=== PATIENT | female | born 1985 | race Caucasian/White ===

== ENCOUNTER 2016-12-27 22:55 | Emergency (ER) | payer OTHER, MEDICARE ==
[2016-12-28 00:32] LABS: HEMATOCRIT 41.2 % (36.0-47.0); HEMOGLOBIN 13.8 g/dL (12.0-15.5); HGB HCT DIFFERENCE 0.2; MEAN CORPUSCULAR HEMOGLOBIN 29.4 pg (27.0-33.4); MEAN CORPUSCULAR HGB CONC 33.6 g/dL (32.0-36.0); MEAN CORPUSCULAR VOLUME 88 fl (80-97); RED CELL DISTRIBUTION WIDTH 13.6 % (11.5-14.0); WHITE BLOOD COUNT 10.2 10^3/uL (4.0-10.5)
[2016-12-28 00:41] LABS: APPEARANCE,URINE CLOUDY; BILIRUBIN,URINE NEGATIVE (NEGATIVE); CALCIUM OXALATE CRYSTALS,URINE MANY /HPF; GLUCOSE, URINE NEGATIVE (NEGATIVE); KETONES,URINE TRACE mg/dL (NEGATIVE); LEUKOCYTE ESTERASE,URINE SMALL (NEGATIVE); NITRITE,URINE NEGATIVE (NEGATIVE); PROTEIN,URINE NEGATIVE (NEGATIVE); URINE SPECIFIC GRAVITY 1.026; UROBILINOGEN,URINE NEGATIVE mg/dL (<2.0)
[2016-12-28 00:42] LABS: ANION GAP 12 (5-19); BLOOD UREA NITROGEN 8 mg/dL (7-20); CARBON DIOXIDE 26 mmol/L (22-30); CHLORIDE 101 mmol/L (98-107); CREATININE RESULT 0.93 mg/dL (0.52-1.25); GLUCOSE 95 mg/dL (75-110); POTASSIUM 4.2 mmol/L (3.6-5.0); SODIUM 138.9 mmol/L (137-145)
--- NOTE | 2016-12-28 00:47 | ER Document Report ---
ED General - General Chief Complaint: Dizziness, fatigue Stated Complaint: WEAKNESS Time Seen by Provider: 12/27/16 23:29 Notes: Patient is a 31-year-old female past medical history of bipolar disorder who presents with concerns of generalized fatigue, dizziness, generalized weakness, and intermittent chest pain for the past 1 week. Nothing improves or worsens or symptoms. States she's had similar symptoms in the past that have been unclear and there are etiology. Denies any history of DVT or pulmonary embolus. She does not use estrogen. Notes that she is not chest pain for at least the past several days and denies any history of pleuritic pain. Her resting heart rate is typically in the low 100s per her report. Denies any vaginal bleeding, vaginal discharge, dysuria, cough, sputum production, sore throat, headache or neck pain. She has not had a fever. TRAVEL OUTSIDE OF THE [place] IN LAST 30 DAYS: No - Related Data Allergies/Adverse Reactions: ssri Adverse Reaction (Uncoded 07/19/16 17:45) Past Medical History - General Information source: Patient - Social History Smoking Status: Never Smoker Frequency of alcohol use: None Drug Abuse: None Lives with: Family Family History: CAD, CVA, DM, Hyperlipidemia, Hypertension, Malignancy Neurological Medical History: Denies: Hx Seizures Renal/ Medical History: Denies: Hx Peritoneal Dialysis GI Medical History: Reports: Hx Gastroesophageal Reflux Disease, Hx Irritable Bowel Musculoskeltal Medical History: Reports Hx Musculoskeletal Trauma Psychiatric Medical History: Reports: Hx Anxiety, Hx Bipolar Disorder, Hx Depression, Hx Obsessive Compulsive Disorder, Hx Post Traumatic Stress Disorder Traumatic Medical History: Reports: Hx Fractures Infectious Medical History: Reports: Hx C-Diff Past Surgical History: Reports: Hx Cholecystectomy, Hx Gynecologic Surgery - , Hx Orthopedic Surgery, Hx Tubal Ligation. Denies: Hx Hysterectomy - Immunizations Immunizations up to date: Yes Hx Diphtheria, Pertussis, Tetanus Vaccination: Yes Hx Pneumococcal Vaccination: 08/21/12 Review of Systems - Review of Systems Notes: Constitutional: Negative for fever. Positive for generalized fatigue HENT: Negative for sore throat. Eyes: Negative for visual changes. Cardiovascular: Negative for chest pain. Respiratory: Negative for shortness of breath. Gastrointestinal: Negative for abdominal pain, vomiting or diarrhea. Genitourinary: Negative for dysuria. Musculoskeletal: Negative for back pain. Skin: Negative for rash. Neurological: Negative for headaches, weakness or numbness. 10 point ROS negative except as marked above and in HPI. Physical Exam - Vital signs Vitals: Temp Pulse Resp BP Pulse Ox 97.5 F 119 H 16 113/75 97 12/27/16 23:00 12/27/16 23:00 12/27/16 23:00 12/27/16 23:00 12/27/16 23:00 Interpretation: Tachycardic Notes: PHYSICAL EXAMINATION: GENERAL: Well-appearing, well-nourished and in no acute distress. HEAD: Atraumatic, normocephalic. EYES: Pupils equal round and reactive to light, extraocular movements intact, sclera anicteric, conjunctiva are normal. ENT: nares patent, oropharynx clear without exudates. Moist mucous membranes. NECK: Normal range of motion, supple without lymphadenopathy LUNGS: Breath sounds clear to auscultation bilaterally and equal. No wheezes rales or rhonchi. HEART: Regular tachycardia without murmurs ABDOMEN: Soft, nontender, normoactive bowel sounds. No guarding, no rebound. No masses appreciated. EXTREMITIES: Normal range of motion, no pitting or edema. No cyanosis. NEUROLOGICAL: No focal neurological deficits. Moves all extremities spontaneously and on command. PSYCH: Normal mood, normal affect. SKIN: Warm, Dry, normal turgor, no rashes or lesions noted. Course - Re-evaluation Re-evalutation: 12/28/16 00:41 Patient presents with multiple vague complaints that did not appear to be concerning for any acute life-threatening pathology. Initial tachycardia which patient states is her baseline and that her heart rate typically rests between 105 and 110. Physical examination is unremarkable. Patient has tolerated oral intake without difficulty. Patient was not noted to be in distress at any point during their ER visit. At this time, based on the reassuring evaluation, I do not suspect an acute SC, pulmonary embolus, aortic dissection, acute intra- abdominal pathology, stroke, or sepsis.Will discharge with return precautions and follow-up recommendations. Verbal discharge instructions given a the bedside and opportunity for questions given. Medication warnings reviewed. Patient is in agreement with this plan and has verbalized understanding of return precautions and the need for primary care follow-up in the next 24-72 hours. - Vital Signs Vital signs: Temp Pulse Resp BP Pulse Ox 97.5 F 119 H 16 113/75 97 12/27/16 23:00 12/27/16 23:00 12/27/16 23:00 12/27/16 23:00 12/27/16 23:00 - Laboratory Result Diagrams: 12/28/16 00:15 12/28/16 00:15 - EKG Interpretation by Me Additional EKG results interpreted by me: 12/28/16 00:42 Sinus tachycardia. Rate 106. No ST elevations or depressions. QTC is 441 Discharge - Discharge Clinical Impression: Weakness Condition: Good Disposition: HOME, SELF-CARE Additional Instructions: The exact cause severe generalized fatigue is unclear at this time with does not appear to be from any acute life-threatening cause. Your labs and EKG here are normal. Please follow closely with her primary care physician.Please return to the emergency room immediately if you experience any concerning symptoms including high fevers, severe headache, chest pain, difficulty breathing, abdominal pain, slurred speech, numbness or weakness in your arms or legs, or any other symptom that concerns you.
[2016-12-28 01:03] VITALS: BP 110/75
--- NOTE | 2016-12-28 13:51 | EKG REPORT ---
SEVERITY:- OTHERWISE NORMAL ECG - SINUS TACHYCARDIA : Confirmed by: Denia Zamorano 28-Dec-2016 13:50:44
== END 2016-12-28 01:03 | disposition home or self-care (01) ==
LOC: ER 22:55
DX: R42 Dizziness and giddiness (principal); R53.83 Other fatigue; K21.9 Gastro-esophageal reflux disease without esophagitis; Z90.49 Acquired absence of other specified parts of digestive tract; Z98.51 Tubal ligation status
CPT/HCPCS: 36415; 80048; 81001; 81025; 85027; 93005; 93010; 99285

== ENCOUNTER 2017-04-17 16:08 | Emergency (ER) | payer OTHER, MEDICARE ==
--- NOTE | 2017-04-17 16:57 | ER Document Report ---
ED Medical Screen (RME) - General Chief Complaint: Abdominal Pain Stated Complaint: ABDOMINAL PAIN Time Seen by Provider: 04/17/17 16:54 Notes: Patient states that she was diagnosed with chlamydia several days ago. She states she had no symptoms but was told by her sexual partner that she should be evaluated. She states when she went for evaluation she tested positive for chlamydia. She took a one-time dose of Zithromax and had no symptoms for 2 days. She states 2 days later she developed right lower quadrant pain that is gradually increased. She has had nausea. She is also had constipation. No vaginal symptoms. No urinary symptoms. No fevers. She was seen today at the [facility] in [place] and referred here for further evaluation. She did bring some laboratory work with her from the [facility] which shows her to have an elevated white blood cell count of 11.28. Patient also states that approximately 3 years ago she had an CT scan done which showed that she may have possible crohns however she has had 3 follow-up colonoscopies that have all been normal. TRAVEL OUTSIDE OF THE [place] IN LAST 30 DAYS: No - Related Data Allergies/Adverse Reactions: ssri Adverse Reaction (Uncoded 04/17/17 16:30) Home Medications: Current Home Medications Clomipramine HCl 25 mg PO QHS 04/17/17 [History] Past Medical History - Social History Family history: Malignancy - colon cancer- dad Neurological Medical History: Denies: Hx Seizures Renal/ Medical History: Denies: Hx Peritoneal Dialysis GI Medical History: Reports: Hx Gastroesophageal Reflux Disease, Hx Irritable Bowel Musculoskeltal Medical History: Reports Hx Musculoskeletal Trauma Psychiatric Medical History: Reports: Hx Anxiety, Hx Bipolar Disorder, Hx Depression, Hx Obsessive Compulsive Disorder, Hx Post Traumatic Stress Disorder Traumatic Medical History: Reports: Hx Fractures Infectious Medical History: Reports: Hx C-Diff Past Surgical History: Reports: Hx Cholecystectomy, Hx Gynecologic Surgery - , Hx Orthopedic Surgery, Hx Tubal Ligation. Denies: Hx Hysterectomy - Immunizations Immunizations up to date: Yes Hx Diphtheria, Pertussis, Tetanus Vaccination: Yes Physical Exam - Vital signs Vitals: Temp Pulse Resp BP Pulse Ox 98.0 F 107 H 20 100/70 98 04/17/17 16:29 04/17/17 16:29 04/17/17 16:29 04/17/17 16:29 04/17/17 16:29 Course - Vital Signs Vital signs: Temp Pulse Resp BP Pulse Ox 98.0 F 107 H 20 100/70 98 04/17/17 16:29 04/17/17 16:29 04/17/17 16:29 04/17/17 16:29 04/17/17 16:29
--- NOTE | 2017-04-17 19:22 | RADIOLOGY REPORT (SQ) ---
EXAM DESCRIPTION: U/S NON OB PEL W/DOPPLER COMPLETED DATE/TIME: 04/17/2017 7:13 pm REASON FOR STUDY: progressive rlq pain COMPARISON: None. TECHNIQUE: Dynamic and static grayscale images acquired of the pelvis via transabdominal approach an d recorded on PACS. Additional selected color Doppler and spectral images recorded. LIMITATIONS: None. FINDINGS: UTERUS: Contour normal. No mass. ENDOMETRIAL STRIPE: No focal or generalized thickening. No masses. CERVIX: No nabothian cysts. RIGHT OVARY: No abnormal masses. RIGHT OVARY DOPPLER: Normal arterial vascular flow without evidence for torsion. LEFT OVARY: No abnormal masses. LEFT OVARY DOPPLER: Normal arterial vascular flow without evidence for torsion. FREE FLUID: None noted. OTHER: No other significant finding. MEASUREMENTS: UTERUS: The 7.7 cm ENDOMETRIAL STRIPE: 1 cm RIGHT OVARY: 2.8 cm LEFT OVARY: 3.1 cm IMPRESSION: NORMAL PELVIC ULTRASOUND BY TRANSABDOMINAL TECHNIQUE. TECHNICAL DOCUMENTATION: JOB ID: [id number] [employer]- All Rights Reserved
--- NOTE | 2017-04-17 20:07 | RADIOLOGY REPORT (SQ) ---
EXAM DESCRIPTION: CT ABD/PELVIS WITH IV ONLY COMPLETED DATE/TIME: 04/17/2017 7:54 pm REASON FOR STUDY: rlq pain COMPARISON: None. TECHNIQUE: CT scan of the abdomen and pelvis performed using helical scanning technique with dynamic intravenous contrast injection. No oral contrast. Images reviewed with lung, soft tissue, and bone windows. Reconstructed coronal and sagittal MPR images reviewed. Delayed images for evaluation of the urinary system also acquired. All images stored on PACS. All CT scanners at this facility use dose modulation, iterative reconstruction, and/or weight based d osing when appropriate to reduce radiation dose to as low as reasonably achievable (ALARA). [facility]: Dose Right [facility]: CareDose [facility]: Dose Right [facility]: Teradose 4D [facility]: [email or web address] CONTRAST TYPE AND DOSE: contrast/concentration: Isovue 370.00 mg/ml; Total Contrast Delivered: 100.0 ml; Total Saline Delivered: 45.0 ml RENAL FUNCTION: GFR > 60. RADIATION DOSE: Up-to-date CT equipment and radiation dose reduction techniques were employed. CTDIv ol: 17.7 - 20.2 mGy. DLP: 2060 mGy-cm.. LIMITATIONS: None. FINDINGS: LOWER CHEST: No significant findings. No nodules or infiltrates. LIVER: Normal size. No masses. No dilated ducts. SPLEEN: Normal size. No focal lesions. PANCREAS: No masses. No significant calcifications. No adjacent inflammation or peripancreatic fluid collections. Pancreatic duct not dilated. GALLBLADDER: Surgically absent. ADRENAL GLANDS: No significant masses or asymmetry. RIGHT KIDNEY AND URETER: No solid masses. No significant calcifications. No hydronephrosis or hyd roureter. LEFT KIDNEY AND URETER: No solid masses. No significant calcifications. No hydronephrosis or hydr oureter. AORTA AND VESSELS: No aneurysm. No dissection. Renal arteries, SMA, celiac without stenosis. RETROPERITONEUM: No retroperitoneal adenopathy, hemorrhage or masses. BOWEL AND PERITONEAL CAVITY: No masses or inflammatory changes. No free fluid or peritoneal masses. APPENDIX: Normal. PELVIS: No mass. No free fluid. Normal bladder. ABDOMINAL WALL: No masses. No hernias. BONES: No significant or acute findings. OTHER: No other significant finding. IMPRESSION: NO SIGNIFICANT OR ACUTE FINDING IN THE ABDOMEN OR PELVIS ON CT SCAN WITH IV CONTRAST. TECHNICAL DOCUMENTATION: JOB ID: [id number] Quality ID # [id number]: Final reports with documentation of one or more dose reduction techniques (e.g., Au tomated exposure control, adjustment of the mA and/or kV according to patient size, use of iterative reconstruction technique) 2010 [employer]- All Rights Reserved
[2017-04-17] MEDS ORDERED: CEPHALEXIN 500 MG CAPSULE PO ONE (20:17)
--- NOTE | 2017-04-17 20:17 | ER Document Report ---
ED GI/ - General Chief Complaint: Abdominal Pain Stated Complaint: ABDOMINAL PAIN Time Seen by Provider: 04/17/17 16:54 Mode of Arrival: Ambulatory Information source: Patient TRAVEL OUTSIDE OF THE [place] IN LAST 30 DAYS: No - HPI Patient complains to provider of: Abdominal pain Onset: Last week Timing/Duration: Persistent Quality of pain: Achy Severity at maximum: Moderate Severity in ED: Moderate Pain Level: 3 Location: RLQ, Pelvis Associated symptoms: Nausea Exacerbated by: Denies Relieved by: Denies Notes: 04/18/17 00:53 Patient is a 32-year-old female who presents to the emergency room from the [facility] for complaints of right lower abdomen, pelvis pain that been going on for the past week and a half and is associated with nausea, denies vomiting or diarrhea, no fevers, no vaginal discharge, she was recently treated for chlamydia on March 28, she last ate around noon time and did not experience any nausea or vomiting after this, denies any decreased in appetite, outpatient labs reveal leukocytosis - Related Data Allergies/Adverse Reactions: ssri Adverse Reaction (Uncoded 04/17/17 16:30) Home Medications: Current Home Medications Clomipramine HCl 25 mg PO QHS 04/17/17 [History] Past Medical History - General Information source: Patient - Social History Smoking Status: Never Smoker Chew tobacco use (# tins/day): No Frequency of alcohol use: None Drug Abuse: None Family History: CAD, CVA, DM, Hyperlipidemia, Hypertension, Malignancy Neurological Medical History: Denies: Hx Seizures Renal/ Medical History: Denies: Hx Peritoneal Dialysis GI Medical History: Reports: Hx Gastroesophageal Reflux Disease, Hx Irritable Bowel Musculoskeltal Medical History: Reports Hx Musculoskeletal Trauma Psychiatric Medical History: Reports: Hx Anxiety, Hx Bipolar Disorder, Hx Depression, Hx Obsessive Compulsive Disorder, Hx Post Traumatic Stress Disorder Traumatic Medical History: Reports: Hx Fractures Infectious Medical History: Reports: Hx C-Diff Past Surgical History: Reports: Hx Cholecystectomy, Hx Gynecologic Surgery - , Hx Orthopedic Surgery, Hx Tubal Ligation. Denies: Hx Hysterectomy - Immunizations Immunizations up to date: Yes Hx Diphtheria, Pertussis, Tetanus Vaccination: Yes Hx Pneumococcal Vaccination: 08/21/12 Review of Systems - Review of Systems Constitutional: No symptoms reported EENT: No symptoms reported Cardiovascular: No symptoms reported Respiratory: No symptoms reported Gastrointestinal: See HPI Genitourinary: No symptoms reported Female Genitourinary: No symptoms reported Musculoskeletal: No symptoms reported Skin: No symptoms reported Hematologic/Lymphatic: No symptoms reported Neurological/Psychological: No symptoms reported -: Yes All other systems reviewed and negative Physical Exam - Vital signs Vitals: Temp Pulse Resp BP Pulse Ox 98.0 F 107 H 20 100/70 98 04/17/17 16:29 04/17/17 16:29 04/17/17 16:29 04/17/17 16:29 04/17/17 16:29 Interpretation: Normal - General General appearance: Appears well, Alert - HEENT Head: Normocephalic, Atraumatic Eyes: Normal Pupils: PERRL - Respiratory Respiratory status: No respiratory distress Chest status: Nontender Breath sounds: Normal Chest palpation: Normal - Cardiovascular Rhythm: Regular Heart sounds: Normal auscultation Murmur: No - Abdominal Inspection: Obese Distension: No distension Bowel sounds: Normal Tenderness: Tender - Right lower quadrant/right pelvis Organomegaly: No organomegaly - Back Back: Normal, Nontender - Extremities General upper extremity: Normal inspection, Nontender, Normal color, Normal ROM , Normal temperature General lower extremity: Normal inspection, Nontender, Normal color, Normal ROM , Normal temperature, Normal weight bearing. No: Leland's sign - Neurological Neuro grossly intact: Yes Cognition: Normal Orientation: AAOx4 [place] Coma Scale Eye Opening: Spontaneous [place] Coma Scale Verbal: Oriented [place] Coma Scale Motor: Obeys Commands [place] Coma Scale Total: 15 Speech: Normal Motor strength normal: LUE, RUE, LLE, RLE Sensory: Normal - Psychological Associated symptoms: Normal affect, Normal mood - Skin Skin Temperature: Warm Skin Moisture: Dry Skin Color: Normal Course - Re-evaluation Re-evalutation: 04/18/17 00:55 Imaging findings were discussed with patient at bedside which are unremarkable, patient was informed that the outpatient labs that she provided reveal a increase in leukocyte esterase on urinalysis greater than 250, symptoms could be associated with a urinary tract infection, therefore she was started on antibiotics for this and advised to follow-up with her primary care provider or return if symptoms worsen, patient acknowledges understanding and agreement with this plan - Vital Signs Vital signs: Temp Pulse Resp BP Pulse Ox 97.4 F 67 20 129/88 H 96 04/17/17 20:32 04/17/17 20:32 04/17/17 16:29 04/17/17 20:32 04/17/17 20:32 - Diagnostic Test Radiology reviewed: Image reviewed, Reports reviewed Discharge - Discharge Clinical Impression: UTI (urinary tract infection) Qualifiers: Urinary tract infection type: site unspecified Hematuria presence: without hematuria Qualified Code(s): N39.0 - Urinary tract infection, site not specified Condition: Stable Disposition: HOME, SELF-CARE Instructions: Urinary Tract Infection ([facility]) Additional Instructions: Follow up with your primary care provider in one to 2 days. Return to the emergency room immediately if symptoms worsen or any additional concerns. Prescriptions: Cephalexin Monohydrate [Keflex 500 mg Capsule] 500 mg PO BID #20 capsule
[2017-04-17 20:34] VITALS: BP 129/88
== END 2017-04-17 20:31 | disposition home or self-care (01) ==
LOC: ER 16:08
DX: N39.0 Urinary tract infection, site not specified (principal); R10.31 Right lower quadrant pain; R10.2 Pelvic and perineal pain; R11.0 Nausea; Z87.19 Personal history of other diseases of the digestive system; Z90.49 Acquired absence of other specified parts of digestive tract; Z98.51 Tubal ligation status
CPT/HCPCS: 74177; 76856; 93976; 99284

== ENCOUNTER 2017-05-10 13:43 | Emergency (ER) | payer OTHER, MEDICARE ==
[2017-05-10] MEDS ORDERED: NORMAL SALINE 1000 ML 1,000 ML IV PRN ×2 (15:53→16:06)
--- NOTE | 2017-05-10 15:54 | ER Document Report ---
ED Medical Screen (RME) - General Chief Complaint: Weakness Stated Complaint: DIZZINESS Time Seen by Provider: 05/10/17 15:53 Notes: Patient reports that she is very lightheaded dizzy and weak. She states she was recently diagnosed with a urinary tract infection but has not been taking the antibiotics because she "forgets". TRAVEL OUTSIDE OF THE [place] IN LAST 30 DAYS: No - Related Data Allergies/Adverse Reactions: ssri Adverse Reaction (Uncoded 05/10/17 14:00) Past Medical History - Social History Family history: Malignancy - colon cancer- dad Neurological Medical History: Denies: Hx Seizures Renal/ Medical History: Denies: Hx Peritoneal Dialysis GI Medical History: Reports: Hx Gastroesophageal Reflux Disease, Hx Irritable Bowel Musculoskeltal Medical History: Reports Hx Musculoskeletal Trauma Psychiatric Medical History: Reports: Hx Anxiety, Hx Bipolar Disorder, Hx Depression, Hx Obsessive Compulsive Disorder, Hx Post Traumatic Stress Disorder Traumatic Medical History: Reports: Hx Fractures Infectious Medical History: Reports: Hx C-Diff Past Surgical History: Reports: Hx Cholecystectomy, Hx Gynecologic Surgery - , Hx Orthopedic Surgery, Hx Tubal Ligation. Denies: Hx Hysterectomy - Immunizations Immunizations up to date: Yes Hx Diphtheria, Pertussis, Tetanus Vaccination: Yes Physical Exam - Vital signs Vitals: Temp Pulse Resp BP Pulse Ox 98.7 F 123 H 14 126/83 H 97 05/10/17 13:59 05/10/17 13:59 05/10/17 13:59 05/10/17 13:59 05/10/17 13:59 Course - Vital Signs Vital signs: Temp Pulse Resp BP Pulse Ox 98.7 F 123 H 14 126/83 H 97 05/10/17 13:59 05/10/17 13:59 05/10/17 13:59 05/10/17 13:59 05/10/17 13:59
[2017-05-10 16:22] LABS: APPEARANCE,URINE SLIGHTLY-CLOUDY; BILIRUBIN,URINE NEGATIVE (NEGATIVE); GLUCOSE, URINE NEGATIVE (NEGATIVE); KETONES,URINE NEGATIVE (NEGATIVE); LEUKOCYTE ESTERASE,URINE NEGATIVE (NEGATIVE); NITRITE,URINE NEGATIVE (NEGATIVE); PROTEIN,URINE 30 mg/dL (NEGATIVE); URINE SPECIFIC GRAVITY 1.028; UROBILINOGEN,URINE NEGATIVE mg/dL (<2.0)
[2017-05-10 16:30] LABS: ABSOLUTE BASOPHILS # (AUTO) 0.1 10^3/uL (0.0-0.2); ABSOLUTE EOSINOPHILS # (AUTO) 0.3 10^3/uL (0.0-0.6); ABSOLUTE LYMPHOCYTES (AUTO) 2.5 10^3/uL (0.5-4.7); ABSOLUTE MONOCYTES (AUTO) 0.6 10^3/uL (0.1-1.4); ABSOLUTE NEUT (AUTO) 7.4 10^3/uL (1.7-8.2); BASOPHILS % (AUTO) 0.8 % (0-2); EOSINOPHILS % (AUTO) 2.8 % (0-6); HEMATOCRIT 41.9 % (36.0-47.0); HEMOGLOBIN 14.3 g/dL (12.0-15.5); LYMPHOCYTES % (AUTO) 23.1 % (13-45); MEAN CORPUSCULAR HEMOGLOBIN 30.2 pg (27.0-33.4); MEAN CORPUSCULAR HGB CONC 34.2 g/dL (32.0-36.0); MEAN CORPUSCULAR VOLUME 88 fl (80-97); MONOCYTES % (AUTO) 5.5 % (3-13); RED BLOOD COUNT 4.75 10^6/uL (3.72-5.28); RED CELL DISTRIBUTION WIDTH 13.4 % (11.5-14.0); SEGMENTED NEUTROPHILS % (AUTO) 67.8 % (42-78); WHITE BLOOD COUNT 10.9 10^3/uL (4.0-10.5)
[2017-05-10 16:48] LABS: ALANINE AMINOTRANSFERASE 49 U/L (9-52); ALBUMIN 4.6 g/dL (3.5-5.0); ALKALINE PHOSPHATASE 78 U/L (38-126); ANION GAP 14 (5-19); ASPARTATE AMINO TRANSFERASE 26 U/L (14-36); BILIRUBIN,DIRECT 0.4 mg/dL (0.0-0.4); BILIRUBIN,TOTAL 1.6 mg/dL (0.2-1.3); BLOOD UREA NITROGEN 8 mg/dL (7-20); CALCIUM 9.9 mg/dL (8.4-10.2); CARBON DIOXIDE 28 mmol/L (22-30); CHLORIDE 99 mmol/L (98-107); CREATININE RESULT 0.84 mg/dL (0.52-1.25); GLUCOSE 92 mg/dL (75-110); POTASSIUM 4.4 mmol/L (3.6-5.0); SODIUM 141.3 mmol/L (137-145)
[2017-05-10 17:59] LABS: THYROID STIMULATING HORMONE 1.29 uIU/mL (0.47-4.68)
--- NOTE | 2017-05-10 18:48 | EKG REPORT ---
SEVERITY:- BORDERLINE ECG - SINUS RHYTHM BORDERLINE T ABNORMALITIES, INFERIOR LEADS : Confirmed by: Scott Pena MD 10-May-2017 18:46:56
--- NOTE | 2017-05-10 20:31 | ER Document Report ---
ED Dizziness/Weakness - General Chief Complaint: Weakness Stated Complaint: DIZZINESS Time Seen by Provider: 05/10/17 15:53 Notes: Patient says that she has been experiencing extreme weakness over the past few days. She said that she did not sleep well Monday or Monday and thought she may have just been tired from lack of sleep. However, last night, she felt extremely tired while sitting and watching television. 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 She currently has no infection sites anywhere on her body and does not have any symptoms that suggest an infection. Denies fever. Denies any current UTI symptoms. She was treated here in this emergency department 2 or 3 weeks ago for a UTI, but says she did not take her medications as prescribed and even has some leftover and took one last night. She denies any difficulty breathing or shortness of breath. Patient has a history of a fast heartbeat. She has been worked up extensively to include wearing a 24-hour Holter monitor. Her primary care provider is at the [place] [facility]. Denies history of high thyroid function. Has not had any recent fever. PMH: Cholecystectomy, BTL, gastroparesis, bipolar disorder, OCD, anxiety TRAVEL OUTSIDE OF THE [place] IN LAST 30 DAYS: No - Related Data Allergies/Adverse Reactions: ssri Adverse Reaction (Uncoded 05/10/17 14:00) Past Medical History - Social History Smoking Status: Never Smoker Frequency of alcohol use: None Drug Abuse: None Family History: CAD, CVA, DM, Hyperlipidemia, Hypertension, Malignancy - Past Medical History Cardiac Medical History: Reports: Other - History of rapid heartbeat. Denies: Hx Atrial Fibrillation Neurological Medical History: Denies: Hx Seizures Endocrine Medical History: Denies: Hx Hyperthyroidism GI Medical History: Reports: Hx Gastroesophageal Reflux Disease, Hx Irritable Bowel Musculoskeltal Medical History: Reports Hx Musculoskeletal Trauma Psychiatric Medical History: Reports: Hx Anxiety, Hx Bipolar Disorder, Hx Depression, Hx Obsessive Compulsive Disorder, Hx Post Traumatic Stress Disorder Traumatic Medical History: Reports: Hx Fractures Infectious Medical History: Reports: Hx C-Diff Past Surgical History: Reports: Hx Cholecystectomy, Hx Gynecologic Surgery - , Hx Orthopedic Surgery, Hx Tubal Ligation. Denies: Hx Hysterectomy - Immunizations Immunizations up to date: Yes Hx Diphtheria, Pertussis, Tetanus Vaccination: Yes Hx Pneumococcal Vaccination: 08/21/12 Review of Systems - Review of Systems Notes: REVIEW OF SYSTEMS: CONSTITUTIONAL : Denies fever. Feeling very weak, see HPI. EENT: Denies eye, ear, nose or mouth or throat pain or other symptoms. CARDIOVASCULAR: Denies chest pain. RESPIRATORY: Denies cough, chest congestion, or shortness of breath. GASTROINTESTINAL: Denies abdominal pain or nausea, vomiting, or diarrhea. GENITOURINARY: Denies difficulty or painful urinating, urinary frequency, blood in urine. MUSCULOSKELETAL: Denies back or neck pain. Denies joint pain or swelling. SKIN: Denies rash or skin lesions. NEUROLOGICAL: Denies LOC or altered mental status. Denies headache. Denies sensory loss or motor deficits. Psych: Denies current anxiety or depression. ALL OTHER SYSTEMS REVIEWED AND NEGATIVE. Physical Exam - Vital signs Vitals: Temp Pulse Resp BP Pulse Ox 98.7 F 123 H 14 126/83 H 97 05/10/17 13:59 05/10/17 13:59 05/10/17 13:59 05/10/17 13:59 05/10/17 13:59 Interpretation: Tachycardic - Notes Notes: PHYSICAL EXAMINATION: GENERAL: Well-appearing, in no acute distress. Heart rate at the time of my examination is 105. Smiling and pleasant and cooperative. HEAD: Atraumatic, normocephalic. EYES: Pupils equal round and reactive to light, extraocular movements intact. ENT: oropharynx clear without exudates. Moist mucous membranes. NECK: Normal range of motion, supple. LUNGS: Breath sounds clear and equal bilaterally. HEART: Regular rate at 105 and rhythm without murmurs. ABDOMEN: Soft, nontender. No guarding or rebound. BACK: No tenderness throughout entire back. EXTREMITIES: Normal range of motion without pain. No swelling or pain or anything suggesting possible DVT. Negative Homans bilaterally. NEUROLOGICAL: Normal speech, normal gait. Normal sensory, motor, and reflex exams. Awake, alert, and oriented x3. Cranial nerves normal. PSYCH: Normal mood, normal affect. SKIN: Warm, dry, no rashes. Course - Vital Signs Vital signs: Temp Pulse Resp BP Pulse Ox 98.7 F 123 H 18 111/80 100 05/10/17 13:59 05/10/17 13:59 05/10/17 20:00 05/10/17 17:15 05/10/17 20:00 - Laboratory Result Diagrams: 05/10/17 16:10 05/10/17 16:10 Laboratory results interpreted by me: 05/10/17 05/10/17 05/10/17 14:00 16:10 16:10 WBC 10.9 H Total Bilirubin 1.6 H Urine Protein 30 H 05/10/17 20:45 Very minimal leukocytosis noted. - EKG Interpretation by [place] EKG shows normal: Sinus rhythm Rate: Normal Rhythm: NSR - At 93. Additional EKG results interpreted by me: 05/10/17 20:[address] changes. No acute changes noted. Discharge - Discharge Clinical Impression: Weakness, Leukocytosis, Viral illness Condition: Stable Disposition: HOME, SELF-CARE Additional Instructions: Weakness We did not find a definite cause for your weakness. This may require further medical tests. Weakness can be caused by infection, physical exhaustion , rapid weight loss, dehydration, or medicine side effects. Diseases of the muscles, heart, nerves, and blood vessels can make you weak. Sometimes the problem is simply depression or lack of exercise. You should get plenty of rest. Unless the doctor tells you otherwise, it's usually best to add short periods of regular mild exercise. Eat a nutritious diet with multiple small, low-sugar meals. If symptoms continue, additional medical evaluation will be necessary. Be sure to follow up as instructed. If you become very dizzy, nauseated, or feel like you're going to faint, lie down right away. Wait until the symptoms have passed before you get up again. Stand up slowly. Call the doctor or return if you develop chest pain, abdominal pain, severe headache, irregular heartbeat or very fast pulse, confusion, vision problems, fever, muscular pain, or any other new symptom. Leukocytosis Leukocytosis is an elevation or increase in the number of white blood cells. Nearly all leukocytosis is due to one type of white blood cell, the polymorphonuclear leukocyte (PMN). These conditions are more accurately referred to as neutrophilia. The most common and important cause of neutrophilia is infection, and most infections cause neutrophilia. The degree of elevation often indicates the severity of the infection. Tissue damage from other causes raises the white count for similar reasons. Beasley, infarction (cutting off the blood supply to a region of the body so that it dies), crush injuries, inflammatory diseases, poisonings, and severe diseases, like kidney failure and diabetic ketoacidosis, all cause neutrophilia. Counts almost as high occur in leukemoid (leukemia-like) reactions caused by infection and non-infectious inflammation. Drugs can also cause leukocytosis. Cortisone-like drugs prednisone, lithium , and NSAIDs are the most common offenders. Non-specific stresses also cause white blood cells to increase in the blood. Extensive testing of medical students reveals that neutrophilia accompanies every examination. Vigorous exercise and intense excitement also cause elevated white blood cell counts. NORMAL EXAM AND WORKUP: At this time, except for your minimally elevated white cell count, your examination and workup show no significant abnormality. No significant abnormal physical findings were noted. All laboratory, EKG, and imaging (x-ray , CT scans, ultrasound) studies that were ordered show no significant abnormality. Although your examination and all studies that were ordered showed no significant abnormal finding, there are no examinations and no studies that are 100% accurate. There is always the possibility that some abnormality could exist and not be detected with physical examination or within the limits and capabilities of laboratory and other studies. You should return or follow up as you were instructed on your visit today for further evaluation if your symptoms do not resolve. Your symptoms and physical findings are suggestive of a viral illness. The physician has diagnosed a possible viral infection. Viruses not only cause "colds," but can cause many different symptoms including generalized aching, fever, headache, cough, diarrhea, nausea, vomiting, and fatigue. The treatment, for the most part, is simply relief of symptoms. This means that antibiotics are usually not given. Rest, fluids, pain medications and, occasionally, medication for the specific symptoms that are most bothersome will be prescribed. Use good handwashing to avoid passing the virus to others. Shared toys should be cleaned with disinfectant. Clean the toilets, sinks, and counter surfaces in bathrooms. Launder clothing in hot water. Contact the physician if you develop any new or unusual symptoms such as severe headache, stiff neck, high fever, chest pain, productive cough, or shortness of breath. You should be rechecked if you don't see marked improvement within seven to 10 days. FOLLOW-UP CARE: If you have been referred to a physician for follow-up care, call the physician s office for an appointment as you were instructed or within the next two days. If you experience worsening or a significant change in your symptoms, notify the physician immediately or return to the Emergency Department at any time for re-evaluation. I would expect that she will feel better in the next day or 2. If not, in particular if you begin to run significant fevers, or other symptoms, return at any time for us to reassess and reevaluate your condition.
[2017-05-10 20:52] VITALS: BP 111/75
== END 2017-05-10 20:49 | disposition home or self-care (01) ==
LOC: ER 13:43
DX: D72.829 Elevated white blood cell count, unspecified (principal); B34.9 Viral infection, unspecified; R53.1 Weakness; R42 Dizziness and giddiness
CPT/HCPCS: 93005; 99285; 96360; 36415; 84439; 84443; 85025; 81025; 86308; 80053; 81001; 93010; J7030

== ENCOUNTER 2017-08-25 11:25 | Emergency (ER) | payer OTHER, MEDICARE ==
[2017-08-25] MEDS ORDERED: FLUTICASONE NASAL SPRAY 50 MCG/SPRY 120 SPRAY/16 GM NASL ONE (13:00)
--- NOTE | 2017-08-25 13:05 | ER Document Report ---
ED ENT - General Chief Complaint: Dizziness Stated Complaint: DIZZY Time Seen by Provider: 08/25/17 12:59 Mode of Arrival: Ambulatory Information source: Patient Notes: 32-year-old female presents to ED for complaint of cough congestion sore throat dizziness 2 days. She states she also is concerned that she might be . TRAVEL OUTSIDE OF THE [place] IN LAST 30 DAYS: No - HPI Patient complains to provider of: Ear problem, Nose problem, Throat problem, Other - Dizziness Onset: Other - 2 days Onset/Duration: Intermittent Severity: Mild Pain Level: 1 Location of pain: Ears, Nose, Sinus Associated symptoms: Congestion, Cough, Dizziness, Ear pain, Runny nose, Sinus pain, Sinus drainage, Sore throat Similar symptoms previously: Yes Recently seen / treated by doctor: No - Related Data Allergies/Adverse Reactions: ssri Adverse Reaction (Uncoded 08/25/17 11:27) Past Medical History - General Information source: Patient - Social History Smoking Status: Never Smoker Cigarette use (# per day): No Chew tobacco use (# tins/day): No Smoking Education Provided: No Frequency of alcohol use: None Drug Abuse: None Lives with: Family Family History: CAD, CVA, DM, Hyperlipidemia, Hypertension, Malignancy. denies : Arthritis, COPD, Thyroid Disfunction Patient has suicidal ideation: No Patient has homicidal ideation: No - Past Medical History Cardiac Medical History: Reports: None Pulmonary Medical History: Reports: None EENT Medical History: Reports: None Neurological Medical History: Reports: None Endocrine Medical History: Reports: None Renal/ Medical History: Reports: None Malignancy Medical History: Reports: None GI Medical History: Reports: Hx Gastroesophageal Reflux Disease, Hx Irritable Bowel Musculoskeltal Medical History: Reports Hx Musculoskeletal Trauma Skin Medical History: Reports None Psychiatric Medical History: Reports: Hx Anxiety, Hx Bipolar Disorder, Hx Depression, Hx Obsessive Compulsive Disorder, Hx Post Traumatic Stress Disorder Traumatic Medical History: Reports: Hx Fractures Infectious Medical History: Reports: Hx C-Diff Past Surgical History: Reports: Hx Cholecystectomy, Hx Gynecologic Surgery - , Hx Orthopedic Surgery, Hx Tubal Ligation - Immunizations Immunizations up to date: Yes Hx Diphtheria, Pertussis, Tetanus Vaccination: Yes Hx Pneumococcal Vaccination: 08/21/12 Review of Systems - Review of Systems Constitutional: No symptoms reported EENT: Ear pain, Nose pain, Nose congestion, Sinus pressure, Sinus discharge, Throat pain Cardiovascular: Dizziness Respiratory: No symptoms reported Gastrointestinal: No symptoms reported Genitourinary: No symptoms reported Female Genitourinary: No symptoms reported Musculoskeletal: No symptoms reported Skin: No symptoms reported Hematologic/Lymphatic: No symptoms reported Neurological/Psychological: No symptoms reported -: Yes All other systems reviewed and negative Physical Exam - Vital signs Vitals: Temp Pulse BP Pulse Ox 97.7 F 124 H 109/85 99 08/25/17 11:33 08/25/17 11:33 08/25/17 11:33 08/25/17 11:33 Interpretation: Normal - General General appearance: Appears well, Alert - HEENT Head: Normocephalic, Atraumatic Eyes: Normal Pupils: PERRL Ears: Normal External canal: Normal Tympanic membrane: Serous effusion Sinus: Frontal, Tenderness Nasal: Purulent discharge, Swelling Mouth/Lips: Normal Mucous membranes: Normal Pharynx: Post nasal drainage Neck: Normal - Respiratory Respiratory status: No respiratory distress Chest status: Nontender Breath sounds: Nonproductive cough. No: Decreased air movement, Productive cough, Rales, Rhonchi, Stridor, Wheezing Chest palpation: Normal - Cardiovascular Rhythm: Regular Heart sounds: Normal auscultation Murmur: No - Abdominal Inspection: Normal Distension: No distension Bowel sounds: Normal Tenderness: Nontender Organomegaly: No organomegaly - Back Back: Normal, Nontender - Extremities General upper extremity: Normal inspection, Nontender, Normal color, Normal ROM , Normal temperature General lower extremity: Normal inspection, Nontender, Normal color, Normal ROM , Normal temperature, Normal weight bearing. No: Leland's sign - Neurological Neuro grossly intact: Yes Cognition: Normal Orientation: AAOx4 [place] Coma Scale Eye Opening: Spontaneous [place] Coma Scale Verbal: Oriented [place] Coma Scale Motor: Obeys Commands [place] Coma Scale Total: 15 Speech: Normal Motor strength normal: LUE, RUE, LLE, RLE Sensory: Normal - Psychological Associated symptoms: Normal affect, Normal mood - Skin Skin Temperature: Warm Skin Moisture: Dry Skin Color: Normal Course - Vital Signs Vital signs: Temp Pulse Resp BP Pulse Ox 98.1 F 120 H 18 117/81 97 08/25/17 12:56 08/25/17 14:13 08/25/17 14:13 08/25/17 14:13 08/25/17 14:13 - Laboratory Laboratory results interpreted by me: 01/05/18 11:35 Urine Protein 30 H Ur Leukocyte Esterase TRACE H Discharge - Discharge Clinical Impression: URI (upper respiratory infection) Qualifiers: URI type: unspecified URI Qualified Code(s): J06.9 - Acute upper respiratory infection, unspecified UTI (urinary tract infection) Qualifiers: Urinary tract infection type: site unspecified Hematuria presence: without hematuria Qualified Code(s): N39.0 - Urinary tract infection, site not specified Condition: Stable Disposition: HOME, SELF-CARE Additional Instructions: UPPER RESPIRATORY ILLNESS: You have a viral infection of the respiratory passages -- a "cold." This common infection causes nasal congestion, drainage, and often sore throat and cough. It is highly contagious. The disease usually lasts about 10 to 14 days. There is no "cure" for the viral infection -- it must run its course. If there is a complication, such as bacterial infection in the nose, sinuses, middle ear, or bronchial tubes, antibiotics may be required. The antibiotics won't affect the virus. Drink plenty of fluids. A humidifier may help. An expectorant medication or decongestant may make you more comfortable. Use acetaminophen or ibuprofen for fever or aches. See the doctor if fever persists over two days, if there is any significant worsening of your symptoms, or if you simply fail to improve as expected. You have been given Flonase in the emergency room. You can use 2 sprays twice a day for your upper respiratory infection. Salt and soda solution 1 quart of water 1 tablespoon of salt 1 teaspoon of baking soda Mixed 3 ingredients together and boil for 1 minute Placed in a covered quart jar Use 1/2 ounce of cold solution to gargle 3 times a day URINARY TRACT INFECTION: Your evaluation indicates that you have a urinary tract infection. This is due to germs growing in the bladder. This is a common problem. This infection usually responds quickly to antibiotics. Your antibiotic should be taken exactly as prescribed. Drink plenty of fluids -- three to four quarts a day. Occasionally, a bladder anesthetic will be prescribed to help stop the feeling of urgency until the antibiotic has a chance to clear the infection. This may cause your urine to be dark orange. Certain urine infections require a culture. If the doctor obtained a culture, the results will be back in two days. You should call to see if a change in treatment is needed. A repeat urinalysis after you finish treatment is often recommended. The physician will let you know if further testing is required. Call the doctor if you develop fever, chills, flank pain, inability to urinate, or blood in the urine. NITROFURANTOIN (MACRODANTIN, MACROBID): You have received a prescription for nitrofurantoin (Macrodantin). This antibiotic is used for urinary tract infections. Women who are or nursing should notify the physician before taking this medicine. If you have ever had a problem caused by this medication in the past, be sure the physician is aware of it. Common side effects of this medicine include nausea, vomiting, or decreased appetite. Notify your physician if these side effects become severe. Immediately stop this medicine and call the physician if you develop cough , shortness of breath, chest pain, weakness, jaundice (yellow color of the skin and whites of the eyes), or a skin rash. FOLLOW-UP CARE: If you have been referred to a physician for follow-up care, call the physician s office for an appointment as you were instructed or within the next two days. If you experience worsening or a significant change in your symptoms, notify the physician immediately or return to the Emergency Department at any time for re-evaluation. Prescriptions: Nitrofurantoin/Nitrofuran Mac [Macrobid 100 mg Capsule] 1 tab PO BID #20 capsule Forms: Return to Work Referrals: JUANITO COLEY NP [Primary Care Provider] - Follow up as needed
[2017-08-25 13:31] LABS: AMORPHOUS SEDIMENT,URINE TRACE /HPF; APPEARANCE,URINE TURBID; BILIRUBIN,URINE NEGATIVE (NEGATIVE); COLOR,URINE DARK YELLOW; GLUCOSE, URINE NEGATIVE (NEGATIVE); KETONES,URINE NEGATIVE (NEGATIVE); LEUKOCYTE ESTERASE,URINE TRACE (NEGATIVE); NITRITE,URINE NEGATIVE (NEGATIVE); PROTEIN,URINE 30 mg/dL (NEGATIVE); URINE SPECIFIC GRAVITY 1.025; UROBILINOGEN,URINE NEGATIVE mg/dL (<2.0)
[2017-08-25] MEDS ORDERED: NITROFURANTOIN MONOHYD/M-CRYST 100 MG CAPSULE PO ONE (14:08)
[2017-08-25 14:14] VITALS: BP 117/81
== END 2017-08-25 14:18 | disposition home or self-care (01) ==
LOC: ER 11:25
DX: J06.9 Acute upper respiratory infection, unspecified (principal); N39.0 Urinary tract infection, site not specified; R42 Dizziness and giddiness; R05 Cough; R09.81 Nasal congestion; J02.9 Acute pharyngitis, unspecified; R09.89 Other specified symptoms and signs involving the circulatory and respiratory systems
CPT/HCPCS: 99284; 87086; 81025; 81001; J8499

== ENCOUNTER 2017-08-26 15:02 | Emergency (ER) | payer OTHER, MEDICARE ==
[2017-08-26] MEDS ORDERED: ONDANSETRON 4 MG TAB.RAPDIS PO ONE (16:29)
[2017-08-26] MEDS ORDERED: NORMAL SALINE 1000 ML 1,000 ML IV ONE (16:31)
--- NOTE | 2017-08-26 16:34 | ER Document Report ---
ED Medical Screen (RME) - General Chief Complaint: Nausea/Vomiting/Diarrhea Stated Complaint: DIZZINESS Time Seen by Provider: 08/26/17 16:28 Mode of Arrival: Ambulatory Information source: Patient Notes: Pt is a 32 year old female who presents to the ER today for 3 days of cough/ vomiting/diarrhea/dizziness/urinary tract infection. She was diagnosed yesterday here and given a script for abx for uti, but can't get them filled for 2 more days so she hasn't started them yet. TRAVEL OUTSIDE OF THE [place] IN LAST 30 DAYS: No - Related Data Allergies/Adverse Reactions: ssri Adverse Reaction (Uncoded 08/26/17 15:03) Past Medical History - General Information source: Patient - Social History Family history: Malignancy - colon cancer- dad - Past Medical History Cardiac Medical History: Denies: Hx Atrial Fibrillation Neurological Medical History: Denies: Hx Seizures Endocrine Medical History: Denies: Hx Hyperthyroidism Renal/ Medical History: Denies: Hx Peritoneal Dialysis GI Medical History: Reports: Hx Gastroesophageal Reflux Disease, Hx Irritable Bowel Musculoskeltal Medical History: Reports Hx Musculoskeletal Trauma Psychiatric Medical History: Reports: Hx Anxiety, Hx Bipolar Disorder, Hx Depression, Hx Obsessive Compulsive Disorder, Hx Post Traumatic Stress Disorder Traumatic Medical History: Reports: Hx Fractures Infectious Medical History: Reports: Hx C-Diff Past Surgical History: Reports: Hx Cholecystectomy, Hx Gynecologic Surgery - , Hx Orthopedic Surgery, Hx Tubal Ligation. Denies: Hx Hysterectomy - Immunizations Immunizations up to date: Yes Hx Diphtheria, Pertussis, Tetanus Vaccination: Yes Review of Systems - Review of Systems Constitutional: See HPI EENT: See HPI Respiratory: See HPI Gastrointestinal: See HPI Genitourinary: See HPI Physical Exam - Vital signs Vitals: Temp Pulse Resp BP Pulse Ox 98.7 F 117 H 18 114/80 97 08/26/17 15:25 08/26/17 15:25 08/26/17 15:25 08/26/17 15:25 08/26/17 15:25 - Notes Notes: general mildly ill appearing Course - Vital Signs Vital signs: Temp Pulse Resp BP Pulse Ox 98.7 F 117 H 18 114/80 97 08/26/17 15:25 08/26/17 15:25 08/26/17 15:25 08/26/17 15:25 08/26/17 15:25
[2017-08-26 17:13] LABS: ABSOLUTE BASOPHILS # (AUTO) 0.1 10^3/uL (0.0-0.2); ABSOLUTE EOSINOPHILS # (AUTO) 0.3 10^3/uL (0.0-0.6); ABSOLUTE LYMPHOCYTES (AUTO) 1.3 10^3/uL (0.5-4.7); ABSOLUTE MONOCYTES (AUTO) 0.8 10^3/uL (0.1-1.4); ABSOLUTE NEUT (AUTO) 4.8 10^3/uL (1.7-8.2); HEMATOCRIT 42.5 % (36.0-47.0); HEMOGLOBIN 14.2 g/dL (12.0-15.5); LYMPHOCYTES % (AUTO) 18.2 % (13-45); MEAN CORPUSCULAR HEMOGLOBIN 29.2 pg (27.0-33.4); MEAN CORPUSCULAR HGB CONC 33.4 g/dL (32.0-36.0); MEAN CORPUSCULAR VOLUME 87 fl (80-97); MONOCYTES % (AUTO) 10.5 % (3-13); PLATELET COUNT 383 10^3/uL (150-450); RED BLOOD COUNT 4.86 10^6/uL (3.72-5.28); RED CELL DISTRIBUTION WIDTH 13.4 % (11.5-14.0); SEGMENTED NEUTROPHILS % (AUTO) 66.3 % (42-78); TOTAL CELLS COUNTED % (AUTO) 100 %; WHITE BLOOD COUNT 7.3 10^3/uL (4.0-10.5)
[2017-08-26 17:25] LABS: A TYPE INFLUENZA AG POSITIVE (NEGATIVE); B INFLUENZA AG NEGATIVE (NEGATIVE)
[2017-08-26 17:26] LABS: ALANINE AMINOTRANSFERASE 54 U/L (9-52); ALBUMIN 4.9 g/dL (3.5-5.0); ALKALINE PHOSPHATASE 101 U/L (38-126); ANION GAP 14 (5-19); ASPARTATE AMINO TRANSFERASE 29 U/L (14-36); BILIRUBIN,DIRECT 0.2 mg/dL (0.0-0.4); BILIRUBIN,TOTAL 1.3 mg/dL (0.2-1.3); BLOOD UREA NITROGEN 6 mg/dL (7-20); CALCIUM 9.9 mg/dL (8.4-10.2); CARBON DIOXIDE 28 mmol/L (22-30); CHLORIDE 99 mmol/L (98-107); GLUCOSE 91 mg/dL (75-110); POTASSIUM 4.1 mmol/L (3.6-5.0); SODIUM 141.2 mmol/L (137-145); TOTAL PROTEIN 8.3 g/dL (6.3-8.2)
[2017-08-26] MEDS ORDERED: CEFTRIAXONE 1 GM/D5W RTU 1 GM/50 ML RTUPB IV ONE (17:46)
[2017-08-26 18:40] LABS: APPEARANCE,URINE CLOUDY; BILIRUBIN,URINE NEGATIVE (NEGATIVE); COLOR,URINE YELLOW; GLUCOSE, URINE NEGATIVE (NEGATIVE); KETONES,URINE 20 mg/dL (NEGATIVE); LEUKOCYTE ESTERASE,URINE TRACE (NEGATIVE); NITRITE,URINE NEGATIVE (NEGATIVE); PROTEIN,URINE 30 mg/dL (NEGATIVE); URINE SPECIFIC GRAVITY 1.027; UROBILINOGEN,URINE NEGATIVE mg/dL (<2.0)
[2017-08-26] MEDS ORDERED: NORMAL SALINE 1000 ML 1,000 ML IV PRN (18:51)
[2017-08-26] MEDS ORDERED: METOCLOPRAMIDE HCL 10 MG TABLET PO ONE (19:23)
--- NOTE | 2017-08-26 19:37 | ER Document Report ---
ED General - General Chief Complaint: Nausea/Vomiting/Diarrhea Stated Complaint: DIZZINESS Time Seen by Provider: 08/26/17 16:28 Mode of Arrival: Ambulatory Information source: Patient Notes: This is a 32-year-old female with a history of bipolar affective disorder that is states she started developing a dry cough 5 days ago with some dysuria and was diagnosed with a UTI. She states that she was given a prescription for antibiotics but was not able to fill them. She states that 24 hours after her ER evaluation, she started developing vomiting and diarrhea dizziness and weakness. She presents with persistent weakness and vomiting and diarrhea. TRAVEL OUTSIDE OF THE [place] IN LAST 30 DAYS: No - HPI Onset: Last week Onset/Duration: Gradual Quality of pain: No pain Severity: None Pain Level: Denies Associated symptoms: Diarrhea, Nausea, Vomiting, Weakness. denies: Fever Exacerbated by: Denies Relieved by: Denies Similar symptoms previously: Yes Recently seen / treated by doctor: Yes - Related Data Allergies/Adverse Reactions: ssri Adverse Reaction (Uncoded 08/26/17 15:03) Past Medical History - General Information source: Patient - Social History Smoking Status: Never Smoker Cigarette use (# per day): No Chew tobacco use (# tins/day): No Frequency of alcohol use: None Drug Abuse: None Lives with: Family Family History: CAD, CVA, DM, Hyperlipidemia, Hypertension, Malignancy. denies : Arthritis, COPD, Thyroid Disfunction Patient has suicidal ideation: No Patient has homicidal ideation: No - Past Medical History Cardiac Medical History: Denies: Hx Atrial Fibrillation Neurological Medical History: Denies: Hx Seizures Endocrine Medical History: Denies: Hx Hyperthyroidism Renal/ Medical History: Denies: Hx Peritoneal Dialysis GI Medical History: Reports: Hx Gastroesophageal Reflux Disease, Hx Irritable Bowel Musculoskeltal Medical History: Reports Hx Musculoskeletal Trauma Psychiatric Medical History: Reports: Hx Anxiety, Hx Bipolar Disorder, Hx Depression, Hx Obsessive Compulsive Disorder, Hx Post Traumatic Stress Disorder Traumatic Medical History: Reports: Hx Fractures Infectious Medical History: Reports: Hx C-Diff Past Surgical History: Reports: Hx Cholecystectomy, Hx Gynecologic Surgery - , Hx Orthopedic Surgery, Hx Tubal Ligation. Denies: Hx Hysterectomy - Immunizations Immunizations up to date: Yes Hx Diphtheria, Pertussis, Tetanus Vaccination: Yes Hx Pneumococcal Vaccination: 08/21/12 Review of Systems - Review of Systems Constitutional: denies: Chills, Fever EENT: No symptoms reported Cardiovascular: No symptoms reported Respiratory: See HPI Gastrointestinal: See HPI Genitourinary: No symptoms reported Female Genitourinary: No symptoms reported Musculoskeletal: No symptoms reported Skin: No symptoms reported Hematologic/Lymphatic: No symptoms reported Neurological/Psychological: No symptoms reported Physical Exam - Vital signs Vitals: Temp Pulse Resp BP Pulse Ox 98.7 F 117 H 18 114/80 97 08/26/17 15:25 08/26/17 15:25 08/26/17 15:25 08/26/17 15:25 08/26/17 15:25 Notes: Physical exam: GENERAL: 32-year-old female, alert and oriented 3, no acute distress. HEAD: Atraumatic, normocephalic. EYES: Pupils equal round and reactive to light, extraocular movements intact, sclera anicteric, conjunctiva are normal. ENT: TMs normal, nares patent, oropharynx clear without exudates. Moist mucous membranes. NECK: Normal range of motion, supple without obvious mass or JVD. LUNGS: Breath sounds clear to auscultation bilaterally and equal. No wheezes rales or rhonchi. HEART: Regular rate and rhythm without murmurs, rubs or gallops. ABDOMEN: Soft, normoactive bowel sounds. No tenderness to palpation. No guarding, no rebound. No masses appreciated. EXTREMITIES: Normal range of motion, no pitting or edema. No clubbing or cyanosis. NEUROLOGICAL: Cranial nerves II through XII grossly intact. Normal speech, moving all extremities. PSYCH: Normal mood, normal affect. SKIN: Warm, Dry, normal turgor, no rashes or lesions noted. Course - Re-evaluation Re-evalutation: 08/26/17 19:35 Patient treated with IV fluids. She is symptomatically better. She does have influenza tested positive. She does have a UTI and I gave her ceftriaxone in the meantime. She already has a prescription for antibiotics. - Vital Signs Vital signs: Temp Pulse Resp BP Pulse Ox 98.7 F 117 H 18 114/80 97 08/26/17 15:25 08/26/17 15:25 08/26/17 15:25 08/26/17 15:25 08/26/17 15:25 - Laboratory Result Diagrams: 08/26/17 16:50 08/26/17 16:50 Laboratory results interpreted by me: 08/26/17 08/26/17 16:50 18:15 BUN 6 L ALT 54 H Total Protein 8.3 H Urine Protein 30 H Urine Ketones 20 H Ur Leukocyte Esterase TRACE H Discharge - Discharge Clinical Impression: Influenza, UTI Condition: Stable Disposition: HOME, SELF-CARE Instructions: Influenza ([facility]) Additional Instructions: Recommendations: Your labs look good today. You do have influenza. Expect to feel bad for a few days. I recommend fluids and Tylenol and ibuprofen for any muscle aches or pains. You can take the 1 dose of Reglan for headache when you get home. Take the antibiotic sleep prescribed. You did receive 1 dose of ceftriaxone which is a 24 hour dose in the ER. Return to the emergency room for any worsening pain, not tolerating fluids or any concerns or getting worse. Referrals: JUANITO COLEY NP [Primary Care Provider] - Follow up as needed
[2017-08-26 21:19] VITALS: BP 117/68
== END 2017-08-26 21:02 | disposition home or self-care (01) ==
LOC: ER 15:02
DX: J11.1 Influenza due to unidentified influenza virus with other respiratory manifestations (principal); N39.0 Urinary tract infection, site not specified; R11.2 Nausea with vomiting, unspecified; R19.7 Diarrhea, unspecified; R42 Dizziness and giddiness; R53.1 Weakness; Z90.49 Acquired absence of other specified parts of digestive tract; Z98.51 Tubal ligation status
CPT/HCPCS: 99284; 96361; 96365; 36415; 85025; 81025; 80053; 81001; 87804; S0119; J7030; J0696

== ENCOUNTER 2017-09-09 14:15 | Emergency (ER) | payer OTHER, MEDICARE ==
[2017-09-09] MEDS ORDERED: MECLIZINE HCL 25 MG TABLET PO ONE (15:43)
--- NOTE | 2017-09-09 15:43 | ER Document Report ---
ED Medical Screen (RME) - General Chief Complaint: Dizziness Stated Complaint: LOWER BACK PAIN Time Seen by Provider: 09/09/17 15:39 Mode of Arrival: Ambulatory Information source: Patient Notes: 32-year-old female presenting with complaints of dizziness, chills, low back pain, and a cough with associated shortness of breath. Patient states that she was also diagnosed with a UTI and the flu one to 2 weeks ago and she feels like she has just not gotten over that. Patient denies fevers. TRAVEL OUTSIDE OF THE [place] IN LAST 30 DAYS: No - Related Data Allergies/Adverse Reactions: ssri Adverse Reaction (Uncoded 08/26/17 15:03) Past Medical History - General Information source: Patient - Social History Cigarette use (# per day): No Chew tobacco use (# tins/day): No Frequency of alcohol use: None Drug Abuse: None Lives with: Family Family history: Reviewed & Not Pertinent, Malignancy - colon cancer- dad GI Medical History: Reports: Hx Gastroesophageal Reflux Disease, Hx Irritable Bowel Musculoskeltal Medical History: Reports Hx Musculoskeletal Trauma Psychiatric Medical History: Reports: Hx Anxiety, Hx Bipolar Disorder, Hx Depression, Hx Obsessive Compulsive Disorder, Hx Post Traumatic Stress Disorder Traumatic Medical History: Reports: Hx Fractures Infectious Medical History: Reports: Hx C-Diff Past Surgical History: Reports: Hx Cholecystectomy, Hx Gynecologic Surgery - , Hx Orthopedic Surgery, Hx Tubal Ligation. Denies: Hx Hysterectomy - Immunizations Immunizations up to date: Yes Hx Diphtheria, Pertussis, Tetanus Vaccination: Yes Review of Systems - Review of Systems Constitutional: See HPI, Chills Cardiovascular: See HPI, Dizziness Respiratory: See HPI, Cough, Short of breath Musculoskeletal: See HPI, Back pain Physical Exam - Vital signs Vitals: Temp Pulse Resp BP Pulse Ox 97.8 F 115 H 14 118/79 96 09/09/17 14:34 09/09/17 14:34 09/09/17 14:34 09/09/17 14:34 09/09/17 14:34 - Respiratory Respiratory status: No respiratory distress Chest status: Nontender Breath sounds: Other - coarse breath sounds bilaterally - Cardiovascular Rhythm: Tachycardia Course - Vital Signs Vital signs: Temp Pulse Resp BP Pulse Ox 97.8 F 115 H 14 118/79 96 09/09/17 14:34 09/09/17 14:34 09/09/17 14:34 09/09/17 14:34 09/09/17 14:34 - Laboratory Result Diagrams: 09/09/17 16:00 09/09/17 16:00 Laboratory results interpreted by me: 09/09/17 09/09/17 09/09/17 16:00 16:00 16:00 WBC 12.3 H Glucose 115 H Ur Leukocyte Esterase TRACE H Scribe Documentation - Scribe Written by Scrmarissae:: Clayton Del Castillo, 09/09/2017 1749 acting as scribe for :: Luke
[2017-09-09 16:20] LABS: ABSOLUTE BASOPHILS # (AUTO) 0.1 10^3/uL (0.0-0.2); ABSOLUTE EOSINOPHILS # (AUTO) 0.4 10^3/uL (0.0-0.6); ABSOLUTE LYMPHOCYTES (AUTO) 3.2 10^3/uL (0.5-4.7); ABSOLUTE MONOCYTES (AUTO) 0.6 10^3/uL (0.1-1.4); BASOPHILS % (AUTO) 1.1 % (0-2); EOSINOPHILS % (AUTO) 3.6 % (0-6); HEMATOCRIT 41.9 % (36.0-47.0); HEMOGLOBIN 14.2 g/dL (12.0-15.5); LYMPHOCYTES % (AUTO) 26.1 % (13-45); MEAN CORPUSCULAR HEMOGLOBIN 29.3 pg (27.0-33.4); MEAN CORPUSCULAR VOLUME 86 fl (80-97); MONOCYTES % (AUTO) 4.5 % (3-13); PLATELET COUNT 430 10^3/uL (150-450); RED BLOOD COUNT 4.86 10^6/uL (3.72-5.28); RED CELL DISTRIBUTION WIDTH 13.4 % (11.5-14.0); SEGMENTED NEUTROPHILS % (AUTO) 64.7 % (42-78); TOTAL CELLS COUNTED % (AUTO) 100 %; WHITE BLOOD COUNT 12.3 10^3/uL (4.0-10.5)
[2017-09-09 16:37] LABS: ANION GAP 11 (5-19); BLOOD UREA NITROGEN 9 mg/dL (7-20); CALCIUM 10.2 mg/dL (8.4-10.2); CARBON DIOXIDE 26 mmol/L (22-30); CHLORIDE 101 mmol/L (98-107); GLUCOSE 115 mg/dL (75-110); POTASSIUM 4.3 mmol/L (3.6-5.0); SODIUM 137.6 mmol/L (137-145)
[2017-09-09 16:42] LABS: APPEARANCE,URINE CLOUDY; BILIRUBIN,URINE NEGATIVE (NEGATIVE); COLOR,URINE YELLOW; GLUCOSE, URINE NEGATIVE (NEGATIVE); KETONES,URINE NEGATIVE (NEGATIVE); LEUKOCYTE ESTERASE,URINE TRACE (NEGATIVE); NITRITE,URINE NEGATIVE (NEGATIVE); PROTEIN,URINE NEGATIVE (NEGATIVE); URINE SPECIFIC GRAVITY 1.026; UROBILINOGEN,URINE NEGATIVE mg/dL (<2.0)
--- NOTE | 2017-09-09 17:37 | RADIOLOGY REPORT (SQ) ---
EXAM DESCRIPTION: CHEST PA/LAT COMPLETED DATE/TIME: 09/09/2017 5:21 pm REASON FOR STUDY: Cough COMPARISON: 02/28/2014 EXAM PARAMETERS: NUMBER OF VIEWS: two views TECHNIQUE: Digital Frontal and Lateral radiographic views of the chest acquired. RADIATION DOSE: NA LIMITATIONS: none FINDINGS: LUNGS AND PLEURA: No opacities, masses or pneumothorax. No pleural effusion. MEDIASTINUM AND HILAR STRUCTURES: No masses or contour abnormalities. HEART AND VASCULAR STRUCTURES: Heart normal size. No evidence for failure. BONES: No acute findings. HARDWARE: Cholecystectomy clips. OTHER: No other significant finding. IMPRESSION: NO SIGNIFICANT RADIOGRAPHIC FINDING IN THE CHEST. TECHNICAL DOCUMENTATION: JOB ID: [id number] [employer]- All Rights Reserved
--- NOTE | 2017-09-09 19:34 | ER Document Report ---
ED General - General Chief Complaint: Dizziness Stated Complaint: LOWER BACK PAIN Time Seen by Provider: 09/09/17 15:39 Mode of Arrival: Ambulatory Notes: Patient is a 32-year-old female who presents with concerns of intermittent lightheadedness, dizziness, ongoing cough and generalized fatigue. She states that her symptoms been ongoing for at least 10 days after she was diagnosed with influenza on the sixth of this month. She notes that while her fever and GI symptoms have resolved her generalized fatigue and cough have not. Nothing seems to improve or worsen her symptoms. Denies a history of similar symptoms in the past. She has not followed up with her primary doctor regarding today's concerns. She denies any ongoing dysuria, abdominal pain, vomiting, diarrhea, headache or neck pain. No focal weakness or numbness. No shortness of breath. TRAVEL OUTSIDE OF THE [place] IN LAST 30 DAYS: No - Related Data Allergies/Adverse Reactions: ssri Adverse Reaction (Uncoded 08/26/17 15:03) Past Medical History - General Information source: Patient - Social History Smoking Status: Never Smoker Cigarette use (# per day): No Chew tobacco use (# tins/day): No Frequency of alcohol use: None Drug Abuse: None Lives with: Family Family History: CAD, CVA, DM, Hyperlipidemia, Hypertension, Malignancy. denies : Arthritis, COPD, Thyroid Disfunction Patient has suicidal ideation: No Patient has homicidal ideation: No - Past Medical History Cardiac Medical History: Denies: Hx Atrial Fibrillation Neurological Medical History: Denies: Hx Seizures Endocrine Medical History: Denies: Hx Hyperthyroidism Renal/ Medical History: Denies: Hx Peritoneal Dialysis GI Medical History: Reports: Hx Gastroesophageal Reflux Disease, Hx Irritable Bowel Musculoskeltal Medical History: Reports Hx Musculoskeletal Trauma Psychiatric Medical History: Reports: Hx Anxiety, Hx Bipolar Disorder, Hx Depression, Hx Obsessive Compulsive Disorder, Hx Post Traumatic Stress Disorder Traumatic Medical History: Reports: Hx Fractures Infectious Medical History: Reports: Hx C-Diff Past Surgical History: Reports: Hx Cholecystectomy, Hx Gynecologic Surgery - , Hx Orthopedic Surgery, Hx Tubal Ligation. Denies: Hx Hysterectomy - Immunizations Immunizations up to date: Yes Hx Diphtheria, Pertussis, Tetanus Vaccination: Yes Hx Pneumococcal Vaccination: 08/21/12 Review of Systems - Review of Systems Notes: Constitutional: Negative for fever. HENT: Negative for sore throat. Eyes: Negative for visual changes. Cardiovascular: Negative for chest pain. Respiratory: Positive for cough Gastrointestinal: Negative for abdominal pain, vomiting or diarrhea. Genitourinary: Negative for dysuria. Musculoskeletal: Negative for back pain. Skin: Negative for rash. Neurological: Negative for headaches, weakness or numbness. 10 point ROS negative except as marked above and in HPI. Physical Exam - Vital signs Vitals: Temp Pulse Resp BP Pulse Ox 97.8 F 115 H 14 118/79 96 09/09/17 14:34 09/09/17 14:34 09/09/17 14:34 09/09/17 14:34 09/09/17 14:34 Interpretation: Tachycardic Notes: PHYSICAL EXAMINATION: GENERAL: Well-appearing, well-nourished and in no acute distress. HEAD: Atraumatic, normocephalic. EYES: Pupils equal round and reactive to light, extraocular movements intact, sclera anicteric, conjunctiva are normal. ENT: nares patent, oropharynx clear without exudates. Moist mucous membranes. TMs with serous effusion bilaterally without erythema or bulging NECK: Normal range of motion, supple without lymphadenopathy LUNGS: Breath sounds clear to auscultation bilaterally and equal. No wheezes rales or rhonchi. HEART: Regular rate and rhythm without murmurs ABDOMEN: Soft, nontender, normoactive bowel sounds. No guarding, no rebound. No masses appreciated. EXTREMITIES: Normal range of motion, no pitting or edema. No cyanosis. NEUROLOGICAL: No focal neurological deficits. Moves all extremities spontaneously and on command. PSYCH: Normal mood, normal affect. SKIN: Warm, Dry, normal turgor, no rashes or lesions noted. Course - Re-evaluation Re-evalutation: 09/09/17 19:32 Patient presents with multiple vague complaints that did not appear to be concerning for any acute life-threatening pathology. Vitals are within normal limits at triage and at time of discharge. Physical examination is unremarkable. Patient has tolerated oral intake without difficulty. Patient was not noted to be in distress at any point during their ER visit. At this time, based on the reassuring evaluation, I do not suspect an acute MS, pulmonary embolus, aortic dissection, acute intra-abdominal pathology, stroke, or sepsis. Patient does have mild serous fluid behind the TMs bilaterally which may be a component of her mild dizziness that she continues to have. I also suspect that the patient has not yet fully recovered from influenza with which she was diagnosed less than 2 weeks ago. Will discharge with return precautions and follow-up recommendations. Verbal discharge instructions given a the bedside and opportunity for questions given. Medication warnings reviewed. Patient is in agreement with this plan and has verbalized understanding of return precautions and the need for primary care follow-up in the next 24-72 hours. - Vital Signs Vital signs: Temp Pulse Resp BP Pulse Ox 97.5 F 81 16 118/71 97 09/09/17 18:00 09/09/17 19:42 09/09/17 19:42 09/09/17 19:42 09/09/17 19:42 - Laboratory Result Diagrams: 09/09/17 16:00 09/09/17 16:00 Laboratory results interpreted by me: 09/09/17 09/09/17 09/09/17 16:00 16:00 16:00 WBC 12.3 H Glucose 115 H Ur Leukocyte Esterase TRACE H - Diagnostic Test Radiology reviewed: Image reviewed, Reports reviewed Radiology results interpreted by me: 09/09/17 19:33 Chest x-ray: No acute infiltrate or pneumothorax Discharge - Discharge Clinical Impression: Vertigo, Cough Fatigue Qualifiers: Fatigue type: unspecified Qualified Code(s): R53.83 - Other fatigue Condition: Good Disposition: HOME, SELF-CARE Additional Instructions: Please return to the emergency room immediately if you experience any concerning symptoms including high fevers, severe headache, chest pain, difficulty breathing, abdominal pain, slurred speech, numbness or weakness in your arms or legs, or any other symptom that concerns you. Referrals: JUANITO COLEY NP [Primary Care Provider] - Follow up as needed
[2017-09-09 19:42] VITALS: BP 118/71
== END 2017-09-09 19:42 | disposition home or self-care (01) ==
LOC: ER 14:15
DX: R42 Dizziness and giddiness (principal); R05 Cough; R53.83 Other fatigue; M54.5 Low back pain
CPT/HCPCS: 36415; 71046; 80048; 81001; 85025; 99284

== ENCOUNTER 2017-10-16 22:54 | Emergency (ER) | payer OTHER, MEDICARE ==
--- NOTE | 2017-10-17 00:50 | ER Document Report ---
ED General - General Chief Complaint: back pain, weak, numbness Stated Complaint: WEAKNESS Time Seen by Provider: 10/17/17 00:11 Notes: Patient is a 32-year-old female presents with complaint of some weakness and numbness into her arms and legs. She also complains of some right lower back pain but she said this is reproducible with palpation she also has history of kidney infections. Patient says she was seen at the end of August and diagnosed with influenza. She says since then she is had some tingling and numbness into her extremities that has worsened over the last couple days. She says that she is also just felt weak. She denies any difficulty breathing. No recurrent fevers. No vomiting. No diarrhea. No recent injuries or trauma. No other complaints at this time. TRAVEL OUTSIDE OF THE [place] IN LAST 30 DAYS: No - Related Data Allergies/Adverse Reactions: ssri Adverse Reaction (Uncoded 08/26/17 15:03) Past Medical History - Social History Smoking Status: Never Smoker Chew tobacco use (# tins/day): No Frequency of alcohol use: None Drug Abuse: None Family History: CAD, CVA, DM, Hyperlipidemia, Hypertension, Malignancy. denies : Arthritis, COPD, Thyroid Disfunction Patient has suicidal ideation: No Patient has homicidal ideation: No - Past Medical History Cardiac Medical History: Denies: Hx Atrial Fibrillation Neurological Medical History: Denies: Hx Seizures Endocrine Medical History: Denies: Hx Hyperthyroidism Renal/ Medical History: Denies: Hx Peritoneal Dialysis GI Medical History: Reports: Hx Gastroesophageal Reflux Disease, Hx Irritable Bowel Musculoskeltal Medical History: Reports Hx Musculoskeletal Trauma Psychiatric Medical History: Reports: Hx Anxiety, Hx Bipolar Disorder, Hx Depression, Hx Obsessive Compulsive Disorder, Hx Post Traumatic Stress Disorder Traumatic Medical History: Reports: Hx Fractures Infectious Medical History: Reports: Hx C-Diff Past Surgical History: Reports: Hx Cholecystectomy, Hx Gynecologic Surgery - , Hx Orthopedic Surgery, Hx Tubal Ligation. Denies: Hx Hysterectomy - Immunizations Immunizations up to date: Yes Hx Diphtheria, Pertussis, Tetanus Vaccination: Yes Hx Pneumococcal Vaccination: 08/21/12 Review of Systems - Review of Systems Notes: My Normal Review Basic REVIEW OF SYSTEMS: CONSTITUTIONAL : Influenza 3 weeks ago. EENT: Denies eye, ear, throat, or mouth pain or symptoms. Denies nasal or sinus congestion. CARDIOVASCULAR: Denies chest pain. RESPIRATORY: Denies cough, cold, or chest congestion. Denies shortness of breath, difficulty breathing, or wheezing. GASTROINTESTINAL: Denies abdominal pain. Denies nausea, vomiting, or diarrhea. Denies constipation. Last BM: GENITOURINARY: Denies difficulty urinating, painful urination, burning, frequency, or blood in urine. MUSCULOSKELETAL: Right lower back pain. SKIN: Denies rash or skin lesions. NEUROLOGICAL: Denies altered mental status or loss of consciousness. Denies headache. Denies weakness or paralysis or loss of use of either side. Denies problems with gait or speech. Some numbness into her extremities. She also feels somewhat weak in her extremities. PSYCHIATRIC: Denies anxiety or stress or depression. ALL OTHER SYSTEMS REVIEWED AND NEGATIVE. Physical Exam - Vital signs Vitals: Temp Pulse Resp BP Pulse Ox 98.0 F 105 H 16 122/59 L 98 10/16/17 23:06 10/16/17 23:06 10/16/17 23:06 10/16/17 23:06 10/16/17 23:06 - Notes Notes: General Appearance: Well nourished, alert, cooperative, no acute distress, no obvious discomfort. Vitals: reviewed, See vital signs table. Head: no swelling or tenderness to the head Eyes: PERRL, EOMI, Conjuctiva clear Mouth: No decreasd moisture Throat: No tonsillar inflammation, No airway obstruction, No lymphadenopathy Neck: Supple, no neck tenderness Lungs: No wheezing, No rales, No rhonci, No accessory muscle use, good air exchange bilaterally. Heart: Normal rate, Regular rythm, No murmur, no rub Abdomen: Normal BS, soft, No rigidity, No abdominal tenderness, No guarding, no rebound, no abdominal masses, no organomegaly Extremities: strength 5/5 in all extremities, good pulses in all extremities, Skin: warm, dry, appropriate color, no rash Neuro: speech clear, oriented x 3, normal affect, responds appropriately to questions. Distal sensation appears to be intact. Patient family touch her the distal aspect of all 4 extremities but she says it is "feels diminished". 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 Normal brachial and patellar reflexes. Normal strength with dorsi and plantar flexion against resistance. normal gait. Course - Re-evaluation Re-evalutation: 10/17/17 03:40 The exact cause of the numb type feeling patient is having in her extremities is not clear. I was considering Guillain [place] being that the patient started having symptoms after having influenza. She is approximately 3-4 weeks out since beginning of her symptoms. I think that is much less likely now being down exam patient has normal deep tendon reflexes, she has no objective muscular weakness on exam, and also her lumbar puncture shows a protein of only 19. All these things make it highly unlikely that the patient has Guillian [place] . Patient clinically otherwise looks very well. Her CVP do not show any concerning findings. Her pain in her back seems her muscle skeletal and that is easily reproducible palpation and slight focal over the right lumbar paraspinal musculature. Her urinalysis is negative. I will still refer to neurologist because of the numbness and tingling she has had into her hands and feet. Informed her that she should still have a low threshold to return to ER if she feels that she is having progressing worsening numbness, weakness into her extremities, difficulty in relating, or she feels that she is worsening in any way. Patient agrees with plan will be discharged home. I did discuss with her the possibility post lumbar puncture headache and informed her to come back to the arm if she has recurrence of headache. Dictation of this chart was performed using voice recognition software; therefore, there may be some unintended grammatical errors. 10/17/17 03:49 - Vital Signs Vital signs: Temp Pulse Resp BP Pulse Ox 97.8 F 104 H 16 108/58 L 96 10/17/17 03:19 10/17/17 03:19 10/17/17 03:19 10/17/17 03:19 10/17/17 03:19 - Laboratory Result Diagrams: 10/17/17 00:55 10/17/17 00:55 Laboratory results interpreted by me: 10/17/17 00:55 ALT 56 H Procedures - Lumbar Puncture Lumbar puncture Lumbar puncture pre-procedure: Betadine prep applied Patient position: Sitting Needle size: 22 Lumbar puncture location: L4-L5 Anesthetic type: 1% Lidocaine mL's of anesthetic: 6 Amount/type of drainage: clear Number of attempts: 2 Complications: No Notes: 10/17/17 02:54 Hit bone on first attempt so I removed needle and reattempted one level high and got on first attempt at level L4-L5. Discharge - Discharge Additional Instructions: The exact cause of your numbness into your extremities is not exactly clear. We did perform a lumbar puncture to look for signs of Guillian [place] disease. The lumbar puncture did not show any signs consistent with Guillian [place]. Despite your normal workup today it is very important that you return to the ER immediately if you develop worsening pain numbness, progressing weakness in your extremities, or if you have nay further concerns that you are worsening. please follow up with the neurologist, Dr. Stanton, for reevaluation. Forms: Return to School Referrals: JUANITO COLEY NP [Primary Care Provider] - Follow up in 3-5 days JOAN STANTON MD [ACTIVE STAFF] - 10/18/17 (Please call dr. Stanton's office in the AM to make a close follow up appointment preferably for this week. )
[2017-10-17 01:08] LABS: ABSOLUTE BASOPHILS # (AUTO) 0.1 10^3/uL (0.0-0.2); ABSOLUTE EOSINOPHILS # (AUTO) 0.6 10^3/uL (0.0-0.6); ABSOLUTE LYMPHOCYTES (AUTO) 3.6 10^3/uL (0.5-4.7); ABSOLUTE MONOCYTES (AUTO) 0.8 10^3/uL (0.1-1.4); ABSOLUTE NEUT (AUTO) 5.4 10^3/uL (1.7-8.2); BASOPHILS % (AUTO) 1.1 % (0-2); HEMATOCRIT 40.1 % (36.0-47.0); HEMOGLOBIN 13.7 g/dL (12.0-15.5); LYMPHOCYTES % (AUTO) 33.8 % (13-45); MEAN CORPUSCULAR HEMOGLOBIN 29.5 pg (27.0-33.4); MEAN CORPUSCULAR HGB CONC 34.2 g/dL (32.0-36.0); MEAN CORPUSCULAR VOLUME 86 fl (80-97); MONOCYTES % (AUTO) 7.6 % (3-13); PLATELET COUNT 350 10^3/uL (150-450); RED BLOOD COUNT 4.66 10^6/uL (3.72-5.28); RED CELL DISTRIBUTION WIDTH 13.5 % (11.5-14.0); SEGMENTED NEUTROPHILS % (AUTO) 51.5 % (42-78); TOTAL CELLS COUNTED % (AUTO) 100 %; WHITE BLOOD COUNT 10.5 10^3/uL (4.0-10.5)
[2017-10-17 01:16] LABS: ALANINE AMINOTRANSFERASE 56 U/L (9-52); ALBUMIN 4.4 g/dL (3.5-5.0); ALKALINE PHOSPHATASE 62 U/L (38-126); ANION GAP 11 (5-19); ASPARTATE AMINO TRANSFERASE 30 U/L (14-36); BILIRUBIN,DIRECT 0.3 mg/dL (0.0-0.4); BILIRUBIN,TOTAL 0.8 mg/dL (0.2-1.3); BLOOD UREA NITROGEN 9 mg/dL (7-20); CALCIUM 9.1 mg/dL (8.4-10.2); CARBON DIOXIDE 26 mmol/L (22-30); CHLORIDE 104 mmol/L (98-107); GLUCOSE 97 mg/dL (75-110); POTASSIUM 4.3 mmol/L (3.6-5.0); SODIUM 141.2 mmol/L (137-145); TOTAL PROTEIN 7.4 g/dL (6.3-8.2)
[2017-10-17 01:17] LABS: APPEARANCE,URINE SLIGHTLY-CLOUDY; BILIRUBIN,URINE NEGATIVE (NEGATIVE); COLOR,URINE YELLOW; GLUCOSE, URINE NEGATIVE (NEGATIVE); KETONES,URINE NEGATIVE (NEGATIVE); LEUKOCYTE ESTERASE,URINE NEGATIVE (NEGATIVE); NITRITE,URINE NEGATIVE (NEGATIVE); PROTEIN,URINE NEGATIVE (NEGATIVE); URINE SPECIFIC GRAVITY 1.025; UROBILINOGEN,URINE NEGATIVE mg/dL (<2.0)
[2017-10-17] MEDS ORDERED: LIDOCAINE 1% INJ-PF (10 MG/ML) 30 ML SDV INJ ONE (01:57)
[2017-10-17] MEDS ORDERED: NORMAL SALINE 1000 ML 1,000 ML IV ONE (02:58)
[2017-10-17 03:20] VITALS: BP 108/58
[2017-10-17 03:28] LABS: APPEARANCE ALL TUBES CLEAR; APPEARANCE TUBE 1 CLEAR; APPEARANCE TUBE 2 CLEAR; APPEARANCE TUBE 3 CLEAR; APPEARANCE TUBE 4 CLEAR; COLOR ALL TUBES COLORLESS; COLOR TUBE 1 COLORLESS; COLOR TUBE 2 COLORLESS; COLOR TUBE 3 COLORLESS; COLOR TUBE 4 COLORLESS; CSF TUBE NUMBER 4
[2017-10-17 03:29] LABS: CSF TOTAL VOLUME 5.1 CC; RED BLOOD CELL,CSF 3 /uL (0-10); VOLUME TUBE 1 1.6 CC; VOLUME TUBE 2 1.5 CC; VOLUME TUBE 3 0.8 CC; VOLUME TUBE 4 1.2 CC
[2017-10-17 03:30] LABS: WHITE BLOOD CELL,CSF 2 /uL (0-5)
[2017-10-17 03:33] LABS: GLUCOSE,CSF 63 mg/dL (40-70); PROTEIN,CSF 19 mg/dL (12-60)
== END 2017-10-17 03:53 | disposition home or self-care (01) ==
LOC: ER 22:54
PROC: 009U3ZX Drainage of Spinal Canal, Percutaneous Approach, Diagnostic (ICD-10-PCS; principal; 2017-10-16)
DX: M54.9 Dorsalgia, unspecified (principal); R53.1 Weakness; R20.0 Anesthesia of skin; Z98.51 Tubal ligation status
CPT/HCPCS: 99285; 96360; 36415; 85025; 89050; 82945; 84157; 81025; 80053; 81001; 62270; J3490; J7030

== ENCOUNTER 2017-11-03 17:43 | Emergency (ER) | payer OTHER, MEDICARE ==
[2017-11-03] MEDS ORDERED: NORMAL SALINE 1000 ML 1,000 ML IV ONE (18:10)
--- NOTE | 2017-11-03 18:11 | ER Document Report ---
ED Medical Screen (RME) - General Chief Complaint: Dizziness Stated Complaint: SHORTNESS OF BREATH Time Seen by Provider: 11/03/17 17:52 Notes: Patient presents with onset of shortness of breath that started this morning. She states is become worse throughout the day and is exacerbated by walking. She denies any recent fevers chills cough or congestion. She denies any chest pain at this time. She has no history of blood clots in her lungs or legs, no hemoptysis no estrogen supplementation no history of malignancies. She is found to be tachycardic and was inpatient psychiatric therapy for approximately a week (Cannot r/o PE with [facility]). I have greeted and performed a rapid initial assessment of this patient. A comprehensive ED assessment and evaluation of the patient, analysis of test results and completion of the medical decision making process will be conducted by additional ED providers. PHYSICAL EXAMINATION: GENERAL: Well-appearing, well-nourished and in no acute distress. HEAD: Atraumatic, normocephalic. EYES: Pupils equal round extraocular movements intact, conjunctiva are normal. ENT: Nares patent NECK: Normal range of motion CV: Tachcardia, no murmurs regular rhythm LUNGS: No respiratory distress Musculoskeletal: Normal range of motion NEUROLOGICAL: Normal speech, normal gait. PSYCH: Normal mood, normal affect. SKIN: Warm, Dry, normal turgor, no rashes or lesions noted. TRAVEL OUTSIDE OF THE [place] IN LAST 30 DAYS: No - Related Data Allergies/Adverse Reactions: codeine Allergy (Verified 11/03/17 17:44) morphine Allergy (Verified 11/03/17 17:44) ssri Adverse Reaction (Uncoded 11/03/17 17:44) Past Medical History - Social History Chew tobacco use (# tins/day): No Frequency of alcohol use: None Drug Abuse: None Family history: Reviewed & Not Pertinent, Malignancy - colon cancer- dad - Past Medical History Cardiac Medical History: Denies: Hx Atrial Fibrillation Neurological Medical History: Denies: Hx Seizures Endocrine Medical History: Denies: Hx Hyperthyroidism Renal/ Medical History: Denies: Hx Peritoneal Dialysis GI Medical History: Reports: Hx Gastroesophageal Reflux Disease, Hx Irritable Bowel Musculoskeltal Medical History: Reports Hx Musculoskeletal Trauma Psychiatric Medical History: Reports: Hx Anxiety, Hx Bipolar Disorder, Hx Depression, Hx Obsessive Compulsive Disorder, Hx Post Traumatic Stress Disorder Traumatic Medical History: Reports: Hx Fractures Infectious Medical History: Reports: Hx C-Diff Past Surgical History: Reports: Hx Cholecystectomy, Hx Gynecologic Surgery - , Hx Orthopedic Surgery, Hx Tubal Ligation. Denies: Hx Hysterectomy - Immunizations Immunizations up to date: Yes Hx Diphtheria, Pertussis, Tetanus Vaccination: Yes Physical Exam - Vital signs Vitals: Temp Pulse Resp BP Pulse Ox 98.2 F 114 H 16 127/80 H 97 11/03/17 17:47 11/03/17 17:47 11/03/17 17:47 11/03/17 17:47 11/03/17 17:47 Course - Vital Signs Vital signs: Temp Pulse Resp BP Pulse Ox 98.2 F 114 H 16 127/80 H 97 11/03/17 17:47 11/03/17 17:47 11/03/17 17:47 11/03/17 17:47 11/03/17 17:47
[2017-11-03 18:38] LABS: ABSOLUTE BASOPHILS # (AUTO) 0.1 10^3/uL (0.0-0.2); ABSOLUTE EOSINOPHILS # (AUTO) 0.4 10^3/uL (0.0-0.6); ABSOLUTE LYMPHOCYTES (AUTO) 2.9 10^3/uL (0.5-4.7); ABSOLUTE MONOCYTES (AUTO) 0.8 10^3/uL (0.1-1.4); ABSOLUTE NEUT (AUTO) 9.8 10^3/uL (1.7-8.2); BASOPHILS % (AUTO) 0.6 % (0-2); EOSINOPHILS % (AUTO) 2.9 % (0-6); HEMATOCRIT 42.6 % (36.0-47.0); HEMOGLOBIN 14.6 g/dL (12.0-15.5); LYMPHOCYTES % (AUTO) 20.9 % (13-45); MEAN CORPUSCULAR HEMOGLOBIN 29.3 pg (27.0-33.4); MEAN CORPUSCULAR HGB CONC 34.2 g/dL (32.0-36.0); MEAN CORPUSCULAR VOLUME 86 fl (80-97); MONOCYTES % (AUTO) 5.9 % (3-13); PLATELET COUNT 482 10^3/uL (150-450); RED BLOOD COUNT 4.98 10^6/uL (3.72-5.28); RED CELL DISTRIBUTION WIDTH 13.8 % (11.5-14.0); SEGMENTED NEUTROPHILS % (AUTO) 69.7 % (42-78); TOTAL CELLS COUNTED % (AUTO) 100 %; WHITE BLOOD COUNT 14.1 10^3/uL (4.0-10.5)
--- NOTE | 2017-11-03 18:54 | RADIOLOGY REPORT (SQ) ---
EXAM DESCRIPTION: CHEST PA/LAT COMPLETED DATE/TIME: 11/03/2017 6:43 pm REASON FOR STUDY: SOB COMPARISON: 09/09/2017 EXAM PARAMETERS: NUMBER OF VIEWS: two views TECHNIQUE: Digital Frontal and Lateral radiographic views of the chest acquired. RADIATION DOSE: NA LIMITATIONS: none FINDINGS: LUNGS AND PLEURA: No opacities, masses or pneumothorax. No pleural effusion. MEDIASTINUM AND HILAR STRUCTURES: No masses or contour abnormalities. HEART AND VASCULAR STRUCTURES: Heart normal size. No evidence for failure. BONES: No acute findings. HARDWARE: None in the chest. OTHER: No other significant finding. IMPRESSION: NO SIGNIFICANT RADIOGRAPHIC FINDING IN THE CHEST. TECHNICAL DOCUMENTATION: JOB ID: [id number] [employer]- All Rights Reserved Reading location - IP/workstation name: [email or web address]
--- NOTE | 2017-11-03 19:31 | ER Document Report ---
ED Respiratory Problem - General Chief Complaint: Dizziness Stated Complaint: SHORTNESS OF BREATH Time Seen by Provider: 11/03/17 17:52 Mode of Arrival: Ambulatory Information source: Patient Notes: Patient presents complaining of dizziness in which she states she feels off balance and shortness of breath that started today. Patient denies any recent cough or cold symptoms. Patient denies any chest pain, fever or chills. Denies any recent immobilization, leg pain or swelling. No history of PE or DVT in the past. TRAVEL OUTSIDE OF THE [place] IN LAST 30 DAYS: No - HPI Patient complains to provider of: Short of breath Onset: This morning Duration: Continuous Quality of pain: No pain Context: denies: Hx asthma, Recent immobilization, Recent surgery, Smoker Short of Breath: Mild Associated symptoms: Short of breath. denies: Anxiety, Bloody cough, Chest pain /discomfort, Cough Similar symptoms previously: No Recently seen / treated by doctor: Yes - Electroconvulsive therapy - Related Data Allergies/Adverse Reactions: codeine Allergy (Verified 11/03/17 17:44) morphine Allergy (Verified 11/03/17 17:44) ssri Adverse Reaction (Uncoded 11/03/17 17:44) Past Medical History - General Information source: Patient - Social History Smoking Status: Never Smoker Chew tobacco use (# tins/day): No Frequency of alcohol use: None Drug Abuse: None Occupation: None Family History: CAD, CVA, DM, Hyperlipidemia, Hypertension, Malignancy. denies : Arthritis, COPD, Thyroid Disfunction Patient has suicidal ideation: No Patient has homicidal ideation: No - Past Medical History Cardiac Medical History: Denies: Hx Atrial Fibrillation Neurological Medical History: Denies: Hx Seizures Endocrine Medical History: Denies: Hx Hyperthyroidism Renal/ Medical History: Denies: Hx Peritoneal Dialysis GI Medical History: Reports: Hx Gastroesophageal Reflux Disease, Hx Irritable Bowel Musculoskeltal Medical History: Reports Hx Musculoskeletal Trauma Psychiatric Medical History: Reports: Hx Anxiety, Hx Bipolar Disorder, Hx Depression, Hx Obsessive Compulsive Disorder, Hx Post Traumatic Stress Disorder Traumatic Medical History: Reports: Hx Fractures Infectious Medical History: Reports: Hx C-Diff Past Surgical History: Reports: Hx Cholecystectomy, Hx Gynecologic Surgery - , Hx Orthopedic Surgery, Hx Tubal Ligation. Denies: Hx Hysterectomy - Immunizations Immunizations up to date: Yes Hx Diphtheria, Pertussis, Tetanus Vaccination: Yes Hx Pneumococcal Vaccination: 08/21/12 Review of Systems - Review of Systems Constitutional: No symptoms reported. denies: Chills, Fever EENT: No symptoms reported Cardiovascular: Lightheaded. denies: Chest pain, Palpitations Respiratory: Short of breath. denies: Cough, Hurts to breathe Gastrointestinal: Constipation - Last bowel movement was today. denies: Abdominal pain, Nausea, Vomiting Genitourinary: No symptoms reported. denies: Dysuria Female Genitourinary: No symptoms reported Musculoskeletal: No symptoms reported. denies: Back pain, Muscle pain, Leg swelling Skin: No symptoms reported Hematologic/Lymphatic: No symptoms reported Neurological/Psychological: No symptoms reported. denies: Headaches Physical Exam - Vital signs Vitals: Temp Pulse Resp BP Pulse Ox 98.2 F 114 H 16 127/80 H 97 11/03/17 17:47 11/03/17 17:47 11/03/17 17:47 11/03/17 17:47 11/03/17 17:47 - General General appearance: Appears well, Alert In distress: None - HEENT Head: Normocephalic, Atraumatic Eyes: Normal Conjunctiva: Normal Pupils: PERRL Ears: Normal External canal: Normal Tympanic membrane: Normal. No: Serous effusion Nasal: Normal Mouth/Lips: Normal Pharynx: Normal Neck: Normal, Supple. No: Lymphadenopathy, Meningismus - Respiratory Respiratory status: No respiratory distress Chest status: Nontender Breath sounds: Normal. No: Nonproductive cough, Productive cough Chest palpation: Normal - Cardiovascular Rhythm: Tachycardia Heart sounds: S1 appreciated, S2 appreciated Murmur: No - Back Back: Normal, Nontender - Extremities General upper extremity: Normal inspection, Normal strength General lower extremity: Normal inspection, Normal strength. No: Edema - Neurological Neuro grossly intact: Yes Cognition: Normal Orientation: AAOx4 [place] Coma Scale Eye Opening: Spontaneous [place] Coma Scale Verbal: Oriented [place] Coma Scale Motor: Obeys Commands [place] Coma Scale Total: 15 - Psychological Associated symptoms: Normal affect, Normal mood - Skin Skin Temperature: Warm Skin Moisture: Dry Skin Color: Normal Course - Re-evaluation Re-evalutation: 11/03/17 19:[address] molina regarding pt presentation, recommends cta imaging pending renal function testing 11/03/17 21:40 Patient is a difficult IV stick, patient without any additional good antecubital IV access, study changed to VQ scan. Patient continues tachycardic. Patient does complain of exertional dyspnea 11/04/17 01:33 Patient's VQ scan without any evidence for PE. Review of patient's previous ER visits does demonstrate patient chronically has had elevated heart rate. Patient advised to follow-up with a erosion control coordinator for further evaluation. Patient also advised that she should let her doctor know who has been ordering her ECT treatment that she was evaluated here for dyspnea and dizziness symptoms , she has any additional convulsive treatments. - Vital Signs Vital signs: Temp Pulse Resp BP Pulse Ox 98.2 F 92 18 131/75 H 98 11/03/17 17:47 11/04/17 02:25 11/04/17 02:25 11/04/17 02:25 11/04/17 02:25 - Laboratory Result Diagrams: 11/03/17 18:25 11/03/17 20:45 Laboratory results interpreted by me: 11/03/17 11/03/17 18:25 20:45 WBC 14.1 H Plt Count 482 H Absolute Neutrophils 9.8 H Direct Bilirubin 0.5 H ALT 62 H 11/04/17 01:31 Labs- Entire Visit 11/03/17 11/03/17 11/03/17 18:25 18:25 18:25 WBC 14.1 H RBC 4.98 Hgb 14.6 Hct 42.6 MCV 86 MCH 29.3 MCHC 34.2 RDW 13.8 Plt Count 482 H Seg Neutrophils % 69.7 Lymphocytes % 20.9 Monocytes % 5.9 Eosinophils % 2.9 Basophils % 0.6 Absolute Neutrophils 9.8 H Absolute Lymphocytes 2.9 Absolute Monocytes 0.8 Absolute Eosinophils 0.4 Absolute Basophils 0.1 D-Dimer 0.41 Sodium Cancelled Potassium Cancelled Chloride Cancelled Carbon Dioxide Cancelled Anion Gap Cancelled BUN Cancelled Creatinine Cancelled Est GFR ( Amer) Cancelled Est GFR (Non-Af Amer) Cancelled Glucose Cancelled Calcium Cancelled Total Bilirubin Cancelled Direct Bilirubin Cancelled Neonat Total Bilirubin Cancelled Neonat Direct Bilirubin Cancelled Neonat Indirect Bili Cancelled AST Cancelled ALT Cancelled Alkaline Phosphatase Cancelled Total Protein Cancelled Albumin Cancelled TSH Serum HCG, Qual Urine Color Urine Appearance Urine pH Ur Specific [place] Urine Protein Urine Glucose (UA) Urine Ketones Urine Blood Urine Nitrite Urine Bilirubin Urine Urobilinogen Ur Leukocyte Esterase Urine WBC (Auto) Urine RBC (Auto) Urine Bacteria (Auto) Squamous Epi Cells Auto Urine Mucus (Auto) Urine Ascorbic Acid 11/03/17 11/03/17 11/03/17 18:25 19:34 20:45 WBC RBC Hgb Hct MCV MCH MCHC RDW Plt Count Seg Neutrophils % Lymphocytes % Monocytes % Eosinophils % Basophils % Absolute Neutrophils Absolute Lymphocytes Absolute Monocytes Absolute Eosinophils Absolute Basophils D-Dimer Sodium 139.9 Potassium 4.1 Chloride 102 Carbon Dioxide 25 Anion Gap 13 BUN 10 Creatinine 0.75 Est GFR ( Amer) > 60 Est GFR (Non-Af Amer) > 60 Glucose 85 Calcium 9.5 Total Bilirubin 0.9 Direct Bilirubin 0.5 H Neonat Total Bilirubin Not Reportable Neonat Direct Bilirubin Not Reportable Neonat Indirect Bili Not Reportable AST 26 ALT 62 H Alkaline Phosphatase 79 Total Protein 7.6 Albumin 4.4 TSH Serum HCG, Qual NEGATIVE Urine Color YELLOW Urine Appearance CLEAR Urine pH 8.0 Ur Specific [place] 1.008 Urine Protein NEGATIVE Urine Glucose (UA) NEGATIVE Urine Ketones NEGATIVE Urine Blood NEGATIVE Urine Nitrite NEGATIVE Urine Bilirubin NEGATIVE Urine Urobilinogen NEGATIVE Ur Leukocyte Esterase NEGATIVE Urine WBC (Auto) 1 Urine RBC (Auto) 1 Urine Bacteria (Auto) TRACE Squamous Epi Cells Auto 5 Urine Mucus (Auto) RARE Urine Ascorbic Acid NEGATIVE 11/03/17 20:45 WBC RBC Hgb Hct MCV MCH MCHC RDW Plt Count Seg Neutrophils % Lymphocytes % Monocytes % Eosinophils % Basophils % Absolute Neutrophils Absolute Lymphocytes Absolute Monocytes Absolute Eosinophils Absolute Basophils D-Dimer Sodium Potassium Chloride Carbon Dioxide Anion Gap BUN Creatinine Est GFR ( Amer) Est GFR (Non-Af Amer) Glucose Calcium Total Bilirubin Direct Bilirubin Neonat Total Bilirubin Neonat Direct Bilirubin Neonat Indirect Bili AST ALT Alkaline Phosphatase Total Protein Albumin TSH 3.23 Serum HCG, Qual Urine Color Urine Appearance Urine pH Ur Specific [place] Urine Protein Urine Glucose (UA) Urine Ketones Urine Blood Urine Nitrite Urine Bilirubin Urine Urobilinogen Ur Leukocyte Esterase Urine WBC (Auto) Urine RBC (Auto) Urine Bacteria (Auto) Squamous Epi Cells Auto Urine Mucus (Auto) Urine Ascorbic Acid - Diagnostic Test Radiology reviewed: Reports reviewed Discharge - Discharge Clinical Impression: Dyspnea Qualifiers: Dyspnea type: unspecified Qualified Code(s): R06.00 - Dyspnea, unspecified Condition: Stable Disposition: HOME, SELF-CARE Instructions: Dyspnea, Nonspecific ([facility]) Additional Instructions: Return immediately for any new or worsening symptoms Followup with your primary care provider, call tomorrow to make a followup appointment Follow-up with a erosion control coordinator for further evaluation, your primary doctor can make a referral for you. Let your doctor, who has been ordering the ECT testing, know that you are having shortness of breath and dizziness symptoms and were evaluated in the emergency department prior to having any additional ECT testing Referrals: JUANITO COLEY NP [Primary Care Provider] - Follow up as needed [facility] [Provider Group] - Follow up as needed
[2017-11-03 19:57] LABS: APPEARANCE,URINE CLEAR; BILIRUBIN,URINE NEGATIVE (NEGATIVE); COLOR,URINE YELLOW; GLUCOSE, URINE NEGATIVE (NEGATIVE); KETONES,URINE NEGATIVE (NEGATIVE); LEUKOCYTE ESTERASE,URINE NEGATIVE (NEGATIVE); NITRITE,URINE NEGATIVE (NEGATIVE); PROTEIN,URINE NEGATIVE (NEGATIVE); URINE SPECIFIC GRAVITY 1.008; UROBILINOGEN,URINE NEGATIVE mg/dL (<2.0)
--- NOTE | 2017-11-03 20:58 | EKG REPORT ---
SEVERITY:- BORDERLINE ECG - SINUS TACHYCARDIA INFERIOR Q WAVES, PROBABLY NORMAL VARIATION BORDERLINE T ABNORMALITIES, INFERIOR LEADS : Confirmed by: Scott Pena MD 03-Nov-2017 20:58:17
[2017-11-03 21:18] LABS: ALANINE AMINOTRANSFERASE 62 U/L (9-52); ALBUMIN 4.4 g/dL (3.5-5.0); ALKALINE PHOSPHATASE 79 U/L (38-126); ANION GAP 13 (5-19); ASPARTATE AMINO TRANSFERASE 26 U/L (14-36); BILIRUBIN,DIRECT 0.5 mg/dL (0.0-0.4); BILIRUBIN,TOTAL 0.9 mg/dL (0.2-1.3); BLOOD UREA NITROGEN 10 mg/dL (7-20); CALCIUM 9.5 mg/dL (8.4-10.2); CARBON DIOXIDE 25 mmol/L (22-30); CHLORIDE 102 mmol/L (98-107); GLUCOSE 85 mg/dL (75-110); POTASSIUM 4.1 mmol/L (3.6-5.0); SODIUM 139.9 mmol/L (137-145); TOTAL PROTEIN 7.6 g/dL (6.3-8.2)
--- NOTE | 2017-11-04 00:53 | RADIOLOGY REPORT (SQ) ---
EXAM DESCRIPTION: NM LUNG VENT/PERF SCAN CLINICAL HISTORY: 32 years, Female, dyspnea, tachycardia COMPARISON: None. RADIONUCLIDE AND DOSE: 5.3 mCi Tc99m MAA. 28.9 mCi Tc99m DTPA. LIMITATIONS: None. FINDINGS: No significant ventilation or perfusion defect. No evidence of pulmonary embolus. IMPRESSION: Normal VQ scan.
[2017-11-04 02:37] VITALS: BP 131/75
== END 2017-11-04 02:35 | disposition home or self-care (01) ==
LOC: ER 17:43
DX: R06.00 Dyspnea, unspecified (principal); R42 Dizziness and giddiness; Z90.49 Acquired absence of other specified parts of digestive tract
CPT/HCPCS: 93005; 99285; 96360; 36415; 84443; 84703; 85025; 80053; 81001; 85379; 71046; 78582; 93010; A9540; A9567; J7030; Q9969

== ENCOUNTER 2018-02-06 21:22 | Emergency (ER) | payer OTHER, MEDICARE ==
[2018-02-06 22:56] LABS: APPEARANCE,URINE SLIGHTLY-CLOUDY; BILIRUBIN,URINE NEGATIVE (NEGATIVE); COLOR,URINE YELLOW; GLUCOSE, URINE NEGATIVE (NEGATIVE); KETONES,URINE NEGATIVE (NEGATIVE); LEUKOCYTE ESTERASE,URINE SMALL (NEGATIVE); NITRITE,URINE NEGATIVE (NEGATIVE); PROTEIN,URINE NEGATIVE (NEGATIVE); URINE SPECIFIC GRAVITY 1.026; UROBILINOGEN,URINE NEGATIVE mg/dL (<2.0)
[2018-02-06] MEDS ORDERED: FLUCONAZOLE 100 MG TABLET PO ONE (23:44)
[2018-02-06] MEDS ORDERED: CEPHALEXIN 500 MG CAPSULE PO ONE (23:44)
--- NOTE | 2018-02-06 23:53 | ER Document Report ---
ED General - General Chief Complaint: Dizzy, periods of confusion, SOB, lightheaded Stated Complaint: DIZZINESS Time Seen by Provider: 02/06/18 23:34 Mode of Arrival: Ambulatory Information source: Patient Notes: 33 yr old female hx of anxiety, presents with complaints of dizziness, lightheadedness , sensation of memory loss this morning. pt notes multiple similar episodes i nthe past for whihc she has been seen related to anxiety, or dehydration. pt ntoes she had recent blood work and ua at [place] on monday, notes sodium was 135, no UTI noted and labs otherwise benign pt denies any fevers or chills. TRAVEL OUTSIDE OF THE [place] IN LAST 30 DAYS: No - HPI Onset: This morning Onset/Duration: Sudden Quality of pain: No pain Severity: Mild Pain Level: Denies Associated symptoms: Other Exacerbated by: Denies Relieved by: Denies Similar symptoms previously: No Recently seen / treated by doctor: No - Related Data Allergies/Adverse Reactions: codeine Allergy (Verified 11/03/17 17:44) morphine Allergy (Verified 11/03/17 17:44) ssri Adverse Reaction (Uncoded 11/03/17 17:44) Past Medical History - Social History Smoking Status: Never Smoker Cigarette use (# per day): No Chew tobacco use (# tins/day): No Smoking Education Provided: No Family History: CAD, CVA, DM, Hyperlipidemia, Hypertension, Malignancy. denies : Arthritis, COPD, Thyroid Disfunction - Past Medical History Cardiac Medical History: Denies: Hx Atrial Fibrillation Neurological Medical History: Denies: Hx Seizures Endocrine Medical History: Denies: Hx Hyperthyroidism Renal/ Medical History: Denies: Hx Peritoneal Dialysis GI Medical History: Reports: Hx Gastroesophageal Reflux Disease, Hx Irritable Bowel Musculoskeltal Medical History: Reports Hx Musculoskeletal Trauma Psychiatric Medical History: Reports: Hx Anxiety, Hx Bipolar Disorder, Hx Depression, Hx Obsessive Compulsive Disorder, Hx Post Traumatic Stress Disorder Traumatic Medical History: Reports: Hx Fractures Infectious Medical History: Reports: Hx C-Diff Past Surgical History: Reports: Hx Cholecystectomy, Hx Gynecologic Surgery - , Hx Orthopedic Surgery, Hx Tubal Ligation. Denies: Hx Hysterectomy - Immunizations Immunizations up to date: Yes Hx Diphtheria, Pertussis, Tetanus Vaccination: Yes Hx Pneumococcal Vaccination: 08/21/12 Review of Systems - Review of Systems Notes: REVIEW OF SYSTEMS: CONSTITUTIONAL : Denies fever, chills, or sweats. Denies recent illness. EENT: Denies eye, ear, throat, or mouth pain or symptoms. Denies nasal or sinus congestion or discharge. Denies throat, tongue, or mouth swelling or difficulty swallowing. CARDIOVASCULAR: admits to chest tightness RESPIRATORY: Denies cough, cold, or chest congestion. Denies shortness of breath, difficulty breathing, or wheezing. GASTROINTESTINAL: Denies abdominal pain or distention. Denies nausea, vomiting , or diarrhea. Denies blood in vomitus, stools, or per rectum. Denies black, tarry stools. Denies constipation. GENITOURINARY: Denies difficulty urinating, painful urination, burning, frequency, blood in urine, or discharge. FEMALE GENITOURINARY: Denies vaginal bleeding, heavy or abnormal periods, irregular periods. Denies vaginal discharge or odor. MUSCULOSKELETAL: Denies back or neck pain or stiffness. Denies joint pain or swelling. SKIN: Denies rash, lesions or sores. HEMATOLOGIC : Denies easy bruising or bleeding. LYMPHATIC: Denies swollen, enlarged glands. NEUROLOGICAL: admits to confusion, dizziness PSYCHIATRIC: admits to anxiety ALL OTHER SYSTEMS REVIEWED AND NEGATIVE. PHYSICAL EXAMINATION: GENERAL: Well-appearing, well-nourished and in no acute distress. HEAD: Atraumatic, normocephalic. EYES: Pupils equal round and reactive to light, extraocular movements intact, conjunctiva are normal. ENT: Nares patent, oropharynx clear without exudates. Moist mucous membranes. NECK: Normal range of motion, supple without lymphadenopathy LUNGS: Breath sounds clear to auscultation bilaterally and equal. No wheezes rales or rhonchi. HEART: tachyardic ABDOMEN: Soft, nontender, nondistended abdomen. No guarding, no rebound. No masses appreciated. Female : deferred Musculoskeletal: Normal range of motion, no pitting or edema. No cyanosis. NEUROLOGICAL: Cranial nerves grossly intact. Normal speech, normal gait. Normal sensory, motor exams PSYCH: Normal mood, normal affect. SKIN: Warm, Dry, normal turgor, no rashes or lesions noted. Dictation was performed using [employer] voice recognition software Physical Exam - Vital signs Vitals: Temp Pulse Resp BP Pulse Ox 98.2 F 112 H 16 122/86 H 99 02/06/18 22:08 02/06/18 22:08 02/06/18 22:08 02/06/18 22:08 02/06/18 22:08 Course - Re-evaluation Re-evalutation: 02/06/18 23:55 pt is noted to be chronically tachycardic, she has no dvt or pe risk factors, she does have a UTI today, will treat for such and treat for concerns of yeast infection post antibiotic use, otherwise her symptoms are consistent with anxiety as well pt otherwise is resting comfortably, very pleasant in no distress After performing a Medical Screening Examination, I estimate there is LOW risk for INTRACRANIAL HEMORRHAGE, ISCHEMIC CVA, MALIGNANT DYSRHYTHMIA, ACUTE CORONARY SYNDROME, MENINGITIS, PULMONARY EMBOLISM, or SEPSIS thus I consider the discharge disposition reasonable. I have reevaluated this patient multiple times and no significant life threatening changes are noted. The patient and I have discussed the diagnosis and risks, and we agree with discharging home with close follow-up with the understanding that symptoms and presentations can change. We also discussed returning to the Emergency Department immediately if new or worsening symptoms occur. We have discussed the symptoms which are most concerning (e.g., changing or worsening pain, weakness, vomiting, fever) that necessitate immediate return. - Vital Signs Vital signs: Temp Pulse Resp BP Pulse Ox 98.2 F 112 H 16 122/86 H 99 02/06/18 22:08 02/06/18 22:08 02/06/18 22:08 02/06/18 22:08 02/06/18 22:08 - Laboratory Laboratory results interpreted by me: 02/06/18 22:41 Ur Leukocyte Esterase SMALL H - EKG Interpretation by Ri EKG shows normal: Sinus rhythm, [place], Intervals, QRS Complexes Rate: Tachycardia Discharge - Discharge Clinical Impression: Dizziness UTI (urinary tract infection) Qualifiers: Urinary tract infection type: acute cystitis Hematuria presence: without hematuria Qualified Code(s): N30.00 - Acute cystitis without hematuria Condition: Stable Disposition: HOME, SELF-CARE Instructions: Urinary Tract Infection ([facility]) Prescriptions: Cephalexin Monohydrate [Keflex 500 mg Capsule] 500 mg PO BID #9 capsule Fluconazole [Diflucan] 150 mg PO ONCE PRN #1 tablet PRN Reason: Referrals: JUANITO COLEY NP [Primary Care Provider] - Follow up in 3-5 days
[2018-02-07 00:10] VITALS: BP 123/81
--- NOTE | 2018-02-07 09:39 | EKG REPORT ---
SEVERITY:- BORDERLINE ECG - SINUS TACHYCARDIA INFERIOR Q WAVES, PROBABLY NORMAL VARIATION : Confirmed by: Denia Zamorano 07-Feb-2018 09:38:56
== END 2018-02-07 00:11 | disposition home or self-care (01) ==
LOC: ER 21:22
DX: N30.00 Acute cystitis without hematuria (principal); R42 Dizziness and giddiness; R06.02 Shortness of breath; R00.0 Tachycardia, unspecified; Z88.6 Allergy status to analgesic agent; Z90.49 Acquired absence of other specified parts of digestive tract; Z98.51 Tubal ligation status
CPT/HCPCS: 81001; 81025; 93005; 93010; 99284

== ENCOUNTER 2018-03-03 15:24 | Emergency (ER) | payer OTHER, MEDICARE ==
[2018-03-03 15:33] VITALS: BP 106/77
--- NOTE | 2018-03-03 15:37 | ER Document Report ---
ED Medical Screen (RME) - General Chief Complaint: Vaginal Pain Stated Complaint: VAGINAL PAIN Time Seen by Provider: 03/03/18 15:33 Notes: RAPID MEDICAL EVALUATION DISCLOSURE I have seen this patient as part of a Rapid Medical Evaluation and, if applicable, placed any initially appropriate orders. The patient will be seen and fully evaluated, including a full history and physical exam, by a provider ( in Main ED or Fast Track) when a room becomes available. 33-year-old female here with complaints of slight vaginal pain ongoing for the past few days. She has had no other symptoms. She is afraid she may have a urinary tract infection or STD. She has a history of genital herpes and has had asymptomatic gonorrhea twice in the past. TRAVEL OUTSIDE OF THE [place] IN LAST 30 DAYS: No - Related Data Allergies/Adverse Reactions: codeine Allergy (Verified 03/03/18 15:25) morphine Allergy (Verified 03/03/18 15:25) ssri Adverse Reaction (Uncoded 03/03/18 15:25) Past Medical History - Social History Family history: Reviewed & Not Pertinent, Malignancy - colon cancer- dad - Past Medical History Cardiac Medical History: Denies: Hx Atrial Fibrillation Neurological Medical History: Denies: Hx Seizures Endocrine Medical History: Denies: Hx Hyperthyroidism Renal/ Medical History: Denies: Hx Peritoneal Dialysis GI Medical History: Reports: Hx Gastroesophageal Reflux Disease, Hx Irritable Bowel Musculoskeltal Medical History: Reports Hx Musculoskeletal Trauma Psychiatric Medical History: Reports: Hx Anxiety, Hx Bipolar Disorder, Hx Depression, Hx Obsessive Compulsive Disorder, Hx Post Traumatic Stress Disorder Traumatic Medical History: Reports: Hx Fractures Infectious Medical History: Reports: Hx C-Diff Past Surgical History: Reports: Hx Cholecystectomy, Hx Gynecologic Surgery - , Hx Orthopedic Surgery, Hx Tubal Ligation. Denies: Hx Hysterectomy - Immunizations Immunizations up to date: Yes Hx Diphtheria, Pertussis, Tetanus Vaccination: Yes Physical Exam - Vital signs Vitals: Temp Pulse Resp BP Pulse Ox 98.5 F 115 H 20 106/77 99 03/03/18 15:32 03/03/18 15:32 03/03/18 15:32 03/03/18 15:32 03/03/18 15:32 Course - Vital Signs Vital signs: Temp Pulse Resp BP Pulse Ox 98.5 F 115 H 20 106/77 99 03/03/18 15:32 03/03/18 15:32 03/03/18 15:32 03/03/18 15:32 03/03/18 15:32 Doctor's Discharge - Discharge Referrals: JUANITO COLEY NP [Primary Care Provider] - Follow up as needed
[2018-03-03 16:43] LABS: APPEARANCE,URINE SLIGHTLY-CLOUDY; BILIRUBIN,URINE NEGATIVE (NEGATIVE); COLOR,URINE YELLOW; GLUCOSE, URINE NEGATIVE (NEGATIVE); KETONES,URINE NEGATIVE (NEGATIVE); LEUKOCYTE ESTERASE,URINE TRACE (NEGATIVE); NITRITE,URINE NEGATIVE (NEGATIVE); PROTEIN,URINE NEGATIVE (NEGATIVE); URINE SPECIFIC GRAVITY 1.026; UROBILINOGEN,URINE NEGATIVE mg/dL (<2.0)
[2018-03-03] MEDS ORDERED: LIDOCAINE 4%/TETRACAINE 0.5%/EPI 0.18% 5 ML TOPICAL SOLN TOP ONE (16:51)
[2018-03-03 17:01] LABS: BACTERIA (WET MOUNT) 3+ BACTERIA SEEN; RBCS (WET MOUNT) FEW RBCS SEEN; T.VAGINALIS (WET MOUNT) NO TRICHOMONAS SEEN; WBCS (WET MOUNT) 2+ WBCS SEEN; YEAST (WET MOUNT) NO YEAST SEEN
[2018-03-03] MEDS ORDERED: LIDOCAINE 2% INJ (20 MG/ML) 20 ML MDV INJ ONE (17:43)
[2018-03-03] MEDS ORDERED: SULFAMETHOXAZOLE/TRIMETHOPRIM 800-160 MG TABLET PO ONE (18:53)
--- NOTE | 2018-03-03 19:16 | ER Document Report ---
ED GI/ - General Chief Complaint: Vaginal Pain Stated Complaint: VAGINAL PAIN Time Seen by Provider: 03/03/18 15:33 Mode of Arrival: Ambulatory Information source: Patient Notes: Patient is a 33-year-old female who presents to the ER today for right toe pain and redness 3 days with a history of MRSA. Patient also complains of vaginal pain on urination. Patient denies any abnormal vaginal discharge, hematuria, fever, chills. TRAVEL OUTSIDE OF THE [place] IN LAST 30 DAYS: No - Related Data Allergies/Adverse Reactions: codeine Allergy (Verified 03/03/18 15:38) morphine Allergy (Verified 03/03/18 15:38) ssri Adverse Reaction (Uncoded 03/03/18 15:38) Past Medical History - General Information source: Patient Last Menstrual Period: 01/29/2018 - Social History Smoking Status: Never Smoker Chew tobacco use (# tins/day): No Frequency of alcohol use: None Drug Abuse: None Family History: CAD, CVA, DM, Hyperlipidemia, Hypertension, Malignancy. denies : Arthritis, COPD, Thyroid Disfunction Patient has suicidal ideation: No Patient has homicidal ideation: No - Past Medical History Cardiac Medical History: Denies: Hx Atrial Fibrillation Neurological Medical History: Denies: Hx Seizures Endocrine Medical History: Denies: Hx Hyperthyroidism Renal/ Medical History: Denies: Hx Peritoneal Dialysis GI Medical History: Reports: Hx Gastroesophageal Reflux Disease, Hx Irritable Bowel Musculoskeletal Medical History: Reports Hx Musculoskeletal Trauma Psychiatric Medical History: Reports: Hx Anxiety, Hx Bipolar Disorder, Hx Depression, Hx Obsessive Compulsive Disorder, Hx Post Traumatic Stress Disorder Traumatic Medical History: Reports: Hx Fractures Infectious Medical History: Reports: Hx C-Diff Past Surgical History: Reports: Hx Cholecystectomy, Hx Gynecologic Surgery - , Hx Orthopedic Surgery, Hx Tubal Ligation. Denies: Hx Hysterectomy - Immunizations Immunizations up to date: Yes Hx Diphtheria, Pertussis, Tetanus Vaccination: Yes Hx Pneumococcal Vaccination: 08/21/12 Review of Systems - Review of Systems Constitutional: No symptoms reported EENT: No symptoms reported Cardiovascular: No symptoms reported Respiratory: No symptoms reported Gastrointestinal: No symptoms reported Genitourinary: No symptoms reported Female Genitourinary: See HPI Musculoskeletal: No symptoms reported Skin: See HPI Hematologic/Lymphatic: No symptoms reported Neurological/Psychological: No symptoms reported Physical Exam - Vital signs Vitals: Temp Pulse Resp BP Pulse Ox 98.5 F 115 H 20 106/77 99 03/03/18 15:32 03/03/18 15:32 03/03/18 15:32 03/03/18 15:32 03/03/18 15:32 - Notes Notes: PHYSICAL EXAMINATION: GENERAL: Well-appearing and in no acute distress. HEAD: Atraumatic, normocephalic. EYES: Pupils equal round and reactive to light, extraocular movements intact, sclera anicteric, conjunctiva are normal. NECK: Normal range of motion, supple without lymphadenopathy LUNGS: CTAB and equal. No wheezes rales or rhonchi. HEART: Regular rate and rhythm without murmurs ABDOMEN: Soft, no tenderness. No guarding, no rebound BACK: no vertebral tenderness, normal ROM Pelvic: Thick white vaginal discharge, no cervical motion tenderness, no adnexal tenderness GI/: no CVA tenderness EXTREMITIES: Normal range of motion, no pitting edema. No cyanosis. NEUROLOGICAL: Cranial nerves grossly intact. Normal sensory/motor exams. PSYCH: Normal mood, normal affect. SKIN: Warm, Dry, normal turgor, Right second digit with small amount of fluctuance to the dorsal toe proximally with approximately 3 cm of erythema extending into the dorsal right foot, tender to palpation Course - Re-evaluation Re-evalutation: 03/03/18 22:52 Bacterial vaginosis is the only finding on wet mount today, gonorrhea and chlamydia negative, no yeast seen, incision and drainage was performed on toe with very small amount of purulence, culture pending. Patient will be placed on Bactrim and Flagyl. - Vital Signs Vital signs: Temp Pulse Resp BP Pulse Ox 98.5 F 115 H 20 106/77 99 03/03/18 15:32 03/03/18 15:32 03/03/18 15:32 03/03/18 15:32 03/03/18 15:32 - Laboratory Laboratory results interpreted by me: 03/03/18 16:10 Ur Leukocyte Esterase TRACE H Procedures - Incision and Drainage Right Toe 2nd digit Time completed: 20:00 Type: Simple Anesthetic type: 1% Lidocaine mL's of anesthetic: 2 Blade size: 11 I&D procedure: Betadine prep applied Incision Method: Incision made by scalpel Amount/type of drainage: small pus, blood Discharge - Discharge Clinical Impression: Bacterial vaginitis, MRSA cellulitis Condition: Stable Disposition: HOME, SELF-CARE Instructions: MRSA Cellulitis ([facility]), Post Incision and Drainage, Trimethoprim- Sulfa ([facility]), Vaginosis, Bacterial ([facility]) Additional Instructions: Return immediately for any new or worsening symptoms. Follow up with primary care provider, call tomorrow to make followup appointment. Prescriptions: Metronidazole [Flagyl 500 mg Tablet] 500 mg PO BID #14 tablet Sulfamethoxazole/Trimethoprim [Bactrim Ds Tablet] 1 each PO BID #20 tablet Forms: Return to Work Referrals: JUANITO COLEY NP [Primary Care Provider] - Follow up as needed
[2018-03-03 20:03] LABS: CHLAM PCR NOT DETECTED (NOT DETECT); GON PCR NOT DETECTED (NOT DETECT)
== END 2018-03-03 19:57 | disposition home or self-care (01) ==
LOC: ER 15:24
DX: N76.0 Acute vaginitis (principal); B96.89 Other specified bacterial agents as the cause of diseases classified elsewhere; L03.90 Cellulitis, unspecified; B95.62 Methicillin resistant Staphylococcus aureus infection as the cause of diseases classified elsewhere; M79.674 Pain in right toe(s); Z88.5 Allergy status to narcotic agent
CPT/HCPCS: 99283; 87070; 87205; 87210; 81025; 81001; 87491; 87591; 10060; J3490 ×2

== ENCOUNTER 2018-06-01 00:25 | Emergency (ER) | payer OTHER, MEDICARE ==
[2018-06-01] MEDS ORDERED: NORMAL SALINE 1000 ML 1,000 ML IV ONE (01:42)
[2018-06-01 02:21] LABS: ABSOLUTE BASOPHILS # (AUTO) 0.1 10^3/uL (0.0-0.2); ABSOLUTE EOSINOPHILS # (AUTO) 0.6 10^3/uL (0.0-0.6); ABSOLUTE LYMPHOCYTES (AUTO) 3.6 10^3/uL (0.5-4.7); ABSOLUTE MONOCYTES (AUTO) 0.7 10^3/uL (0.1-1.4); ABSOLUTE NEUT (AUTO) 6.5 10^3/uL (1.7-8.2); BASOPHILS % (AUTO) 0.9 % (0-2); HEMATOCRIT 46.4 % (36.0-47.0); HEMOGLOBIN 15.7 g/dL (12.0-15.5); LYMPHOCYTES % (AUTO) 31.5 % (13-45); MEAN CORPUSCULAR HGB CONC 33.8 g/dL (32.0-36.0); MEAN CORPUSCULAR VOLUME 86 fl (80-97); MONOCYTES % (AUTO) 5.8 % (3-13); PLATELET COUNT 470 10^3/uL (150-450); RED BLOOD COUNT 5.41 10^6/uL (3.72-5.28); RED CELL DISTRIBUTION WIDTH 13.2 % (11.5-14.0); SEGMENTED NEUTROPHILS % (AUTO) 56.8 % (42-78); TOTAL CELLS COUNTED % (AUTO) 100 %; WHITE BLOOD COUNT 11.4 10^3/uL (4.0-10.5)
[2018-06-01 02:25] LABS: APPEARANCE,URINE CLOUDY; BILIRUBIN,URINE NEGATIVE (NEGATIVE); GLUCOSE, URINE NEGATIVE (NEGATIVE); KETONES,URINE NEGATIVE (NEGATIVE); LEUKOCYTE ESTERASE,URINE MODERATE (NEGATIVE); NITRITE,URINE NEGATIVE (NEGATIVE); PROTEIN,URINE 30 mg/dL (NEGATIVE); URINE SPECIFIC GRAVITY 1.027; UROBILINOGEN,URINE NEGATIVE mg/dL (<2.0)
[2018-06-01 02:26] LABS: COLOR,URINE YELLOW
[2018-06-01 02:33] LABS: ANION GAP 10 (5-19); BLOOD UREA NITROGEN 9 mg/dL (7-20); CALCIUM 9.9 mg/dL (8.4-10.2); CARBON DIOXIDE 30 mmol/L (22-30); CHLORIDE 101 mmol/L (98-107); GLUCOSE 98 mg/dL (75-110); POTASSIUM 4.1 mmol/L (3.6-5.0); SODIUM 140.5 mmol/L (137-145)
[2018-06-01 03:48] VITALS: BP 125/75
--- NOTE | 2018-06-01 05:32 | ER Document Report ---
ED General - General Chief Complaint: Dizziness Stated Complaint: DIZZINESS Time Seen by Provider: 06/01/18 01:40 TRAVEL OUTSIDE OF THE [place] IN LAST 30 DAYS: No - HPI Patient complains to provider of: Patient coming in for evaluation of dizziness Notes: Patient coming in for evaluation of dizziness. Patient states dizziness ongoing for a month pronounced whenever she has had movement. Patient also states concerned she does have weakness of the muscles in her neck is that she has been bedbound for most of the month. [facility] CT laboratory studies performed and was discharged home. Patient states that the physicians did not look in her ear did not talk about ENT referral neurology referral. Patient states does have a history of ECT being performed by the [place] and that she is very sensitive to medications. Denies any trauma denies any fever chills nausea by diarrhea resting healthy upon my evaluation. - Related Data Allergies/Adverse Reactions: codeine Allergy (Verified 03/03/18 15:38) morphine Allergy (Verified 03/03/18 15:38) ssri Adverse Reaction (Uncoded 03/03/18 15:38) Past Medical History - Social History Smoking Status: Never Smoker Chew tobacco use (# tins/day): No Frequency of alcohol use: Rare Drug Abuse: None Family History: CAD, CVA, DM, Hyperlipidemia, Hypertension, Malignancy. denies : Arthritis, COPD, Thyroid Disfunction Patient has suicidal ideation: No Patient has homicidal ideation: No - Past Medical History Cardiac Medical History: Denies: Hx Atrial Fibrillation Neurological Medical History: Denies: Hx Seizures Endocrine Medical History: Denies: Hx Hyperthyroidism Renal/ Medical History: Denies: Hx Peritoneal Dialysis GI Medical History: Reports: Hx Gastroesophageal Reflux Disease, Hx Irritable Bowel Musculoskeletal Medical History: Reports Hx Musculoskeletal Trauma Psychiatric Medical History: Reports: Hx Anxiety, Hx Bipolar Disorder, Hx Depression, Hx Obsessive Compulsive Disorder, Hx Post Traumatic Stress Disorder Traumatic Medical History: Reports: Hx Fractures Infectious Medical History: Reports: Hx C-Diff Past Surgical History: Reports: Hx Cholecystectomy, Hx Gynecologic Surgery - , Hx Orthopedic Surgery, Hx Tubal Ligation. Denies: Hx Hysterectomy - Immunizations Immunizations up to date: Yes Hx Diphtheria, Pertussis, Tetanus Vaccination: Yes Hx Pneumococcal Vaccination: 08/21/12 Review of Systems - Review of Systems Constitutional: Other - Dizziness EENT: No symptoms reported Cardiovascular: No symptoms reported Respiratory: No symptoms reported Gastrointestinal: No symptoms reported Genitourinary: No symptoms reported Female Genitourinary: No symptoms reported Musculoskeletal: No symptoms reported Skin: No symptoms reported Hematologic/Lymphatic: No symptoms reported Neurological/Psychological: No symptoms reported Physical Exam - Vital signs Vitals: Temp Pulse Resp BP Pulse Ox 98 F 112 H 18 126/95 H 96 06/01/18 00:37 06/01/18 00:37 06/01/18 00:37 06/01/18 00:37 06/01/18 00:37 Interpretation: Normal - General General appearance: Appears well, Alert - HEENT Head: Normocephalic, Atraumatic Eyes: Normal Pupils: PERRL - Respiratory Respiratory status: No respiratory distress Chest status: Nontender Breath sounds: Normal Chest palpation: Normal - Cardiovascular Rhythm: Regular Heart sounds: Normal auscultation Murmur: No - Abdominal Inspection: Normal Distension: No distension Bowel sounds: Normal Tenderness: Nontender Organomegaly: No organomegaly - Back Back: Normal, Nontender - Extremities General upper extremity: Normal inspection, Nontender, Normal color, Normal ROM , Normal temperature General lower extremity: Normal inspection, Nontender, Normal color, Normal ROM , Normal temperature, Normal weight bearing. No: Leland's sign - Neurological Neuro grossly intact: Yes Cognition: Normal Orientation: AAOx4 [place] Coma Scale Eye Opening: Spontaneous [place] Coma Scale Verbal: Oriented [place] Coma Scale Motor: Obeys Commands Chirag Coma Scale Total: 15 Speech: Normal Motor strength normal: LUE, RUE, LLE, RLE Sensory: Normal - Psychological Associated symptoms: Normal affect, Normal mood - Skin Skin Temperature: Warm Skin Moisture: Dry Skin Color: Normal Course - Re-evaluation Re-evalutation: 06/01/18 06:11 Patient with slightly positive orthostatics and hemoconcentration more likely suggestive of dehydration as the etiology for her dizziness. Patient also may have underlying vertigo. Because the patient states that she is sensitive to most medications recommend patient perform Faustina maneuver 3 times a day follow- up with neurology and ENT. Patient was grateful for her care. We did request laboratory studies head CT be faxed from [facility] from her visit earlier today however no results have been returned. I do believe her laboratory studies are good enough for the patient to be discharged home safely. - Vital Signs Vital signs: Temp Pulse Resp BP Pulse Ox 98 F 95 16 125/75 98 06/01/18 00:37 06/01/18 03:00 06/01/18 03:00 06/01/18 03:00 06/01/18 03:00 - Laboratory Result Diagrams: 06/01/18 01:50 06/01/18 01:50 Laboratory results interpreted by me: 06/01/18 06/01/18 01:50 01:50 WBC 11.4 H RBC 5.41 H Hgb 15.7 H Plt Count 470 H Urine Protein 30 H Ur Leukocyte Esterase MODERATE H Discharge - Discharge Clinical Impression: Dizziness Condition: Good Disposition: HOME, SELF-CARE Instructions: Dizziness ([facility]), Vertigo ([facility]) Additional Instructions: Laboratory values today show signs of possibly slight dehydration with elevation in hemoglobin. Will make sure that she stay well-hydrated drinking plenty of fluids. Her symptoms however do sound like benign positional vertigo. Would recommend to perform the Faustina maneuver 3 times a day I would highly recommend following up with your primary care physician for neurology or ENT referral. Referrals: JUANITO COLEY NP [Primary Care Provider] - Follow up as needed
--- NOTE | 2018-06-01 09:21 | EKG REPORT ---
SEVERITY:- NORMAL ECG - SINUS RHYTHM : Confirmed by: Karen Denny MD 01-Jun-2018 09:20:32
== END 2018-06-01 05:53 | disposition home or self-care (01) ==
LOC: ER 00:25
DX: R42 Dizziness and giddiness (principal); R53.1 Weakness; Z88.5 Allergy status to narcotic agent; Z82.49 Family history of ischemic heart disease and other diseases of the circulatory system; Z82.3 Family history of stroke; Z83.3 Family history of diabetes mellitus
CPT/HCPCS: 93005; 99284; 96360; 36415; 84703; 85025; 80048; 81001; 93010; J7030

== ENCOUNTER 2018-06-02 17:39 | Emergency (ER) | payer OTHER, MEDICARE ==
--- NOTE | 2018-06-02 17:52 | ER Document Report ---
ED Medical Screen (RME) - General Chief Complaint: Dizziness Stated Complaint: SHORTNESS OF BRREATH/DIZZINESS Time Seen by Provider: 06/02/18 17:50 Mode of Arrival: Ambulatory Information source: Patient TRAVEL OUTSIDE OF THE [place] IN LAST 30 DAYS: No - HPI Patient complains to provider of: weakness Onset: Other - pt with h/o weakness and dizziness seen here recently with continued symptoms. Called [facility] and told to go to ED - Related Data Allergies/Adverse Reactions: codeine Allergy (Verified 06/02/18 17:39) morphine Allergy (Verified 06/02/18 17:39) ssri Adverse Reaction (Uncoded 06/02/18 17:39) Past Medical History - Social History Family history: Reviewed & Not Pertinent, Malignancy - colon cancer- dad - Past Medical History Cardiac Medical History: Denies: Hx Atrial Fibrillation Neurological Medical History: Denies: Hx Seizures Endocrine Medical History: Denies: Hx Hyperthyroidism Renal/ Medical History: Denies: Hx Peritoneal Dialysis GI Medical History: Reports: Hx Gastroesophageal Reflux Disease, Hx Irritable Bowel Musculoskeltal Medical History: Reports Hx Musculoskeletal Trauma Psychiatric Medical History: Reports: Hx Anxiety, Hx Bipolar Disorder, Hx Depression, Hx Obsessive Compulsive Disorder, Hx Post Traumatic Stress Disorder Traumatic Medical History: Reports: Hx Fractures Infectious Medical History: Reports: Hx C-Diff Past Surgical History: Reports: Hx Cholecystectomy, Hx Gynecologic Surgery - , Hx Orthopedic Surgery, Hx Tubal Ligation. Denies: Hx Hysterectomy - Immunizations Immunizations up to date: Yes Hx Diphtheria, Pertussis, Tetanus Vaccination: Yes Physical Exam - Vital signs Vitals: Temp Pulse Resp BP Pulse Ox 98.8 F 123 H 16 112/79 99 06/02/18 17:43 06/02/18 17:43 06/02/18 17:43 06/02/18 17:43 06/02/18 17:43 Course - Vital Signs Vital signs: Temp Pulse Resp BP Pulse Ox 98.8 F 123 H 16 112/79 99 06/02/18 17:43 06/02/18 17:43 06/02/18 17:43 06/02/18 17:43 06/02/18 17:43 Doctor's Discharge - Discharge Referrals: JUANITO COLEY NP [Primary Care Provider] - Follow up as needed
[2018-06-02 18:44] LABS: ABSOLUTE BASOPHILS # (AUTO) 0.1 10^3/uL (0.0-0.2); ABSOLUTE EOSINOPHILS # (AUTO) 0.5 10^3/uL (0.0-0.6); ABSOLUTE MONOCYTES (AUTO) 0.7 10^3/uL (0.1-1.4); BASOPHILS % (AUTO) 1.1 % (0-2); EOSINOPHILS % (AUTO) 4.8 % (0-6); HEMATOCRIT 44.7 % (36.0-47.0); HEMOGLOBIN 15.3 g/dL (12.0-15.5); LYMPHOCYTES % (AUTO) 26.6 % (13-45); MEAN CORPUSCULAR HEMOGLOBIN 29.3 pg (27.0-33.4); MEAN CORPUSCULAR HGB CONC 34.1 g/dL (32.0-36.0); MEAN CORPUSCULAR VOLUME 86 fl (80-97); MONOCYTES % (AUTO) 6.4 % (3-13); RED CELL DISTRIBUTION WIDTH 13.1 % (11.5-14.0); SEGMENTED NEUTROPHILS % (AUTO) 61.1 % (42-78); TOTAL CELLS COUNTED % (AUTO) 100 %; WHITE BLOOD COUNT 11.4 10^3/uL (4.0-10.5)
[2018-06-02 18:45] LABS: APPEARANCE,URINE CLOUDY; BILIRUBIN,URINE NEGATIVE (NEGATIVE); COLOR,URINE AMBER; GLUCOSE, URINE NEGATIVE (NEGATIVE); KETONES,URINE NEGATIVE (NEGATIVE); LEUKOCYTE ESTERASE,URINE MODERATE (NEGATIVE); NITRITE,URINE NEGATIVE (NEGATIVE); PROTEIN,URINE 30 mg/dL (NEGATIVE); URINE SPECIFIC GRAVITY 1.029
[2018-06-02 18:59] LABS: PLATELET COUNT 408 10^3/uL (150-450)
--- NOTE | 2018-06-02 19:01 | RADIOLOGY REPORT (SQ) ---
EXAM DESCRIPTION: CHEST 2 VIEWS COMPLETED DATE/TIME: 06/02/2018 6:17 pm REASON FOR STUDY: weakness COMPARISON: 11/03/2017 TECHNIQUE: Frontal and lateral radiographic views of the chest acquired. NUMBER OF VIEWS: Two view. LIMITATIONS: None. FINDINGS: LUNGS AND PLEURA: No pneumothorax. No consolidation or pleural effusion. MEDIASTINUM AND HILAR STRUCTURES: Stable. HEART AND VASCULAR STRUCTURES: Stable. BONES: No acute findings. HARDWARE: None in the chest. OTHER: No other significant finding. IMPRESSION: NO ACUTE FINDINGS. TECHNICAL DOCUMENTATION: JOB ID: [id number] [id number] 2010 [employer]- All Rights Reserved Reading location - IP/workstation name: [email or web address]
[2018-06-02 19:06] LABS: ALANINE AMINOTRANSFERASE 48 U/L (9-52); ALBUMIN 4.7 g/dL (3.5-5.0); ALKALINE PHOSPHATASE 74 U/L (38-126); ANION GAP 10 (5-19); ASPARTATE AMINO TRANSFERASE 35 U/L (14-36); BILIRUBIN,DIRECT 0.4 mg/dL (0.0-0.4); BILIRUBIN,TOTAL 1.7 mg/dL (0.2-1.3); BLOOD UREA NITROGEN 8 mg/dL (7-20); CALCIUM 10.3 mg/dL (8.4-10.2); CARBON DIOXIDE 29 mmol/L (22-30); CHLORIDE 102 mmol/L (98-107); GLUCOSE 88 mg/dL (75-110); POTASSIUM 4.5 mmol/L (3.6-5.0); SODIUM 141.3 mmol/L (137-145); TOTAL PROTEIN 8.6 g/dL (6.3-8.2)
--- NOTE | 2018-06-02 20:05 | ER Document Report ---
ED General - General Chief Complaint: Dizziness Stated Complaint: SHORTNESS OF BRREATH/DIZZINESS Time Seen by Provider: 06/02/18 17:50 Mode of Arrival: Ambulatory Notes: Patient is a 33-year old female with a past medical history of depression, anxiety, multiple somatic symptoms, frequent dizziness, who presents with multiple complaints. Patient mainly complains about having lightheadedness and intermittent dizziness that is been ongoing for at least 4-5 years but has been worse of the last several weeks. She has seen multiple emergency department regarding this issue without clear resolution. She also went and saw an ENT physician who told her that she does not have vertigo has no issues in terms of her vestibular symptoms. They have advised that she follow-up with physical therapy for muscle deconditioning which may be causing her symptoms. The patient denies anything is new or different regarding her symptoms today similar that she has not had resolution. Nothing seemed to trigger her symptoms and nothing improves them. She does note that when she was on her antidepressants and receiving ECT she did not have the symptoms. She denies any chest pain, focal weakness, numbness, fever or constitutional symptoms. TRAVEL OUTSIDE OF THE [place] IN LAST 30 DAYS: No - Related Data Allergies/Adverse Reactions: codeine Allergy (Verified 06/02/18 17:39) morphine Allergy (Verified 06/02/18 17:39) ssri Adverse Reaction (Uncoded 06/02/18 17:39) Past Medical History - General Information source: Patient - Social History Smoking Status: Never Smoker Chew tobacco use (# tins/day): No Frequency of alcohol use: None Drug Abuse: None Lives with: Alone Family History: CAD, CVA, DM, Hyperlipidemia, Hypertension, Malignancy. denies : Arthritis, COPD, Thyroid Disfunction Patient has suicidal ideation: No Patient has homicidal ideation: No - Past Medical History Cardiac Medical History: Denies: Hx Atrial Fibrillation Neurological Medical History: Denies: Hx Seizures Endocrine Medical History: Denies: Hx Hyperthyroidism Renal/ Medical History: Denies: Hx Peritoneal Dialysis GI Medical History: Reports: Hx Gastroesophageal Reflux Disease, Hx Irritable Bowel Musculoskeletal Medical History: Reports Hx Musculoskeletal Trauma Psychiatric Medical History: Reports: Hx Anxiety, Hx Bipolar Disorder, Hx Depression, Hx Obsessive Compulsive Disorder, Hx Post Traumatic Stress Disorder Traumatic Medical History: Reports: Hx Fractures Infectious Medical History: Reports: Hx C-Diff Past Surgical History: Reports: Hx Cholecystectomy, Hx Gynecologic Surgery - , Hx Orthopedic Surgery, Hx Tubal Ligation. Denies: Hx Hysterectomy - Immunizations Immunizations up to date: Yes Hx Diphtheria, Pertussis, Tetanus Vaccination: Yes Hx Pneumococcal Vaccination: 08/21/12 Review of Systems - Review of Systems Notes: Constitutional: Negative for fever. Positive for lightheadedness and fatigue HENT: Negative for sore throat. Eyes: Negative for visual changes. Cardiovascular: Negative for chest pain. Respiratory: Negative for shortness of breath. Gastrointestinal: Negative for abdominal pain, vomiting or diarrhea. Genitourinary: Negative for dysuria. Musculoskeletal: Negative for back pain. Skin: Negative for rash. Neurological: Negative for headaches, weakness or numbness. 10 point ROS negative except as marked above and in HPI. Physical Exam - Vital signs Vitals: Temp Pulse Resp BP Pulse Ox 98.8 F 123 H 16 112/79 99 06/02/18 17:43 06/02/18 17:43 06/02/18 17:43 06/02/18 17:43 06/02/18 17:43 Notes: PHYSICAL EXAMINATION: GENERAL: Well-appearing, well-nourished and in no acute distress. HEAD: Atraumatic, normocephalic. EYES: Pupils equal round and reactive to light, extraocular movements intact, sclera anicteric, conjunctiva are normal. ENT: nares patent, oropharynx clear without exudates. Moist mucous membranes. NECK: Normal range of motion, supple without lymphadenopathy LUNGS: Breath sounds clear to auscultation bilaterally and equal. No wheezes rales or rhonchi. HEART: Regular rate and rhythm without murmurs ABDOMEN: Soft, nontender, normoactive bowel sounds. No guarding, no rebound. No masses appreciated. EXTREMITIES: Normal range of motion, no pitting or edema. No cyanosis. NEUROLOGICAL: Face symmetric. Tongue protrudes midline. Extraocular motions intact. Pupils are 2 mm and equally reactive. Normal speech, normal gait. 5 out of 5 strength in both the distal and proximal upper and lower extremities bilaterally. Sensation is grossly intact throughout. Finger to nose testing normal. Pronator drift normal. PSYCH: Normal mood, normal affect. SKIN: Warm, Dry, normal turgor, no rashes or lesions noted. Course - Re-evaluation Re-evalutation: 06/02/18 20:03 Patient presents with multiple vague complaints that did not appear to be concerning for any acute life-threatening pathology. Vitals are within normal limits at time of my assessment, initial tachycardia had resolved. Physical examination is unremarkable. Patient has tolerated oral intake without difficulty. Patient was not noted to be in distress at any point during their ER visit. At this time, based on the reassuring evaluation, I do not suspect an acute IL, pulmonary embolus, aortic dissection, acute intra-abdominal pathology, stroke, or sepsis. Patient has had multiple visits for similar symptoms without any clear G. I have encouraged her to follow closely with her primary care physician for this chronic issue. Will discharge with return precautions and follow-up recommendations. Verbal discharge instructions given a the bedside and opportunity for questions given. Medication warnings reviewed. Patient is in agreement with this plan and has verbalized understanding of return precautions and the need for primary care follow-up in the next 24-72 hours. 06/02/18 20:04 - Vital Signs Vital signs: Temp Pulse Resp BP Pulse Ox 97.8 F 100 16 111/84 99 06/02/18 21:01 06/02/18 21:01 06/02/18 21:01 06/02/18 21:01 06/02/18 21:01 - Laboratory Result Diagrams: 06/02/18 18:10 06/02/18 18:10 Laboratory results interpreted by me: 06/02/18 06/02/18 06/02/18 18:10 18:10 18:10 WBC 11.4 H Calcium 10.3 H Total Bilirubin 1.7 H Total Protein 8.6 H Urine Protein 30 H Urine Urobilinogen 2.0 H Ur Leukocyte Esterase MODERATE H - Diagnostic Test Radiology reviewed: Image reviewed, Reports reviewed Radiology results interpreted by me: 06/02/18 20:04 Chest x-ray: No acute infiltrate or pneumothorax - EKG Interpretation by Me Additional EKG results interpreted by me: 06/02/18 20:04 Sinus tachycardia. Rate 109. No ST elevations or depressions. QTC is 426. Discharge - Discharge Clinical Impression: Dizziness, Dehydration, Shortness of breath Condition: Good Disposition: HOME, SELF-CARE Additional Instructions: Please be sure to continue to drink plenty of fluids as your urine again today suggest that you are quite dehydrated. Please return to the emergency room immediately if you experience any concerning symptoms including high fevers, severe headache, chest pain, difficulty breathing, abdominal pain, slurred speech, numbness or weakness in your arms or legs, or any other symptom that concerns you. Referrals: JUANITO COLEY NP [Primary Care Provider] - Follow up as needed
--- NOTE | 2018-06-02 20:49 | EKG REPORT ---
SEVERITY:- BORDERLINE ECG - SINUS TACHYCARDIA BORDERLINE T ABNORMALITIES, INFERIOR LEADS : Confirmed by: Karen Denny MD 02-Jun-2018 20:49:02
[2018-06-02 21:01] VITALS: BP 111/84
== END 2018-06-02 21:02 | disposition home or self-care (01) ==
LOC: ER 17:39
DX: R42 Dizziness and giddiness (principal); E86.0 Dehydration; R06.02 Shortness of breath; Z88.6 Allergy status to analgesic agent; Z90.49 Acquired absence of other specified parts of digestive tract
CPT/HCPCS: 36415; 71046; 80053; 81001; 81025; 85025; 93005; 93010; 99284

== ENCOUNTER 2018-06-08 18:20 | Emergency (ER) | payer OTHER, MEDICARE ==
[2018-06-08 18:25] VITALS: BP 115/67
[2018-06-08] MEDS ORDERED: BUSPIRONE HCL 10 MG TABLET PO ONE (18:48)
--- NOTE | 2018-06-08 18:52 | ER Document Report ---
ED General - General Chief Complaint: Chest Pain > 30 Stated Complaint: CHEST PAIN Time Seen by Provider: 06/08/18 18:48 Notes: Chief complaint: Chest tightness History of complain:( obtained from----patient) 33 years old female recently diagnosed with bipolar, started on Effexor only about 4 days now. While she was driving after a cardiology appointment for palpitations. When she went into a store she felt tightness again and numbness in the arms. Therefore concerned and came to the ED. She also has a distant history of anxiety. The symptoms have improved/gone now. It was not associated with any nausea vomiting palpitation or dizziness. She does not want to be treated with any benzos as she has a family history of addiction. Onset: As above Duration: Sudden Severity: Mild to moderate Quality: Improved Context: As described above Exacerbating factor and relieving factors: As described above REVIEW OF SYSTEMS: CONSTITUTIONAL : Denies fever, chills, or sweats. Denies recent illness. EENT: Denies eye, ear, throat, or mouth pain or symptoms. Denies nasal or sinus congestion or discharge. Denies throat, tongue, or mouth swelling or difficulty swallowing. CARDIOVASCULAR: Denies chest pain. Denies palpitations or racing or irregular heart beat. Denies ankle edema. RESPIRATORY: Denies cough, cold, or chest congestion. Denies shortness of breath, difficulty breathing, or wheezing. GASTROINTESTINAL: Denies distention. Denies nausea, vomiting, or diarrhea. Denies blood in vomitus, stools, or per rectum. Denies black, tarry stools. Denies constipation. GENITOURINARY: Denies difficulty urinating, painful urination, burning, frequency, blood in urine, or discharge. FEMALE GENITOURINARY: Denies vaginal bleeding, heavy or abnormal periods, irregular periods. Denies vaginal discharge or odor. MUSCULOSKELETAL: Denies back or neck pain or stiffness. Denies joint pain or swelling. SKIN: Denies rash, lesions or sores. HEMATOLOGIC : Denies easy bruising or bleeding. LYMPHATIC: Denies swollen, enlarged glands. NEUROLOGICAL: Denies confusion or altered mental status. Denies passing out or loss of consciousness. Denies dizziness or lightheadedness. Denies headache. Denies weakness or paralysis or loss of use of either side. Denies problems with gait or speech. Denies sensory loss, numbness, or tingling. Denies seizures. PSYCHIATRIC: Denies anxiety or stress. Denies depression, suicidal ideation, or homicidal ideation. ALL OTHER SYSTEMS REVIEWED AND NEGATIVE. PHYSICAL EXAMINATION: GENERAL: Well-appearing, well-nourished and in no acute distress. HEAD: Atraumatic, normocephalic. EYES: Pupils equal round and reactive to light, extraocular movements intact, conjunctiva are normal. ENT: Nares patent, oropharynx clear without exudates. Moist mucous membranes. NECK: Normal range of motion, supple without lymphadenopathy LUNGS: Breath sounds clear to auscultation bilaterally and equal. No wheezes rales or rhonchi. HEART: Regular rate and rhythm without murmurs ABDOMEN: Soft, nontender, nondistended abdomen. No guarding, no rebound. No masses appreciated. Examination of genitals-deferred Musculoskeletal: Normal range of motion, no pitting or edema. No cyanosis. NEUROLOGICAL: Cranial nerves grossly intact. Normal speech, normal gait. Normal sensory, motor exams PSYCH: Normal mood, normal affect. SKIN: Warm, Dry, normal turgor, no rashes or lesions noted. Dictation was performed using [employer] voice recognition software TRAVEL OUTSIDE OF THE [place] IN LAST 30 DAYS: No - HPI Notes: Dictated - Related Data Allergies/Adverse Reactions: codeine Allergy (Verified 06/02/18 17:39) morphine Allergy (Verified 06/02/18 17:39) ssri Adverse Reaction (Uncoded 06/02/18 17:39) Past Medical History - Social History Smoking Status: Unknown if Ever Smoked Chew tobacco use (# tins/day): No Frequency of alcohol use: None Drug Abuse: None Family History: CAD, CVA, DM, Hyperlipidemia, Hypertension, Malignancy. denies : Arthritis, COPD, Thyroid Disfunction Patient has suicidal ideation: No Patient has homicidal ideation: No - Past Medical History Cardiac Medical History: Denies: Hx Atrial Fibrillation Neurological Medical History: Denies: Hx Seizures Endocrine Medical History: Denies: Hx Hyperthyroidism Renal/ Medical History: Denies: Hx Peritoneal Dialysis GI Medical History: Reports: Hx Gastroesophageal Reflux Disease, Hx Irritable Bowel Musculoskeletal Medical History: Reports Hx Musculoskeletal Trauma Psychiatric Medical History: Reports: Hx Anxiety, Hx Bipolar Disorder - mis dx. borderline personality and panic disorder, Hx Depression, Hx Obsessive Compulsive Disorder, Hx Post Traumatic Stress Disorder Traumatic Medical History: Reports: Hx Fractures Infectious Medical History: Reports: Hx C-Diff Past Surgical History: Reports: Hx Cholecystectomy, Hx Gynecologic Surgery - , Hx Orthopedic Surgery, Hx Tubal Ligation. Denies: Hx Hysterectomy - Immunizations Immunizations up to date: Yes Hx Diphtheria, Pertussis, Tetanus Vaccination: Yes Hx Pneumococcal Vaccination: 08/21/12 Review of Systems - Review of Systems Notes: Dictated Physical Exam - Vital signs Vitals: Temp Pulse Resp BP Pulse Ox 97.4 F 107 H 20 115/67 100 06/08/18 18:23 06/08/18 18:23 06/08/18 18:23 06/08/18 18:23 06/08/18 18:23 - Notes Notes: Dictated Course - Re-evaluation Re-evalutation: 06/08/18 18:50 She was explained that this is due to anxiety, started treatment with BuSpar - Vital Signs Vital signs: Temp Pulse Resp BP Pulse Ox 97.4 F 107 H 20 115/67 100 06/08/18 18:23 06/08/18 18:23 06/08/18 18:23 06/08/18 18:23 06/08/18 18:23 Discharge - Discharge Clinical Impression: Anxiety Condition: Fair Disposition: HOME, SELF-CARE Instructions: Anxiety ([facility]) Prescriptions: Buspirone HCl [Buspar 10 mg Tablet] 10 mg PO BID #60 tablet Referrals: JUANITO COLEY NP [Primary Care Provider] - Follow up as needed
--- NOTE | 2018-06-08 19:26 | EKG REPORT ---
SEVERITY:- BORDERLINE ECG - SINUS RHYTHM NONSPECIFIC ST-T CHANGES- INFERIOR LEADS : Confirmed by: Scott Pena MD 08-Jun-2018 19:25:42
== END 2018-06-08 19:10 | disposition home or self-care (01) ==
LOC: ER 18:20
DX: F41.9 Anxiety disorder, unspecified (principal); F31.9 Bipolar disorder, unspecified; R20.0 Anesthesia of skin; Z88.5 Allergy status to narcotic agent
CPT/HCPCS: 93005; 93010; 99284

== ENCOUNTER 2018-06-28 18:28 | Emergency (ER) | payer OTHER, MEDICARE ==
--- NOTE | 2018-06-28 19:17 | ER Document Report ---
ED Dizziness/Weakness - General Chief Complaint: Weakness Stated Complaint: FATIGUE Time Seen by Provider: 06/28/18 18:50 Mode of Arrival: Ambulatory Information source: Patient Notes: Chief complaint: Weakness History of complain:( obtained from----patient) 33 years old male with a history of anxiety depression, on and off palpitation and sudden onset of chest pains, been evaluated by well testing operator. Had a 24-hour Holter monitor done yesterday an echocardiogram done couple of days ago. Was sent over here by the primary care physicians office for further evaluation. Patient claimed that she is she is feeling comfortable now. Currently has no headache dizziness blurring of vision chest pain shortness of breath or palpitation. Onset: Long-standing gradual Duration: Long-standing Severity: Mild to moderate Quality: Unknown Context: Possible anxiety Exacerbating factor and relieving factors: REVIEW OF SYSTEMS: CONSTITUTIONAL : Denies fever, chills, or sweats. Denies recent illness. EENT: Denies eye, ear, throat, or mouth pain or symptoms. Denies nasal or sinus congestion or discharge. Denies throat, tongue, or mouth swelling or difficulty swallowing. CARDIOVASCULAR: Denies chest pain. Denies palpitations or racing or irregular heart beat. Denies ankle edema. RESPIRATORY: Denies cough, cold, or chest congestion. Denies shortness of breath, difficulty breathing, or wheezing. GASTROINTESTINAL: Denies distention. Denies nausea, vomiting, or diarrhea. Denies blood in vomitus, stools, or per rectum. Denies black, tarry stools. Denies constipation. GENITOURINARY: Denies difficulty urinating, painful urination, burning, frequency, blood in urine, or discharge. FEMALE GENITOURINARY: Denies vaginal bleeding, heavy or abnormal periods, irregular periods. Denies vaginal discharge or odor. MUSCULOSKELETAL: Denies back or neck pain or stiffness. Denies joint pain or swelling. SKIN: Denies rash, lesions or sores. HEMATOLOGIC : Denies easy bruising or bleeding. LYMPHATIC: Denies swollen, enlarged glands. NEUROLOGICAL: Denies confusion or altered mental status. Denies passing out or loss of consciousness. Denies dizziness or lightheadedness. Denies headache. Denies weakness or paralysis or loss of use of either side. Denies problems with gait or speech. Denies sensory loss, numbness, or tingling. Denies seizures. PSYCHIATRIC: Denies anxiety or stress. Denies depression, suicidal ideation, or homicidal ideation. ALL OTHER SYSTEMS REVIEWED AND NEGATIVE. PHYSICAL EXAMINATION: GENERAL: Well-appearing, well-nourished and in no acute distress. Obese HEAD: Atraumatic, normocephalic. EYES: Pupils equal round and reactive to light, extraocular movements intact, conjunctiva are normal. ENT: Nares patent, oropharynx clear without exudates. Moist mucous membranes. NECK: Normal range of motion, supple without lymphadenopathy LUNGS: Breath sounds clear to auscultation bilaterally and equal. No wheezes rales or rhonchi. HEART: Regular rate and rhythm without murmurs ABDOMEN: Soft, nontender, nondistended abdomen. No guarding, no rebound. No masses appreciated. Examination of genitals-deferred Musculoskeletal: Normal range of motion, no pitting or edema. No cyanosis. NEUROLOGICAL: Cranial nerves grossly intact. Normal speech, normal gait. Normal sensory, motor exams PSYCH: Normal mood, normal affect. SKIN: Warm, Dry, normal turgor, no rashes or lesions noted. Dictation was performed using [employer] voice recognition software TRAVEL OUTSIDE OF THE [place] IN LAST 30 DAYS: No - HPI Notes: Dictated - Related Data Allergies/Adverse Reactions: codeine Allergy (Verified 06/28/18 18:30) morphine Allergy (Verified 06/28/18 18:30) ssri Adverse Reaction (Uncoded 06/28/18 18:30) Past Medical History - Social History Smoking Status: Never Smoker Chew tobacco use (# tins/day): No Frequency of alcohol use: None Drug Abuse: None Family History: Reviewed & Not Pertinent, CAD, CVA, DM, Hyperlipidemia, Hypertension, Malignancy. denies: Arthritis, COPD, Thyroid Disfunction Patient has suicidal ideation: No Patient has homicidal ideation: No - Past Medical History Cardiac Medical History: Denies: Hx Atrial Fibrillation Neurological Medical History: Denies: Hx Seizures Endocrine Medical History: Denies: Hx Hyperthyroidism Renal/ Medical History: Denies: Hx Peritoneal Dialysis GI Medical History: Reports: Hx Gastroesophageal Reflux Disease, Hx Irritable Bowel Musculoskeletal Medical History: Reports Hx Musculoskeletal Trauma Psychiatric Medical History: Reports: Hx Anxiety, Hx Bipolar Disorder - mis dx. borderline personality and panic disorder, Hx Depression, Hx Obsessive Compulsive Disorder, Hx Post Traumatic Stress Disorder Traumatic Medical History: Reports: Hx Fractures Infectious Medical History: Reports: Hx C-Diff Past Surgical History: Reports: Hx Cholecystectomy, Hx Gynecologic Surgery - , Hx Orthopedic Surgery, Hx Tubal Ligation. Denies: Hx Hysterectomy - Immunizations Immunizations up to date: Yes Hx Diphtheria, Pertussis, Tetanus Vaccination: Yes Hx Pneumococcal Vaccination: 08/21/12 Review of Systems - Review of Systems Notes: Dictated Physical Exam - Vital signs Vitals: Temp Pulse Resp BP Pulse Ox 98.2 F 110 H 18 117/76 99 06/28/18 18:37 06/28/18 18:37 06/28/18 18:37 06/28/18 18:37 06/28/18 18:37 - Notes Notes: Dictated Course - Vital Signs Vital signs: Temp Pulse Resp BP Pulse Ox 98.2 F 103 H 18 114/78 99 06/28/18 18:37 06/28/18 19:42 06/28/18 18:37 06/28/18 19:42 06/28/18 18:37 - EKG Interpretation by Ca EKG shows normal: Sinus rhythm - Normal sinus rhythm at the rate of 98 bpm normal axis no acute ST-T wave changes noted. Normal cardiogram Rate: Normal When compared to previous EKG there are: No significant change Discharge - Discharge Clinical Impression: Palpitations, Anxiety Condition: Fair Disposition: HOME, SELF-CARE Instructions: Palpitations (Irregular or Rapid Heartrate) ([facility]), Anxiety ([facility]) Referrals: JUANITO COLEY NP [Primary Care Provider] - Follow up as needed
[2018-06-28 20:01] VITALS: BP 115/73
[2018-06-28 20:24] LABS: APPEARANCE,URINE CLEAR; BILIRUBIN,URINE NEGATIVE (NEGATIVE); COLOR,URINE STRAW; GLUCOSE, URINE NEGATIVE (NEGATIVE); KETONES,URINE NEGATIVE (NEGATIVE); LEUKOCYTE ESTERASE,URINE TRACE (NEGATIVE); NITRITE,URINE NEGATIVE (NEGATIVE); PROTEIN,URINE NEGATIVE (NEGATIVE); URINE SPECIFIC GRAVITY 1.006; UROBILINOGEN,URINE NEGATIVE mg/dL (<2.0)
--- NOTE | 2018-06-29 07:17 | EKG REPORT ---
SEVERITY:- BORDERLINE ECG - SINUS RHYTHM NONSPECIFIC ST-T CHANGES- INFERIOR LEADS : Confirmed by: Scott Pena MD 29-Jun-2018 07:17:16
== END 2018-06-28 20:03 | disposition home or self-care (01) ==
LOC: ER 18:28
DX: R00.2 Palpitations (principal); F41.9 Anxiety disorder, unspecified; R53.83 Other fatigue; Z88.6 Allergy status to analgesic agent; Z90.49 Acquired absence of other specified parts of digestive tract; Z98.51 Tubal ligation status
CPT/HCPCS: 81001; 93005; 93010; 99285

== ENCOUNTER 2018-07-05 22:06 | Emergency (ER) | payer OTHER, MEDICARE ==
--- NOTE | 2018-07-05 23:17 | ER Document Report ---
ED General - General Chief Complaint: Abdominal Pain Stated Complaint: ABDOMINAL PAIN, FATIGUE Time Seen by Provider: 07/05/18 23:11 Notes: Is a 33-year-old female who presents to the ED with all day dizziness. This patient has a history of multiple ED visits and admissions, and extensive workups from pulmonology cardiology GI endocrine, who is been experiencing fatigue and dizziness for several months. She has been evaluated in the ED many times and there is never any significant diagnosis made. She states that she been feeling dizzy than usual today and is constant rather than intermittent and so she is worried. She went to urgent care and had a CBC, she shows me the results and they are normal. She denies fever or chills. She states that she had intermittent abdominal pain earlier today and nausea, has previously been diagnosed with gastroparesis, and is slightly better after getting Zofran in the ER. Need records. Extensive workup negative. TRAVEL OUTSIDE OF THE [place] IN LAST 30 DAYS: No - Related Data Allergies/Adverse Reactions: codeine Allergy (Verified 06/28/18 18:30) morphine Allergy (Verified 06/28/18 18:30) ssri Adverse Reaction (Uncoded 06/28/18 18:30) Past Medical History - Social History Smoking Status: Never Smoker Chew tobacco use (# tins/day): No Frequency of alcohol use: None Drug Abuse: None Family History: Reviewed & Not Pertinent, CAD, CVA, DM, Hyperlipidemia, Hypertension, Malignancy. denies: Arthritis, COPD, Thyroid Disfunction Patient has suicidal ideation: No Patient has homicidal ideation: No - Past Medical History Cardiac Medical History: Denies: Hx Atrial Fibrillation Neurological Medical History: Denies: Hx Seizures Endocrine Medical History: Denies: Hx Hyperthyroidism Renal/ Medical History: Denies: Hx Peritoneal Dialysis GI Medical History: Reports: Hx Gastroesophageal Reflux Disease, Hx Irritable Bowel Musculoskeletal Medical History: Reports Hx Musculoskeletal Trauma Psychiatric Medical History: Reports: Hx Anxiety, Hx Bipolar Disorder - mis dx. borderline personality and panic disorder, Hx Depression, Hx Obsessive Compulsive Disorder, Hx Post Traumatic Stress Disorder Traumatic Medical History: Reports: Hx Fractures Infectious Medical History: Reports: Hx C-Diff Past Surgical History: Reports: Hx Cholecystectomy, Hx Gynecologic Surgery - , Hx Orthopedic Surgery, Hx Tubal Ligation. Denies: Hx Hysterectomy - Immunizations Immunizations up to date: Yes Hx Diphtheria, Pertussis, Tetanus Vaccination: Yes Hx Pneumococcal Vaccination: 08/21/12 Review of Systems - Review of Systems Notes: REVIEW OF SYSTEMS General: Fatigue ENT: Denies sore throat, nasal discharge, ear pain EYES: Denies blurry vision, eye pain, discharge CV: Denies chest pain, palpitations, edema RESP: Denies cough, shortness of breath, wheezing GI: Denies abdominal pain, nausea, vomiting, diarrhea MSK: Denies joint pain/swelling, edema, SKIN: Denies rash, skin lesions LYMPH: Denies swollen glands/lymph nodes NEURO: dizziness PSYCH: Denies depression, suicidal or homicidal ideation PHYSICAL EXAMINATION General: No acute distress, well-nourished Head: Atraumatic, normocephalic ENT: Mouth normal, oropharynx moist, no exudates or tonsillar enlargement Eyes: Conjunctiva normal, pupils equal, lids normal Neck: No JVD, supple, no guarding CVS: Normal rate, regular rhythm, no murmurs Resp: No resp distress, equal and normal breath sounds bilaterally GI: Nondistended, soft, no tenderness to palpation, no rebound or guarding Ext: No deformities, no edema, normal range of motion in upper and lower ext Back: No CVA or midline TTP Skin: No rash, warm Lymphatic: No lymphadeopathy noted Neuro: Awake, alert. Face symmetric. GCS 15. Physical Exam - Vital signs Vitals: Temp Pulse Resp BP Pulse Ox 98.2 F 101 H 18 119/81 97 07/05/18 22:16 07/05/18 22:16 07/05/18 22:16 07/05/18 22:16 07/05/18 22:16 Course - Re-evaluation Re-evalutation: 07/05/18 23:34 Is a 33-year-old female with multi systemic complaints and vague dizziness today who presents after multiple ED visits which have not been able to find a cause of her symptoms. She is received extensive testing as an outpatient including a Holter monitor and echo pulmonology and GI workup. She checked her blood sugar 5 times a day but is not a diabetic and was never hyper or hypoglycemic. Her exam in the ED including neuro and abdominal, is normal. ECG is normal. Labs are pendingif they are normal, I do not see an emergency cause of her symptoms. I explained to her that there may be an underlying illness present however evaluate and then in the ED is not possible. She looks well, ambulates well on exam with no gait instability and is stable for discharge home. I have discussed with the patient there likely diagnosis, aftercare plan, follow-up plans and my usual and customary return precautions. They verbalized understanding of this. - Vital Signs Vital signs: Temp Pulse Resp BP Pulse Ox 98.2 F 101 H 18 119/81 97 07/05/18 22:16 07/05/18 22:16 07/05/18 22:16 07/05/18 22:16 07/05/18 22:16 - Laboratory Result Diagrams: 07/05/18 22:45 07/05/18 22:45 - EKG Interpretation by Me EKG shows normal: Sinus rhythm, [place] Rate: Tachycardia When compared to previous EKG there are: No significant change Discharge - Discharge Clinical Impression: Dizziness Condition: Good Disposition: HOME, SELF-CARE Instructions: Abdominal Pain ([facility]), Dizziness ([facility]) Referrals: JUANITO COLEY CABLE TELEVISION LINE TECHNICIAN [Primary Care Provider] - Follow up as needed
[2018-07-05 23:31] LABS: ABSOLUTE BASOPHILS # (AUTO) 0.1 10^3/uL (0.0-0.2); ABSOLUTE EOSINOPHILS # (AUTO) 0.4 10^3/uL (0.0-0.6); ABSOLUTE LYMPHOCYTES (AUTO) 3.1 10^3/uL (0.5-4.7); ABSOLUTE MONOCYTES (AUTO) 0.5 10^3/uL (0.1-1.4); ABSOLUTE NEUT (AUTO) 7.3 10^3/uL (1.7-8.2); BASOPHILS % (AUTO) 0.8 % (0-2); EOSINOPHILS % (AUTO) 3.8 % (0-6); HEMATOCRIT 44.5 % (36.0-47.0); HEMOGLOBIN 15.2 g/dL (12.0-15.5); LYMPHOCYTES % (AUTO) 26.7 % (13-45); MEAN CORPUSCULAR HEMOGLOBIN 29.3 pg (27.0-33.4); MEAN CORPUSCULAR HGB CONC 34.1 g/dL (32.0-36.0); MEAN CORPUSCULAR VOLUME 86 fl (80-97); MONOCYTES % (AUTO) 4.8 % (3-13); PLATELET COUNT 456 10^3/uL (150-450); RED BLOOD COUNT 5.18 10^6/uL (3.72-5.28); RED CELL DISTRIBUTION WIDTH 13.7 % (11.5-14.0); SEGMENTED NEUTROPHILS % (AUTO) 63.9 % (42-78); TOTAL CELLS COUNTED % (AUTO) 100 %; WHITE BLOOD COUNT 11.5 10^3/uL (4.0-10.5)
[2018-07-05 23:41] LABS: ANION GAP 14 (5-19); BLOOD UREA NITROGEN 11 mg/dL (7-20); CALCIUM 10.1 mg/dL (8.4-10.2); CARBON DIOXIDE 29 mmol/L (22-30); CHLORIDE 99 mmol/L (98-107); GLUCOSE 99 mg/dL (75-110); POTASSIUM 4.1 mmol/L (3.6-5.0); SODIUM 142.1 mmol/L (137-145)
[2018-07-05 23:45] LABS: APPEARANCE,URINE SLIGHTLY-CLOUDY; BILIRUBIN,URINE NEGATIVE (NEGATIVE); COLOR,URINE YELLOW; GLUCOSE, URINE NEGATIVE (NEGATIVE); KETONES,URINE NEGATIVE (NEGATIVE); LEUKOCYTE ESTERASE,URINE TRACE (NEGATIVE); NITRITE,URINE NEGATIVE (NEGATIVE); PROTEIN,URINE NEGATIVE (NEGATIVE); URINE SPECIFIC GRAVITY 1.026; UROBILINOGEN,URINE NEGATIVE mg/dL (<2.0)
[2018-07-06 00:03] VITALS: BP 132/88
--- NOTE | 2018-07-06 10:40 | EKG REPORT ---
SEVERITY:- NORMAL ECG - SINUS RHYTHM : Confirmed by: Denia Zamorano 06-Jul-2018 10:40:05
== END 2018-07-06 00:02 | disposition home or self-care (01) ==
LOC: ER 22:06
DX: R42 Dizziness and giddiness (principal); R10.9 Unspecified abdominal pain; Z90.49 Acquired absence of other specified parts of digestive tract; Z98.51 Tubal ligation status; Z88.6 Allergy status to analgesic agent
CPT/HCPCS: 36415; 80048; 81001; 81025; 82962; 85025; 93005; 93010; 99284

== ENCOUNTER 2018-07-23 21:02 | Emergency (ER) | payer OTHER, MEDICARE ==
--- NOTE | 2018-07-23 21:53 | ER Document Report ---
ED Medical Screen (RME) - General Chief Complaint: Abdominal Pain Stated Complaint: NAUSEA,UPPER ABDOMINAL PAIN Time Seen by Provider: 07/23/18 21:42 Notes: Patient is a 33-year-old female status post appendectomy on 07/07/2018. Patient states since her appendectomy she has had multiple episodes of tachycardia and dizziness. States she saw Dr. carson rn allergy and was put on metoprolol. States she has had problems with tachycardia in the past. States she is also on Bactrim for urinary tract infection. Patient states this evening she was incredibly nauseous and dizzy. States she sat on the couch and passed out for about 20 seconds. Patient states she was in the presence of her 12-year-old daughter who told her that she was out for 20 seconds. Unknown of any seizure-like activity. Patient states the syncopal episode worried her which is why she presents to the emergency room. Patient states general abdominal pain periumbilical region states she does have a surgical incision scar that she thinks is not healing and is mildly red which her primary care doctor stated the Bactrim would treat the infection. Past medical history: Gastroparesis, anxiety Medications: Bactrim, metoprolol, Effexor Allergies: Haldol Surgical history: Appendectomy Physical exam: Generalized abdominal tenderness periumbilical. Minor erythema noted to 1 of the surgical incisions in the umbilicus area. Patient is not tachycardic or hypotensive at this time. I have greeted and performed a rapid initial assessment of this patient. A comprehensive ED assessment and evaluation of the patient, analysis of test results and completion of the medical decision making process will be conducted by additional ED providers. TRAVEL OUTSIDE OF THE [place] IN LAST 30 DAYS: No - Related Data Allergies/Adverse Reactions: codeine Allergy (Verified 06/28/18 18:30) haloperidol [From Haldol] Allergy (Verified 07/23/18 21:48) morphine Allergy (Verified 06/28/18 18:30) ssri Adverse Reaction (Uncoded 06/28/18 18:30) Past Medical History - Social History Family history: Reviewed & Not Pertinent, Malignancy - colon cancer- dad - Past Medical History Cardiac Medical History: Denies: Hx Atrial Fibrillation Neurological Medical History: Denies: Hx Seizures Endocrine Medical History: Denies: Hx Hyperthyroidism Renal/ Medical History: Denies: Hx Peritoneal Dialysis GI Medical History: Reports: Hx Gastroesophageal Reflux Disease, Hx Irritable Bowel Musculoskeltal Medical History: Reports Hx Musculoskeletal Trauma Psychiatric Medical History: Reports: Hx Anxiety, Hx Bipolar Disorder - mis dx. borderline personality and panic disorder, Hx Depression, Hx Obsessive Compulsive Disorder, Hx Post Traumatic Stress Disorder Traumatic Medical History: Reports: Hx Fractures Infectious Medical History: Reports: Hx C-Diff Past Surgical History: Reports: Hx Cholecystectomy, Hx Gynecologic Surgery - , Hx Orthopedic Surgery, Hx Tubal Ligation. Denies: Hx Hysterectomy - Immunizations Immunizations up to date: Yes Hx Diphtheria, Pertussis, Tetanus Vaccination: Yes Physical Exam - Vital signs Vitals: Temp Pulse Resp BP Pulse Ox 97.6 F 91 20 116/71 97 07/23/18 21:23 07/23/18 21:23 07/23/18 21:23 07/23/18 21:23 07/23/18 21:23 Course - Vital Signs Vital signs: Temp Pulse Resp BP Pulse Ox 97.6 F 91 20 116/71 97 07/23/18 21:23 07/23/18 21:23 07/23/18 21:23 07/23/18 21:23 07/23/18 21:23 Doctor's Discharge - Discharge Referrals: JUANITO COLEY NP [Primary Care Provider] - Follow up as needed
[2018-07-23] MEDS ORDERED: ONDANSETRON 4 MG TAB.RAPDIS PO ONE (21:54)
[2018-07-23 22:31] LABS: ABSOLUTE BASOPHILS # (AUTO) 0.1 10^3/uL (0.0-0.2); ABSOLUTE EOSINOPHILS # (AUTO) 0.6 10^3/uL (0.0-0.6); ABSOLUTE LYMPHOCYTES (AUTO) 3.1 10^3/uL (0.5-4.7); ABSOLUTE MONOCYTES (AUTO) 0.7 10^3/uL (0.1-1.4); ABSOLUTE NEUT (AUTO) 7.3 10^3/uL (1.7-8.2); BASOPHILS % (AUTO) 0.9 % (0-2); EOSINOPHILS % (AUTO) 5.4 % (0-6); HEMATOCRIT 40.7 % (36.0-47.0); HEMOGLOBIN 13.9 g/dL (12.0-15.5); LYMPHOCYTES % (AUTO) 25.8 % (13-45); MEAN CORPUSCULAR HEMOGLOBIN 29.2 pg (27.0-33.4); MEAN CORPUSCULAR HGB CONC 34.2 g/dL (32.0-36.0); MEAN CORPUSCULAR VOLUME 85 fl (80-97); MONOCYTES % (AUTO) 5.9 % (3-13); PLATELET COUNT 413 10^3/uL (150-450); RED BLOOD COUNT 4.76 10^6/uL (3.72-5.28); RED CELL DISTRIBUTION WIDTH 13.2 % (11.5-14.0); TOTAL CELLS COUNTED % (AUTO) 100 %; WHITE BLOOD COUNT 11.8 10^3/uL (4.0-10.5)
[2018-07-23 22:47] LABS: ALANINE AMINOTRANSFERASE 46 U/L (9-52); ALBUMIN 4.6 g/dL (3.5-5.0); ALKALINE PHOSPHATASE 89 U/L (38-126); ANION GAP 15 (5-19); APPEARANCE,URINE SLIGHTLY-CLOUDY; ASPARTATE AMINO TRANSFERASE 37 U/L (14-36); BILIRUBIN,DIRECT 0.2 mg/dL (0.0-0.4); BILIRUBIN,TOTAL 0.9 mg/dL (0.2-1.3); BILIRUBIN,URINE NEGATIVE (NEGATIVE); BLOOD UREA NITROGEN 10 mg/dL (7-20); CALCIUM 9.8 mg/dL (8.4-10.2); CARBON DIOXIDE 27 mmol/L (22-30); CHLORIDE 99 mmol/L (98-107); COLOR,URINE AMBER; GLUCOSE 96 mg/dL (75-110); GLUCOSE, URINE NEGATIVE (NEGATIVE); KETONES,URINE NEGATIVE (NEGATIVE); LEUKOCYTE ESTERASE,URINE NEGATIVE (NEGATIVE); NITRITE,URINE NEGATIVE (NEGATIVE); POTASSIUM 4.1 mmol/L (3.6-5.0); PROTEIN,URINE 30 mg/dL (NEGATIVE); SODIUM 141.1 mmol/L (137-145); TOTAL PROTEIN 8.1 g/dL (6.3-8.2); URINE SPECIFIC GRAVITY 1.033
[2018-07-23] MEDS ORDERED: NORMAL SALINE 1000 ML 1,000 ML IV ONE (23:26)
[2018-07-24] MEDS ORDERED: KETOROLAC TROMETHAMINE INJ/PF 30 MG/1 ML SDV IV ONE (01:10)
[2018-07-24] MEDS ORDERED: METOCLOPRAMIDE HCL INJ/PF 10 MG/2 ML SDV IV ONE (01:14)
[2018-07-24] MEDS ORDERED: ONDANSETRON HCL INJ/PF 4 MG/2 ML SDV IV ONE (01:30)
--- NOTE | 2018-07-24 01:41 | ER Document Report ---
ED GI/ - General Chief Complaint: Abdominal Pain Stated Complaint: NAUSEA,UPPER ABDOMINAL PAIN Time Seen by Provider: 07/24/18 00:30 Mode of Arrival: Ambulatory Information source: Patient Notes: Patient is a 33-year-old female with history of chronic abdominal pain status post laparoscopic appendectomy approximately 3 weeks ago who presents with acute on chronic abdominal pain associated with syncopal episode. Patient denies any preceding symptoms other than her regular abdominal pain. She denies fevers or chills, mild nausea without vomiting, normal bowel movements. Her last menstrual cycle was "in January" which is normal for the patient to be irregular. Patient reports having multiple hospital presentations for same symptoms, which showed "nothing is wrong with me." Current symptoms are identical. TRAVEL OUTSIDE OF THE [place] IN LAST 30 DAYS: No - HPI Patient complains to provider of: Abdominal pain. No: Hematuria, , Vaginal discharge, Vaginal pain Onset: Other - Approximately 3-4 weeks after appendectomy Quality of pain: Achy, Cramping, Fullness. denies: Burning, Pressure, Stabbing Severity at maximum: Severe Severity in ED: Moderate Pain Level: 3 Context: Other - Surgery Location: Epigastric, Other - Periumbilical. No: RLQ, Pelvis Vaginal bleeding (Compared to normal period): None Menstrual period history: Irregular LMP: January Sexual history: Active. denies: New partner, Multiple partners Associated symptoms: Dizzy, Lightheaded, Syncope. denies: Chest pain, Shortness of breath, Vaginal discharge Exacerbated by: Denies Relieved by: Denies Similar symptoms previously: Yes Recently seen / treated by doctor: Yes - Related Data Allergies/Adverse Reactions: codeine Allergy (Verified 06/28/18 18:30) haloperidol [From Haldol] Allergy (Verified 07/23/18 21:48) morphine Allergy (Verified 06/28/18 18:30) ssri Adverse Reaction (Uncoded 06/28/18 18:30) Past Medical History - General Information source: Patient - Social History Smoking Status: Never Smoker Cigarette use (# per day): No Chew tobacco use (# tins/day): No Smoking Education Provided: No Frequency of alcohol use: None Drug Abuse: None Lives with: Family Family History: Reviewed & Not Pertinent, CAD, CVA, DM, Hyperlipidemia, Hypertension, Malignancy. denies: Arthritis, COPD, Thyroid Disfunction Patient has suicidal ideation: No Patient has homicidal ideation: No - Past Medical History Cardiac Medical History: Reports: None Denies: Hx Atrial Fibrillation Pulmonary Medical History: Reports: None EENT Medical History: Reports: None Neurological Medical History: Reports: None. Denies: Hx Seizures Endocrine Medical History: Reports: None. Denies: Hx Hyperthyroidism Renal/ Medical History: Reports: None. Denies: Hx Peritoneal Dialysis Malignancy Medical History: Reports: None GI Medical History: Reports: Hx Gastroesophageal Reflux Disease, Hx Irritable Bowel Musculoskeletal Medical History: Reports Hx Musculoskeletal Trauma Psychiatric Medical History: Reports: Hx Anxiety, Hx Bipolar Disorder - mis dx. borderline personality and panic disorder, Hx Depression, Hx Obsessive Compulsive Disorder, Hx Post Traumatic Stress Disorder Traumatic Medical History: Reports: Hx Fractures Infectious Medical History: Reports: Hx C-Diff Past Surgical History: Reports: Hx Cholecystectomy, Hx Gynecologic Surgery - , Hx Orthopedic Surgery, Hx Tubal Ligation. Denies: Hx Hysterectomy - Immunizations Immunizations up to date: Yes Hx Diphtheria, Pertussis, Tetanus Vaccination: Yes Hx Pneumococcal Vaccination: 08/21/12 Review of Systems - Review of Systems Constitutional: No symptoms reported EENT: No symptoms reported Cardiovascular: No symptoms reported Respiratory: No symptoms reported Gastrointestinal: Abdominal pain, Nausea, Poor appetite. denies: Diarrhea, Vomiting, Constipation Genitourinary: No symptoms reported Female Genitourinary: No symptoms reported Musculoskeletal: No symptoms reported Skin: No symptoms reported Hematologic/Lymphatic: No symptoms reported Neurological/Psychological: No symptoms reported -: Yes All other systems reviewed and negative Physical Exam - Vital signs Vitals: Temp Pulse Resp BP Pulse Ox 97.6 F 91 20 116/71 97 07/23/18 21:23 07/23/18 21:23 07/23/18 21:23 07/23/18 21:23 07/23/18 21:23 Interpretation: Normal, Hypotensive - General General appearance: Appears well, Alert - HEENT Head: Normocephalic, Atraumatic Eyes: Normal Pupils: PERRL - Respiratory Respiratory status: No respiratory distress Chest status: Nontender Breath sounds: Normal Chest palpation: Normal - Cardiovascular Rhythm: Regular Heart sounds: Normal auscultation Murmur: No - Abdominal Inspection: Healed incision Distension: No distension Bowel sounds: Normal Tenderness: Tender. No: Guarding, Rebound Organomegaly: No organomegaly - Rectal Tenderness: No - Deferred - Genitourinary Notes: Deferred - Back Back: Normal, Nontender - Extremities General upper extremity: Normal inspection, Nontender, Normal color, Normal ROM , Normal temperature General lower extremity: Normal inspection, Nontender, Normal color, Normal ROM , Normal temperature, Normal weight bearing. No: Leland's sign - Neurological Neuro grossly intact: Yes Cognition: Normal Orientation: AAOx4 Chirag Coma Scale Eye Opening: Spontaneous Chirag Coma Scale Verbal: Oriented Chirag Coma Scale Motor: Obeys Commands Freeland Coma Scale Total: 15 Speech: Normal Motor strength normal: LUE, RUE, LLE, RLE Sensory: Normal - Psychological Associated symptoms: Normal affect, Normal mood - Skin Skin Temperature: Warm Skin Moisture: Dry Skin Color: Normal Course - Re-evaluation Re-evalutation: 07/24/18 04:21 Labs, including urinalysis, or normal. CT scan is pending. Will transfer care to Dr. Marcos with a plan to follow-up on CT scan and discharge if negative. - Vital Signs Vital signs: Temp Pulse Resp BP Pulse Ox 97.6 F 91 19 101/71 100 07/23/18 21:23 07/23/18 21:23 07/24/18 02:01 07/24/18 02:00 07/24/18 02:01 - Laboratory Result Diagrams: 07/23/18 22:17 07/23/18 22:17 Laboratory results interpreted by me: 07/23/18 07/23/18 07/23/18 22:17 22:17 22:17 WBC 11.8 H AST 37 H Urine Protein 30 H Urine Urobilinogen 2.0 H Urine Ascorbic Acid 40 H 07/24/18 00:12 WBC AST Urine Protein 30 H Urine Urobilinogen 2.0 H Urine Ascorbic Acid 40 H - Diagnostic Test Radiology reviewed: Reports reviewed - Transfer of Care Care transferred to following provider: Dr. Marcos Notes: 07/24/18 04:23 Plan to follow-up on CT scan results. If scan is negative for acute pathology, plan to discharge home. Discharge - Discharge Clinical Impression: Chronic abdominal pain Referrals: JUANITO OCLEY NP [Primary Care Provider] - Follow up as needed
[2018-07-24 01:43] LABS: APPEARANCE,URINE TURBID; BILIRUBIN,URINE NEGATIVE (NEGATIVE); CALCIUM OXALATE CRYSTALS,URINE TOO NUMEROUS TO CNT /HPF; COLOR,URINE YELLOW; GLUCOSE, URINE NEGATIVE (NEGATIVE); KETONES,URINE NEGATIVE (NEGATIVE); LEUKOCYTE ESTERASE,URINE NEGATIVE (NEGATIVE); NITRITE,URINE NEGATIVE (NEGATIVE); PROTEIN,URINE 30 mg/dL (NEGATIVE); URINE SPECIFIC GRAVITY 1.035
[2018-07-24 02:10] LABS: FREE T4 (FREE THYROXINE) 0.98 ng/dL (0.78-2.19)
[2018-07-24 02:17] LABS: URINE AMPHETAMINES SCREEN NEGATIVE; URINE BARBITURATES SCREEN NEGATIVE; URINE BENZODIAZEPINES SCREEN NEGATIVE; URINE COCAINE SCREEN NEGATIVE; URINE MARIJUANA (THC) SCREEN NEGATIVE; URINE METHADONE SCREEN NEGATIVE; URINE PHENCYCLIDINE SCREEN NEGATIVE
[2018-07-24 02:24] LABS: THYROID STIMULATING HORMONE 1.01 uIU/mL (0.47-4.68)
--- NOTE | 2018-07-24 04:49 | RADIOLOGY REPORT (SQ) ---
CT abdomen and pelvis with contrast on 07/24/2018 at 4:15 AM CLINICAL INDICATION: Lower abdominal pain, recent appendectomy two weeks ago TECHNIQUE: Multiple axial images are obtained throughout the abdomen and pelvis following the administration of IV and oral contrast. This exam was performed according to our departmental dose-optimization program, which includes automated exposure control, adjustment of the mA and/or kV according to patient size and/or use of iterative reconstruction technique. Total DLP is 1822.02 mGy*cm. COMPARISON: 04/17/2017 FINDINGS: Abdomen: The lung bases are clear. The patient is status post cholecystectomy. The solid abdominal organs are unremarkable. There is no abdominal adenopathy. There is no free fluid or free air within the abdomen. The abdominal portion of the GI tract is unremarkable. There is soft tissue thickening along the umbilicus likely postoperative in nature. Pelvis: Pelvic organs appear unremarkable by CT. There is no free fluid in the pelvis. There is no pelvic adenopathy. The patient is status post appendectomy. Pelvic portion of the GI tract is unremarkable. No bony abnormality is noted. IMPRESSION: No acute abnormality.
[2018-07-24 05:15] VITALS: BP 107/78
--- NOTE | 2018-07-24 11:23 | EKG REPORT ---
SEVERITY:- NORMAL ECG - SINUS RHYTHM : Confirmed by: Denia Zamorano 24-Jul-2018 11:22:13
== END 2018-07-24 06:04 | disposition home or self-care (01) ==
LOC: ER 21:02
DX: R10.9 Unspecified abdominal pain (principal); G89.29 Other chronic pain; R11.0 Nausea; R55 Syncope and collapse
CPT/HCPCS: 93005; 99284; 96361; 96374; 96375; 36415; 84439; 84443; 85025; 81025; 80053; 81001; 80307; 74177; 93010; J1885; J2405; J7030

== ENCOUNTER 2018-08-20 18:56 | Emergency (ER) | payer OTHER, MEDICARE ==
[2018-08-20] MEDS ORDERED: BENZONATATE 100 MG CAPSULE PO ONE (20:49)
--- NOTE | 2018-08-20 20:51 | ER Document Report ---
ED Flu Like - General Chief Complaint: Flu Symptoms Stated Complaint: FLU SYMPTOMS Time Seen by Provider: 08/20/18 20:40 Notes: Patient is a 33-year-old female that comes to the emergency department for chief complaint of 4 days of 6 symptoms including congestion, cough, intermittent ear pain. She states cough is worsening over the past 2 days and now she has developed a fever, she was seen last night at urgent care and had a negative influenza test. She also complains of urinary frequency. She has had a tubal ligation, appendectomy, has history of tachycardia and is on metoprolol for this. She denies smoking, recreational drugs. TRAVEL OUTSIDE OF THE [place] IN LAST 30 DAYS: No - Related Data Allergies/Adverse Reactions: codeine Allergy (Verified 06/28/18 18:30) haloperidol [From Haldol] Allergy (Verified 07/23/18 21:48) morphine Allergy (Verified 06/28/18 18:30) ssri Adverse Reaction (Uncoded 06/28/18 18:30) Past Medical History - General Information source: Patient - Social History Smoking Status: Never Smoker Frequency of alcohol use: None Drug Abuse: None Lives with: Family Family History: Reviewed & Not Pertinent, CAD, CVA, DM, Hyperlipidemia, Hypertension, Malignancy. denies: Arthritis, COPD, Thyroid Disfunction - Past Medical History Cardiac Medical History: Reports: Other - Tachycardia Denies: Hx Atrial Fibrillation Neurological Medical History: Denies: Hx Seizures Endocrine Medical History: Denies: Hx Hyperthyroidism Renal/ Medical History: Denies: Hx Peritoneal Dialysis GI Medical History: Reports: Hx Gastroesophageal Reflux Disease, Hx Irritable Bowel Musculoskeletal Medical History: Reports Hx Musculoskeletal Trauma Psychiatric Medical History: Reports: Hx Anxiety, Hx Bipolar Disorder - mis dx. borderline personality and panic disorder, Hx Depression, Hx Obsessive Compulsive Disorder, Hx Post Traumatic Stress Disorder Traumatic Medical History: Reports: Hx Fractures Infectious Medical History: Reports: Hx C-Diff Past Surgical History: Reports: Hx Cholecystectomy, Hx Gynecologic Surgery - , Hx Orthopedic Surgery, Hx Tubal Ligation. Denies: Hx Hysterectomy - Immunizations Immunizations up to date: Yes Hx Diphtheria, Pertussis, Tetanus Vaccination: Yes Hx Pneumococcal Vaccination: 08/21/12 Review of Systems - Review of Systems Constitutional: See HPI EENT: See HPI Cardiovascular: No symptoms reported Respiratory: No symptoms reported Gastrointestinal: No symptoms reported Genitourinary: See HPI Female Genitourinary: No symptoms reported Musculoskeletal: No symptoms reported Skin: No symptoms reported Hematologic/Lymphatic: No symptoms reported Neurological/Psychological: No symptoms reported Physical Exam - Vital signs Vitals: Temp Pulse Resp BP Pulse Ox 98.8 F 96 18 104/75 98 08/20/18 19:02 08/20/18 19:02 08/20/18 19:02 08/20/18 19:02 08/20/18 19:02 - Notes Notes: GENERAL: Alert, interacts well. No acute distress. HEAD: Normocephalic, atraumatic. EYES: Pupils equal, round, and reactive to light. Extraocular movements intact. ENT: Oral mucosa moist, tongue midline. Oropharynx unremarkable. Airway patent. Mild nasal congestion, no nasal septal hematoma, TM's intact. NECK: Full range of motion. Supple. Trachea midline. LUNGS: A few scattered coarse breath sounds, frequent congested cough. No tachypnea or signs of distress. HEART: Regular rate and rhythm. No murmur ABDOMEN: Soft, non-tender. Non-distended. Bowel sounds present in all 4 quadrants. GENITOURINARY: Deferred EXTREMITIES: Moves all 4 extremities spontaneously. No edema, normal radial and dorsalis pedis pulses bilaterally. No cyanosis. BACK: no cervical, thoracic, lumbar midline tenderness. No saddle anesthesia, normal distal neurovascular exam. NEUROLOGICAL: Alert and oriented x3. Normal speech. [cranial nerves II through XII grossly intact]. PSYCH: Normal affect, normal mood. SKIN: Warm, dry, normal turgor. No rashes or lesions noted. Course - Re-evaluation Re-evalutation: Patient with persistent cough on exam but otherwise she is actually very well- appearing. Clear lungs, no tachypnea, no signs of respiratory distress. Speaks in full sentences, ambulates without difficulty. Mild congestion but otherwise unremarkable physical exam. Urinalysis shows some dehydration, otherwise unremarkable. test is negative. Chest x-ray shows right middle lobe pneumonia. Suspect patient has had a viral illness for several days and now has secondary pneumonia. Patient ambulated without any hypoxia, her oxygen stayed at 98% with even gait and no signs of distress. Patient given Rocephin, started on initial doxycycline, she states she already has prescription of doxycycline at home that she will fill today and begin and she states she has close follow-up with primary care that she can perform. I discussed in detail return precautions. Patient states understanding and agreement. Patient stable at time of discharge. - Vital Signs Vital signs: Temp Pulse Resp BP Pulse Ox 99.5 F 106 H 20 109/75 100 08/20/18 23:12 08/20/18 23:12 08/20/18 23:12 08/20/18 23:12 08/20/18 23:12 - Laboratory Laboratory results interpreted by me: 08/20/18 21:20 Urine Protein 30 H Urine Bilirubin SMALL H Urine Urobilinogen 2.0 H Discharge - Discharge Clinical Impression: Cough, Chills Pneumonia Qualifiers: Pneumonia type: due to unspecified organism Laterality: right Lung location: middle lobe of lung Qualified Code(s): J18.1 - Lobar pneumonia, unspecified organism Condition: Stable Disposition: HOME, SELF-CARE Additional Instructions: Your workup shows a right middle lobe pneumonia. You have been given initial dose of Rocephin, take your doxycycline as prescribed to completion. You can take 1000 mg of Tylenol and 600 mg of ibuprofen every 6 hours if needed for fever/chills/body aches. Stay hydrated. Rest. Follow-up close with primary care to make sure this clears. Return if you worsen including difficulty breathing or any other concerning or worsening symptoms. Prescriptions: Benzonatate [Tessalon Perle 100 mg Capsule] 100 mg PO Q8HP PRN #20 cap PRN Reason: Referrals: [facility] [[facility]] - Follow up in 3-5 days
--- NOTE | 2018-08-20 21:33 | RADIOLOGY REPORT (SQ) ---
EXAM DESCRIPTION: PA and lateral views of the chest CLINICAL HISTORY:33 years Female, worsening productive cough, fever Comparison: November 03, 2017 FINDINGS: Ill-defined infiltrate in the right mid lung, new from prior study. Remaining lung zones are clear. No pleural effusion. No pneumothorax. Cardiac and mediastinal silhouette is unremarkable. No acute osseous abnormality. Soft tissues are unremarkable. IMPRESSION: Pneumonia right midlung zone.
[2018-08-20 21:47] LABS: APPEARANCE,URINE CLOUDY; BILIRUBIN,URINE SMALL (NEGATIVE); COLOR,URINE AMBER; GLUCOSE, URINE NEGATIVE (NEGATIVE); KETONES,URINE NEGATIVE (NEGATIVE); LEUKOCYTE ESTERASE,URINE NEGATIVE (NEGATIVE); NITRITE,URINE NEGATIVE (NEGATIVE); PROTEIN,URINE 30 mg/dL (NEGATIVE)
[2018-08-20] MEDS ORDERED: ACETAMINOPHEN 325 MG TABLET PO ONE (22:43)
[2018-08-20] MEDS ORDERED: LIDOCAINE 1% INJ-PF (10 MG/ML) 30 ML SDV INJ ONE (22:43)
[2018-08-20] MEDS ORDERED: IBUPROFEN 600 MG TABLET PO ONE (22:43)
[2018-08-20] MEDS ORDERED: CEFTRIAXONE INJ 1000 MG VIAL IM ONE (22:43)
[2018-08-20] MEDS ORDERED: DOXYCYCLINE HYCLATE 100 MG TABLET PO ONE (22:43)
[2018-08-20 23:25] VITALS: BP 109/75
== END 2018-08-20 23:29 | disposition home or self-care (01) ==
LOC: ER 18:56
DX: J18.1 Lobar pneumonia, unspecified organism (principal); R05 Cough; E86.0 Dehydration; H92.09 Otalgia, unspecified ear; R50.9 Fever, unspecified; R35.0 Frequency of micturition; R09.81 Nasal congestion; R00.0 Tachycardia, unspecified; Z79.899 Other long term (current) drug therapy; Z88.5 Allergy status to narcotic agent; Z88.8 Allergy status to other drugs, medicaments and biological substances
CPT/HCPCS: 99283; 96372; 81025; 81001; 71046; J0696

== ENCOUNTER 2018-08-23 04:04 | Emergency (ER) | payer OTHER, MEDICARE ==
--- NOTE | 2018-08-23 04:57 | ER Document Report ---
ED General - General Chief Complaint: Cough Stated Complaint: COUGH Time Seen by Provider: 08/23/18 04:37 Notes: Patient is a 33-year-old female who presents to the emergency department with a chief complaint of fever, severe ear pain, stiffness, and pneumonia. Her symptoms started 1 week ago she was seen 4 days ago at an urgent care and was sent home with steroids for an upper respiratory infection, but states she did not take the steroids she was prescribed. She was then seen here in the emergency department 3 days ago and was diagnosed with pneumonia. She is given doxycycline and states she has been taking the medication, but states that she continues to have her symptoms. She does have a history of tachycardia, in which she does take metoprolol for. She also has history of anxiety, but states "that is not a problem." She denies smoking, alcohol abuse, or illicit drug use. TRAVEL OUTSIDE OF THE [place] IN LAST 30 DAYS: No - Related Data Allergies/Adverse Reactions: codeine Allergy (Verified 06/28/18 18:30) haloperidol [From Haldol] Allergy (Verified 07/23/18 21:48) morphine Allergy (Verified 06/28/18 18:30) ssri Adverse Reaction (Uncoded 06/28/18 18:30) Past Medical History - Social History Smoking Status: Never Smoker Frequency of alcohol use: Occasional Drug Abuse: None Family History: Reviewed & Not Pertinent, CAD, CVA, DM, Hyperlipidemia, Hypertension, Malignancy. denies: Arthritis, COPD, Thyroid Disfunction - Past Medical History Cardiac Medical History: Denies: Hx Atrial Fibrillation Neurological Medical History: Denies: Hx Seizures Endocrine Medical History: Denies: Hx Hyperthyroidism Renal/ Medical History: Denies: Hx Peritoneal Dialysis GI Medical History: Reports: Hx Gastroesophageal Reflux Disease, Hx Irritable Bowel Musculoskeletal Medical History: Reports Hx Musculoskeletal Trauma Psychiatric Medical History: Reports: Hx Anxiety, Hx Bipolar Disorder - mis dx. borderline personality and panic disorder, Hx Depression, Hx Obsessive Compulsive Disorder, Hx Post Traumatic Stress Disorder Traumatic Medical History: Reports: Hx Fractures Infectious Medical History: Reports: Hx C-Diff Past Surgical History: Reports: Hx Appendectomy, Hx Cholecystectomy, Hx Gynecologic Surgery - , Hx Orthopedic Surgery, Hx Tubal Ligation. Denies: Hx Hysterectomy - Immunizations Immunizations up to date: Yes Hx Diphtheria, Pertussis, Tetanus Vaccination: Yes Hx Pneumococcal Vaccination: 08/21/12 Review of Systems - Review of Systems Notes: REVIEW OF SYSTEMS: CONSTITUTIONAL : See HPI EENT: See HPI CARDIOVASCULAR: Denies chest pain. RESPIRATORY: See HPI GASTROINTESTINAL: Denies nausea, vomiting, and diarrhea. Denies abdominal pain. Denies constipation. GENITOURINARY: Denies difficulty urinating, burning, blood in urine, urgency or frequency. MUSCULOSKELETAL: Denies neck and back pain. Denies joint pain or swelling. SKIN: Denies rash, itchiness, or lesions HEMATOLOGIC : Denies easy bruising or bleeding. LYMPHATIC: Denies swollen, painful, enlarged glands. NEUROLOGICAL: Denies no numbness or tingling denies weakness. Denies headache. Denies altered mental status. Denies alteration in speech. PSYCHIATRIC: Denies stress, anxiety, alteration in sleep patterns, or depression. All other systems reviewed and negative. Physical Exam - Vital signs Vitals: Temp Pulse Resp BP Pulse Ox 98.6 F 118 H 22 H 117/73 96 08/23/18 04:14 08/23/18 04:14 08/23/18 04:14 08/23/18 04:14 08/23/18 04:14 - Notes Notes: PHYSICAL EXAMINATION: GENERAL: Appears well, healthy, well-nourished, no acute distress. HEAD: Normocephalic, atraumatic. EYES: PERRL, conjunctiva normal, all extraocular movements intact, sclera nonicteric ENT: Moist mucous membranes. Mild redness to right tympanic membrane. NECK: Supple, no noticeable swelling, redness, rash. Normal range of motion. LUNGS: Fine coarse breath sounds to right middle lobe. CARDIOVASCULAR: S1-S2, regular rate, regular rhythm. Radial pulses 2+, normal. ABDOMEN: Normoactive bowel sounds. Soft, nontender, no guarding, no rebound tenderness, and no masses palpated. EXTREMITIES: Normal strength and range of motion, no pitting or edema. No cya nosis. NEUROLOGICAL: Moves all extremities upon command. Strength 5/5 in all extremities. PSYCH: Normal mood, normal affect. SKIN: Warm, dry. No rash, lesions, ulcerations noted. Normal skin turgor. Course - Re-evaluation Re-evalutation: 08/23/18 05:43 Patient's CBC is normal. Although the patient has only had 3 days worth of antibiotics, I will switch her over to amoxicillin for her pneumonia. I have given her strict discharge instructions to complete her full course of antibiotics before she returns to the emergency department. She is also complaining of her cough. I have given her Robitussin to help with her symptoms because she says she is coughing, but nothing is coming up. I have also told her that she needs to continue her Motrin and Tylenol make sure she eats with those medications to help reduce the incidence of developing a gastric ulcer. 08/23/18 06:02 I do not suspect the patient is not improving with her doxycycline. She appears anxious to me, and she does have a history of anxiety. Verbal discharge instructions were given to the patient. They verbalized understanding. They are stable for discharge. - Vital Signs Vital signs: Temp Pulse Resp BP Pulse Ox 98.6 F 118 H 22 H 117/73 96 08/23/18 04:14 08/23/18 04:14 08/23/18 04:14 08/23/18 04:14 08/23/18 04:14 - Laboratory Result Diagrams: 08/23/18 05:20 Discharge - Discharge Clinical Impression: Cough Condition: Stable Disposition: HOME, SELF-CARE Additional Instructions: You were seen today in the emergency department for cough, fever, and ear pain. Your labs are normal here in the emergency department. You were diagnosed with pneumonia on August 20 with pneumonia, that is why you did not receive a chest x-ray today. Your antibiotic is being switched to amoxicillin. This will cover pneumonia, and also any possible ear infection that may result. You may take a probiotic to help with your stomach. please make sure you take the full course of your antibiotics before returning to the emergency department. Please continue taking Motrin and Tylenol every 6 hours as needed for your fevers. Please also take cool showers. You may run the hot water in the shower and breathe in the steamy air to help soothe your cough. Please drink warm tea with honey in it to help soothe your throat. You may follow-up with your primary care doctor after your course of antibiotics is finished. Prescriptions: Amoxicillin Trihydrate [Amoxil 875 mg Tablet] 1 tab PO BID #20 tablet Referrals: [facility] [Primary Care Provider] - Follow up as needed
[2018-08-23 05:37] LABS: ABSOLUTE EOSINOPHILS # (AUTO) 0.3 10^3/uL (0.0-0.6); ABSOLUTE LYMPHOCYTES (AUTO) 2.2 10^3/uL (0.5-4.7); ABSOLUTE MONOCYTES (AUTO) 0.5 10^3/uL (0.1-1.4); ABSOLUTE NEUT (AUTO) 3.9 10^3/uL (1.7-8.2); BASOPHILS % (AUTO) 0.6 % (0-2); EOSINOPHILS % (AUTO) 4.2 % (0-6); HEMATOCRIT 39.8 % (36.0-47.0); HEMOGLOBIN 13.7 g/dL (12.0-15.5); LYMPHOCYTES % (AUTO) 31.6 % (13-45); MEAN CORPUSCULAR HEMOGLOBIN 29.1 pg (27.0-33.4); MEAN CORPUSCULAR HGB CONC 34.5 g/dL (32.0-36.0); MEAN CORPUSCULAR VOLUME 84 fl (80-97); MONOCYTES % (AUTO) 7.5 % (3-13); PLATELET COUNT 327 10^3/uL (150-450); RED BLOOD COUNT 4.72 10^6/uL (3.72-5.28); RED CELL DISTRIBUTION WIDTH 13.4 % (11.5-14.0); SEGMENTED NEUTROPHILS % (AUTO) 56.1 % (42-78); TOTAL CELLS COUNTED % (AUTO) 100 %
[2018-08-23] MEDS ORDERED: GUAIFENESIN SYRP 200 MG/10 ML UDC PO ONE (05:41)
[2018-08-23 06:03] VITALS: BP 112/75
== END 2018-08-23 06:03 | disposition home or self-care (01) ==
LOC: ER 04:04
DX: R05 Cough (principal); R50.9 Fever, unspecified; Z88.6 Allergy status to analgesic agent; Z90.49 Acquired absence of other specified parts of digestive tract; Z98.51 Tubal ligation status
CPT/HCPCS: 36415; 85025; 99283

== ENCOUNTER 2018-09-19 01:08 | Emergency (ER) | payer OTHER, MEDICARE ==
--- NOTE | 2018-09-19 02:15 | ER Document Report ---
ED Cardiac - General Chief Complaint: Chest Pain Stated Complaint: CHEST PAIN Time Seen by Provider: 09/19/18 02:15 Primary Care Provider: GITA NEWMAN [Primary Care Provider] - Follow up as needed Mode of Arrival: Ambulatory Information source: Patient Notes: HISTORY OF PRESENT ILLNESS: Patient is a 33-year-old female with a past medical history of idiopathic intermittent tachycardia who presents with recurrent episodes of tachycardia. Patient has been seen in the emergency department previously for similar symptoms, has already followed up with cardiology and had extensive workup including stress test and echocardiogram, reports testing is always "normal." Location: Middle of the chest Onset: Sudden Alleviation: "Metoprolol" Provocation: Unknown Quality: Palpitations Radiation: None Severity: Mild to moderate Timing: Intermittent History of CAD: No risk factors Associated symptoms: No confusion or disorientation, no dizziness/lightheadedness, no abdominal pain, no nausea, no diaphoresis, no shortness of breath, no leg swelling REVIEW OF SYSTEMS: CONSTITUTIONAL : Denies fever or chills, no sweats. Denies recent illness. EENT: Denies eye, ear, throat, or mouth pain or symptoms. Denies nasal or sinus congestion. CARDIOVASCULAR: Positive for palpitations. Denies swelling of the legs. RESPIRATORY: Denies cough, cold, or chest congestion. Denies shortness of breath or difficulty breathing. Denies wheezing. GASTROINTESTINAL: Denies abdominal pain. Denies nausea, vomiting, or diarrhea. Denies constipation. GENITOURINARY: Denies difficulty urinating, painful urination, burning, frequency, or blood in urine. FEMALE GENITOURINARY: Denies vaginal bleeding, abnormal or irregular periods. Last menstrual period was MUSCULOSKELETAL: Denies neck or back pain or joint pain or swelling. SKIN: Denies rash or skin lesions. HEMATOLOGIC : Denies easy bruising or bleeding. LYMPHATIC: Denies swollen, enlarged glands. NEUROLOGICAL: Denies altered mental status or loss of consciousness. Denies headache. Denies weakness or paralysis or loss of use of either side. Denies problems with gait or speech. Denies sensory or motor loss. PSYCHIATRIC: Denies anxiety or stress or depression. All other systems reviewed and negative. PHYSICAL EXAMINATION: GENERAL: Well-appearing, well-nourished and in no acute distress. HEAD: Atraumatic, normocephalic. No scalp deformity, depression, or crepitance. EYES: Pupils are 3 mm and equal/round/reactive to light, extraocular movements intact, sclera anicteric, conjunctiva are normal. ENT: Nares patent bilaterally, oropharynx. Moist mucous membranes. No tonsil hypertrophy. NECK: Normal range of motion, supple without lymphadenopathy. LUNGS: Breath sounds present, equal, and clear to auscultation bilaterally. No wheezes, rales, or rhonchi. HEART: Tachycardia with normal rhythm without murmurs, rubs, or gallops. 2+ peripheral pulses. Normal capillary refill. ABDOMEN: Soft, nontender, nondistended. Normoactive bowel sounds. No guarding, no rebound. No masses appreciated. BACK: Normal contour, no midline tenderness. Rectal exam deferred. GENITAL/PELVIC: Deferred. EXTREMITIES: Normal range of motion, no pitting or edema. No cyanosis. NEUROLOGICAL: No focal neurological deficits. Moves all extremities spontaneously and on command. PSYCH: Normal mood, normal affect. No suicidal thoughts/ideations. No homocidal thoughts/ideations. No hallucinations. SKIN: Warm, dry, normal turgor, no rashes or lesions noted. ASSESSMENT AND PLAN: This patient is a 33-year-old female who presents with acute on chronic idiopathic intermittent tachycardia of unknown etiology despite several cardiac workups both as an inpatient and outpatient. I suspect patient needs an incr eased dose of oral metoprolol that she can take as an extended release daily dose. 1. Will obtain EKG and get the patient 100 mg of oral metoprolol succinate extended release. 2. Will reassess. TRAVEL OUTSIDE OF THE [place] IN LAST 30 DAYS: No - Related Data Allergies/Adverse Reactions: codeine Allergy (Verified 06/28/18 18:30) haloperidol [From Haldol] Allergy (Verified 07/23/18 21:48) morphine Allergy (Verified 06/28/18 18:30) ssri Adverse Reaction (Uncoded 06/28/18 18:30) Past Medical History - General Information source: Patient - Social History Smoking Status: Never Smoker Frequency of alcohol use: None Drug Abuse: None Lives with: Alone Family History: Reviewed & Not Pertinent, CAD, CVA, DM, Hyperlipidemia, Hypertension, Malignancy. denies: Arthritis, COPD, Thyroid Disfunction - Past Medical History Cardiac Medical History: Reports: None Denies: Hx Atrial Fibrillation Pulmonary Medical History: Reports: Hx Pneumonia EENT Medical History: Reports: None Neurological Medical History: Reports: None. Denies: Hx Seizures Endocrine Medical History: Reports: None. Denies: Hx Hyperthyroidism Renal/ Medical History: Reports: None. Denies: Hx Peritoneal Dialysis Malignancy Medical History: Reports: None GI Medical History: Reports: Hx Gastroesophageal Reflux Disease, Hx Irritable [place] Musculoskeletal Medical History: Reports Hx Musculoskeletal Trauma Skin Medical History: Reports None Psychiatric Medical History: Reports: Hx Anxiety, Hx Bipolar Disorder - mis dx. borderline personality and panic disorder, Hx Depression, Hx Obsessive Compulsive Disorder, Hx Post Traumatic Stress Disorder Traumatic Medical History: Reports: Hx Fractures Infectious Medical History: Reports: Hx C-Diff Past Surgical History: Reports: Hx Appendectomy, Hx Cholecystectomy, Hx Gynecologic Surgery - , Hx Orthopedic Surgery, Hx Tubal Ligation. Denies: Hx Hysterectomy - Immunizations Immunizations up to date: Yes Hx Diphtheria, Pertussis, Tetanus Vaccination: Yes Hx Pneumococcal Vaccination: 08/21/12 Physical Exam - Vital signs Vitals: Temp Pulse Resp BP Pulse Ox 97.9 F 108 H 16 118/82 100 09/19/18 01:18 09/19/18 01:18 09/19/18 01:18 09/19/18 01:18 09/19/18 01:18 Course - Re-evaluation Re-evalutation: 09/19/18 04:52 Patient has a normal EKG other than tachycardia. Tachycardia has improved after the oral metoprolol increased dose. She will be discharged home with return precautions and follow-up with a professor of pathology as already scheduled. Patient voices both understanding and agreeing with the plan. - Vital Signs Vital signs: Temp Pulse Resp BP Pulse Ox 97.9 F 108 H 15 115/84 99 09/19/18 01:18 09/19/18 01:18 09/19/18 04:01 09/19/18 04:00 09/19/18 04:01 - EKG Interpretation by Mi EKG shows normal: Sinus rhythm Rate: Tachycardia Rhythm: NSR [place]/QRS: Right axis deviation Voltage: No: Increased voltage, Consistant with LVH, Decreased voltage, Throughout, Limb leads P Waves: No: BETHANIE, LAE, Absent, AV Dissociation, Other Heart block present: No: 1st Degree, Mobitz 1, Mobitz 2, CHB (3rd degree block) When compared to previous EKG there are: No significant change Discharge - Discharge Clinical Impression: Tachycardia Condition: Good Disposition: HOME, SELF-CARE Instructions: Sinus Tachycardia ([facility]) Additional Instructions: You have been evaluated in the Emergency Department for episodes of tachycardia of unknown cause. Please follow-up with your primary physician as well as her professor of pathology as instructed. Return to the Emergency Department if you experience lightheadedness/dizziness, episodes of passing out, chest pain with difficulty breathing, swelling of the extremities, or any other concerning symptoms. Prescriptions: Metoprolol Succinate [Toprol XL 100 mg Tablet] 100 mg PO DAILY #30 [id number] Referrals: [facility] [Primary Care Provider] - Follow up as needed Print Language: Sami
[2018-09-19] MEDS ORDERED: METOPROLOL SUCCINATE 50 MG TAB.SR.24H PO ONE (03:37)
[2018-09-19 06:28] VITALS: BP 105/85
--- NOTE | 2018-09-20 19:53 | EKG REPORT ---
SEVERITY:- BORDERLINE ECG - SINUS TACHYCARDIA INFERIOR Q WAVES, PROBABLY NORMAL VARIATION : Confirmed by: Scott Pena MD 20-Sep-2018 19:52:34
== END 2018-09-19 05:05 | disposition home or self-care (01) ==
LOC: ER 01:08
DX: R00.0 Tachycardia, unspecified (principal); R07.9 Chest pain, unspecified; Z88.6 Allergy status to analgesic agent; Z90.49 Acquired absence of other specified parts of digestive tract; Z98.51 Tubal ligation status
CPT/HCPCS: 93005; 93010; 99284

== ENCOUNTER → 2018-10-10 | Outpatient (CLI) | payer MEDICARE ==
[2018-10-10 15:30] LABS: ARTERIAL BLOOD BASE EXCESS 1.9 mmol/L; ARTERIAL BLOOD H2CO3 1.14 mmol/L (1.05-1.35); ARTERIAL BLOOD HCO3 25.8 mmol/L (20-24); ARTERIAL BLOOD O2 SATURATION 98.2 % (94-98); ARTERIAL BLOOD PCO2 37.9 mmHg (35-45); ARTERIAL BLOOD PH 7.45 (7.35-7.45); ARTERIAL BLOOD PO2 109.7 mmHg (80-100); ARTERIAL BLOOD TOTAL CO2 26.9 mmol/L (21-25)
[2018-10-10 15:32] LABS: ARTERIAL BLOOD FIO2 ROOMAIR
== END ==
LOC: OD 14:58
PROVIDERS: ATTEND Specialist
DX: R23.0 Cyanosis (principal)
CPT/HCPCS: 36600; 82803

== ENCOUNTER 2018-10-22 12:03 | Emergency (ER) | payer OTHER, MEDICARE ==
--- NOTE | 2018-10-22 13:28 | ER Document Report ---
ED Medical Screen (RME) - General Chief Complaint: Facial Droop Stated Complaint: FACIAL NUMBNESS Time Seen by Provider: 10/22/18 13:17 Primary Care Provider: JENARO HOWELL MD [Primary Care Provider] - Follow up as needed Notes: Patient is a 33-year-old female that presents to the emergency department for chief complaint of right-sided facial droop, and right-sided decreased sensation. Patient reports having abnormal neurological findings and concerns over the past few months, but today noticed a right-sided facial droop which concerned her so she came to the ED. ROS: Other than noted above, the 12 point review of systems was reviewed with the patient and were negative, all pertinent findings are included in the HPI. PHYSICAL EXAMINATION: Vital signs reviewed. GENERAL: Well-appearing, well-nourished and in no acute distress. HEAD: Atraumatic, normocephalic. EYES: Pupils equal round extraocular movements intact, conjunctiva are normal. ENT: Nares patent NECK: Normal range of motion CV: Heart regular rate and rhythm LUNGS: No respiratory distress Musculoskeletal: Normal range of motion NEUROLOGICAL: Normal speech, sensation appears to be grossly intact distally as well as motor function, no ptosis, perhaps some minimal right-sided facial droop PSYCH: Normal mood, normal affect. MDM: Patient seen and examined for rapid initial assessment. Vital signs reviewed. A comprehensive ED assessment and evaluation of the patient, analysis of test results and completion of the medical decision making process will be conducted by additional ED providers. *Note is created using voice recognition software and may contain spelling, syntax or grammatical errors. TRAVEL OUTSIDE OF THE [place] IN LAST 30 DAYS: No - Related Data Allergies/Adverse Reactions: codeine Allergy (Verified 10/22/18 12:05) haloperidol [From Haldol] Allergy (Verified 10/22/18 12:05) morphine Allergy (Verified 10/22/18 12:05) ssri Adverse Reaction (Uncoded 10/22/18 12:05) Past Medical History - Social History Family history: Reviewed & Not Pertinent, Malignancy - Past Medical History Cardiac Medical History: Denies: Hx Atrial Fibrillation Pulmonary Medical History: Reports: Hx Pneumonia Neurological Medical History: Denies: Hx Seizures Endocrine Medical History: Denies: Hx Hyperthyroidism Renal/ Medical History: Denies: Hx Peritoneal Dialysis GI Medical History: Reports: Hx Gastroesophageal Reflux Disease, Hx Irritable Bowel Musculoskeltal Medical History: Reports Hx Musculoskeletal Trauma Psychiatric Medical History: Reports: Hx Anxiety, Hx Bipolar Disorder - mis dx. borderline personality and panic disorder, Hx Depression, Hx Obsessive Compulsive Disorder, Hx Post Traumatic Stress Disorder Traumatic Medical History: Reports: Hx Fractures Infectious Medical History: Reports: Hx C-Diff Past Surgical History: Reports: Hx Appendectomy, Hx Cholecystectomy, Hx Gynecologic Surgery - , Hx Orthopedic Surgery, Hx Tubal Ligation. Denies: Hx Hysterectomy - Immunizations Immunizations up to date: Yes Hx Diphtheria, Pertussis, Tetanus Vaccination: Yes Physical Exam - Vital signs Vitals: Temp Pulse Resp BP Pulse Ox 98.1 F 105 H 16 124/74 100 10/22/18 12:10 10/22/18 12:10 10/22/18 12:10 10/22/18 12:10 10/22/18 12:10 Course - Vital Signs Vital signs: Temp Pulse Resp BP Pulse Ox 98.1 F 105 H 16 124/74 100 10/22/18 12:10 10/22/18 12:10 10/22/18 12:10 10/22/18 12:10 10/22/18 12:10 Doctor's Discharge - Discharge Referrals: JENARO HOWELL MD [Primary Care Provider] - Follow up as needed
[2018-10-22 13:46] LABS: APPEARANCE,URINE SLIGHTLY-CLOUDY; BILIRUBIN,URINE NEGATIVE (NEGATIVE); COLOR,URINE YELLOW; GLUCOSE, URINE NEGATIVE (NEGATIVE); KETONES,URINE NEGATIVE (NEGATIVE); LEUKOCYTE ESTERASE,URINE NEGATIVE (NEGATIVE); NITRITE,URINE NEGATIVE (NEGATIVE); PROTEIN,URINE NEGATIVE (NEGATIVE); URINE SPECIFIC GRAVITY 1.024; UROBILINOGEN,URINE NEGATIVE mg/dL (<2.0)
[2018-10-22 14:26] LABS: ABSOLUTE BASOPHILS # (AUTO) 0.1 10^3/uL (0.0-0.2); ABSOLUTE EOSINOPHILS # (AUTO) 0.1 10^3/uL (0.0-0.6); ABSOLUTE MONOCYTES (AUTO) 0.3 10^3/uL (0.1-1.4); ABSOLUTE NEUT (AUTO) 4.4 10^3/uL (1.7-8.2); EOSINOPHILS % (AUTO) 0.8 % (0-6); HEMATOCRIT 40.6 % (36.0-47.0); HEMOGLOBIN 14.1 g/dL (12.0-15.5); LYMPHOCYTES % (AUTO) 29.1 % (13-45); MEAN CORPUSCULAR HEMOGLOBIN 29.7 pg (27.0-33.4); MEAN CORPUSCULAR HGB CONC 34.8 g/dL (32.0-36.0); MEAN CORPUSCULAR VOLUME 85 fl (80-97); MONOCYTES % (AUTO) 3.9 % (3-13); PLATELET COUNT 339 10^3/uL (150-450); RED BLOOD COUNT 4.76 10^6/uL (3.72-5.28); RED CELL DISTRIBUTION WIDTH 13.8 % (11.5-14.0); SEGMENTED NEUTROPHILS % (AUTO) 65.2 % (42-78); TOTAL CELLS COUNTED % (AUTO) 100 %; WHITE BLOOD COUNT 6.7 10^3/uL (4.0-10.5)
--- NOTE | 2018-10-22 14:52 | ER Document Report ---
ED General - General Chief Complaint: Facial Droop Stated Complaint: FACIAL NUMBNESS Time Seen by Provider: 10/22/18 13:17 Primary Care Provider: JENARO HOWELL MD [Primary Care Provider] - Follow up as needed Mode of Arrival: Ambulatory Information source: Patient, [facility] Records Notes: 33-year-old female with PTSD, GERD, gastroparesis presents with concern for rig ht eye and right-sided facial droop. Patient review reports that back in June she underwent an appendectomy which subsequently led her to have persistent sinus tachycardia which requires her now to be on metoprolol. Patient also states that she has had some right-sided paresthesias, numbness for several months for which she does see neurology. She also reports an MRI and CAT scan which was performed over the summer which she reports to be normal. Patient also reports recent lumbar puncture to assess for MS which was also reportedly normal. Her biggest concern is that she is never had facial droop before. This started 2 days prior to arrival. She states she initially thought that she just had "puffy eyes". Patient denies any recent illness, headache, blurred vision, focal weakness, difficulty with ambulation, family history of stroke, MS, tobacco use. TRAVEL OUTSIDE OF THE [place] IN LAST 30 DAYS: No - HPI Onset: Other Onset/Duration: Gradual, Persistent Quality of pain: No pain Severity: None Pain Level: Denies Associated symptoms: None, Other - Right-sided paresthesia, right-sided facial droop Exacerbated by: Denies Relieved by: Denies Similar symptoms previously: No Recently seen / treated by doctor: Yes - Related Data Allergies/Adverse Reactions: codeine Allergy (Verified 10/22/18 12:05) haloperidol [From Haldol] Allergy (Verified 10/22/18 12:05) morphine Allergy (Verified 10/22/18 12:05) ssri Adverse Reaction (Uncoded 10/22/18 12:05) Past Medical History - General Information source: Patient, [facility] Records - Social History Smoking Status: Never Smoker Frequency of alcohol use: None Drug Abuse: None Lives with: Family Family History: Reviewed & Not Pertinent, CAD, CVA, DM, Hyperlipidemia, Hypertension, Malignancy Patient has suicidal ideation: No Patient has homicidal ideation: No - Past Medical History Cardiac Medical History: Denies: Hx Atrial Fibrillation Pulmonary Medical History: Reports: Hx Pneumonia Neurological Medical History: Denies: Hx Seizures Endocrine Medical History: Denies: Hx Hyperthyroidism Renal/ Medical History: Denies: Hx Peritoneal Dialysis GI Medical History: Reports: Hx Gastroesophageal Reflux Disease, Hx Irritable Bowel Musculoskeletal Medical History: Reports Hx Musculoskeletal Trauma Psychiatric Medical History: Reports: Hx Anxiety, Hx Bipolar Disorder - mis dx. borderline personality and panic disorder, Hx Depression, Hx Obsessive Compulsive Disorder, Hx Post Traumatic Stress Disorder Traumatic Medical History: Reports: Hx Fractures Infectious Medical History: Reports: Hx C-Diff Past Surgical History: Reports: Hx Appendectomy, Hx Cholecystectomy, Hx Gynecologic Surgery - , Hx Orthopedic Surgery, Hx Tubal Ligation. Denies: Hx Hysterectomy - Immunizations Immunizations up to date: Yes Hx Diphtheria, Pertussis, Tetanus Vaccination: Yes Hx Pneumococcal Vaccination: 08/21/12 Review of Systems - Review of Systems Notes: REVIEW OF SYSTEMS: CONSTITUTIONAL : Denies fever, chills, or sweats. Denies recent illness. Denies weight loss, recent hospitalizations. EENT: Denies visual changes, eye pain. Denies sore throat, oral lesions, difficulty swallowing. CARDIOVASCULAR: Denies chest pain. Denies palpitations. Denies lower extremity edema. RESPIRATORY: Denies cough. Denies shortness of breath, wheezing. GASTROINTESTINAL: Denies abdominal pain or distention. Denies nausea, vomiting, or diarrhea. Denies blood in vomitus, stools, or per rectum. Denies black, tarry stools. Denies constipation. GENITOURINARY: Denies difficulty urinating, painful urination, frequency, blood in urine, or vaginal discharge. MUSCULOSKELETAL: Denies back or neck pain or stiffness. Denies joint pain or swelling. SKIN: Denies rash, lesions or sores. HEMATOLOGIC : Denies easy bruising or bleeding. LYMPHATIC: Denies swollen glands. NEUROLOGICAL: Denies confusion or altered mental status. Denies loss of consciousness. Denies dizziness or lightheadedness. Denies headache. Denies weakness or paralysis. Denies problems difficulty with ambulation, slurred speech. Denies seizures. PSYCHIATRIC: Denies anxiety or stress. Denies depression, suicidal ideation, or homicidal ideation. Denies visual or auditory hallucinations. Physical Exam - Vital signs Vitals: Temp Pulse Resp BP Pulse Ox 98.1 F 105 H 16 124/74 100 10/22/18 12:10 10/22/18 12:10 10/22/18 12:10 10/22/18 12:10 10/22/18 12:10 - Notes Notes: PHYSICAL EXAMINATION: GENERAL: Well-appearing, well-nourished and in no acute distress. HEAD: Atraumatic, normocephalic. EYES: Pupils equal round and reactive to light, extraocular movements intact, co njunctiva are normal. ENT: Nares patent, oropharynx clear without exudates. Moist mucous membranes. NECK: Normal range of motion, supple without lymphadenopathy LUNGS: Breath sounds clear to auscultation bilaterally and equal. No wheezes rales or rhonchi. HEART: Regular rate and rhythm without murmurs ABDOMEN: Soft, nontender, nondistended abdomen. No guarding, no rebound. No masses appreciated. Female : deferred Musculoskeletal: Normal range of motion, no pitting or edema. No cyanosis. NEUROLOGICAL: Neuro exam Mental status; alert and oriented x3. Cranial nerves II through XII intact. Sensation intact to sharp/dull differentiation in all extremities. Motor; normal tone. No abnormal movements appreciated. No pronator drift. Strength tested and 5/5 in bilateral wrist flexion/extension, elbow flexion/extension, shoulder abduction, straight leg raise, knee flexion/ext ension, ankle dorsiflexion/plantar flexion. Patient ambulates with a steady gait. Coordination; no ataxia. Finger to nose and heel to kilpatrick testing intact bilaterally.Reflexes; brachial radialis, biceps, and patellar reflexes within normal limits and symmetric bilaterally. Babinski with downgoing toes bilaterally. NIH 0 PSYCH: Normal mood, normal affect. SKIN: Warm, Dry, normal turgor, no rashes or lesions noted. Course - Re-evaluation Re-evalutation: Temp Pulse Resp BP Pulse Ox 98.1 F 105 H 16 124/74 100 10/22/18 12:10 10/22/18 12:10 10/22/18 12:10 10/22/18 12:10 10/22/18 12:10 Laboratory 10/22/18 10/22/18 10/22/18 13:34 13:55 13:55 WBC 6.7 RBC 4.76 Hgb 14.1 Hct 40.6 MCV 85 MCH 29.7 MCHC 34.8 RDW 13.8 Plt Count 339 Seg Neutrophils % 65.2 Lymphocytes % 29.1 Monocytes % 3.9 Eosinophils % 0.8 Basophils % 1.0 Absolute Neutrophils 4.4 Absolute Lymphocytes 2.0 Absolute Monocytes 0.3 Absolute Eosinophils 0.1 Absolute Basophils 0.1 Sodium 140.5 Potassium 4.3 Chloride 101 Carbon Dioxide 28 Anion Gap 12 BUN 9 Creatinine 0.74 Est GFR ( Amer) > 60 Est GFR (Non-Af Amer) > 60 Glucose 127 H Calcium 10.0 Total Bilirubin 1.0 Direct Bilirubin 0.2 Neonat Total Bilirubin Not Reportable Neonat Direct Bilirubin Not Reportable Neonat Indirect Bili Not Reportable AST 25 ALT 43 Alkaline Phosphatase 81 Creatine Kinase 37 Total Protein 7.9 Albumin 4.7 TSH Free T4 Urine Color YELLOW Urine Appearance SLIGHTLY-CLOUDY Urine pH 7.0 Ur Specific [place] 1.024 Urine Protein NEGATIVE Urine Glucose (UA) NEGATIVE Urine Ketones NEGATIVE Urine Blood NEGATIVE Urine Nitrite NEGATIVE Urine Bilirubin NEGATIVE Urine Urobilinogen NEGATIVE Ur Leukocyte Esterase NEGATIVE Urine WBC (Auto) 1 Urine RBC (Auto) 2 Urine Bacteria (Auto) TRACE Squamous Epi Cells Auto 6 Urine Mucus (Auto) FEW Urine Ascorbic Acid 40 H Urine HCG, Qual NEGATIVE 10/22/18 13:55 WBC RBC Hgb Hct MCV MCH MCHC RDW Plt Count Seg Neutrophils % Lymphocytes % Monocytes % Eosinophils % Basophils % Absolute Neutrophils Absolute Lymphocytes Absolute Monocytes Absolute Eosinophils Absolute Basophils Sodium Potassium Chloride Carbon Dioxide Anion Gap BUN Creatinine Est GFR ( Amer) Est GFR (Non-Af Amer) Glucose Calcium Total Bilirubin Direct Bilirubin Neonat Total Bilirubin Neonat Direct Bilirubin Neonat Indirect Bili AST ALT Alkaline Phosphatase Creatine Kinase Total Protein Albumin TSH 2.03 Free T4 0.87 Urine Color Urine Appearance Urine pH Ur Specific [place] Urine Protein Urine Glucose (UA) Urine Ketones Urine Blood Urine Nitrite Urine Bilirubin Urine Urobilinogen Ur Leukocyte Esterase Urine WBC (Auto) Urine RBC (Auto) Urine Bacteria (Auto) Squamous Epi Cells Auto Urine Mucus (Auto) Urine Ascorbic Acid Urine HCG, Qual Head MRI 10/22/18 14:45 IMPRESSION: NORMAL MRI OF THE BRAIN WITHOUT INTRAVENOUS GADOLINIUM CONTRAST. EVIDENCE OF ACUTE STROKE: NO. 10/22/18 15:09 33-year-old female presents with complaint of right-sided facial, arm and leg numbness. This is been ongoing for several months and patient has undergone neurology care. She states what concerned her is that she felt like her right eye was drooping and the right side of her face was also drooping. This started 2 days ago. NIH here is 0. Vital signs reviewed and within normal limits. I do not appreciate any facial drooping or eyelid drooping. Patient was placed on assistant professor nurse education and EKG was obtained which show her to be an sinus tachycardia with a rate of 108. Patient reports chronic sinus tachycardia for which she takes metoprolol for and admits that she has not currently taken her home medication. Patient's exam is consistent with stroke, Bear's palsy at this time . She does report a history of HSV but patient is able to move her forehead, fully close her eyes. CBC, CMP, TSH, urinalysis are within normal limits. Although patient had a recent MRI she is requesting performed and showed no evidence of stroke. Patient does have an upcoming appointment with her neurologist and 2 days. These seem to be chronic issues without evidence of stroke or Bear's palsy. Patient was evaluated and treated as appropriate for the patient's presenting symptoms and complaint, with consideration of any critical or life threatening conditions that may be associated with their obtained history and exam as noted above. All results were discussed with patient and patient was provided copies of her imaging and lab work that were performed today. Patient provided the opportunity to ask questions, and express concerns. Patient was educated on treatments based on their presumed diagnosis as noted above. At this time we will discharge the patient with return precautions and follow-up recommendations. Verbal discharge instructions given a the bedside. Medication warnings reviewed. Patient is in agreement with this plan and has verbalized understanding of return precautions. After careful consideration I feel that that patient can be safely discharged from the emergency department, they were advised to followup with a primary care physician in 2-3 days. Dictation on this chart was performed using voice recognition software and may result in unintended grammatical, spelling, syntax or errors. 10/23/18 00:38 - Vital Signs Vital signs: Temp Pulse Resp BP Pulse Ox 97.7 F 103 H 20 115/81 100 10/22/18 17:44 10/22/18 17:44 10/22/18 17:44 10/22/18 17:44 10/22/18 17:44 - Laboratory Result Diagrams: 10/22/18 13:55 10/22/18 13:55 Laboratory results interpreted by me: 10/22/18 10/22/18 13:34 13:55 Glucose 127 H Urine Ascorbic Acid 40 H - Diagnostic Test Radiology reviewed: Image reviewed, Reports reviewed - EKG Interpretation by Me EKG shows normal: Sinus rhythm Rate: Tachycardia Rhythm: NSR When compared to previous EKG there are: No significant change Discharge - Discharge Clinical Impression: Paresthesia, Reported facial droop, Reported eye droop Condition: Good Disposition: HOME, SELF-CARE Instructions: Numbness or Paresthesia ([facility]) Additional Instructions: Please follow-up with your neurologist. Your MRI today was normal. There were no other abnormalities found on your lab testing. You have been provided copies of your lab work and imaging please bring this to your primary care physician and neurologist. Referrals: JENARO HOWELL MD [Primary Care Provider] - Follow up as needed ED NIH Stroke Scale - NIH Stroke Scale *: 1. NIH scale should be completed with appropriate accompanying assessment tools. *: 2. The NIH should reflect what the patient is capable of doing and should not be coached by the clinician. 1a. Level of Consciousness: 0=Alert;keenly responsive -: 1=Drowsy -: 2=Obtunded -: 3=Coma/unresponsive or reflex to noxious stimuli. 1a. Responses: 0 1b. Orientation Questions: a. What month is it? -: b. How old are you? -: 0=Answers both questions correctly. -: 1=Answers one question correctly or patient is intubated or has orotracheal trauma. -: 2=Answers neither question correctly. 1b. Responses: 0 1c. Response to commands: a. Open and close eyes? -: b. Cage Operator and release hand? -: Credit is given despite weakness. Demonstration of task is permitted. Substitute command if hands cannot be used. -: 0=Performs both tasks correctly -: 1=Performs one task correctly -: 2=Performs neither task correctly 1c. Responses: 0 2. Gaze: Establish eye contact and instruct patient to "Follow my finger" -: 0=Normal -: 1=Partial gaze palsy. Gaze is abnormal in one or both eyes, but where forced deviation or total gaze paresis is not present. -: 2=Forced deviation or total gaze paresis. 2. Responses: 0 3. Visual Prasad: Sees fingers in all four quadrants. -: 0=No visual loss. -: 1=Partial hemianopsia. -: 2=Complete hemianopsia. -: 3=Bilateral hemianopsia (including Cortical blindness) 3. Responses: 0 4. Facial Movement: Instruct patient to: -: a. Show me your teeth -: b. Raise your eyebrows -: c. Close your eyes -: d. Smile -: 0=Normal symmetrical movement -: 1=Minor paralysis (flattened nasolabial fold, asymmetry on smiling). -: 2=Partial paralysis (total or near total paralysis of lower face). -: 3=Complete paralysis of upper and lower face 4. Responses: 0 5. Motor functions (left arm): Alternate sides and extend each arm with palms down (90 degrees if sitting or 45 degrees for supine). -: 0=No drift;limb holds for full 10 seconds. -: 1=Drift; limb holds but drifts down before full 10 seconds, but does not hit bed. -: 2=Some effort against gravity; limb cannot get to or maintain position. -: 3=No effort against gravity; limb falls. -: 4=No movement. -: UN=Amputation, joint fusion, explain in comments. 5. Responses (left arm): 0 5. Motor Functions (right arm): Alternate sides and extend each arm with palms down (90 degrees if sitting or 45 degrees for supine). -: 0=No drift;limb holds for full 10 seconds. -: 1=Drift; limb holds but drifts down before full 10 seconds, but does not hit bed. -: 2=Some effort against gravity; limb cannot get to or maintain position. -: 3=No effort against gravity; limb falls. -: 4=No movement. -: UN=Amputation, joint fusion, explain in comments. 5. Responses (right arm): 0 6. Motor Functions (left leg): With patient lying supine, alternate sides and extend each leg (30 degrees always while supine). -: 0=No drift, leg holds position for full 5 seconds -: 1=Drift; leg falls before full 5 seconds but does not hit bed. -: 2=Some effort against gravity, leg falls to bed but some effort against gravity. -: 3=No effort against gravity, leg falls to bed immediately. -: 4=No movement. -: UN=Amputation, joint fusion; explain in comments. 6. Responses (left leg): 0 6. Motor Functions (right leg): With patient lying supine, alternate sides and extend each leg (30 degrees always while supine). -: 0=No drift, leg holds position for full 5 seconds -: 1=Drift; leg falls before full 5 seconds but does not hit bed. -: 2=Some effort against gravity, leg falls to bed but some effort against g ravity. -: 3=No effort against gravity, leg falls to bed immediately. -: 4=No movement. -: UN=Amputation, joint fusion; explain in comments. 6. Responses (right leg): 0 7. Limb Ataxia: With eyes open instruct patient to: -: a. "Touch your finger to your nose". -: b. "Touch your heel to your kilpatrick" -: 0=Absent -: 1=Present in one limb. -: 2=Present in two limbs. -: UN=Amputation or joint fusion; explain in comments. 7. Responses: 0 8. Sensory: Test sensation using pinprick or noxious stimuli. Test as many body parts as possible. -: 0=Normal;no sensory loss -: 1=Mile to moderate sensory loss (patient feels pin prick but is less sharp on affected side). -: 2=Severe or total sensory loss. 8. Responses: 0 9. Best Language: Instruct patient to: -: a. "Describe what you see in this picture." -: b. "Name the items in this picture." -: c. "Read these sentences." -: 0=No aphasia, normal -: 1=Mild to moderate aphasia. -: 2=Severe aphasia -: 3=Mute, global aphasia, no usable speech or auditory comprehension. 9. Responses: 0 10. Articulation, Dysarthia: Instruct patient to: -: "Read these words" or "Repeat these words" -: 0=Normal -: 1=Mild to moderate; patient may slur some words but can be understood without difficulty. -: 2=Severe; patients speech so slurred as to be unintelligible in the absence of dysphasia. -: UN=Intubated or other physical barrier, explain in comments. 10. Responses: 0 11. Extinction or inattention: 0=No abnormality -: 1= Visual, tactile, auditory, spatial, or personal inattention or extinction to bilateral simulation in one or the sensory modalities. -: 2=Profound minesh-inattention or minesh-inattention to more than one modality; does not recognize own hand. 11. Responses: 0 Total Score: 0
[2018-10-22 14:53] LABS: GLUCOSE 127 mg/dL (75-110); TOTAL PROTEIN 7.9 g/dL (6.3-8.2)
[2018-10-22 14:55] LABS: ALANINE AMINOTRANSFERASE 43 U/L (9-52); ALBUMIN 4.7 g/dL (3.5-5.0); ALKALINE PHOSPHATASE 81 U/L (38-126); ANION GAP 12 (5-19); ASPARTATE AMINO TRANSFERASE 25 U/L (14-36); BILIRUBIN,DIRECT 0.2 mg/dL (0.0-0.4); BLOOD UREA NITROGEN 9 mg/dL (7-20); CARBON DIOXIDE 28 mmol/L (22-30); CHLORIDE 101 mmol/L (98-107); CREATINE KINASE 37 U/L (30-135); POTASSIUM 4.3 mmol/L (3.6-5.0); SODIUM 140.5 mmol/L (137-145)
[2018-10-22 15:08] LABS: FREE T4 (FREE THYROXINE) 0.87 ng/dL (0.78-2.19)
[2018-10-22 15:22] LABS: THYROID STIMULATING HORMONE 2.03 uIU/mL (0.47-4.68)
--- NOTE | 2018-10-22 17:02 | RADIOLOGY REPORT (SQ) ---
EXAM DESCRIPTION: MRI HEAD WITHOUT COMPLETED DATE/TIME: 10/22/2018 4:52 pm REASON FOR STUDY: right facial numbness COMPARISON: None. TECHNIQUE: Multiplanar imaging includes non-contrasted T1, T2, FLAIR, and diffusion with ADC map seq uences. Images stored on PACS. LIMITATIONS: None. FINDINGS: ANATOMY: No anomalies. Normal vascular flow voids. Pituitary fossa normal. CSF SPACES: Normal in size and contour. No hemorrhage. CEREBRUM: Sulci and gyri normal in size and contour. Normal white matter signal on FLAIR imaging. No evidence of hemorrhage, mass, or extraaxial fluid collection. POSTERIOR FOSSA: No signal alteration. No hemorrhage. No edema, masses or mass effect. Internal james tory canals, cerebello-pontine angles, mastoids normal. DIFFUSION IMAGING: Negative for acute or sub-acute infarction. ORBITS: No masses. Globes normal. PARANASAL SINUSES: No fluid levels. Mucosa normal. OTHER: No other significant finding. IMPRESSION: NORMAL MRI OF THE BRAIN WITHOUT INTRAVENOUS GADOLINIUM CONTRAST. EVIDENCE OF ACUTE STROKE: NO. TECHNICAL DOCUMENTATION: JOB ID: [id number] [employer]- All Rights Reserved Reading location - IP/workstation name: [email or web address]
[2018-10-22 17:47] VITALS: BP 115/81
--- NOTE | 2018-10-22 21:48 | EKG REPORT ---
SEVERITY:- OTHERWISE NORMAL ECG - SINUS TACHYCARDIA : Confirmed by: Karen Denny MD 22-Oct-2018 21:47:42
== END 2018-10-22 17:47 | disposition home or self-care (01) ==
LOC: ER 12:03
DX: R20.2 Paresthesia of skin (principal); R29.810 Facial weakness; Z88.6 Allergy status to analgesic agent; Z98.51 Tubal ligation status; Z90.49 Acquired absence of other specified parts of digestive tract
CPT/HCPCS: 36415; 70551; 80053; 81001; 81025; 82550; 84439; 84443; 85025; 93005; 93010; 99284

== ENCOUNTER 2018-11-15 02:55 | Emergency (ER) | payer OTHER, MEDICARE ==
[2018-11-15] MEDS ORDERED: NORMAL SALINE 1000 ML 1,000 ML IV ONE (04:46)
[2018-11-15 04:49] LABS: APPEARANCE,URINE SLIGHTLY-CLOUDY; BILIRUBIN,URINE NEGATIVE (NEGATIVE); COLOR,URINE YELLOW; GLUCOSE, URINE NEGATIVE (NEGATIVE); KETONES,URINE NEGATIVE (NEGATIVE); LEUKOCYTE ESTERASE,URINE NEGATIVE (NEGATIVE); NITRITE,URINE NEGATIVE (NEGATIVE); PROTEIN,URINE NEGATIVE (NEGATIVE); URINE SPECIFIC GRAVITY 1.027
--- NOTE | 2018-11-15 05:01 | ER Document Report ---
ED General - General Chief Complaint: Blood Pressure Problem Stated Complaint: BLOOD PRESSURE PROBLEMS Time Seen by Provider: 11/15/18 04:27 Notes: Patient is a 33-year-old female that comes to the emergency department for chief complaint of low blood pressure. She states that she felt "fluttering" upon waking up from sleep, she states this happened again and when she did she checked her blood pressure, she found it was in the upper 80s systolic. She states she rechecked it later and it was 107 systolic when sitting up. She states that she was seen at urgent care last Monday and required IV fluids, she states that she thinks she might again. She does have frequent diarrhea, multiple episodes a day, denies abdominal pain, fever, nausea or vomiting. Reports eating and drinking normally. She is also on metoprolol succinate 50 mg daily, states her blood pressures have been low since this was started. She denies any chest pain, shortness of breath, dizziness, dizziness upon standing, syncope. Past medical history includes GERD, tachycardia, PTSD, gastroparesis. TRAVEL OUTSIDE OF THE [place] IN LAST 30 DAYS: No - Related Data Allergies/Adverse Reactions: codeine Allergy (Verified 11/15/18 07:13) haloperidol [From Haldol] Allergy (Verified 11/15/18 07:13) morphine Allergy (Verified 11/15/18 07:13) ssri Adverse Reaction (Uncoded 11/15/18 07:13) Past Medical History - General Information source: Patient - Social History Smoking Status: Never Smoker Drug Abuse: None Lives with: Alone Family History: Reviewed & Not Pertinent, CAD, CVA, DM, Hyperlipidemia, Hypertension, Malignancy Patient has suicidal ideation: No Patient has homicidal ideation: No - Past Medical History Cardiac Medical History: Denies: Hx Atrial Fibrillation Pulmonary Medical History: Reports: Hx Pneumonia Neurological Medical History: Denies: Hx Seizures Endocrine Medical History: Denies: Hx Hyperthyroidism Renal/ Medical History: Denies: Hx Peritoneal Dialysis GI Medical History: Reports: Hx Gastroesophageal Reflux Disease, Hx Irritable Bowel Musculoskeletal Medical History: Reports Hx Musculoskeletal Trauma Psychiatric Medical History: Reports: Hx Anxiety, Hx Bipolar Disorder - mis dx. borderline personality and panic disorder, Hx Depression, Hx Obsessive Compulsive Disorder, Hx Post Traumatic Stress Disorder Traumatic Medical History: Reports: Hx Fractures Infectious Medical History: Reports: Hx C-Diff Past Surgical History: Reports: Hx Appendectomy, Hx Cholecystectomy, Hx Gynecologic Surgery - , Hx Orthopedic Surgery, Hx Tubal Ligation. Denies: Hx Hysterectomy - Immunizations Immunizations up to date: Yes Hx Diphtheria, Pertussis, Tetanus Vaccination: Yes Hx Pneumococcal Vaccination: 08/21/12 Review of Systems - Review of Systems Constitutional: No symptoms reported EENT: No symptoms reported Cardiovascular: See HPI Respiratory: No symptoms reported Gastrointestinal: No symptoms reported Genitourinary: No symptoms reported Female Genitourinary: No symptoms reported Musculoskeletal: No symptoms reported Skin: No symptoms reported Hematologic/Lymphatic: No symptoms reported Neurological/Psychological: No symptoms reported Physical Exam - Vital signs Vitals: Temp Pulse Resp BP Pulse Ox 98.3 F 95 16 111/72 98 11/15/18 03:58 11/15/18 03:58 11/15/18 03:58 11/15/18 03:58 11/15/18 03:58 - Notes Notes: GENERAL: Alert, interacts well. No acute distress. HEAD: Normocephalic, atraumatic. EYES: Pupils equal, round, and reactive to light. Extraocular movements intact. ENT: Oral mucosa moist, tongue midline. Oropharynx unremarkable. Airway patent. Nares patent, no nasal septal hematoma, TM's intact. NECK: Full range of motion. Supple. Trachea midline. LUNGS: Clear to auscultation bilaterally, no wheezes, rales, or rhonchi. No respiratory distress. HEART: Regular rate and rhythm. No murmur ABDOMEN: Soft, non-tender. Non-distended. Bowel sounds present in all 4 quadrants. GENITOURINARY: Deferred EXTREMITIES: Moves all 4 extremities spontaneously. No edema, normal radial and dorsalis pedis pulses bilaterally. No cyanosis. BACK: no cervical, thoracic, lumbar midline tenderness. No saddle anesthesia, normal distal neurovascular exam. NEUROLOGICAL: Alert and oriented x3. Normal speech. [cranial nerves II through XII grossly intact]. PSYCH: Normal affect, normal mood. SKIN: Warm, dry, normal turgor. No rashes or lesions noted. Course - Re-evaluation Re-evalutation: EKG sinus rhythm, normal axis, normal QTC and NC intervals. No ST segment changes or T wave inversions in consecutive leads. On monitoring patient did not have any concerning arrhythmias, hypotension, or hypoxia. She is afebrile. CBC, chemistry, TSH unremarkable. Urinalysis shows elevated specific gravity but is otherwise unremarkable. Patient has not had chest pain, shortness of breath, or decompensation on reevaluation. Low suspicion of ACS, sepsis, or other life-threatening cause of hypotension. Patient stating that she is having to down trend her metoprolol because of low blood pressures, has already considered with her news content specialist cutting this in half. This seems reasonable. I discussed with patient return precautions, she has excellent follow-up with the primary care and cardiology, patient states understanding and agreement with plan. - Vital Signs Vital signs: Temp Pulse Resp BP Pulse Ox 98.3 F 95 14 119/73 100 11/15/18 03:58 11/15/18 03:58 11/15/18 07:08 11/15/18 07:08 11/15/18 07:08 - Laboratory Result Diagrams: 11/15/18 05:45 11/15/18 05:45 Laboratory results interpreted by me: 11/15/18 04:02 Urine Urobilinogen 2.0 H Discharge - Discharge Clinical Impression: Low blood pressure reading Condition: Stable Disposition: HOME, SELF-CARE Additional Instructions: Your monitoring, laboratory workup, and evaluation is reassuring at this time. You have been treated for some dehydration which was evidenced on your laboratory evaluation and physical exam. Because of your low blood pressures, it is worth considering cutting your metoprolol in half. Please contact your news content specialist in regards to this. Follow-up with your primary care as planned. Return if you worsen including passing out, chest pain, difficulty breathing, or any other concerning or worsening symptoms.
[2018-11-15 06:32] LABS: ABSOLUTE BASOPHILS # (AUTO) 0.1 10^3/uL (0.0-0.2); ABSOLUTE LYMPHOCYTES (AUTO) 2.8 10^3/uL (0.5-4.7); ABSOLUTE MONOCYTES (AUTO) 0.6 10^3/uL (0.1-1.4); ABSOLUTE NEUT (AUTO) 4.7 10^3/uL (1.7-8.2); BASOPHILS % (AUTO) 1.1 % (0-2); EOSINOPHILS % (AUTO) 0.6 % (0-6); HEMATOCRIT 36.7 % (36.0-47.0); HEMOGLOBIN 12.7 g/dL (12.0-15.5); LYMPHOCYTES % (AUTO) 34.2 % (13-45); MEAN CORPUSCULAR HEMOGLOBIN 29.7 pg (27.0-33.4); MEAN CORPUSCULAR HGB CONC 34.7 g/dL (32.0-36.0); MEAN CORPUSCULAR VOLUME 86 fl (80-97); MONOCYTES % (AUTO) 7.3 % (3-13); PLATELET COUNT 371 10^3/uL (150-450); RED BLOOD COUNT 4.29 10^6/uL (3.72-5.28); SEGMENTED NEUTROPHILS % (AUTO) 56.8 % (42-78); TOTAL CELLS COUNTED % (AUTO) 100 %; WHITE BLOOD COUNT 8.2 10^3/uL (4.0-10.5)
[2018-11-15 06:48] LABS: ANION GAP 9 (5-19); BLOOD UREA NITROGEN 9 mg/dL (7-20); CALCIUM 9.3 mg/dL (8.4-10.2); CARBON DIOXIDE 26 mmol/L (22-30); CHLORIDE 102 mmol/L (98-107); GLUCOSE 95 mg/dL (75-110); SODIUM 137.3 mmol/L (137-145)
[2018-11-15 07:55] VITALS: BP 107/73
--- NOTE | 2018-11-15 14:47 | EKG REPORT ---
SEVERITY:- NORMAL ECG - SINUS RHYTHM : Confirmed by: Karen Denny MD 15-Nov-2018 14:46:48
== END 2018-11-15 08:00 | disposition home or self-care (01) ==
LOC: ER 02:55
DX: R03.1 Nonspecific low blood-pressure reading (principal); R19.7 Diarrhea, unspecified; Z79.899 Other long term (current) drug therapy
CPT/HCPCS: 93005; 99285; 96360; 36415; 84443; 85025; 81025; 80048; 81001; 93010; J7030

== ENCOUNTER → 2018-12-19 | Outpatient (CLI) | payer OTHER, MEDICARE ==
[2018-12-19 13:04] LABS: FREE T3 4.05 pg/mL (2.77-5.27); FREE T4 (FREE THYROXINE) 0.93 ng/dL (0.78-2.19)
[2018-12-19 13:17] LABS: THYROID STIMULATING HORMONE 3.16 uIU/mL (0.47-4.68)
[2018-12-27 22:38] LABS: DIHYDROTESTOSTERONE 3.4 ng/dL (.)
== END ==
LOC: OD 10:53
PROVIDERS: ATTEND Emergency Medicine
DX: R10.84 Generalized abdominal pain (principal); R19.7 Diarrhea, unspecified; Z77.120 Contact with and (suspected) exposure to mold (toxic); R53.83 Other fatigue; R63.5 Abnormal weight gain
CPT/HCPCS: 36415; 82626; 82670; 82679; 83525; 84144; 84146; 84402; 84439; 84443; 84481

== ENCOUNTER 2018-12-28 08:48 | Emergency (ER) | payer OTHER, MEDICARE ==
[2018-12-28] MEDS ORDERED: NORMAL SALINE 1000 ML 1,000 ML IV ONE (09:37)
--- NOTE | 2018-12-28 09:42 | ER Document Report ---
ED General - General Chief Complaint: Chest Pain Stated Complaint: CHEST PAIN Time Seen by Provider: 12/28/18 09:26 Primary Care Provider: FREDERICK RODRÍGUEZ [NO LOCAL MD] - Follow up as needed TRAVEL OUTSIDE OF THE [place] IN LAST 30 DAYS: No - HPI Notes: Patient is a 33-year-old female that presents to the emergency department for chief complaint of palpitations, chest pain and hypotension. Patient reports history of sinus tachycardia for which she takes metoprolol daily. She states that the metoprolol does cause her blood pressure to occasionally be very low. She has a new home blood pressure cuff and states it has been reading 80s over 70s for the last few days. Last night she had an episode of palpitations that lasted for about 5 hours. She reported some substernal chest tightness during the palpitations which has continued. Currently her palpitations have resolved. She did report associated lightheadedness but denied full syncopal episode. She states her heart rate was in the 80s to 90s when she was feeling the palpitations. She states with the sinus tachycardia she has had periods where her heart rate was 150. She states since July 2018 she has had a normal stress echo, nuclear stress test, and Holter monitor test. She did contact her airplane pilot chief Dr. Moore this morning who recommended evaluation in the emergency room. Patient denies history of DVT/PE but does state that she suffers from chronic fatigue and will frequently go 48 hours without getting out of bed. She denies being on any estrogens or having any recent surgeries. Past Medical History: Sinus tachycardia Past Surgical History: Appendectomy, tubal ligation, cholecystectomy, right arm reconstructive surgery Social History: Denies drugs alcohol and tobacco Family History: Reviewed and noncontributory for presenting illness Allergies: Reviewed, see documented allergy list. REVIEW OF SYSTEMS: CONSTITUTIONAL : No fever No chills No diaphoresis No recent illness EENT: No vision changes No congestion No sore throat CARDIOVASCULAR: chest pain palpitations RESPIRATORY: No shortness of breath No cough No difficulty breathing GASTROINTESTINAL: No abdominal pain No nausea No vomiting No diarrhea GENITOURINARY: No dysuria No hematuria No difficulty urinating MUSCULOSKELETAL: No back pain No leg pain No arm pain SKIN: No rashes No lesions LYMPHATIC: No swollen, enlarged glands. NEUROLOGICAL: No lightheadedness No headache No weakness No paresthesias PSYCHIATRIC: No anxiety No depression PHYSICAL EXAMINATION: Vital signs reviewed, nursing noted reviewed. GENERAL: Well-appearing, well-nourished and in no acute distress. HEAD: Atraumatic, normocephalic. EYES: Eyes appear normal, extraocular movements intact, sclera anicteric, conjunctiva are normal. ENT: nares patent, oropharynx clear without exudates. Moist mucous membranes. NECK: Normal range of motion, supple without lymphadenopathy LUNGS: Breath sounds clear to auscultation bilaterally and equal. No wheezes rales or rhonchi. HEART: Regular rate and rhythm without murmurs ABDOMEN: Soft, nontender, normoactive bowel sounds. No rebound, guarding, or rigidity. No masses appreciated. EXTREMITIES: Nontender, good range of motion, no pitting or edema. NEUROLOGICAL: No focal neurological deficits. Moves all extremities spontaneously Motor and sensory grossly intact on exam. PSYCH: Normal mood, normal affect. SKIN: Warm, Dry, normal turgor, no rashes or lesions noted on exposed skin - Related Data Allergies/Adverse Reactions: codeine Allergy (Verified 11/15/18 07:13) haloperidol [From Haldol] Allergy (Verified 11/15/18 07:13) morphine Allergy (Verified 11/15/18 07:13) ssri Adverse Reaction (Uncoded 11/15/18 07:13) Past Medical History - Social History Smoking Status: Never Smoker Family History: Reviewed & Not Pertinent, CAD, CVA, DM, Hyperlipidemia, Hypertension, Malignancy - Past Medical History Cardiac Medical History: Denies: Hx Atrial Fibrillation Pulmonary Medical History: Reports: Hx Pneumonia Neurological Medical History: Denies: Hx Seizures Endocrine Medical History: Denies: Hx Hyperthyroidism Renal/ Medical History: Denies: Hx Peritoneal Dialysis GI Medical History: Reports: Hx Gastroesophageal Reflux Disease, Hx Irritable Bowel Musculoskeletal Medical History: Reports Hx Musculoskeletal Trauma Psychiatric Medical History: Reports: Hx Anxiety, Hx Bipolar Disorder - mis dx. borderline personality and panic disorder, Hx Depression, Hx Obsessive Compulsive Disorder, Hx Post Traumatic Stress Disorder Traumatic Medical History: Reports: Hx Fractures Infectious Medical History: Reports: Hx C-Diff Past Surgical History: Reports: Hx Appendectomy, Hx Cholecystectomy, Hx G ynecologic Surgery - , Hx Orthopedic Surgery, Hx Tubal Ligation. Denies: Hx Hysterectomy - Immunizations Immunizations up to date: Yes Hx Diphtheria, Pertussis, Tetanus Vaccination: Yes Hx Pneumococcal Vaccination: 08/21/12 Physical Exam - Vital signs Vitals: Temp Pulse Resp BP Pulse Ox 97.9 F 95 16 118/81 100 12/28/18 08:54 12/28/18 08:54 12/28/18 08:54 12/28/18 08:54 12/28/18 08:54 Course - Re-evaluation Re-evalutation: 12/28/18 09:40 Vitals reviewed. Nursing notes reviewed. Patient is in no acute respiratory distress. Blood pressure 118/81 when she signed an to the emergency room. She is not currently tachycardic. Her EKG does show S1Q3T3 without tachycardia or ectopy. D-dimer will be ordered for screening of underlying PE. Patient has had a negative stress echo and nuclear med stress test and has no history of CAD. I am not suspicious of ACS as a cause of her chest pain currently. 12/28/18 11:07 Patient's lab work shows no electrolyte derangement or renal insufficiency. She is not anemic. D-dimer is negative and I am not clinically suspicious for PE currently. Patient will be discharged home in stable condition. She will follow with her airplane pilot chief regarding her tachycardia and intermittent hypotension. Her vital signs have remained stable throughout her stay in the emergency room. She is in agreement with this plan of care and stable at discharge. Laboratory 12/28/18 12/28/18 12/28/18 10:15 10:15 10:15 WBC 7.5 RBC 4.76 Hgb 13.8 Hct 40.8 MCV 86 MCH 29.0 MCHC 33.8 RDW 13.4 Plt Count 353 Seg Neutrophils % 60.1 Lymphocytes % 32.2 Monocytes % 6.2 Eosinophils % 0.4 Basophils % 1.1 Absolute Neutrophils 4.5 Absolute Lymphocytes 2.4 Absolute Monocytes 0.5 Absolute Eosinophils 0.0 Absolute Basophils 0.1 D-Dimer < 0.27 Sodium 139.0 Potassium 4.7 Chloride 101 Carbon Dioxide 28 Anion Gap 10 BUN 8 Creatinine 0.82 Est GFR ( Amer) > 60 Est GFR (Non-Af Amer) > 60 Glucose 91 Calcium 9.6 Chest X-Ray 12/28/18 09:42 IMPRESSION: NO ACUTE RADIOGRAPHIC FINDING IN THE CHEST. - Vital Signs Vital signs: Temp Pulse Resp BP Pulse Ox 97.9 F 95 16 118/81 100 12/28/18 08:54 12/28/18 08:54 12/28/18 08:54 12/28/18 08:54 12/28/18 08:54 - Laboratory Result Diagrams: 12/28/18 10:15 12/28/18 10:15 - EKG Interpretation by Me Additional EKG results interpreted by me: 12/28/18 09:41 Interpreted by myself 0904: Normal sinus rhythm, rate 83, normal axis, no ectopy, no delta waves, S1Q3T3, no STEMI Discharge - Discharge Clinical Impression: Palpitations Chest pain Qualifiers: Chest pain type: unspecified Qualified Code(s): R07.9 - Chest pain, unspecified Condition: Stable Disposition: HOME, SELF-CARE Instructions: Chest Pain of Unclear Cause ([facility]) Additional Instructions: Please return to the emergency department if you have any worsening, or concern of your symptoms. Please return to the emergency department if you develop chest pain, difficulty breathing, severe abdominal pain, or ongoing vomiting. Please follow-up with your primary care physician in 2-3 days and any other recommended physicians. If prescribed, take all medications as directed. If you have any questions or concerns do not hesitate to return the emergency department for evaluation. Follow with your airplane pilot chief in the next 3 to 5 days for reevaluation. Referrals: [facility] [Provider Group] - Follow up as needed
[2018-12-28 10:37] LABS: ABSOLUTE BASOPHILS # (AUTO) 0.1 10^3/uL (0.0-0.2); ABSOLUTE LYMPHOCYTES (AUTO) 2.4 10^3/uL (0.5-4.7); ABSOLUTE MONOCYTES (AUTO) 0.5 10^3/uL (0.1-1.4); ABSOLUTE NEUT (AUTO) 4.5 10^3/uL (1.7-8.2); BASOPHILS % (AUTO) 1.1 % (0-2); EOSINOPHILS % (AUTO) 0.4 % (0-6); HEMATOCRIT 40.8 % (36.0-47.0); HEMOGLOBIN 13.8 g/dL (12.0-15.5); LYMPHOCYTES % (AUTO) 32.2 % (13-45); MEAN CORPUSCULAR HGB CONC 33.8 g/dL (32.0-36.0); MEAN CORPUSCULAR VOLUME 86 fl (80-97); MONOCYTES % (AUTO) 6.2 % (3-13); PLATELET COUNT 353 10^3/uL (150-450); RED BLOOD COUNT 4.76 10^6/uL (3.72-5.28); RED CELL DISTRIBUTION WIDTH 13.4 % (11.5-14.0); SEGMENTED NEUTROPHILS % (AUTO) 60.1 % (42-78); TOTAL CELLS COUNTED % (AUTO) 100 %; WHITE BLOOD COUNT 7.5 10^3/uL (4.0-10.5)
[2018-12-28 10:50] LABS: ANION GAP 10 (5-19); BLOOD UREA NITROGEN 8 mg/dL (7-20); CALCIUM 9.6 mg/dL (8.4-10.2); CARBON DIOXIDE 28 mmol/L (22-30); CHLORIDE 101 mmol/L (98-107); GLUCOSE 91 mg/dL (75-110); POTASSIUM 4.7 mmol/L (3.6-5.0)
--- NOTE | 2018-12-28 10:55 | RADIOLOGY REPORT (SQ) ---
EXAM DESCRIPTION: CHEST SINGLE VIEW COMPLETED DATE/TIME: 12/28/2018 10:40 am REASON FOR STUDY: chest pain COMPARISON: Chest films 08/20/2018, 06/02/2018 EXAM PARAMETERS: NUMBER OF VIEWS: One view. TECHNIQUE: Single frontal radiographic view of the chest acquired. RADIATION DOSE: NA LIMITATIONS: None. FINDINGS: LUNGS AND PLEURA: No opacities, masses or pneumothorax. No pleural effusion. MEDIASTINUM AND HILAR STRUCTURES: No masses. Contour normal. HEART AND VASCULAR STRUCTURES: Heart normal in size. Normal vasculature. BONES: No acute findings. HARDWARE: Artifact from the skin piercing in the sternal notch OTHER: No other significant finding. IMPRESSION: NO ACUTE RADIOGRAPHIC FINDING IN THE CHEST. TECHNICAL DOCUMENTATION: JOB ID: [id number] [employer]- All Rights Reserved Reading location - IP/workstation name: [email or web address]
[2018-12-28 11:35] VITALS: BP 106/81
--- NOTE | 2018-12-28 22:38 | EKG REPORT ---
SEVERITY:- NORMAL ECG - SINUS RHYTHM : Confirmed by: Karen Denny MD 28-Dec-2018 22:37:51
== END 2018-12-28 11:35 | disposition home or self-care (01) ==
LOC: ER 08:48
DX: R00.2 Palpitations (principal); R07.9 Chest pain, unspecified; I95.9 Hypotension, unspecified; Z90.49 Acquired absence of other specified parts of digestive tract; Z98.51 Tubal ligation status; Z88.6 Allergy status to analgesic agent
CPT/HCPCS: 93005; 99284; 96360; 96361; 36415; 85025; 80048; 85379; 71045; 93010; J7030

== ENCOUNTER → 2019-01-04 | Outpatient (CLI) | payer MEDICARE | LOC: OD 07:21 | PROVIDERS: ATTEND Emergency Medicine | DX: R10.84 Generalized abdominal pain (principal); R19.7 Diarrhea, unspecified; R53.83 Other fatigue; R63.5 Abnormal weight gain; Z77.120 Contact with and (suspected) exposure to mold (toxic) | CPT/HCPCS: 36415; 82533 ==

== ENCOUNTER → 2019-01-08 | Outpatient (CLI) | payer MEDICARE ==
--- NOTE | 2019-01-08 12:43 | RADIOLOGY REPORT (SQ) ---
EXAM DESCRIPTION: NM GASTRIC EMPTYING STUDY COMPLETED DATE/TIME: 01/08/2019 12:27 pm REASON FOR STUDY: EPIGASTRIC PAIN (R10.13) R10.13 EPIGASTRIC PAIN COMPARISON: None. RADIONUCLIDE AND DOSE: 2 millicuries Tc-99m Sulfur Colloid. A wide variety of solid foods have been used. The route of agent administration: Oral. TECHNIQUE: 1 minute serial static imaging performed at time of meal, 1 hour, 2 hours, 3 hours, and 4 hours as needed. Once stomach reaches 90% emptying, the test is complete. Image intensity values pl otted with respect to time with linear regression algorithm. LIMITATIONS: None. FINDINGS: Patient was observed for 4 hours. Immediate post meal serves as baseline. Gastric emptying at 30 minutes was 34.6%. Gastric emptying at 60 minutes was 57.2% Gastric emptying at 90 minutes was 72%. Gastric emptying at 120 minutes was 81.7%. Gastric emptying at 240 minutes was 96.6%. Normal values: 60 minutes: 30-90% retained. If less than 30%, abnormally rapid emptying. If greater than 90%, del ayed gastric emptying. 120 minutes: <60% retained. If greater than 60%, delayed gastric emptying. 240 minutes: <10% retained. If greater than 10%, delayed gastric emptying. IMPRESSION: NORMAL GASTRIC EMPTYING. TECHNICAL DOCUMENTATION: JOB ID: [id number] [employer]- All Rights Reserved rev-01/05 Reading location - IP/workstation name: [email or web address]
== END ==
LOC: RAD 07:33
PROVIDERS: ATTEND Internal Medicine Gastroenterology
DX: R10.13 Epigastric pain (principal)
CPT/HCPCS: 78264; A9541

== ENCOUNTER 2019-01-26 16:39 | Emergency (ER) | payer OTHER, MEDICARE ==
[2019-01-26] MEDS ORDERED: NORMAL SALINE 1000 ML 1,000 ML IV ONE (17:24)
--- NOTE | 2019-01-26 17:27 | ER Document Report ---
ED Medical Screen (RME) - General Chief Complaint: Diarrhea Stated Complaint: DIARRHEA Time Seen by Provider: 01/26/19 17:24 Primary Care Provider: ALEJO CASON MD [Primary Care Provider] - Follow up as needed TRAVEL OUTSIDE OF THE [place] IN LAST 30 DAYS: No - HPI Notes: 01/26/19 17:25 Patient is a 33-year-old female with chronic GI issues, previous abdominal surgeries, and tachycardia (on beta-génesis) who presents requesting a bag of fluids bc she is feeling dehydrated over the past 24 hours secondary to frequent watery diarrhea. She has had associated fatigue and increased palpitations from normal as well. 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 She is still urinating normally. No other concerns or complaints. Denies HOWELL, fever, neck pain, URI, CP, SOB, Abd pain, dysuria, back pain, or rash. I have treated and performed a rapid initial assessment of this patient. A comprehensive ED assessment and evaluation of the patient, analysis of test results and completion of medical decision making process will be conducted by additional ED providers. PHYSICAL EXAMINATION: GENERAL: Well-appearing, well-nourished and in no acute distress. A&Ox4. Answers questions appropriately. LUNGS: Breath sounds clear to auscultation bilaterally and equal. No wheezes rales or rhonchi. HEART: Regular rate and rhythm without murmurs, rubs, gallops. ABDOMEN: Soft, nondistended abdomen. No guarding, no rebound. Normal bowel sounds present. No CVA tenderness bilaterally. Grossly nontender (cannot elicit thorough abd exam w/o bed, however). - Related Data Allergies/Adverse Reactions: codeine Allergy (Verified 01/26/19 16:40) haloperidol [From Haldol] Allergy (Verified 01/26/19 16:40) morphine Allergy (Verified 01/26/19 16:40) ssri Adverse Reaction (Uncoded 01/26/19 16:40) Past Medical History - Social History Family history: Reviewed & Not Pertinent, Malignancy - Past Medical History Cardiac Medical History: Denies: Hx Atrial Fibrillation Pulmonary Medical History: Reports: Hx Pneumonia Neurological Medical History: Denies: Hx Seizures Endocrine Medical History: Denies: Hx Hyperthyroidism Renal/ Medical History: Denies: Hx Peritoneal Dialysis GI Medical History: Reports: Hx Gastroesophageal Reflux Disease, Hx Irritable Bowel Musculoskeltal Medical History: Reports Hx Musculoskeletal Trauma Psychiatric Medical History: Reports: Hx Anxiety, Hx Bipolar Disorder - mis dx. borderline personality and panic disorder, Hx Depression, Hx Obsessive Compulsive Disorder, Hx Post Traumatic Stress Disorder Traumatic Medical History: Reports: Hx Fractures Infectious Medical History: Reports: Hx C-Diff Past Surgical History: Reports: Hx Appendectomy, Hx Cholecystectomy, Hx Gynecologic Surgery - , Hx Orthopedic Surgery, Hx Tubal Ligation. Denies: Hx Hysterectomy - Immunizations Immunizations up to date: Yes Hx Diphtheria, Pertussis, Tetanus Vaccination: Yes Physical Exam - Vital signs Vitals: Temp Pulse Resp BP Pulse Ox 97.7 F 108 H 13 109/77 98 01/26/19 16:43 01/26/19 16:43 01/26/19 16:43 01/26/19 16:43 01/26/19 16:43 Course - Vital Signs Vital signs: Temp Pulse Resp BP Pulse Ox 97.7 F 108 H 13 109/77 98 01/26/19 16:43 01/26/19 16:43 01/26/19 16:43 01/26/19 16:43 01/26/19 16:43 Doctor's Discharge - Discharge Referrals: ALEJO CASON MD [Primary Care Provider] - Follow up as needed
[2019-01-26 18:39] LABS: ABSOLUTE BASOPHILS # (AUTO) 0.1 10^3/uL (0.0-0.2); ABSOLUTE EOSINOPHILS # (AUTO) 0.2 10^3/uL (0.0-0.6); ABSOLUTE LYMPHOCYTES (AUTO) 2.1 10^3/uL (0.5-4.7); ABSOLUTE MONOCYTES (AUTO) 0.4 10^3/uL (0.1-1.4); ABSOLUTE NEUT (AUTO) 5.2 10^3/uL (1.7-8.2); BASOPHILS % (AUTO) 1.1 % (0-2); EOSINOPHILS % (AUTO) 2.3 % (0-6); HEMATOCRIT 41.5 % (36.0-47.0); LYMPHOCYTES % (AUTO) 26.7 % (13-45); MEAN CORPUSCULAR HEMOGLOBIN 29.1 pg (27.0-33.4); MEAN CORPUSCULAR HGB CONC 33.8 g/dL (32.0-36.0); MEAN CORPUSCULAR VOLUME 86 fl (80-97); MONOCYTES % (AUTO) 4.7 % (3-13); PLATELET COUNT 381 10^3/uL (150-450); RED BLOOD COUNT 4.82 10^6/uL (3.72-5.28); RED CELL DISTRIBUTION WIDTH 13.7 % (11.5-14.0); SEGMENTED NEUTROPHILS % (AUTO) 65.2 % (42-78); TOTAL CELLS COUNTED % (AUTO) 100 %
--- NOTE | 2019-01-26 18:50 | ER Document Report ---
ED General - General Chief Complaint: Diarrhea Stated Complaint: DIARRHEA Time Seen by Provider: 01/26/19 17:24 Primary Care Provider: ALEJO CASON MD [NO LOCAL MD] - Follow up as needed Mode of Arrival: Ambulatory Information source: Patient TRAVEL OUTSIDE OF THE [place] IN LAST 30 DAYS: No - HPI Patient complains to provider of: Brain fog, muscle jerks, diarrhea, fatigue Onset: Other - Past couple of days Onset/Duration: Persistent Quality of pain: No pain Severity: None Associated symptoms: None. denies: Chills, Fever Exacerbated by: Denies Relieved by: Denies Similar symptoms previously: No Recently seen / treated by doctor: No Notes: 33-year-old female coming in today with what she believes is dehydration/electrolyte imbalance. Having fogginess in her mentation, muscle jerks, and diarrhea. Has chronic abdominal issues. Followed by gastroenterology. Worried that she may be dehydrated or have an electrolyte deficiency. - Related Data Allergies/Adverse Reactions: codeine Allergy (Verified 01/26/19 16:40) haloperidol [From Haldol] Allergy (Verified 01/26/19 16:40) morphine Allergy (Verified 01/26/19 16:40) ssri Adverse Reaction (Uncoded 01/26/19 16:40) Past Medical History - General Information source: Patient - Social History Smoking Status: Smoker,Current Status Unk Family History: Reviewed & Not Pertinent, CAD, CVA, DM, Hyperlipidemia, Hypertension, Malignancy - Past Medical History Cardiac Medical History: Denies: Hx Atrial Fibrillation Pulmonary Medical History: Reports: Hx Pneumonia Neurological Medical History: Denies: Hx Seizures Endocrine Medical History: Denies: Hx Hyperthyroidism Renal/ Medical History: Denies: Hx Peritoneal Dialysis GI Medical History: Reports: Hx Gastroesophageal Reflux Disease, Hx Irritable Bowel Musculoskeletal Medical History: Reports Hx Musculoskeletal Trauma Psychiatric Medical History: Reports: Hx Anxiety, Hx Bipolar Disorder - mis dx. borderline personality and panic disorder, Hx Depression, Hx Obsessive Compulsive Disorder, Hx Post Traumatic Stress Disorder Traumatic Medical History: Reports: Hx Fractures Infectious Medical History: Reports: Hx C-Diff Past Surgical History: Reports: Hx Appendectomy, Hx Cholecystectomy, Hx Gynecologic Surgery - , Hx Orthopedic Surgery, Hx Tubal Ligation. Denies: Hx Hysterectomy - Immunizations Immunizations up to date: Yes Hx Diphtheria, Pertussis, Tetanus Vaccination: Yes Hx Pneumococcal Vaccination: 08/21/12 Review of Systems - Review of Systems Notes: Constitutional: No fevers. No chills. Positive fatigue EENT: No eye redness. No eye pain. No ear pain. No sore throat. Cardiovascular: No chest pain. No palpitations. Respiratory: No cough. No shortness of breath. No respiratory distress. Gastrointestinal: No abdominal pain. No nausea, vomiting, or diarrhea. Genitourinary: Atraumatic. No lesions. No pain. No discharge. Musculoskeletal: Atraumatic. No swelling. No deformities. Positive for muscle jerks/fasciculation Skin: No rash or lesions. Lymphatic: No swollen lymph nodes. Neurologic: No headache. No syncope. Psychiatric: No suicidal or homicidal ideation. Physical Exam - Vital signs Vitals: Temp Pulse Resp BP Pulse Ox 97.7 F 108 H 13 109/77 98 01/26/19 16:43 01/26/19 16:43 01/26/19 16:43 01/26/19 16:43 01/26/19 16:43 - Notes Notes: General: Well-developed, well-nourished. In no acute distress. Non-toxic appearing. Cardiac: Well-perfused. Regular rate and rhythm. No murmurs, rubs, or gallops. Pulmonary: No respiratory distress. No cyanosis. Bilateral lung fiels are clear to auscultation. Abdominal: Non-distended. Non-rigid. Bowels sounds are present in all four quadrants. No guarding or rebound. HEENT: Head is atraumatic. Conjunctivae not reddened. No tearing. PERRL. EOMI. Orbits atraumatic. No periorbital swelling or erythema. Oropharynx is without erythema, swelling, or exudates. Neck: Supple. No adenopathy. No meningismus. Dermatologic: Warm with good turgor. No rash. Atraumatic. Chest: Atraumatic. No chest wall tenderness to palpation. Musculoskeletal: Moves all extremities well. No range of motion deficits. no muscular or joint tenderness. No paraspinal muscle tenderness. no midline spinal tenderness or step-off. Genitourinary: Examination deferred Neurologic: No gross neurologic deficits. Psychiatric: Normal mood. Course - Re-evaluation Re-evalutation: 01/26/19 18:50 Basic labs and IV fluids ordered. 01/26/19 20:17 Electrolytes normal. Patient feeling better after fluids. Will discharge - Vital Signs Vital signs: Temp Pulse Resp BP Pulse Ox 97.7 F 108 H 13 109/77 98 01/26/19 16:43 01/26/19 16:43 01/26/19 16:43 01/26/19 16:43 01/26/19 16:43 - Laboratory Result Diagrams: 01/26/19 18:21 01/26/19 18:21 Laboratory results interpreted by me: 01/26/19 01/26/19 18:21 19:44 Total Bilirubin 1.4 H Urine Urobilinogen 2.0 H Discharge - Discharge Clinical Impression: Hypovolemia Condition: Good Disposition: HOME, SELF-CARE Additional Instructions: No lab abnormalities noted on this visit, but as long as you are feeling well we are happy to let you go home. Your symptoms are most likely related to low blood volume. Continue to follow-up with your doctors/specialist as needed. Referrals: ALEJO CASON MD [NO LOCAL MD] - Follow up as needed
[2019-01-26 19:00] LABS: ALANINE AMINOTRANSFERASE 36 U/L (9-52); ALBUMIN 4.5 g/dL (3.5-5.0); ALKALINE PHOSPHATASE 66 U/L (38-126); ANION GAP 10 (5-19); ASPARTATE AMINO TRANSFERASE 26 U/L (14-36); BILIRUBIN,DIRECT 0.2 mg/dL (0.0-0.4); BILIRUBIN,TOTAL 1.4 mg/dL (0.2-1.3); BLOOD UREA NITROGEN 9 mg/dL (7-20); CARBON DIOXIDE 29 mmol/L (22-30); CHLORIDE 101 mmol/L (98-107); GLUCOSE 109 mg/dL (75-110); POTASSIUM 4.6 mmol/L (3.6-5.0); SODIUM 140.3 mmol/L (137-145); TOTAL PROTEIN 7.9 g/dL (6.3-8.2)
[2019-01-26 19:57] LABS: APPEARANCE,URINE SLIGHTLY-CLOUDY; BILIRUBIN,URINE NEGATIVE (NEGATIVE); COLOR,URINE YELLOW; GLUCOSE, URINE NEGATIVE (NEGATIVE); KETONES,URINE NEGATIVE (NEGATIVE); LEUKOCYTE ESTERASE,URINE NEGATIVE (NEGATIVE); NITRITE,URINE NEGATIVE (NEGATIVE); PROTEIN,URINE NEGATIVE (NEGATIVE); URINE SPECIFIC GRAVITY 1.026
[2019-01-26 20:25] VITALS: BP 113/77
== END 2019-01-26 20:25 | disposition home or self-care (01) ==
LOC: ER 16:39
DX: E86.1 Hypovolemia (principal); R19.7 Diarrhea, unspecified; R53.83 Other fatigue; Z88.6 Allergy status to analgesic agent; Z90.49 Acquired absence of other specified parts of digestive tract; Z98.51 Tubal ligation status
CPT/HCPCS: 99284; 96360; 36415; 84703; 85025; 80053; 81001; J7030

== ENCOUNTER 2019-02-06 12:07 | Emergency (ER) | payer OTHER, MEDICARE ==
[2019-02-06] MEDS ORDERED: PREDNISONE 20 MG TABLET PO ONE (13:11)
[2019-02-06] MEDS ORDERED: FAMOTIDINE 20 MG TABLET PO ONE (13:11)
[2019-02-06] MEDS ORDERED: DIPHENHYDRAMINE HCL 25 MG CAPSULE PO ONE (13:11)
--- NOTE | 2019-02-06 13:24 | ER Document Report ---
ED Medical Screen (RME) - General Chief Complaint: Allergic Reaction Stated Complaint: POSSIBLE ALLERGIC REACTION Time Seen by Provider: 02/06/19 13:09 Primary Care Provider: JUANITO COLEY NP [Primary Care Provider] - Follow up as needed Mode of Arrival: Medic Information source: Patient Notes: Patient is a 34-year-old female presented to the emergency department with chief complaint of tight feeling in her throat. Patient reports she was having an outpatient procedure done with IV contrast and she states that since they push the IV contrast patient immediately began coughing and then forcefully vomited. Patient denies any history of known allergy to contrast. Exam: Airway patent, no obstruction noted, patient speaking in full and complete sentences and swallowing without difficulty. No hives or rash noted. Lung sounds clear and equal bilaterally. I have greeted and performed a rapid initial assessment of this patient. A comprehensive ED assessment and evaluation of the patient, analysis of test results and completion of the medical decision making process will be conducted by additional ED providers. Dictation of this chart was performed using voice recognition software; therefore, there may be some unintended grammatical errors. TRAVEL OUTSIDE OF THE [place] IN LAST 30 DAYS: No - Related Data Allergies/Adverse Reactions: codeine Allergy (Verified 02/06/19 12:18) haloperidol [From Haldol] Allergy (Verified 02/06/19 12:18) morphine Allergy (Verified 02/06/19 12:18) ssri Adverse Reaction (Uncoded 02/06/19 12:18) Past Medical History - Social History Chew tobacco use (# tins/day): No Frequency of alcohol use: None Drug Abuse: None Family history: Reviewed & Not Pertinent, Malignancy - Past Medical History Cardiac Medical History: Denies: Hx Atrial Fibrillation Pulmonary Medical History: Reports: Hx Pneumonia Neurological Medical History: Denies: Hx Seizures Endocrine Medical History: Denies: Hx Hyperthyroidism Renal/ Medical History: Denies: Hx Peritoneal Dialysis GI Medical History: Reports: Hx Gastroesophageal Reflux Disease, Hx Irritable Bowel Musculoskeltal Medical History: Reports Hx Musculoskeletal Trauma Psychiatric Medical History: Reports: Hx Anxiety, Hx Bipolar Disorder - mis dx. borderline personality and panic disorder, Hx Depression, Hx Obsessive Compulsive Disorder, Hx Post Traumatic Stress Disorder Traumatic Medical History: Reports: Hx Fractures Infectious Medical History: Reports: Hx C-Diff Past Surgical History: Reports: Hx Appendectomy, Hx Cholecystectomy, Hx Gynecologic Surgery - , Hx Orthopedic Surgery, Hx Tubal Ligation. Denies: Hx Hysterectomy - Immunizations Immunizations up to date: Yes Hx Diphtheria, Pertussis, Tetanus Vaccination: Yes Physical Exam - Vital signs Vitals: Temp Pulse Resp BP Pulse Ox 98.1 F 91 18 126/75 H 98 02/06/19 12:16 02/06/19 12:16 02/06/19 12:16 02/06/19 12:16 02/06/19 12:16 Course - Vital Signs Vital signs: Temp Pulse Resp BP Pulse Ox 98.1 F 91 18 126/75 H 98 02/06/19 12:16 02/06/19 12:16 02/06/19 12:16 02/06/19 12:16 02/06/19 12:16 Doctor's Discharge - Discharge Referrals: JUANITO COLEY NP [Primary Care Provider] - Follow up as needed
[2019-02-06 16:41] VITALS: BP 110/77
--- NOTE | 2019-02-06 16:48 | ER Document Report ---
HPI - HPI Time Seen by Provider: 02/06/19 13:09 Pain Level: 3 Notes: Patient is a 34-year-old female presented to the emergency department with chief complaint of tight feeling in her throat. Patient reports she was having an outpatient procedure done with IV contrast and she states that since they push the IV contrast patient immediately began coughing and then forcefully vomited. Patient denies any history of known allergy to contrast. - REPRODUCTIVE Reproductive: DENIES: : - DERM Skin Color: Normal Past Medical History - General Information source: Patient - Social History Smoking Status: Never Smoker Chew tobacco use (# tins/day): No Frequency of alcohol use: None Drug Abuse: None Family History: Reviewed & Not Pertinent, CAD, CVA, DM, Hyperlipidemia, Hypertension, Malignancy Patient has suicidal ideation: No Patient has homicidal ideation: No - Past Medical History Cardiac Medical History: Denies: Hx Atrial Fibrillation Pulmonary Medical History: Reports: Hx Pneumonia Neurological Medical History: Denies: Hx Seizures Endocrine Medical History: Denies: Hx Hyperthyroidism Renal/ Medical History: Denies: Hx Peritoneal Dialysis GI Medical History: Reports: Hx Gastroesophageal Reflux Disease, Hx Irritable Bowel Musculoskeletal Medical History: Reports Hx Musculoskeletal Trauma Psychiatric Medical History: Reports: Hx Anxiety, Hx Bipolar Disorder - mis dx. borderline personality and panic disorder, Hx Depression, Hx Obsessive Compulsive Disorder, Hx Post Traumatic Stress Disorder Traumatic Medical History: Reports: Hx Fractures Infectious Medical History: Reports: Hx C-Diff Past Surgical History: Reports: Hx Appendectomy, Hx Cholecystectomy, Hx Gynecologic Surgery - , Hx Orthopedic Surgery, Hx Tubal Ligation. Denies: Hx Hysterectomy - Immunizations Immunizations up to date: Yes Hx Diphtheria, Pertussis, Tetanus Vaccination: Yes Hx Pneumococcal Vaccination: 08/21/12 Vertical Provider Document - CONSTITUTIONAL Notes: PHYSICAL EXAMINATION: GENERAL: Well-appearing, well-nourished and in no acute distress. HEAD: Atraumatic, normocephalic. EYES: Pupils equal round extraocular movements intact, conjunctiva are normal. ENT: Nares patent NECK: Normal range of motion LUNGS: No respiratory distress Musculoskeletal: Normal range of motion NEUROLOGICAL: Normal speech, normal gait. PSYCH: Normal mood, normal affect. SKIN: Warm, Dry, normal turgor, no rashes or lesions noted. - INFECTION CONTROL TRAVEL OUTSIDE OF THE [place] IN LAST 30 DAYS: No Course - Re-evaluation Re-evalutation: Patient appears well, nontoxic and physical examination is unremarkable. There is no evidence of any acute allergic reaction that is currently ongoing. Due to patient's description of events after taking the IV contrast dye will give p atient prednisone, Pepcid and Benadryl. Patient has declined to take the Benadryl as she states that she has a bad reaction to Benadryl. Patient was monitored in the emergency department for approximately 2 hours while she was waiting for a room in the back. She came back up to me in triage stating that she is feeling fine and is requesting to be discharged home. She continues to have no evidence of acute allergic reaction. Patient will be discharged home in stable condition. - Vital Signs Vital signs: Temp Pulse Resp BP Pulse Ox 98.1 F 91 18 126/75 H 98 02/06/19 12:16 02/06/19 12:16 02/06/19 12:16 02/06/19 12:16 02/06/19 12:16 Discharge - Discharge Clinical Impression: Allergic reaction caused by a drug Qualifiers: Encounter type: initial encounter Qualified Code(s): T78.40XA - Allergy, unspecified, initial encounter Condition: Good Disposition: HOME, SELF-CARE Additional Instructions: Your symptoms are most consistent with an allergic reaction to IVP dye that you had at the outpatient radiology suite. Please take the prednisone as prescribed. You may also take [id number] Pepcid 40 mg twice daily. Please keep your follow-up appointment tomorrow with your primary care provider. Return to the emergency department for any new or worsening symptoms. Prescriptions: Prednisone [Deltasone 20 mg Tablet] 3 tab PO DAILY 4 Days #12 tablet Referrals: JUANITO COLEY NP [Primary Care Provider] - Follow up as needed
== END 2019-02-06 16:44 | disposition home or self-care (01) ==
LOC: ER 12:07
DX: T78.40XA Allergy, unspecified, initial encounter (principal); R05 Cough; R11.10 Vomiting, unspecified
CPT/HCPCS: 99283; J7512

== ENCOUNTER 2019-02-26 19:19 | Emergency (ER) | payer OTHER, MEDICARE ==
[2019-02-26] MEDS ORDERED: ASPIRIN 81 MG TABLET, CHEWABLE PO ONE (19:52)
--- NOTE | 2019-02-26 19:53 | ER Document Report ---
ED Medical Screen (RME) - General Chief Complaint: Dizziness Stated Complaint: POSSIBLE BLOOD CLOT,CARDIOLOGY REFERRAL Time Seen by Provider: 02/26/19 19:51 Primary Care Provider: JUANITO COLEY NP [Primary Care Provider] - Follow up as needed Information source: Patient Notes: Patient presents complaining of cramping to the right lower extremity, dizziness and chest discomfort. 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 Patient does have a history of tachycardia and takes metoprolol. I have greeted and performed a rapid initial assessment of this patient. A comprehensive ED assessment and evaluation of the patient, analysis of test results and completion of the medical decision making process will be conducted by additional ED providers. TRAVEL OUTSIDE OF THE [place] IN LAST 30 DAYS: No - Related Data Allergies/Adverse Reactions: codeine Allergy (Verified 02/26/19 19:23) haloperidol [From Haldol] Allergy (Verified 02/26/19 19:23) morphine Allergy (Verified 02/26/19 19:23) ssri Adverse Reaction (Uncoded 02/26/19 19:23) Past Medical History - Social History Family history: Reviewed & Not Pertinent, Malignancy - Past Medical History Cardiac Medical History: Denies: Hx Atrial Fibrillation Pulmonary Medical History: Reports: Hx Pneumonia Neurological Medical History: Denies: Hx Seizures Endocrine Medical History: Denies: Hx Hyperthyroidism Renal/ Medical History: Denies: Hx Peritoneal Dialysis GI Medical History: Reports: Hx Gastroesophageal Reflux Disease, Hx Irritable Bowel Musculoskeltal Medical History: Reports Hx Musculoskeletal Trauma Psychiatric Medical History: Reports: Hx Anxiety, Hx Bipolar Disorder - mis dx. borderline personality and panic disorder, Hx Depression, Hx Obsessive Compulsive Disorder, Hx Post Traumatic Stress Disorder Traumatic Medical History: Reports: Hx Fractures Infectious Medical History: Reports: Hx C-Diff Past Surgical History: Reports: Hx Appendectomy, Hx Cholecystectomy, Hx Gynecologic Surgery - , Hx Orthopedic Surgery, Hx Tubal Ligation. Denies: Hx Hysterectomy - Immunizations Immunizations up to date: Yes Hx Diphtheria, Pertussis, Tetanus Vaccination: Yes Physical Exam - Vital signs Vitals: Temp Pulse Resp BP Pulse Ox 98.2 F 103 H 16 115/85 98 02/26/19 19:33 02/26/19 19:33 02/26/19 19:33 02/26/19 19:33 02/26/19 19:33 - General Notes: Right lower extremity pain, no obvious edema Course - Vital Signs Vital signs: Temp Pulse Resp BP Pulse Ox 98.2 F 103 H 16 115/85 98 02/26/19 19:33 02/26/19 19:33 02/26/19 19:33 02/26/19 19:33 02/26/19 19:33 Doctor's Discharge - Discharge Referrals: JUANITO COLEY NP [Primary Care Provider] - Follow up as needed
[2019-02-26 20:19] LABS: ABSOLUTE BASOPHILS # (AUTO) 0.1 10^3/uL (0.0-0.2); ABSOLUTE EOSINOPHILS # (AUTO) 0.4 10^3/uL (0.0-0.6); ABSOLUTE LYMPHOCYTES (AUTO) 2.4 10^3/uL (0.5-4.7); ABSOLUTE MONOCYTES (AUTO) 0.5 10^3/uL (0.1-1.4); ABSOLUTE NEUT (AUTO) 5.7 10^3/uL (1.7-8.2); BASOPHILS % (AUTO) 1.2 % (0-2); EOSINOPHILS % (AUTO) 4.6 % (0-6); HEMATOCRIT 40.9 % (36.0-47.0); HEMOGLOBIN 13.9 g/dL (12.0-15.5); LYMPHOCYTES % (AUTO) 26.6 % (13-45); MEAN CORPUSCULAR HEMOGLOBIN 29.3 pg (27.0-33.4); MEAN CORPUSCULAR HGB CONC 34.1 g/dL (32.0-36.0); MEAN CORPUSCULAR VOLUME 86 fl (80-97); MONOCYTES % (AUTO) 5.7 % (3-13); PLATELET COUNT 376 10^3/uL (150-450); RED BLOOD COUNT 4.75 10^6/uL (3.72-5.28); RED CELL DISTRIBUTION WIDTH 13.9 % (11.5-14.0); SEGMENTED NEUTROPHILS % (AUTO) 61.9 % (42-78); TOTAL CELLS COUNTED % (AUTO) 100 %; WHITE BLOOD COUNT 9.1 10^3/uL (4.0-10.5)
--- NOTE | 2019-02-26 20:38 | RADIOLOGY REPORT (SQ) ---
EXAM DESCRIPTION: XR CHEST 2 VIEWS COMPLETED DATE/TME: 02/26/2019 19:51 CLINICAL HISTORY: 34 years, Female, dizzy chest discomfort EXAM DESCRIPTION: CLINICAL HISTORY: dizzy chest discomfort COMPARISON: EXAM DESCRIPTION: CLINICAL HISTORY: dizzy chest discomfort COMPARISON: None. FINDINGS: Two views of the chest are submitted. Cardiac silhouette appears normal. No focal parenchymal or pleural disease. No acute bony abnormality. There is no significant pulmonary vascular engorgement. IMPRESSION: No evidence of acute cardiopulmonary disease.
[2019-02-26 20:41] LABS: ALANINE AMINOTRANSFERASE 44 U/L (9-52); ALBUMIN 4.5 g/dL (3.5-5.0); ALKALINE PHOSPHATASE 68 U/L (38-126); ANION GAP 9 (5-19); ASPARTATE AMINO TRANSFERASE 33 U/L (14-36); BILIRUBIN,DIRECT 0.3 mg/dL (0.0-0.4); BILIRUBIN,TOTAL 1.1 mg/dL (0.2-1.3); BLOOD UREA NITROGEN 7 mg/dL (7-20); CALCIUM 9.7 mg/dL (8.4-10.2); CARBON DIOXIDE 28 mmol/L (22-30); CHLORIDE 101 mmol/L (98-107); GLUCOSE 102 mg/dL (75-110); POTASSIUM 4.2 mmol/L (3.6-5.0); TOTAL PROTEIN 7.9 g/dL (6.3-8.2)
--- NOTE | 2019-02-26 21:27 | EKG REPORT ---
SEVERITY:- NORMAL ECG - SINUS RHYTHM : Confirmed by: Karen Denny MD 26-Feb-2019 21:26:19
[2019-02-26 23:46] LABS: APPEARANCE,URINE CLEAR; BILIRUBIN,URINE NEGATIVE (NEGATIVE); COLOR,URINE YELLOW; GLUCOSE, URINE NEGATIVE (NEGATIVE); KETONES,URINE NEGATIVE (NEGATIVE); LEUKOCYTE ESTERASE,URINE NEGATIVE (NEGATIVE); NITRITE,URINE NEGATIVE (NEGATIVE); PROTEIN,URINE NEGATIVE (NEGATIVE); URINE SPECIFIC GRAVITY 1.013; UROBILINOGEN,URINE NEGATIVE mg/dL (<2.0)
--- NOTE | 2019-02-27 02:28 | ER Document Report ---
ED General - General Chief Complaint: Dizziness Stated Complaint: POSSIBLE BLOOD CLOT,CARDIOLOGY REFERRAL Time Seen by Provider: 02/26/19 19:51 Primary Care Provider: ANITRA KEYES MD [NO LOCAL MD] - Follow up tomorrow JUANITO COLEY NP [Primary Care Provider] - Follow up in 1 week TRAVEL OUTSIDE OF THE [place] IN LAST 30 DAYS: No - HPI Notes: 34-year-old female with history of appendectomy, sinus tachycardia, depression, anxiety, vertigo to the emergency department with complaints of right leg cramping that began this morning after waking up. States that she tried to s tretch and walk it off but then she began to experience shortness of breath and flushing of her face which she characterizes as feeling slightly dizzy. She denies any passing out, spinning of the room, cough, chest pain, diaphoresis. She does have a history of sinus tachycardia and is on metoprolol. When she is experiencing this episode she states that she checked her heart rate and it was about the same as it has been living somewhere around 90 bpm. She states that she has had a tough course with her health since this past fall when she had her appendix removed. States after her appendix was removed was when she developed the sinus tachycardia. Since then she has been in and out of the hospital getting evaluated for her sinus tachycardia and dizziness. She admits that she has been struggling with the fact that her health has not is been as well as it used to and finds herself sleeping more frequently upwards of 15 hours a day. She states that she has been evaluated for possible blood clots several times because of her more sedentary lifestyle. She has never had a blood clot before. She sees Dr. Keyes for her sinus tachycardia. She called the office today and was directed to come to the emergency department for evaluation for her right leg pain and further evaluation for her dizziness and shortness of breath. She has no prior history of heart attack, pulmonary embolus. She is not on oral contraceptives. She states that currently she has no symptoms. States that she has an appoint with Dr. Keyes tomorrow. Denies SI or HI. - Related Data Allergies/Adverse Reactions: codeine Allergy (Verified 02/26/19 19:23) haloperidol [From Haldol] Allergy (Verified 02/26/19 19:23) morphine Allergy (Verified 02/26/19 19:23) IV DYE Allergy (Uncoded 02/26/19 19:57) ssri Adverse Reaction (Uncoded 02/26/19 19:23) Past Medical History - General Information source: Patient - Social History Smoking Status: Never Smoker Frequency of alcohol use: None Drug Abuse: None Family History: Reviewed & Not Pertinent, CAD, CVA, DM, Hyperlipidemia, Hypertension, Malignancy Patient has suicidal ideation: No Patient has homicidal ideation: No - Past Medical History Cardiac Medical History: Denies: Hx Atrial Fibrillation Pulmonary Medical History: Reports: Hx Pneumonia Neurological Medical History: Denies: Hx Seizures Endocrine Medical History: Denies: Hx Hyperthyroidism Renal/ Medical History: Denies: Hx Peritoneal Dialysis GI Medical History: Reports: Hx Gastroesophageal Reflux Disease, Hx Irritable Bowel Musculoskeletal Medical History: Reports Hx Musculoskeletal Trauma Psychiatric Medical History: Reports: Hx Anxiety, Hx Bipolar Disorder - mis dx. borderline personality and panic disorder, Hx Depression, Hx Obsessive Compulsive Disorder, Hx Post Traumatic Stress Disorder Traumatic Medical History: Reports: Hx Fractures Infectious Medical History: Reports: Hx C-Diff Past Surgical History: Reports: Hx Appendectomy, Hx Cholecystectomy, Hx Gynecologic Surgery - , Hx Orthopedic Surgery, Hx Tubal Ligation. Denies: Hx Hysterectomy - Immunizations Immunizations up to date: Yes Hx Diphtheria, Pertussis, Tetanus Vaccination: Yes Hx Pneumococcal Vaccination: 08/21/12 Review of Systems - Review of Systems Constitutional: denies: Chills, Fever EENT: No symptoms reported Cardiovascular: Dizziness. denies: Chest pain, Palpitations, Dyspnea, Syncope, Lightheaded, Edema Respiratory: Short of breath. denies: Cough, Hurts to breathe Gastrointestinal: denies: Diarrhea, Nausea, Vomiting Musculoskeletal: Muscle pain - Right leg pain and cramping Skin: No symptoms reported Hematologic/Lymphatic: No symptoms reported. denies: Blood clots Neurological/Psychological: No symptoms reported -: Yes All other systems reviewed and negative Physical Exam - Vital signs Vitals: Temp Pulse Resp BP Pulse Ox 98.2 F 103 H 16 115/85 98 02/26/19 19:33 02/26/19 19:33 02/26/19 19:33 02/26/19 19:33 02/26/19 19:33 Interpretation: Tachycardic Notes: Repeat vitals show heart rate in the 80s - General General appearance: Anxious In distress: None - HEENT Head: Normocephalic, Atraumatic Eyes: Normal Pupils: PERRL - Respiratory Respiratory status: No respiratory distress Chest status: Nontender Breath sounds: Normal Chest palpation: Normal - Cardiovascular Rhythm: Regular Heart sounds: Normal auscultation Murmur: No - Abdominal Inspection: Normal Distension: No distension Bowel sounds: Normal Tenderness: Nontender Organomegaly: No organomegaly - Back Back: Normal, Nontender - Extremities General upper extremity: Normal inspection, Nontender, Normal color, Normal ROM, Normal temperature General lower extremity: Normal inspection, Nontender, Normal color, Normal ROM, Normal temperature, Normal weight bearing. No: Leland's sign Calf: Normal. No: Nontender - There is no tenderness to palpation over the right calf. There is no palpable cords. There is no erythema, no warmth, skin changes. Negative Homans - Neurological Neuro grossly intact: Yes Cognition: Normal Orientation: AAOx4 Chirag Coma Scale Eye Opening: Spontaneous [place] Coma Scale Verbal: Oriented Chirag Coma Scale Motor: Obeys Commands [place] Coma Scale Total: 15 Speech: Normal Cranial nerves: Normal Cerebellar coordination: Normal Motor strength normal: LUE, RUE, LLE, RLE Additional motor exam normals: Equal spare hand. No: Pronator drift Sensory: Normal - Psychological Associated symptoms: Normal affect, Normal mood - Skin Skin Temperature: Warm Skin Moisture: Dry Skin Color: Normal Course - Re-evaluation Re-evalutation: Discussed patient's symptoms and her exam as well as her EKG at length with her. She is currently asymptomatic. Labs are reassuring. EKG is reassuring. She does not have a positive vascular study for clot. X-ray is normal. She no longer feels short of breath. She has never had chest pain.. We will have her follow with Dr. Keyes tomorrow without fail. Encouraged her to return if she has any worsening symptoms. - Vital Signs Vital signs: Temp Pulse Resp BP Pulse Ox 97.9 F 96 20 114/69 99 02/26/19 23:40 02/26/19 23:40 02/26/19 23:40 02/26/19 23:40 02/26/19 23:40 - Laboratory Result Diagrams: 02/26/19 20:16 02/26/19 19:35 - Diagnostic Test Radiology reviewed: Image reviewed, Reports reviewed - EKG Interpretation by Me EKG shows normal: Sinus rhythm Rate: Normal Rhythm: NSR When compared to previous EKG there are: No significant change Additional EKG results interpreted by me: No STEMI, rate of 95, normal sinus rhythm, no ST changes. 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 ALSO FOLLOW UP WITH PRIMARY CARE PHYSICIAN. RETURN IF WORSE. Referrals: JUANITO COLEY NP [Primary Care Provider] - Follow up in 1 week ANITRA KEYES MD [NO LOCAL MD] - Follow up tomorrow
--- NOTE | 2019-02-27 04:59 | RADIOLOGY REPORT (SQ) ---
EXAM DESCRIPTION: Right lower extremity venous duplex 02/27/2019 3:57 AM CDT CLINICAL HISTORY: 34 years, Female, RLE pain COMPARISON: [None] TECHNIQUE: Utilizing a linear array transducer, real-time ultrasound evaluation of the right lower extremity was performed. Color Doppler imaging was used to assess vascular flow. FINDINGS: The right common femoral and proximal/mid/distal superficial femoral veins are normal in caliber and compressibility. There is normal directional flow. The right popliteal vein is normal in appearance. There is normal directional flow and normal compressibility. IMPRESSION: No evidence of right lower extremity deep venous thrombosis.
[2019-02-27 05:00] VITALS: BP 114/69
== END 2019-02-26 23:40 | disposition home or self-care (01) ==
LOC: ER 19:19
DX: R42 Dizziness and giddiness (principal); R25.2 Cramp and spasm
CPT/HCPCS: 36415; 71046; 80053; 81001; 84484; 84703; 85025; 93005; 93010; 93971; 99284

== ENCOUNTER 2019-03-08 10:00 | Emergency (ER) | payer OTHER, MEDICARE ==
[2019-03-08] MEDS ORDERED: ASPIRIN 81 MG TABLET, CHEWABLE PO ONE (10:03)
--- NOTE | 2019-03-08 11:05 | ER Document Report ---
HPI - HPI Patient complains to provider of: bilateral arm weakness Time Seen by Provider: 03/08/19 10:48 Onset: This morning Pain Level: Denies Context: 34 yr old obese female pt here for a brief now resolved spontaneous episode of bilat arm weakness that occurred after she was doing gentle neck stretches a few hrs dry ice maker sitting down. no fall or trauma. hx of chronic neck pain and sees chiro however hasn't been for a while. no spinal injections or recent pt or other known source or cause. sx lasted only for a few mins. she has already been worked up recently and extensively out pt it seems per pt report for acs, cad, and pe/dvt, here and at other hospitals locally it seems without a definitive diagnosis. she has an apt with neuro in apr and her pcp in as they stated thats the soonest tbey could get her in. she denies any sx currently and would just like to be dc'd to go home. no recent illness. states the bilat arm weakness has spontaneously resolved and not returned. no changes in meds or diet. no recent abx or steroids. sx haven't returned. no ripping or tearing sensation. no other associated sx. Similar symptoms previously: No Recently seen / treated by doctor: No - ROS Systems Reviewed and Negative: Yes All other systems reviewed and negative - to include 10 systems, unless mentioned in the hpi. - REPRODUCTIVE Reproductive: DENIES: : - DERM Skin Color: Normal Past Medical History - General Information source: Patient - Social History Smoking Status: Never Smoker Frequency of alcohol use: None Drug Abuse: None Lives with: Alone Family History: CAD, CVA, DM, Hyperlipidemia, Hypertension, Malignancy Patient has suicidal ideation: No Patient has homicidal ideation: No - Past Medical History Cardiac Medical History: Denies: Hx Atrial Fibrillation Pulmonary Medical History: Reports: Hx Pneumonia Neurological Medical History: Denies: Hx Seizures Endocrine Medical History: Denies: Hx Hyperthyroidism Renal/ Medical History: Denies: Hx Peritoneal Dialysis GI Medical History: Reports: Hx Gastroesophageal Reflux Disease, Hx Irritable Bowel Musculoskeletal Medical History: Reports Hx Musculoskeletal Trauma Psychiatric Medical History: Reports: Hx Anxiety, Hx Bipolar Disorder - mis dx. borderline personality and panic disorder, Hx Depression, Hx Obsessive Compulsive Disorder, Hx Post Traumatic Stress Disorder Traumatic Medical History: Reports: Hx Fractures Infectious Medical History: Reports: Hx C-Diff Past Surgical History: Reports: Hx Appendectomy, Hx Cholecystectomy, Hx Gynecologic Surgery - , Hx Orthopedic Surgery, Hx Tubal Ligation. Denies: Hx Hysterectomy - Immunizations Immunizations up to date: Yes Hx Diphtheria, Pertussis, Tetanus Vaccination: Yes Hx Pneumococcal Vaccination: 08/21/12 Vertical Provider Document - CONSTITUTIONAL Notes: GENERAL_APPEARANCE: well_nourished, alert, cooperative, no obvious discomfort. Pleasant, obese, young white female, smiling, speaking in full sentences, in no sign of pain or resp distress, easily sitting up. no one is with her. VITALS: reviewed, see vital signs table. HEAD: otherwise normocephalic and atraumatic, no raccoon eyes, no cordoba signs. no swelling or ttp. EARS: canals_clear_bilat, TMs_clear, no_discharge_from_ears. no hemotympanum EYES: EOMI without pain, conjunctiva_clear. PERRL, eyelids wnl. no drainage. no ttp or crepitation of the orbits. no sign of orbital/periorbital cellulitis. no hyphema. MOUTH: no_lacerations inside_mouth. no broken teeth. no tmj clicking or ttp. pharynx wnl. tongue protrudes midline. no drooling, tripoding, voice change, or stridor, no thrush or oral lesions. no tongue or lip swelling. NOSE: no drainage or epistaxis NECK: no_swelling\tenderness on the neck. no midline bony tenderness. no step offs or deformities. full rom. full strength. no meningeal signs. no sign of central cord syndrome. no jvd. no carotid bruit HEART: normal_rate, normal_rhythm, no murmur LUNGS: ctab. no chest wall ttp. no overlying skin changes. no flail chest or crepitation. ABDOMEN: normal_BS, soft, no_abd_tenderness, no rebound, guarding, distension, or peritoneal signs. no cva ttp. no overlying skin changes. BACK: no midline bony tenderness. no step offs or deformities RECTAL: deferred, however, no sign of loss of bowel or bladder or soiling of clothing. EXTREMITIES: strength 5/5 in all_extremities, good pulses all_extremities, no_abrasions\lacerations in the extremities, no_swelling\tenderness in the extremities. full rom. normal gait. good hand gambling dealer. brisk cap refill. no shortening or rotation of the limbs or other signs of deformities unless otherwise noted. neg drop can test. neg speed and yergason. pt able to raise both arms symmetrically on her own like she is imitating touching the ceiling and can flex and extend her neck in any rom position with her bilat arms and still has no return of her cc sx. she maintains good handgrip also that isn't fatigable. SKIN: warm, dry, good_color. no other grossly visible overlying skin changes or signs of trauma unless otherwise noted. NEURO: reflexes symmetric throughout, cranial nerves 2 - 12 intact, motor_i ntact, sensory_intact. cerebellar function intact, neg rhomberg GLASCOW_COMA_SCORE: (adult) - eyes_open_spontaneously_4, verbal_converses_and_oriented_5, motor_obeys_commands_6, glasgow_coma_total_15, MENTAL_STATUS: speech_clear, oriented_X_3, responds_appropriately to questions. - INFECTION CONTROL TRAVEL OUTSIDE OF THE [place] IN LAST 30 DAYS: No Course - Re-evaluation Re-evalutation: pt here for a brief resolved episode of bilat arm weakness where she couldn't lift her arms over her head or gambling dealer things bilat that happened a few hrs dry ice maker and only lasted several mins. no hx of this before. no other associated sx. sx started after she just flexed and extended her neck sitting as she has chronic neck pain and goes to see the chiro for it. she hasn't been to chiro recently however. she is apparently a frequent flier in the ed and well known. triage note states cp but pt tells me she had some pain in her left axilla which is chronic for her and unchanged and not present currently. she hasn't had a fall or trauma so no imaging was done. she hasn't taken anything for her sx. she is on pain management and states she still has her pain meds. denies withdrawal. she denies any pain or sx currently and feels back to baseline. she has been worked up extensively for her frequent vague sx in and out of the ed and also with specialists and it doesn't appear anyone has come to a conclusion yet. she tells me she has had a recent neg stress test, and a recent PE/DVT workup that was neg. i only have access to review her RLE doppler US from about 9 days ago here that was neg however. case discussed with ed attending dr alarcon and since her sx were only brief and haven't returned and she has remained baseline since no further workup was necessary at this time along with the fact i can't reproduce the pts bilat arm weakness despite exertional bilat arm rom and strength testing and pt continues to deny any sx. she has remained neurononfocal for me and very pleasant. dr alarcon feels her sx may be related to thoracic outlet obstruction syndrome and that pt just needs to f/u with pcp/neuro/cards given her hx and recent workups and hx of chronic neck pain. ekg unremarkable per dr alarcon. she wasn't tachycardic here. we doubt acs or pe given hx and criteria again. per dr alarcon, she can cont to take her current meds and f/u with her specialists/pcp without fail in a few days or return here should she develop any returning, new, concerning, or worsening sx. advised to avoid chiro until cleared by her pcp/neuro/cards. advised to f/u with pcp/neuro/cards in 1-2 days. return for any worsening symptoms. vss. well appearing. satting well on ra. neurononfocal. pt understands and agrees to plan. she was given asa po as a triage protocol along with ekg prior to my examination. she was already sx free prior to these. On reexam, pt remained stable. nontoxic. well appearing. pain controlled. tolerating po. requesting to go home. asymptomatic. serial msk/neuro exams performed and remain wnl. case discussed with ER Attending, Dr. kishor alarcon, who directed and agrees with plan of care and advised no further workup indicated at this time and pt is stable for dc home with close f/u with pcp/specialists. Documentation achieved through voice recording which my lead to some occasional accidental typographical errors. Extensive efforts have been made to proof read documentation to make sure these are the least as possible. Category Date Time Status Continuous Cardiac Monitoring (ED) CONTINUOUS Care 03/08/19 10:03 Completed EKG Documentation STAT Care 03/08/19 10:03 Completed Pulse Oximeter Continuous (ED) CONTINUOUS Care 03/08/19 10:03 Completed Saline Lock (ED) NOW Care 03/08/19 10:03 Completed Aspirin [Aspirin 81 mg Chewable Tablet] Med 03/08/19 10:03 Discontinued 324 mg PO NOW ONE EKG ER ONLY [ER] Stat Oth 03/08/19 10:03 Completed - Vital Signs Vital signs: Temp Pulse Resp BP Pulse Ox 97.8 F 03/08/19 10:18 Temp Resp BP Pulse Ox 03/08/19 11:00 19 98 03/08/19 10:18 97.8 F 03/08/19 10:07 122/83 99 03/08/19 10:06 100 03/08/19 10:04 75 L - Laboratory Laboratory results interpreted by me: no labs done - Diagnostic Test Radiology results interpreted by me: no imaging indicated per dr alarcon at this time. - EKG Interpretation by Me EKG shows normal: Sinus rhythm Rate: Normal Rhythm: NSR - 87 bpm, no stemi, reviewed by dr alarcon. unchanged from prior When compared to previous EKG there are: No significant change, Previous EKG unavailable Discharge - Discharge Clinical Impression: Weakness of both arms Condition: Good Disposition: HOME, SELF-CARE Instructions: Radiculopathy ([facility]), Thoracic Outlet Syndrome ([facility]), Weakness ([facility]) Additional Instructions: Follow-up with PCP/neurologist 1 to 2 days. Return for any worsening, returning, or concerning symptoms. continue to take your pain meds as prescribed. drink plenty of fluids. Referrals: MADHURI MARTIN MD [NO LOCAL MD] - 03/11/19 JUANITO COLEY NP [Primary Care Provider] - 03/11/19
[2019-03-08 12:50] VITALS: BP 126/81
--- NOTE | 2019-03-08 13:46 | EKG REPORT ---
SEVERITY:- NORMAL ECG - SINUS RHYTHM : Confirmed by: Scott Pena MD 08-Mar-2019 13:45:13
== END 2019-03-08 12:51 | disposition home or self-care (01) ==
LOC: ER 10:00
DX: R53.1 Weakness (principal); M79.622 Pain in left upper arm; M54.2 Cervicalgia; G89.29 Other chronic pain; Z79.899 Other long term (current) drug therapy; Z82.49 Family history of ischemic heart disease and other diseases of the circulatory system; Z82.3 Family history of stroke; Z83.3 Family history of diabetes mellitus
CPT/HCPCS: 93005; 93010; 99284

== ENCOUNTER 2019-03-13 15:00 | Emergency (ER) | payer OTHER, MEDICARE ==
--- NOTE | 2019-03-13 16:45 | ER Document Report ---
ED Medical Screen (RME) - General Chief Complaint: Weakness Stated Complaint: WEAKNESS Time Seen by Provider: 03/13/19 16:36 Primary Care Provider: JUANITO COLEY NP [Primary Care Provider] - Follow up as needed Mode of Arrival: Ambulatory Information source: Patient Notes: 34-year-old female presented to ED for complaint of near syncopal episodes intermittently since the of this month. She states she was brought into the emergency room with spasms of the arms and near syncope they told her they were concerned for thoracic output syndrome but they did not do any labs or x- rays. She states she has had repeated episodes of near syncope feeling like she was going to pass right out vision distortion. She states she cannot see her primary care doctor until June and neurology until April. She had a recent full cardiac work-up after she developed sinus tachycardia after an appendectomy. She states her marketing support coordinator that she has gastritis. She also has a history of bipolar and anxiety. She lives alone with her daughter and cannot drive and had to drop her to massage schools due to these episodes. I have greeted and performed a rapid initial assessment of this patient. A comprehensive ED assessment and evaluation of the patient, analysis of test results and completion of medical decision making process will be conducted by an additional ED providers. Dictation of this chart was performed using voice recognition software; therefore, there may be some unintended grammatical errors. TRAVEL OUTSIDE OF THE [place] IN LAST 30 DAYS: No - Related Data Allergies/Adverse Reactions: codeine Allergy (Verified 03/13/19 16:18) haloperidol [From Haldol] Allergy (Verified 03/13/19 16:18) morphine Allergy (Verified 03/13/19 16:18) IV DYE Allergy (Uncoded 03/13/19 16:18) ssri Adverse Reaction (Uncoded 03/13/19 16:18) Past Medical History - Social History Family history: Reviewed & Not Pertinent, Malignancy - Past Medical History Cardiac Medical History: Denies: Hx Atrial Fibrillation Pulmonary Medical History: Reports: Hx Pneumonia Neurological Medical History: Denies: Hx Seizures Endocrine Medical History: Denies: Hx Hyperthyroidism Renal/ Medical History: Denies: Hx Peritoneal Dialysis GI Medical History: Reports: Hx Gastroesophageal Reflux Disease, Hx Irritable Bowel Musculoskeltal Medical History: Reports Hx Musculoskeletal Trauma Psychiatric Medical History: Reports: Hx Anxiety, Hx Bipolar Disorder - mis dx. borderline personality and panic disorder, Hx Depression, Hx Obsessive Compulsive Disorder, Hx Post Traumatic Stress Disorder Traumatic Medical History: Reports: Hx Fractures Infectious Medical History: Reports: Hx C-Diff Past Surgical History: Reports: Hx Appendectomy, Hx Cholecystectomy, Hx Gynecologic Surgery - , Hx Orthopedic Surgery, Hx Tubal Ligation. Denies: Hx Hysterectomy - Immunizations Immunizations up to date: Yes Hx Diphtheria, Pertussis, Tetanus Vaccination: Yes Physical Exam - Vital signs Vitals: Temp Pulse Resp BP Pulse Ox 98.4 F 91 16 115/87 H 98 03/13/19 16:04 03/13/19 16:04 03/13/19 16:04 03/13/19 16:04 03/13/19 16:04 Course - Vital Signs Vital signs: Temp Pulse Resp BP Pulse Ox 98.4 F 91 16 115/87 H 98 03/13/19 16:04 03/13/19 16:04 03/13/19 16:04 03/13/19 16:04 03/13/19 16:04 Doctor's Discharge - Discharge Referrals: JUANITO COLEY NP [Primary Care Provider] - Follow up as needed
--- NOTE | 2019-03-13 17:07 | RADIOLOGY REPORT (SQ) ---
EXAM DESCRIPTION: CHEST 2 VIEWS COMPLETED DATE/TIME: 03/13/2019 4:55 pm REASON FOR STUDY: near syncope, dizziness COMPARISON: 02/26/2019 EXAM PARAMETERS: NUMBER OF VIEWS: two views TECHNIQUE: Digital Frontal and Lateral radiographic views of the chest acquired. RADIATION DOSE: NA LIMITATIONS: none FINDINGS: LUNGS AND PLEURA: No opacities, masses or pneumothorax. No pleural effusion. MEDIASTINUM AND HILAR STRUCTURES: No masses or contour abnormalities. HEART AND VASCULAR STRUCTURES: Heart normal size. No evidence for failure. BONES: No acute findings. HARDWARE: None in the chest. OTHER: No other significant finding. IMPRESSION: NO ACUTE RADIOGRAPHIC FINDING IN THE CHEST. TECHNICAL DOCUMENTATION: JOB ID: [id number] [employer]- All Rights Reserved Reading location - IP/workstation name: [email or web address]
[2019-03-13 17:59] LABS: ABSOLUTE BASOPHILS # (AUTO) 0.1 10^3/uL (0.0-0.2); ABSOLUTE EOSINOPHILS # (AUTO) 0.5 10^3/uL (0.0-0.6); ABSOLUTE LYMPHOCYTES (AUTO) 2.2 10^3/uL (0.5-4.7); ABSOLUTE MONOCYTES (AUTO) 0.6 10^3/uL (0.1-1.4); ABSOLUTE NEUT (AUTO) 6.2 10^3/uL (1.7-8.2); EOSINOPHILS % (AUTO) 4.9 % (0-6); HEMATOCRIT 41.5 % (36.0-47.0); HEMOGLOBIN 14.2 g/dL (12.0-15.5); LYMPHOCYTES % (AUTO) 23.2 % (13-45); MEAN CORPUSCULAR HEMOGLOBIN 29.5 pg (27.0-33.4); MEAN CORPUSCULAR HGB CONC 34.2 g/dL (32.0-36.0); MEAN CORPUSCULAR VOLUME 86 fl (80-97); MONOCYTES % (AUTO) 5.8 % (3-13); PLATELET COUNT 379 10^3/uL (150-450); RED CELL DISTRIBUTION WIDTH 13.6 % (11.5-14.0); SEGMENTED NEUTROPHILS % (AUTO) 65.1 % (42-78); TOTAL CELLS COUNTED % (AUTO) 100 %; WHITE BLOOD COUNT 9.6 10^3/uL (4.0-10.5)
[2019-03-13 18:17] LABS: APPEARANCE,URINE SLIGHTLY-CLOUDY; BILIRUBIN,URINE NEGATIVE (NEGATIVE); COLOR,URINE YELLOW; GLUCOSE, URINE NEGATIVE (NEGATIVE); KETONES,URINE NEGATIVE (NEGATIVE); LEUKOCYTE ESTERASE,URINE TRACE (NEGATIVE); NITRITE,URINE NEGATIVE (NEGATIVE); PROTEIN,URINE NEGATIVE (NEGATIVE); URINE SPECIFIC GRAVITY 1.018; UROBILINOGEN,URINE NEGATIVE mg/dL (<2.0)
[2019-03-13 18:18] LABS: ALANINE AMINOTRANSFERASE 42 U/L (9-52); ALBUMIN 4.6 g/dL (3.5-5.0); ALKALINE PHOSPHATASE 76 U/L (38-126); ANION GAP 9 (5-19); ASPARTATE AMINO TRANSFERASE 30 U/L (14-36); BILIRUBIN,DIRECT 0.2 mg/dL (0.0-0.4); BILIRUBIN,TOTAL 1.5 mg/dL (0.2-1.3); BLOOD UREA NITROGEN 7 mg/dL (7-20); CALCIUM 9.6 mg/dL (8.4-10.2); CARBON DIOXIDE 28 mmol/L (22-30); CHLORIDE 100 mmol/L (98-107); CREATINE KINASE 39 U/L (30-135); GLUCOSE 89 mg/dL (75-110)
[2019-03-13 18:28] LABS: URINE AMPHETAMINES SCREEN NEGATIVE; URINE BARBITURATES SCREEN NEGATIVE; URINE BENZODIAZEPINES SCREEN NEGATIVE; URINE COCAINE SCREEN NEGATIVE; URINE MARIJUANA (THC) SCREEN NEGATIVE; URINE METHADONE SCREEN NEGATIVE; URINE PHENCYCLIDINE SCREEN NEGATIVE
[2019-03-13 18:36] LABS: CREATINE KINASE MB 0.25 ng/mL (<4.55)
[2019-03-13 18:37] LABS: TROPONIN I < 0.012 ng/mL
--- NOTE | 2019-03-13 21:05 | ER Document Report ---
ED General - General Chief Complaint: Weakness Stated Complaint: WEAKNESS Time Seen by Provider: 03/13/19 16:36 Primary Care Provider: ANITRA KEYES MD [NO LOCAL MD] - Follow up in 3-5 days Mode of Arrival: Ambulatory TRAVEL OUTSIDE OF THE [place] IN LAST 30 DAYS: No - HPI Notes: 34 year old female to the ED with C/O several episodes of near syncope for the past week. States that she will get a flushed and tingling feeling from her bottom chest that rises up into her neck and then feel like she is going to pass out. These symptoms are not new to her and have been ongoing since she developed a sinus tachycardia after having an appendectomy. She takes Metoprolol for this tachycardia and sees . She has a full cardiac work up but not a tilt table test. She states that this sensation can come on at any time. She states that she feels it the most when she gets up and walks. She is afraid to drive because the episodes are so unpredictable. She has tried to get in with neurology and PCP. Cannot see PCP until June. She has a n eurology appointment in April. - Related Data Allergies/Adverse Reactions: codeine Allergy (Verified 03/13/19 16:18) haloperidol [From Haldol] Allergy (Verified 03/13/19 16:18) morphine Allergy (Verified 03/13/19 16:18) IV DYE Allergy (Uncoded 03/13/19 16:18) ssri Adverse Reaction (Uncoded 03/13/19 16:18) Past Medical History - General Information source: Patient - Social History Smoking Status: Never Smoker Chew tobacco use (# tins/day): No Frequency of alcohol use: None Drug Abuse: None Family History: Reviewed & Not Pertinent, CAD, CVA, DM, Hyperlipidemia, Hypertension, Malignancy Patient has suicidal ideation: No Patient has homicidal ideation: No - Past Medical History Cardiac Medical History: Denies: Hx Atrial Fibrillation Pulmonary Medical History: Reports: Hx Pneumonia Neurological Medical History: Denies: Hx Seizures Endocrine Medical History: Denies: Hx Hyperthyroidism Renal/ Medical History: Denies: Hx Peritoneal Dialysis GI Medical History: Reports: Hx Gastroesophageal Reflux Disease, Hx Irritable Bowel Musculoskeletal Medical History: Reports Hx Musculoskeletal Trauma Psychiatric Medical History: Reports: Hx Anxiety, Hx Bipolar Disorder - mis dx. borderline personality and panic disorder, Hx Depression, Hx Obsessive Compulsive Disorder, Hx Post Traumatic Stress Disorder Traumatic Medical History: Reports: Hx Fractures Infectious Medical History: Reports: Hx C-Diff Past Surgical History: Reports: Hx Appendectomy, Hx Cholecystectomy, Hx Gynecologic Surgery - , Hx Orthopedic Surgery, Hx Tubal Ligation. Denies: Hx Hysterectomy - Immunizations Immunizations up to date: Yes Hx Diphtheria, Pertussis, Tetanus Vaccination: Yes Hx Pneumococcal Vaccination: 08/21/12 Review of Systems - Review of Systems Constitutional: denies: Chills, Fever EENT: No symptoms reported Cardiovascular: Dizziness, Lightheaded - near syncope. denies: Chest pain, Dy spnea Respiratory: denies: Cough, Short of breath Gastrointestinal: denies: Abdominal pain, Diarrhea, Nausea Genitourinary: denies: Frequency Musculoskeletal: See HPI, Neck pain. denies: Muscle pain, Muscle stiffness Skin: Other - flushing of the skin from the chest up to the neck Neurological/Psychological: No symptoms reported -: Yes All other systems reviewed and negative Physical Exam - Vital signs Vitals: Temp Pulse Resp BP Pulse Ox 98.4 F 91 16 115/87 H 98 03/13/19 16:04 03/13/19 16:04 03/13/19 16:04 03/13/19 16:04 03/13/19 16:04 Interpretation: Normal - General General appearance: Appears well, Alert - HEENT Head: Normocephalic, Atraumatic Eyes: Normal Pupils: PERRL - Respiratory Respiratory status: No respiratory distress Chest status: Nontender Breath sounds: Normal Chest palpation: Normal - Cardiovascular Rhythm: Regular Heart sounds: Normal auscultation Murmur: No - Abdominal Inspection: Normal Distension: No distension Bowel sounds: Normal Tenderness: Nontender Organomegaly: No organomegaly - Back Back: Normal, Nontender - Extremities General upper extremity: Normal inspection, Nontender, Normal color, Normal ROM, Normal temperature General lower extremity: Normal inspection, Nontender, Normal color, Normal ROM, Normal temperature, Normal weight bearing. No: Leland's sign - Neurological Neuro grossly intact: Yes Cognition: Normal Orientation: AAOx4 Chirag Coma Scale Eye Opening: Spontaneous Chirag Coma Scale Verbal: Oriented Chirag Coma Scale Motor: Obeys Commands Gore Coma Scale Total: 15 Speech: Normal Cerebellar coordination: Normal. No: Gait ataxia Motor strength normal: LUE, RUE, LLE, RLE Additional motor exam normals: Equal cook pie. No: Pronator drift Sensory: Normal - Psychological Associated symptoms: Normal affect, Normal mood - Skin Skin Temperature: Warm Skin Moisture: Dry Skin Color: Normal Course - Re-evaluation Re-evalutation: Impression: Near Syncope. Negative head and neck CT. Labs are reassuring. EKG is reassuring and unchanging. She is not orthostatic her ein the ER and she has not had any episodes of syncope. Will involve our solar manager to help patient establish a new PCM for more timely appointment and follow up. Because of her lack of access for appropriate follow up, patient is in the ER often. She needs neurology and a more reliable PCM. Will also have patient follow up with Dr. Keyes for further management. I have encouraged the patient to return if she is worse at all -- dev episodes of syncope, chest pain, SOB, intractable vomiting. Patient agrees with the plan. - Vital Signs Vital signs: Temp Pulse Resp BP Pulse Ox 98.4 F 88 16 104/74 98 03/13/19 16:04 03/13/19 22:02 03/13/19 16:04 03/13/19 22:02 03/13/19 16:04 - Laboratory Result Diagrams: 03/13/19 17:12 03/13/19 17:12 Laboratory results interpreted by me: 03/13/19 03/13/19 17:12 17:12 Sodium 136.7 L Total Bilirubin 1.5 H Ur Leukocyte Esterase TRACE H - Diagnostic Test Radiology reviewed: Image reviewed, Reports reviewed - EKG Interpretation by Me EKG shows normal: Sinus rhythm Rate: Normal Rhythm: NSR When compared to previous EKG there are: No significant change Additional EKG results interpreted by me: no STEMI, no changes from prior. no ST abnormalities. Discharge - Discharge Clinical Impression: Lightheadedness, Near syncope Condition: Stable Disposition: HOME, SELF-CARE Instructions: Near Syncopal Episode ([facility]) Additional Instructions: PUSH FLUIDS. REST AT HOME. FOLLOW UP WITH YOUR NEWSPAPER PHOTO EDITOR AND AWAIT CALL FROM ED CASE MANAGEMENT TO AID IN FOLLOW UP WITH PCP. RETURN IF ANY SYNCOPAL EPISODES, CHEST PAIN, FEVERS, INTRACTABLE VOMITING. Referrals: ANITRA KEYES MD [NO LOCAL MD] - Follow up in 3-5 days
[2019-03-13 22:06] VITALS: BP 104/74
--- NOTE | 2019-03-13 22:36 | RADIOLOGY REPORT (SQ) ---
EXAM DESCRIPTION: CT CERVICAL SPINE WITHOUT IV CONTRAST COMPLETED DATE/TME: 03/13/2019 21:48 CLINICAL HISTORY: 34 years, Female, neck pain, upper body tingling, near syncope COMPARISON: Prior CT cervical spine from 11/10/2015 TECHNIQUE: 229 Images stored on PACS. All CT scanners at this facility use dose modulation, iterative reconstruction, and/or weight based dosing when appropriate to reduce radiation dose to as low as reasonably achievable (ALARA). [facility]: Dose Right [facility]: CareDose [facility]: Dose Right [facility]: Teradose 4D [facility]: [employer] LIMITATIONS: None. FINDINGS: Evaluation of spinal canal contents limited due to CT technique. However, vertebral body height and alignment is preserved. The prevertebral soft tissues are normal. The disc spaces are maintained straightening of the normal cervical lordosis may reflect muscle spasm/strain. Limited evaluation of the lung apices is unremarkable. IMPRESSION: Straightening of the normal lordosis may reflect muscle spasm/strain. Remainder is unremarkable TECHNICAL DOCUMENTATION: Quality ID # [id number]: Final reports with documentation of one or more dose reduction techniques (e.g., Automated exposure control, adjustment of the mA and/or kV according to patient size, use of iterative reconstruction technique) copyright 2010 [employer]- All Rights Reserved
--- NOTE | 2019-03-13 22:36 | RADIOLOGY REPORT (SQ) ---
EXAM DESCRIPTION: CT HEAD WITHOUT IV CONTRAST COMPLETED DATE/TME: 03/13/2019 21:48 CLINICAL HISTORY: near syncope, head ache COMPARISON: None Available. TECHNIQUE: Contiguous axial images of the brain were obtained without the administration of intravenous contrast. This exam was performed according to our departmental dose-optimization program, which includes automated exposure control, adjustment of the mA and/or kV according to patient size and/or use of iterative reconstruction technique. FINDINGS: There is no acute intracranial hemorrhage or mass effect. Ventricular system is within normal limits. There is adequate awan-white matter differentiation. There is no skull fracture. The visualized paranasal sinuses and mastoid air cells are within normal limits. IMPRESSION: No acute intracranial abnormalities.
--- NOTE | 2019-03-14 00:02 | EKG REPORT ---
SEVERITY:- BORDERLINE ECG - SINUS RHYTHM INFERIOR Q WAVES, PROBABLY NORMAL VARIATION : Confirmed by: Denia Zamorano 14-Mar-2019 00:00:05
== END 2019-03-13 23:10 | disposition home or self-care (01) ==
LOC: ER 15:00
DX: R55 Syncope and collapse (principal); R23.2 Flushing; R20.2 Paresthesia of skin; M54.2 Cervicalgia; R00.0 Tachycardia, unspecified; Z79.899 Other long term (current) drug therapy; Z91.041 Radiographic dye allergy status; Z90.49 Acquired absence of other specified parts of digestive tract; Z88.5 Allergy status to narcotic agent; Z88.8 Allergy status to other drugs, medicaments and biological substances
CPT/HCPCS: 36415; 70450; 71046; 72125; 80053; 80307; 81001; 82550; 82553; 84484; 84703; 85025; 93005; 93010; 99285

== ENCOUNTER → 2019-04-05 | Outpatient (CLI) | payer OTHER, MEDICARE ==
[2019-04-05 10:43] LABS: HEMATOCRIT 40.9 % (36.0-47.0); HEMOGLOBIN 13.9 g/dL (12.0-15.5); MEAN CORPUSCULAR HEMOGLOBIN 29.2 pg (27.0-33.4); MEAN CORPUSCULAR VOLUME 86 fl (80-97); PLATELET COUNT 369 10^3/uL (150-450); RED BLOOD COUNT 4.77 10^6/uL (3.72-5.28); RED CELL DISTRIBUTION WIDTH 13.3 % (11.5-14.0); WHITE BLOOD COUNT 8.5 10^3/uL (4.0-10.5)
[2019-04-05 11:07] LABS: ALBUMIN 4.5 g/dL (3.5-5.0); ALKALINE PHOSPHATASE 71 U/L (38-126); ANION GAP 13 (5-19); ASPARTATE AMINO TRANSFERASE 30 U/L (14-36); BILIRUBIN,DIRECT 0.2 mg/dL (0.0-0.4); BILIRUBIN,TOTAL 1.1 mg/dL (0.2-1.3); BLOOD UREA NITROGEN 6 mg/dL (7-20); CALCIUM 9.7 mg/dL (8.4-10.2); CARBON DIOXIDE 26 mmol/L (22-30); CHLORIDE 100 mmol/L (98-107); GLUCOSE 104 mg/dL (75-110); POTASSIUM 4.4 mmol/L (3.6-5.0); TOTAL PROTEIN 7.7 g/dL (6.3-8.2)
[2019-04-05 11:23] LABS: FREE T3 4.15 pg/mL (2.77-5.27); FREE T4 (FREE THYROXINE) 0.87 ng/dL (0.78-2.19)
[2019-04-05 11:37] LABS: THYROID STIMULATING HORMONE 4.05 uIU/mL (0.47-4.68)
[2019-04-05 12:10] LABS: FOLATE > 20.00 ng/mL (>2.76)
== END ==
LOC: OD 09:49
PROVIDERS: ATTEND Specialist
DX: G47.33 Obstructive sleep apnea (adult) (pediatric) (principal); G40.89 Other seizures; G62.9 Polyneuropathy, unspecified; R53.1 Weakness
CPT/HCPCS: 36415; 80053; 82607; 82746; 84439; 84443; 84481; 85027

== ENCOUNTER 2019-04-11 11:29 | Emergency (ER) | payer OTHER, MEDICARE ==
--- NOTE | 2019-04-11 11:54 | ER Document Report ---
ED Medical Screen (RME) - General Chief Complaint: Chest Pain Stated Complaint: CHEST PAIN Time Seen by Provider: 04/11/19 11:50 Primary Care Provider: MADHURI MARTIN MD [Primary Care Provider] - Follow up as needed Mode of Arrival: Ambulatory Information source: Patient Notes: 34-year-old female presented to ED for complaint increasing weakness lightheadedness and dizziness. She states she has had a history of these symptoms and is being checked out by her neurologist but they have been much worse yesterday and today. She states she has had some chest discomfort and that her heart rate has been under 100 and is normally over 100 even on metoprolol which she is been on for a year. She states yesterday and today is been down in the 80s and 70s and she is been very lightheaded and dizzy. She states she does not smoke drink or do any drugs she is a disabled vet. She has a history of sinus tachycardia and a neurologist is looking into why she is dizzy and weak. I have greeted and performed a rapid initial assessment of this patient. A comprehensive ED assessment and evaluation of the patient, analysis of test results and completion of medical decision making process will be conducted by an additional ED providers. Dictation of this chart was performed using voice recognition software; therefore, there may be some unintended grammatical errors. TRAVEL OUTSIDE OF THE [place] IN LAST 30 DAYS: No - Related Data Allergies/Adverse Reactions: codeine Allergy (Verified 04/11/19 11:34) haloperidol [From Haldol] Allergy (Verified 04/11/19 11:34) morphine Allergy (Verified 04/11/19 11:34) IV DYE Allergy (Uncoded 04/11/19 11:34) ssri Adverse Reaction (Uncoded 04/11/19 11:34) Past Medical History - Social History Family history: Reviewed & Not Pertinent, Malignancy - Past Medical History Cardiac Medical History: Denies: Hx Atrial Fibrillation Pulmonary Medical History: Reports: Hx Pneumonia Neurological Medical History: Denies: Hx Seizures Endocrine Medical History: Denies: Hx Hyperthyroidism Renal/ Medical History: Denies: Hx Peritoneal Dialysis GI Medical History: Reports: Hx Gastroesophageal Reflux Disease, Hx Irritable Bowel Musculoskeltal Medical History: Reports Hx Musculoskeletal Trauma Psychiatric Medical History: Reports: Hx Anxiety, Hx Bipolar Disorder - mis dx. borderline personality and panic disorder, Hx Depression, Hx Obsessive Compulsive Disorder, Hx Post Traumatic Stress Disorder Traumatic Medical History: Reports: Hx Fractures Infectious Medical History: Reports: Hx C-Diff Past Surgical History: Reports: Hx Appendectomy, Hx Cholecystectomy, Hx Gynecologic Surgery - , Hx Orthopedic Surgery, Hx Tubal Ligation. Denies: Hx Hysterectomy - Immunizations Immunizations up to date: Yes Hx Diphtheria, Pertussis, Tetanus Vaccination: Yes Physical Exam - Vital signs Vitals: Temp Pulse Resp BP Pulse Ox 98.4 F 97 15 121/83 98 04/11/19 11:47 04/11/19 11:47 04/11/19 11:47 04/11/19 11:47 04/11/19 11:47 Course - Vital Signs Vital signs: Temp Pulse Resp BP Pulse Ox 98.4 F 97 15 121/83 98 04/11/19 11:47 04/11/19 11:47 04/11/19 11:47 04/11/19 11:47 04/11/19 11:47 Doctor's Discharge - Discharge Referrals: MADHURI MARTIN MD [Primary Care Provider] - Follow up as needed
--- NOTE | 2019-04-11 12:16 | RADIOLOGY REPORT (SQ) ---
EXAM DESCRIPTION: CHEST 2 VIEWS COMPLETED DATE/TIME: 04/11/2019 12:08 pm REASON FOR STUDY: chest discomfort short of breath COMPARISON: 03/13/2019 EXAM PARAMETERS: NUMBER OF VIEWS: two views TECHNIQUE: Digital Frontal and Lateral radiographic views of the chest acquired. RADIATION DOSE: NA LIMITATIONS: none FINDINGS: LUNGS AND PLEURA: No opacities, masses or pneumothorax. No pleural effusion. MEDIASTINUM AND HILAR STRUCTURES: No masses or contour abnormalities. HEART AND VASCULAR STRUCTURES: Heart normal size. No evidence for failure. BONES: No acute findings. HARDWARE: None in the chest. OTHER: No other significant finding. IMPRESSION: NO ACUTE RADIOGRAPHIC FINDING IN THE CHEST. TECHNICAL DOCUMENTATION: JOB ID: [id number] [employer]- All Rights Reserved Reading location - IP/workstation name: [email or web address]
[2019-04-11 12:46] LABS: APPEARANCE,URINE CLEAR; BILIRUBIN,URINE NEGATIVE (NEGATIVE); COLOR,URINE YELLOW; GLUCOSE, URINE NEGATIVE (NEGATIVE); KETONES,URINE NEGATIVE (NEGATIVE); LEUKOCYTE ESTERASE,URINE NEGATIVE (NEGATIVE); NITRITE,URINE NEGATIVE (NEGATIVE); PROTEIN,URINE NEGATIVE (NEGATIVE); URINE SPECIFIC GRAVITY 1.013; UROBILINOGEN,URINE NEGATIVE mg/dL (<2.0)
[2019-04-11 12:53] LABS: ABSOLUTE EOSINOPHILS # (AUTO) 0.4 10^3/uL (0.0-0.6); ABSOLUTE MONOCYTES (AUTO) 0.5 10^3/uL (0.1-1.4); ABSOLUTE NEUT (AUTO) 4.6 10^3/uL (1.7-8.2); BASOPHILS % (AUTO) 0.4 % (0-2); EOSINOPHILS % (AUTO) 5.8 % (0-6); HEMATOCRIT 41.4 % (36.0-47.0); HEMOGLOBIN 13.9 g/dL (12.0-15.5); LYMPHOCYTES % (AUTO) 26.6 % (13-45); MEAN CORPUSCULAR HEMOGLOBIN 29.1 pg (27.0-33.4); MEAN CORPUSCULAR HGB CONC 33.6 g/dL (32.0-36.0); MEAN CORPUSCULAR VOLUME 87 fl (80-97); MONOCYTES % (AUTO) 6.5 % (3-13); PLATELET COUNT 354 10^3/uL (150-450); RED BLOOD COUNT 4.79 10^6/uL (3.72-5.28); RED CELL DISTRIBUTION WIDTH 13.6 % (11.5-14.0); SEGMENTED NEUTROPHILS % (AUTO) 60.7 % (42-78); TOTAL CELLS COUNTED % (AUTO) 100 %; WHITE BLOOD COUNT 7.6 10^3/uL (4.0-10.5)
[2019-04-11 13:00] LABS: URINE AMPHETAMINES SCREEN NEGATIVE; URINE BARBITURATES SCREEN NEGATIVE; URINE BENZODIAZEPINES SCREEN NEGATIVE; URINE COCAINE SCREEN NEGATIVE; URINE MARIJUANA (THC) SCREEN NEGATIVE; URINE METHADONE SCREEN NEGATIVE; URINE PHENCYCLIDINE SCREEN NEGATIVE
[2019-04-11 13:13] LABS: ALBUMIN 4.5 g/dL (3.5-5.0); ALKALINE PHOSPHATASE 68 U/L (38-126); ANION GAP 9 (5-19); ASPARTATE AMINO TRANSFERASE 40 U/L (14-36); BILIRUBIN,DIRECT 0.3 mg/dL (0.0-0.4); BILIRUBIN,TOTAL 1.4 mg/dL (0.2-1.3); BLOOD UREA NITROGEN 12 mg/dL (7-20); CALCIUM 9.9 mg/dL (8.4-10.2); CARBON DIOXIDE 28 mmol/L (22-30); CHLORIDE 102 mmol/L (98-107); CREATINE KINASE 64 U/L (30-135); GLUCOSE 91 mg/dL (75-110); POTASSIUM 4.2 mmol/L (3.6-5.0)
[2019-04-11 13:32] LABS: CREATINE KINASE MB 0.33 ng/mL (<4.55)
[2019-04-11 13:34] LABS: TROPONIN I < 0.012 ng/mL
--- NOTE | 2019-04-11 15:07 | ER Document Report ---
ED General - General Chief Complaint: Chest Pain Stated Complaint: CHEST PAIN Time Seen by Provider: 04/11/19 11:50 Primary Care Provider: MADHURI MARTIN MD [Primary Care Provider] - Follow up as needed Mode of Arrival: Ambulatory TRAVEL OUTSIDE OF THE [place] IN LAST 30 DAYS: No - HPI Notes: Patient is a 34-year-old female who presents to the emergency department for evaluation. She has had a long time history of dizziness, occasional numbness and tingling, elevated heart rate, and chest "twinges." She states that over the last 2 days she has been much more tired. She is short of breath with exertion. She feels more dizzy and lightheaded. She has been taking her beta- génesis as prescribed. She did take a little bit late last night. She states that her resting heart rate is normally around 110. With exertion it goes higher. She states that recently her heart rates have been going down into the 70s and 80s at times. This is while she is at rest. She is concerned that this could be dangerous and might be affecting her dizziness. She Kris follows with cardiology, and has been in touch with our office for further evaluation. She also has further evaluations scheduled with neurology. MRIs of the cervical spine, EEGs are ordered. Patient was just feeling worse today and thought she should be evaluated. At this point she denies any pain, but states she has had some pains in her chest that feels slightly different. She really cannot describe them for me, just states are different from what she has had in the past. - Related Data Allergies/Adverse Reactions: codeine Allergy (Verified 04/11/19 11:34) haloperidol [From Haldol] Allergy (Verified 04/11/19 11:34) morphine Allergy (Verified 04/11/19 11:34) IV DYE Allergy (Uncoded 04/11/19 11:34) ssri Adverse Reaction (Uncoded 04/11/19 11:34) Past Medical History - General Information source: Patient - Social History Smoking Status: Never Smoker Family History: Reviewed & Not Pertinent, CAD, CVA, DM, Hyperlipidemia, Hypertension, Malignancy Patient has suicidal ideation: No Patient has homicidal ideation: No - Past Medical History Cardiac Medical History: Reports: Other - Sinus tachycardia Denies: Hx Atrial Fibrillation Pulmonary Medical History: Reports: Hx Pneumonia Neurological Medical History: Denies: Hx Seizures Endocrine Medical History: Denies: Hx Hyperthyroidism Renal/ Medical History: Denies: Hx Peritoneal Dialysis GI Medical History: Reports: Hx Gastroesophageal Reflux Disease, Hx Irritable Bowel Musculoskeletal Medical History: Reports Hx Musculoskeletal Trauma Psychiatric Medical History: Reports: Hx Anxiety, Hx Bipolar Disorder - mis dx. borderline personality and panic disorder, Hx Depression, Hx Obsessive Compulsive Disorder, Hx Post Traumatic Stress Disorder Traumatic Medical History: Reports: Hx Fractures Infectious Medical History: Reports: Hx C-Diff Past Surgical History: Reports: Hx Appendectomy, Hx Cholecystectomy, Hx Gynecologic Surgery - , Hx Orthopedic Surgery, Hx Tubal Ligation. Denies: Hx Hysterectomy - Immunizations Immunizations up to date: Yes Hx Diphtheria, Pertussis, Tetanus Vaccination: Yes Hx Pneumococcal Vaccination: 08/21/12 Review of Systems - Review of Systems Constitutional: See HPI EENT: No symptoms reported Cardiovascular: See HPI Respiratory: See HPI Gastrointestinal: No symptoms reported Genitourinary: No symptoms reported Female Genitourinary: No symptoms reported Musculoskeletal: No symptoms reported Skin: No symptoms reported Neurological/Psychological: See HPI Physical Exam - Vital signs Vitals: Temp Pulse Resp BP Pulse Ox 98.4 F 97 15 121/83 98 04/11/19 11:47 04/11/19 11:47 04/11/19 11:47 04/11/19 11:47 04/11/19 11:47 - Notes Notes: Vital signs reviewed, please refer to chart. Head is normocephalic, atraumatic. Pupils equal round, reactive to light. Neck is supple without meningismus. She does have some tenderness at the base of the occiput on the right which produces pain that radiates up her right scalp and behind her right eye. This is typical of headache she is had in the past. Heart is regular rate and rhythm. Lungs are clear to auscultation bilaterally. Abdomen is soft, nontender, normoactive bowel sounds throughout. Extremities without cyanosis, clubbing. Posterior calves are nontender. Peripheral pulses are equal. Skin is warm and dry. Patient is awake, alert, oriented x3. Cranial nerves II - XII are grossly intact without focal neurological deficits. Strength is plus 5 out of 5 bilateral upper and lower extremities. Sensation is intact. Reflexes symmetrical. Intact [id number], rapid alternating movements, [id number]. Course - Re-evaluation Re-evalutation: 04/11/19 15:06 Patient presents to the emergency department for evaluation of an exacerbation of her chronic dizziness as well as changes in her heart rate. The patient was primarily concerned that these rapid drops in her heart rate could be indicative of something more serious. She was placed on a monitoring engineer. During her conversations her heart rate stayed around 100 110, which she states is her baseline. I did not see any drops into the 70s or 80s. No significant ectopy was noted. Her laboratory investigations and imaging here did not reveal any acute abnormality. She is Kris plugged in with cardiology as well as neurology for further evaluation. Patient was reassured that her exam was unremarkable at this time, that her vital signs were in an acceptable range. She is to continue her medications and follow-up closely with neurology and cardiology. She voiced understanding and was discharged. - Vital Signs Vital signs: Temp Pulse Resp BP Pulse Ox 98.4 F 97 20 102/78 100 04/11/19 11:47 04/11/19 11:47 04/11/19 14:00 04/11/19 14:00 04/11/19 14:00 - Laboratory Result Diagrams: 04/11/19 12:32 04/11/19 12:32 Laboratory results interpreted by me: 04/11/19 12:32 Total Bilirubin 1.4 H AST 40 H - Diagnostic Test Radiology reviewed: Reports reviewed Radiology results interpreted by me: 04/11/19 15:06 Chest X-Ray 04/11/19 11:51 IMPRESSION: NO ACUTE RADIOGRAPHIC FINDING IN THE CHEST. - EKG Interpretation by Me Additional EKG results interpreted by me: 04/11/19 15:06 Sinus mechanism with a rate of 87 bpm. Normal axis and intervals, no acute ST changes concerning for ischemia or infarction. Discharge - Discharge Clinical Impression: Dizziness Chest pain Qualifiers: Chest pain type: unspecified Qualified Code(s): R07.9 - Chest pain, unspecified Condition: Stable Disposition: HOME, SELF-CARE Instructions: Chest Pain of Unclear Cause ([facility]), Dizziness ([facility]) Additional Instructions: Follow-up with neurology and cardiology as discussed. Continue taking your home medications as prescribed, or until instructed otherwise by your specialist. If you develop worsening or new concerning symptoms of any sort, return immediately to the emergency department for evaluation. Referrals: MADHURI MARTIN MD [Primary Care Provider] - Follow up as needed
[2019-04-11 15:34] VITALS: BP 115/89
--- NOTE | 2019-04-11 20:40 | EKG REPORT ---
SEVERITY:- NORMAL ECG - SINUS RHYTHM : Confirmed by: Karen Denny MD 11-Apr-2019 20:39:39
== END 2019-04-11 15:39 | disposition home or self-care (01) ==
LOC: ER 11:29
DX: R07.9 Chest pain, unspecified (principal); R42 Dizziness and giddiness; R20.0 Anesthesia of skin; R00.2 Palpitations; R06.02 Shortness of breath
CPT/HCPCS: 36415; 71046; 80053; 80307; 81001; 82550; 82553; 83690; 84484; 84703; 85025; 87086; 93005; 93010; 99285

== ENCOUNTER 2019-04-12 08:55 | Emergency (ER) | payer OTHER, MEDICARE ==
--- NOTE | 2019-04-12 09:35 | ER Document Report ---
ED Medical Screen (RME) - General Chief Complaint: Chest Pain Stated Complaint: MID CHEST PAIN Time Seen by Provider: 04/12/19 09:17 Primary Care Provider: MADHURI MARTIN MD [Primary Care Provider] - Follow up as needed Mode of Arrival: Ambulatory Information source: Patient Notes: 34-year-old female presented to ED for upper abdominal pain. She states she was got up to let the dog go to get a little wobbly she laid down and was feeling dizzy even while she was in the bed felt like she was spinning. She was out of breath states her blood pressure and pulse were high. She states she was here yesterday and the symptoms are actually worse than yesterday. She states she is been having this going on for a long time she was just more concerned because it seemed like it was more this morning. Vital signs are stable at this time. Patient is alert oriented respirations regular and unlabored speaking in full sentences walks with even steady gait. I have greeted and performed a rapid initial assessment of this patient. A comprehensive ED assessment and evaluation of the patient, analysis of test results and completion of medical decision making process will be conducted by an additional ED providers. TRAVEL OUTSIDE OF THE [place] IN LAST 30 DAYS: No - Related Data Allergies/Adverse Reactions: codeine Allergy (Verified 04/12/19 08:57) haloperidol [From Haldol] Allergy (Verified 04/12/19 08:57) morphine Allergy (Verified 04/12/19 08:57) IV DYE Allergy (Uncoded 04/12/19 08:57) ssri Adverse Reaction (Uncoded 04/12/19 08:57) Past Medical History - Social History Chew tobacco use (# tins/day): No Frequency of alcohol use: None Drug Abuse: None Family history: Reviewed & Not Pertinent, Malignancy - Past Medical History Cardiac Medical History: Denies: Hx Atrial Fibrillation Pulmonary Medical History: Reports: Hx Pneumonia Neurological Medical History: Denies: Hx Seizures Endocrine Medical History: Denies: Hx Hyperthyroidism Renal/ Medical History: Denies: Hx Peritoneal Dialysis GI Medical History: Reports: Hx Gastroesophageal Reflux Disease, Hx Irritable Bowel Musculoskeltal Medical History: Reports Hx Musculoskeletal Trauma Psychiatric Medical History: Reports: Hx Anxiety, Hx Bipolar Disorder - mis dx. borderline personality and panic disorder, Hx Depression, Hx Obsessive Compulsive Disorder, Hx Post Traumatic Stress Disorder Traumatic Medical History: Reports: Hx Fractures Infectious Medical History: Reports: Hx C-Diff Past Surgical History: Reports: Hx Appendectomy, Hx Cholecystectomy, Hx Gynecologic Surgery - , Hx Orthopedic Surgery, Hx Tubal Ligation. Denies: Hx Hysterectomy - Immunizations Immunizations up to date: Yes Hx Diphtheria, Pertussis, Tetanus Vaccination: Yes Physical Exam - Vital signs Vitals: Temp Pulse Resp BP Pulse Ox 97.7 F 94 18 101/66 97 04/12/19 08:58 04/12/19 08:58 04/12/19 08:58 04/12/19 08:58 04/12/19 08:58 Course - Vital Signs Vital signs: Temp Pulse Resp BP Pulse Ox 97.7 F 94 18 101/66 97 04/12/19 08:58 04/12/19 08:58 04/12/19 08:58 04/12/19 08:58 04/12/19 08:58 Doctor's Discharge - Discharge Referrals: MADHURI MARTIN MD [Primary Care Provider] - Follow up as needed
[2019-04-12 10:02] LABS: ALBUMIN 4.4 g/dL (3.5-5.0); ALKALINE PHOSPHATASE 65 U/L (38-126); ANION GAP 11 (5-19); ASPARTATE AMINO TRANSFERASE 29 U/L (14-36); BILIRUBIN,DIRECT 0.1 mg/dL (0.0-0.4); BILIRUBIN,TOTAL 0.8 mg/dL (0.2-1.3); BLOOD UREA NITROGEN 9 mg/dL (7-20); CARBON DIOXIDE 26 mmol/L (22-30); CHLORIDE 102 mmol/L (98-107); GLUCOSE 102 mg/dL (75-110); POTASSIUM 4.3 mmol/L (3.6-5.0); TOTAL PROTEIN 7.6 g/dL (6.3-8.2)
[2019-04-12 10:07] LABS: ABSOLUTE BASOPHILS # (AUTO) 0.1 10^3/uL (0.0-0.2); ABSOLUTE EOSINOPHILS # (AUTO) 0.5 10^3/uL (0.0-0.6); ABSOLUTE MONOCYTES (AUTO) 0.5 10^3/uL (0.1-1.4); ABSOLUTE NEUT (AUTO) 5.3 10^3/uL (1.7-8.2); BASOPHILS % (AUTO) 1.3 % (0-2); EOSINOPHILS % (AUTO) 5.9 % (0-6); HEMATOCRIT 39.7 % (36.0-47.0); HEMOGLOBIN 13.5 g/dL (12.0-15.5); MEAN CORPUSCULAR HEMOGLOBIN 29.3 pg (27.0-33.4); MEAN CORPUSCULAR VOLUME 86 fl (80-97); MONOCYTES % (AUTO) 6.2 % (3-13); PLATELET COUNT 370 10^3/uL (150-450); RED BLOOD COUNT 4.61 10^6/uL (3.72-5.28); RED CELL DISTRIBUTION WIDTH 13.6 % (11.5-14.0); SEGMENTED NEUTROPHILS % (AUTO) 62.6 % (42-78); TOTAL CELLS COUNTED % (AUTO) 100 %; WHITE BLOOD COUNT 8.5 10^3/uL (4.0-10.5)
--- NOTE | 2019-04-12 10:20 | ER Document Report ---
ED General - General Chief Complaint: Chest Pain Stated Complaint: MID CHEST PAIN Time Seen by Provider: 04/12/19 09:17 Primary Care Provider: MADHURI MARTIN MD [NO LOCAL MD] - Follow up as needed Mode of Arrival: Ambulatory Notes: HPI: 34-year-old female with past medical history as recorded who presents today feeling a little "dizzy". Patient has had the symptoms for extended period of time and is on a beta-génesis with cardiology and is followed by the cardiology and neurology service. Patient denies any fevers, cough, shortness of breath, leg swelling, calf pain, weakness or numbness. She was seen and evaluated for similar presentation yesterday with an unremarkable laboratory profile, negative test, and a heart rate in the 70s to 80s. She states her normal baseline heart rate is 110 and she was concerned yesterday that it was a little low. No recent change in beta-génesis medications since this past June. Patient states she was laying down and felt a little "dizzy". She denies any and all symptoms of vertigo. No headache, blurry vision, weakness or numbness. She denies any chest pain. She does states she had some palpitations. She also states a mild epigastric non-rating abdominal discomfort that she has had for "a long time". Discussion the patient symptomatology, patient states that she has had intermittent episodes such as this for around 2 years. She even had some intermittent facial drooping and headaches with some of the symptomatology in the past with an unremarkable MRI of the brain. She does have an MRI of the cervical spine ordered today at noon. She has follow-up as discussed above with cardiology and neurology with an upcoming 72-hour EEG. Patient states she feels better at this time. ROS: See HPI All other review of systems reviewed and otherwise negative Reviewed vital signs and nursing note as charted by RN. PHYSICAL EXAM: CONSTITUTIONAL: Alert and oriented and responds appropriately to questions. Well -appearing; well-nourished HEAD: Normocephalic; atraumatic EYES: Sclerae non-icteric ENT: Normal nose; no rhinorrhea; moist mucous membranes; pharynx without lesions noted NECK: Supple without meningismus; non-tender; no cervical lymphadenopathy, no masses CARD: Regular rate and rhythm; no murmurs; symmetric distal pulses RESP: Normal chest excursion without splinting or tachypnea; breath sounds clear and equal bilaterally; no wheezes, no rhonchi, no rales ABD/GI: Normal bowel sounds; non-distended; soft, mild tenderness to the epigastric region without rebound or guarding BACK: The back appears normal and is non-tender to palpation EXT: Normal ROM in all joints; non-tender to palpation; no edema SKIN: No acute lesions noted NEURO: CN 2-12 intact; 5/5 bilateral upper and lower extremity strength with sensation intact to light touch PSYCH: The patient's mood and manner are appropriate. Grooming and personal hygiene are appropriate. TRAVEL OUTSIDE OF THE [place] IN LAST 30 DAYS: No - Related Data Allergies/Adverse Reactions: codeine Allergy (Verified 04/12/19 08:57) haloperidol [From Haldol] Allergy (Verified 04/12/19 08:57) morphine Allergy (Verified 04/12/19 08:57) IV DYE Allergy (Uncoded 04/12/19 08:57) ssri Adverse Reaction (Uncoded 04/12/19 08:57) Past Medical History - General Information source: Patient - Social History Smoking Status: Never Smoker Chew tobacco use (# tins/day): No Frequency of alcohol use: None Drug Abuse: None Family History: Reviewed & Not Pertinent, CAD, CVA, DM, Hyperlipidemia, Hypertension, Malignancy Patient has suicidal ideation: No Patient has homicidal ideation: No - Past Medical History Cardiac Medical History: Denies: Hx Atrial Fibrillation Pulmonary Medical History: Reports: Hx Pneumonia Neurological Medical History: Denies: Hx Seizures Endocrine Medical History: Denies: Hx Hyperthyroidism Renal/ Medical History: Denies: Hx Peritoneal Dialysis GI Medical History: Reports: Hx Gastroesophageal Reflux Disease, Hx Irritable Bowel Musculoskeletal Medical History: Reports Hx Musculoskeletal Trauma Psychiatric Medical History: Reports: Hx Anxiety, Hx Bipolar Disorder - mis dx. borderline personality and panic disorder, Hx Depression, Hx Obsessive Compulsive Disorder, Hx Post Traumatic Stress Disorder Traumatic Medical History: Reports: Hx Fractures Infectious Medical History: Reports: Hx C-Diff Past Surgical History: Reports: Hx Appendectomy, Hx Cholecystectomy, Hx Gynecologic Surgery - , Hx Orthopedic Surgery, Hx Tubal Ligation. Denies: Hx Hysterectomy - Immunizations Immunizations up to date: Yes Hx Diphtheria, Pertussis, Tetanus Vaccination: Yes Hx Pneumococcal Vaccination: 08/21/12 Physical Exam - Vital signs Vitals: Temp Pulse Resp BP Pulse Ox 97.7 F 94 18 101/66 97 04/12/19 08:58 04/12/19 08:58 04/12/19 08:58 04/12/19 08:58 04/12/19 08:58 Course - Re-evaluation Re-evalutation: Given the above history and physical examination, we will repeat the patient's electrolytes, obtain a liver panel and lipase, right upper quadrant ultrasound, EKG, and reassess. I do believe ACS, PE, dissection to be unlikely. Patient has no focal neurological deficits. No lower abdominal tenderness with a negative yesterday. 04/12/19 10:20 EKG shows a heart of 94, normal sinus rhythm, normal axis, no ST elevation or depression. 04/12/19 11:53 Labs as recorded. Ultrasound was ordered in triage and the patient does not h ave a gallbladder. Orthostatics are unremarkable. Patient will be discharged home with strict return precautions and follow-up for her scheduled appointment at noon for her MRI. - Vital Signs Vital signs: Temp Pulse Resp BP Pulse Ox 97.7 F 79 18 104/69 97 04/12/19 08:58 04/12/19 11:05 04/12/19 08:58 04/12/19 11:05 04/12/19 08:58 - Laboratory Result Diagrams: 04/12/19 09:35 04/12/19 09:35 Discharge - Discharge Clinical Impression: Lightheadedness Condition: Good Disposition: HOME, SELF-CARE Additional Instructions: Come back immediately for any pain, weakness or numbness, fevers, vomiting, lightheadedness or dizziness, or any other acute problems. Please follow-up with your specialist as we have discussed. Referrals: MADHURI MARTIN MD [NO LOCAL MD] - Follow up as needed
--- NOTE | 2019-04-12 10:57 | RADIOLOGY REPORT (SQ) ---
EXAM DESCRIPTION: U/S ABDOMEN LIMITED W/O DOP COMPLETED DATE/TIME: 04/12/2019 10:43 am REASON FOR STUDY: upper abdominal pain COMPARISON: 04/07/2011 TECHNIQUE: Dynamic and static grayscale images acquired of the abdomen and recorded on PACS. Additio nal selected color Doppler and spectral images recorded. LIMITATIONS: None. FINDINGS: PANCREAS: Pancreas is obscured by overlying bowel gas. LIVER: Normal size Echo texture normal. No focal masses. LIVER VASCULATURE: Normal directional flow of the main portal vein and hepatic veins. GALLBLADDER: Surgically absent. ULTRASOUND-DETECTED GARCIA'S SIGN: Negative. INTRAHEPATIC DUCTS AND COMMON DUCT: CBD and intrahepatic ducts normal caliber. No filling defects. INFERIOR VENA CAVA: Normal flow. AORTA: No aneurysm. RIGHT KIDNEY: Normal size. Normal echogenicity. No solid or suspicious masses. No hydronephros is. No calcifications. PERITONEAL AND RIGHT PLEURAL SPACE: No ascites or effusions. OTHER: No other significant findings. IMPRESSION: Prior cholecystectomy. No acute findings. TECHNICAL DOCUMENTATION: JOB ID: [id number] [employer]- All Rights Reserved Reading location - IP/workstation name: [email or web address]
[2019-04-12 11:49] LABS: APPEARANCE,URINE SLIGHTLY-CLOUDY; BILIRUBIN,URINE NEGATIVE (NEGATIVE); COLOR,URINE YELLOW; GLUCOSE, URINE NEGATIVE (NEGATIVE); KETONES,URINE NEGATIVE (NEGATIVE); LEUKOCYTE ESTERASE,URINE NEGATIVE (NEGATIVE); NITRITE,URINE NEGATIVE (NEGATIVE); PROTEIN,URINE NEGATIVE (NEGATIVE); URINE SPECIFIC GRAVITY 1.018; UROBILINOGEN,URINE NEGATIVE mg/dL (<2.0)
[2019-04-12 12:05] VITALS: BP 115/88
--- NOTE | 2019-04-12 12:26 | EKG REPORT ---
SEVERITY:- NORMAL ECG - SINUS RHYTHM : Confirmed by: Karen Denny MD 12-Apr-2019 12:25:18
== END 2019-04-12 12:03 | disposition home or self-care (01) ==
LOC: ER 08:55
DX: R42 Dizziness and giddiness (principal); R07.9 Chest pain, unspecified; R51 Headache; R29.810 Facial weakness; Z79.899 Other long term (current) drug therapy
CPT/HCPCS: 36415; 76705; 80053; 81001; 83690; 85025; 93005; 93010; 99284

== ENCOUNTER → 2019-05-28 | Outpatient (CLI) | payer MEDICARE, OTHER ==
[2019-05-28 13:01] LABS: ABSOLUTE BASOPHILS # (AUTO) 0.1 10^3/uL (0.0-0.2); ABSOLUTE EOSINOPHILS # (AUTO) 0.5 10^3/uL (0.0-0.6); ABSOLUTE LYMPHOCYTES (AUTO) 2.4 10^3/uL (0.5-4.7); ABSOLUTE MONOCYTES (AUTO) 0.5 10^3/uL (0.1-1.4); ABSOLUTE NEUT (AUTO) 5.4 10^3/uL (1.7-8.2); BASOPHILS % (AUTO) 1.1 % (0-2); EOSINOPHILS % (AUTO) 5.7 % (0-6); HEMOGLOBIN 13.3 g/dL (12.0-15.5); LYMPHOCYTES % (AUTO) 26.8 % (13-45); MEAN CORPUSCULAR HEMOGLOBIN 29.4 pg (27.0-33.4); MEAN CORPUSCULAR VOLUME 86 fl (80-97); MONOCYTES % (AUTO) 5.7 % (3-13); PLATELET COUNT 354 10^3/uL (150-450); RED BLOOD COUNT 4.51 10^6/uL (3.72-5.28); RED CELL DISTRIBUTION WIDTH 13.1 % (11.5-14.0); SEGMENTED NEUTROPHILS % (AUTO) 60.7 % (42-78); TOTAL CELLS COUNTED % (AUTO) 100 %; WHITE BLOOD COUNT 8.9 10^3/uL (4.0-10.5)
[2019-05-28 13:16] LABS: ALBUMIN 4.2 g/dL (3.5-5.0); ALKALINE PHOSPHATASE 68 U/L (38-126); AMYLASE 73 U/L (30-110); ANION GAP 11 (5-19); ASPARTATE AMINO TRANSFERASE 27 U/L (14-36); BILIRUBIN,DIRECT 0.2 mg/dL (0.0-0.4); BILIRUBIN,TOTAL 0.7 mg/dL (0.2-1.3); BLOOD UREA NITROGEN 8 mg/dL (7-20); CALCIUM 10.3 mg/dL (8.4-10.2); CARBON DIOXIDE 27 mmol/L (22-30); CHLORIDE 99 mmol/L (98-107); GLUCOSE 88 mg/dL (75-110); POTASSIUM 4.3 mmol/L (3.6-5.0); TOTAL PROTEIN 7.6 g/dL (6.3-8.2)
[2019-05-28 13:42] LABS: FREE T3 4.34 pg/mL (2.77-5.27); FREE T4 (FREE THYROXINE) 0.73 ng/dL (0.78-2.19)
[2019-05-28 13:56] LABS: THYROID STIMULATING HORMONE 2.21 uIU/mL (0.47-4.68)
[2019-05-30 07:11] LABS: IODINE 38.9 ug/L (40.0-92.0)
== END ==
LOC: OD 11:31
PROVIDERS: ATTEND Nurse Practitioner Family
DX: R53.82 Chronic fatigue, unspecified (principal); R11.2 Nausea with vomiting, unspecified; D64.9 Anemia, unspecified; R63.5 Abnormal weight gain; R19.7 Diarrhea, unspecified; E01.8 Other iodine-deficiency related thyroid disorders and allied conditions; E59 Dietary selenium deficiency
CPT/HCPCS: 36415; 80053; 82150; 82306; 82728; 82746; 83036; 83525; 83690; 83735; 83789; 84255; 84436; 84439; 84443; 84480; 84481; 84482; 85025; 87177

== ENCOUNTER 2019-05-29 03:17 | Emergency (ER) | payer OTHER, MEDICARE ==
[2019-05-29 05:29] LABS: ABSOLUTE BASOPHILS # (AUTO) 0.1 10^3/uL (0.0-0.2); ABSOLUTE EOSINOPHILS # (AUTO) 0.5 10^3/uL (0.0-0.6); ABSOLUTE LYMPHOCYTES (AUTO) 2.8 10^3/uL (0.5-4.7); ABSOLUTE MONOCYTES (AUTO) 0.7 10^3/uL (0.1-1.4); ABSOLUTE NEUT (AUTO) 5.7 10^3/uL (1.7-8.2); EOSINOPHILS % (AUTO) 5.3 % (0-6); HEMATOCRIT 39.4 % (36.0-47.0); HEMOGLOBIN 13.4 g/dL (12.0-15.5); LYMPHOCYTES % (AUTO) 28.4 % (13-45); MEAN CORPUSCULAR HEMOGLOBIN 29.5 pg (27.0-33.4); MEAN CORPUSCULAR VOLUME 87 fl (80-97); MONOCYTES % (AUTO) 7.2 % (3-13); PLATELET COUNT 344 10^3/uL (150-450); RED BLOOD COUNT 4.55 10^6/uL (3.72-5.28); RED CELL DISTRIBUTION WIDTH 13.6 % (11.5-14.0); SEGMENTED NEUTROPHILS % (AUTO) 58.1 % (42-78); TOTAL CELLS COUNTED % (AUTO) 100 %; WHITE BLOOD COUNT 9.7 10^3/uL (4.0-10.5)
[2019-05-29] MEDS ORDERED: NORMAL SALINE 1000 ML 1,000 ML IV ONE (05:40)
--- NOTE | 2019-05-29 05:41 | ER Document Report ---
ED GI/ - General Chief Complaint: Abdominal Pain Stated Complaint: UPPER ABDOMINAL PAIN,NAUSEA Time Seen by Provider: 05/29/19 05:16 Notes: Patient is a 34-year-old female that comes emergency department for chief complaint of intermittent epigastric pain and nausea for the past 2 weeks. She denies vomiting, she does report several loose bowel movements a day which are nonbloody, she is able to eat but occasionally this causes pain as well. She denies flank pain. She denies lower abdominal pain, dysuria, vaginal bleeding or discharge. She states that all her pets have parasites and she thinks she might have a parasite but she just submitted stool to her primary care and this is pending. She also had general work-up today with her primary care for the same symptoms. She has had a cholecystectomy, appendectomy, and bilateral s alpingectomy. She states she had an endoscopy within the past year and they told her she had gastritis so she tried to change her diet but she has not been medicated for this. TRAVEL OUTSIDE OF THE [place] IN LAST 30 DAYS: No - Related Data Allergies/Adverse Reactions: codeine Allergy (Verified 05/29/19 03:35) haloperidol [From Haldol] Allergy (Verified 05/29/19 03:35) morphine Allergy (Verified 05/29/19 03:35) IV DYE Allergy (Uncoded 05/29/19 03:35) ssri Adverse Reaction (Uncoded 05/29/19 03:35) Past Medical History - General Information source: Patient - Social History Smoking Status: Never Smoker Chew tobacco use (# tins/day): No Frequency of alcohol use: None Drug Abuse: None Lives with: Family Family History: Reviewed & Not Pertinent, CAD, CVA, DM, Hyperlipidemia, Hypertension, Malignancy Patient has suicidal ideation: No Patient has homicidal ideation: No - Past Medical History Cardiac Medical History: Denies: Hx Atrial Fibrillation Pulmonary Medical History: Reports: Hx Pneumonia Neurological Medical History: Denies: Hx Seizures Endocrine Medical History: Denies: Hx Hyperthyroidism Renal/ Medical History: Denies: Hx Peritoneal Dialysis GI Medical History: Reports: Hx Gastroesophageal Reflux Disease, Hx Irritable Bowel Musculoskeletal Medical History: Reports Hx Musculoskeletal Trauma Psychiatric Medical History: Reports: Hx Anxiety, Hx Bipolar Disorder - mis dx. borderline personality and panic disorder, Hx Depression, Hx Obsessive Compulsive Disorder, Hx Post Traumatic Stress Disorder Traumatic Medical History: Reports: Hx Fractures Infectious Medical History: Reports: Hx C-Diff Past Surgical History: Reports: Hx Appendectomy, Hx Cholecystectomy, Hx Gynecologic Surgery - , Hx Orthopedic Surgery, Hx Tubal Ligation. Denies: Hx Hysterectomy - Immunizations Immunizations up to date: Yes Hx Diphtheria, Pertussis, Tetanus Vaccination: Yes Hx Pneumococcal Vaccination: 08/21/12 Review of Systems - Review of Systems Constitutional: No symptoms reported EENT: No symptoms reported Cardiovascular: No symptoms reported Respiratory: No symptoms reported Gastrointestinal: See HPI Genitourinary: No symptoms reported Female Genitourinary: No symptoms reported Musculoskeletal: No symptoms reported Skin: No symptoms reported Hematologic/Lymphatic: No symptoms reported Neurological/Psychological: No symptoms reported Physical Exam - Vital signs Vitals: Temp Pulse Resp BP Pulse Ox 97.7 F 106 H 17 118/80 99 05/29/19 03:31 05/29/19 03:31 05/29/19 03:31 05/29/19 03:31 05/29/19 03:31 - Notes Notes: GENERAL: Alert, interacts well. No acute distress. HEAD: Normocephalic, atraumatic. EYES: Pupils equal, round, and reactive to light. Extraocular movements intact. ENT: Oral mucosa moist, tongue midline. Oropharynx unremarkable. Airway patent. NECK: Full range of motion. Supple. Trachea midline. LUNGS: Clear to auscultation bilaterally, no wheezes, rales, or rhonchi. No respiratory distress. HEART: Regular rate and rhythm. No murmur ABDOMEN: There is mild epigastric tenderness, remaining abdomen completely unremarkable with no tenderness, swelling, guarding, rigidity. Bowel sounds present. GENITOURINARY: Deferred EXTREMITIES: Moves all 4 extremities spontaneously. No edema, normal radial and dorsalis pedis pulses bilaterally. No cyanosis. BACK: no cervical, thoracic, lumbar midline tenderness. No saddle anesthesia, normal distal neurovascular exam. Moves all extremities in full range of motion. NEUROLOGICAL: Alert and oriented x3. Normal speech. Cranial nerves II through XII grossly intact. PSYCH: Normal affect, normal mood. SKIN: Warm, dry, normal turgor. No rashes or lesions noted. Course - Re-evaluation Re-evalutation: Patient is very well-appearing on my exam. Soft benign abdomen other than mild epigastric pain. She has had a cholecystectomy already. Vital signs unremarkable. CBC, chemistry, lipase, urinalysis unremarkable. test negative. Patient has an ongoing work-up with gastroenterology, has been recently diagnosed with gastritis and is not treated for it. I discussed all details with patient. 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 Patient states understanding and agreement. Stable time of discharge. - Vital Signs Vital signs: Temp Pulse Resp BP Pulse Ox 97.4 F 95 16 124/84 99 05/29/19 06:38 05/29/19 06:38 05/29/19 06:38 05/29/19 06:38 05/29/19 03:31 - Laboratory Result Diagrams: 05/29/19 05:13 05/29/19 05:13 Laboratory results interpreted by me: 05/29/19 05:13 AST 38 H Discharge - Discharge Clinical Impression: Epigastric pain Condition: Stable Disposition: HOME, SELF-CARE Additional Instructions: Your liver functioning test, test for the docs in the upper abdomen, and test for pancreatitis are negative. You have been given hydration. Your symptoms and examination are very suggestive of gastritis/esophagitis (inflammation of your upper gastrointestinal tract). My recommendation is to take Carafate and Pepcid as prescribed to help treat this (the 5 day course), you can take additional Rolaids, Tums, Maalox, etc. if needed. You can take Tylenol for pain. Avoid NSAIDs, alcohol, smoking, caffeine, spicy food. Start with clear fluids, progress to bland diet. Follow-up with primary care for additional evaluation and treatment including possible H. pylori testing. Return if you worsen including uncontrolled vomiting, vomiting blood, black stools, severe pain, fever of 100.4 or greater, or any other concerning or worsening symptoms. Prescriptions: Sucralfate [Carafate 1 gm Tablet] 1 gm PO QID #20 tablet Famotidine [Pepcid 20 mg Tablet] 20 mg PO BID #10 tablet Forms: Return to Work
[2019-05-29 05:50] LABS: ALBUMIN 4.4 g/dL (3.5-5.0); ALKALINE PHOSPHATASE 57 U/L (38-126); ANION GAP 11 (5-19); ASPARTATE AMINO TRANSFERASE 38 U/L (14-36); BILIRUBIN,DIRECT 0.2 mg/dL (0.0-0.4); BILIRUBIN,TOTAL 0.9 mg/dL (0.2-1.3); BLOOD UREA NITROGEN 11 mg/dL (7-20); CALCIUM 9.8 mg/dL (8.4-10.2); CARBON DIOXIDE 26 mmol/L (22-30); CHLORIDE 101 mmol/L (98-107); GLUCOSE 88 mg/dL (75-110); POTASSIUM 4.8 mmol/L (3.6-5.0); TOTAL PROTEIN 7.8 g/dL (6.3-8.2)
[2019-05-29 05:54] LABS: APPEARANCE,URINE SLIGHTLY-CLOUDY; BILIRUBIN,URINE NEGATIVE (NEGATIVE); COLOR,URINE YELLOW; GLUCOSE, URINE NEGATIVE (NEGATIVE); KETONES,URINE NEGATIVE (NEGATIVE); LEUKOCYTE ESTERASE,URINE NEGATIVE (NEGATIVE); NITRITE,URINE NEGATIVE (NEGATIVE); PROTEIN,URINE NEGATIVE (NEGATIVE); URINE SPECIFIC GRAVITY 1.017; UROBILINOGEN,URINE NEGATIVE mg/dL (<2.0)
[2019-05-29 06:38] VITALS: BP 124/84
== END 2019-05-29 06:44 | disposition home or self-care (01) ==
LOC: ER 03:17
DX: R10.13 Epigastric pain (principal); R10.10 Upper abdominal pain, unspecified; R11.0 Nausea; Z88.6 Allergy status to analgesic agent; Z91.041 Radiographic dye allergy status; Z90.49 Acquired absence of other specified parts of digestive tract; Z98.51 Tubal ligation status
CPT/HCPCS: 99284; 96360; 36415; 84702; 83690; 85025; 80053; 81001; J7030

== ENCOUNTER 2019-06-09 04:31 | Emergency (ER) | payer OTHER, MEDICARE ==
[2019-06-09] MEDS ORDERED: METOCLOPRAMIDE HCL ORAL SOLN 10 MG/10 ML UDCUP PO ONE (05:13)
[2019-06-09] MEDS ORDERED: LIDOCAINE 2% VISCOUS SOLN 20 ML UDCUP PO ONE (05:13)
[2019-06-09] MEDS ORDERED: MAG HYDROX/AL HYDROX/SIMETH SUSP 30 ML UDCUP PO ONE (05:13)
[2019-06-09] MEDS ORDERED: NORMAL SALINE 1000 ML 1,000 ML IV ONE (05:17)
[2019-06-09 05:38] LABS: ABSOLUTE BASOPHILS # (AUTO) 0.1 10^3/uL (0.0-0.2); ABSOLUTE EOSINOPHILS # (AUTO) 0.4 10^3/uL (0.0-0.6); ABSOLUTE LYMPHOCYTES (AUTO) 2.6 10^3/uL (0.5-4.7); ABSOLUTE MONOCYTES (AUTO) 0.7 10^3/uL (0.1-1.4); ABSOLUTE NEUT (AUTO) 4.9 10^3/uL (1.7-8.2); EOSINOPHILS % (AUTO) 4.3 % (0-6); HEMATOCRIT 36.9 % (36.0-47.0); HEMOGLOBIN 12.6 g/dL (12.0-15.5); LYMPHOCYTES % (AUTO) 30.1 % (13-45); MEAN CORPUSCULAR HEMOGLOBIN 29.5 pg (27.0-33.4); MEAN CORPUSCULAR HGB CONC 34.2 g/dL (32.0-36.0); MEAN CORPUSCULAR VOLUME 86 fl (80-97); MONOCYTES % (AUTO) 7.6 % (3-13); PLATELET COUNT 340 10^3/uL (150-450); RED BLOOD COUNT 4.27 10^6/uL (3.72-5.28); RED CELL DISTRIBUTION WIDTH 13.2 % (11.5-14.0); TOTAL CELLS COUNTED % (AUTO) 100 %; WHITE BLOOD COUNT 8.6 10^3/uL (4.0-10.5)
[2019-06-09 05:59] LABS: ALBUMIN 4.1 g/dL (3.5-5.0); ALKALINE PHOSPHATASE 60 U/L (38-126); ANION GAP 11 (5-19); ASPARTATE AMINO TRANSFERASE 33 U/L (14-36); BILIRUBIN,DIRECT 0.1 mg/dL (0.0-0.4); BLOOD UREA NITROGEN 11 mg/dL (7-20); CALCIUM 9.4 mg/dL (8.4-10.2); CARBON DIOXIDE 25 mmol/L (22-30); CHLORIDE 104 mmol/L (98-107); GLUCOSE 92 mg/dL (75-110); POTASSIUM 4.6 mmol/L (3.6-5.0); TOTAL PROTEIN 7.3 g/dL (6.3-8.2)
[2019-06-09 06:04] LABS: APPEARANCE,URINE CLEAR; BILIRUBIN,URINE NEGATIVE (NEGATIVE); COLOR,URINE YELLOW; GLUCOSE, URINE NEGATIVE (NEGATIVE); KETONES,URINE NEGATIVE (NEGATIVE); LEUKOCYTE ESTERASE,URINE NEGATIVE (NEGATIVE); NITRITE,URINE NEGATIVE (NEGATIVE); PROTEIN,URINE NEGATIVE (NEGATIVE); UROBILINOGEN,URINE NEGATIVE mg/dL (<2.0)
--- NOTE | 2019-06-09 06:18 | RADIOLOGY REPORT (SQ) ---
EXAM: Ultrasound abdomen limited CLINICAL DATA: 34-year-old female with right upper quadrant pain. TECHNICAL DATA: Limited sonographic imaging of the right upper quadrant was performed on 06/09/2019 at 5:30 AM. Comparison: CT abdomen and pelvis performed on 07/24/2018. FINDINGS: The liver is normal in size and configuration. The liver demonstrates normal echogenicity. No focal hepatic abnormalities are identified. Doppler imaging reveals patency of the portal vein and normal hepatopedal flow. The gallbladder is surgically absent. There is no evidence of biliary ductal dilatation. The common bile duct measures 3 mm in diameter. The right kidney is normal in size, shape and echogenicity without hydronephrosis or definite nephrolithiasis. The right kidney measures 10.7 x 3.8 x 6.5 cm. There is no evidence of free fluid in the abdomen. The pancreas is not well visualized due to overlying bowel gas. The aorta is not well visualized. IMPRESSION: 1. Status post cholecystectomy. 2. Otherwise, unremarkable right upper quadrant ultrasound.
--- NOTE | 2019-06-09 07:17 | ER Document Report ---
ED General - General Chief Complaint: Abdominal Pain Stated Complaint: UPPER QUADRANT ABDOMINAL PAIN Time Seen by Provider: 06/09/19 04:36 Primary Care Provider: JUANITO COLEY NP [Primary Care Provider] - Follow up as needed Notes: Patient is a 34-year-old female presents to the emergency department for multipl e complaints. Patient states initially she continues with epigastric abdominal pain. States she was given Carafate and Pepcid at last visit to the emergency room. 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 Jama at [facility]. States they have scheduled an upper endoscopy. Patient voices a few days ago she did present to the emergency department in [place]. States "they were going to do any emergent scope but then decided not to." Patient voices she has been taking Carafate and Pepcid as prescribed. States this evening she feels as though she had low blood pressure. States she has been checking her blood pressure multiple times throughout the day because she is feeling generalized malaise. Patient voices at times when she walks up the stairs she feels short of breath but voices no CP. Denies SOB at time of rest. Pt. voices she would like a "d-dimer just incase I have a clot." Stated she has been doing a lot of sleeping lately. Pt. denies CP at this time, denies SOB at time of evaluation. Only complaints of intermittent epigastric pain, sometimes RUQ pain. Denies NVD, fever, rash, dysuria or vaginal d/c. TRAVEL OUTSIDE OF THE [place] IN LAST 30 DAYS: No - Related Data Allergies/Adverse Reactions: codeine Allergy (Verified 06/09/19 06:48) haloperidol [From Haldol] Allergy (Verified 06/09/19 06:48) morphine Allergy (Verified 06/09/19 06:48) IV DYE Allergy (Uncoded 05/29/19 03:35) ssri Adverse Reaction (Uncoded 05/29/19 03:35) Past Medical History - General Information source: Patient - Social History Smoking Status: Never Smoker Chew tobacco use (# tins/day): No Frequency of alcohol use: None Drug Abuse: None Family History: Reviewed & Not Pertinent, CAD, CVA, DM, Hyperlipidemia, Hypertension, Malignancy Patient has suicidal ideation: No Patient has homicidal ideation: No - Past Medical History Cardiac Medical History: Denies: Hx Atrial Fibrillation Pulmonary Medical History: Reports: Hx Pneumonia Neurological Medical History: Denies: Hx Seizures Endocrine Medical History: Denies: Hx Hyperthyroidism Renal/ Medical History: Denies: Hx Peritoneal Dialysis GI Medical History: Reports: Hx Gastroesophageal Reflux Disease, Hx Irritable Bowel Musculoskeletal Medical History: Reports Hx Musculoskeletal Trauma Psychiatric Medical History: Reports: Hx Anxiety, Hx Bipolar Disorder - mis dx. borderline personality and panic disorder, Hx Depression, Hx Obsessive Compulsive Disorder, Hx Post Traumatic Stress Disorder Traumatic Medical History: Reports: Hx Fractures Infectious Medical History: Reports: Hx C-Diff Past Surgical History: Reports: Hx Appendectomy, Hx Cholecystectomy, Hx Gynecologic Surgery - , Hx Orthopedic Surgery, Hx Tubal Ligation. Denies: Hx Hysterectomy - Immunizations Immunizations up to date: Yes Hx Diphtheria, Pertussis, Tetanus Vaccination: Yes Hx Pneumococcal Vaccination: 08/21/12 Review of Systems - Review of Systems Constitutional: denies: Fever EENT: No symptoms reported Cardiovascular: See HPI Respiratory: See HPI Gastrointestinal: See HPI Genitourinary: No symptoms reported Female Genitourinary: No symptoms reported Musculoskeletal: No symptoms reported Skin: No symptoms reported Hematologic/Lymphatic: No symptoms reported Neurological/Psychological: See HPI Physical Exam - Vital signs Vitals: Temp Pulse Resp BP 97.8 F 84 17 101/70 06/09/19 04:31 06/09/19 04:31 06/09/19 04:31 06/09/19 04:31 - Notes Notes: GENERAL: Alert, interacts well. No acute distress. HEAD: Normocephalic, atraumatic. EYES: Pupils equal, round, and reactive to light. Extraocular movements intact. ENT: Oral mucosa moist, tongue midline. NECK: Full range of motion. Supple. Trachea midline. LUNGS: Clear to auscultation bilaterally, no wheezes, rales, or rhonchi. No respiratory distress. HEART: Regular rate and rhythm. No murmur ABDOMEN: Obese, soft, slight right upper quadrant pain, epigastric pain noted. Otherwise abdominal exam benign. Non-distended. Bowel sounds present in all 4 quadrants. EXTREMITIES: Moves all 4 extremities spontaneously. No edema, normal radial and dorsalis pedis pulses bilaterally. No cyanosis. 5 out of 5 strength noted all 4 extremities. BACK: no cervical, thoracic, lumbar midline tenderness. No saddle anesthesia, normal distal neurovascular exam. NEUROLOGICAL: Alert and oriented x3. Normal speech. cranial nerves II through XII grossly intact PSYCH: Normal affect, normal mood. SKIN: Warm, dry, normal turgor. No rashes or lesions noted. Course - Re-evaluation Re-evalutation: Upon initial assessment patient is intermittently crying. Patient voices "maybe I am just crazy." States she has been to multiple different doctors for this epigastric abdominal pain. States she is supposed to have an endoscopy next week. States she presents to the emergency department because she felt as though she was getting short of breath while walking up the stairs. Patient voices she does have a history of sinus tachycardia, takes metoprolol for same. States she has been seen by cardiology multiple times. Is unsure of the clinical trials specialist name. Laboratory 06/09/19 06/09/19 06/09/19 04:50 04:59 04:59 WBC 8.6 RBC 4.27 Hgb 12.6 Hct 36.9 MCV 86 MCH 29.5 MCHC 34.2 RDW 13.2 Plt Count 340 Lymph % (Auto) 30.1 [place] % (Auto) 7.6 Eos % (Auto) 4.3 Baso % (Auto) 1.0 Absolute Neuts (auto) 4.9 Absolute Lymphs (auto) 2.6 Absolute Monos (auto) 0.7 Absolute Eos (auto) 0.4 Absolute Basos (auto) 0.1 Seg Neutrophils % 57.0 D-Dimer Sodium 140.0 Potassium 4.6 Chloride 104 Carbon Dioxide 25 Anion Gap 11 BUN 11 Creatinine 0.69 Est GFR ( Amer) > 60 Est GFR (MDRD) Non-Af > 60 Glucose 92 Calcium 9.4 Total Bilirubin 1.0 Direct Bilirubin 0.1 Neonat Total Bilirubin Not Reportable Neonat Direct Bilirubin Not Reportable Neonat Indirect Bili Not Reportable AST 33 ALT 34 Alkaline Phosphatase 60 Troponin I Total Protein 7.3 Albumin 4.1 Lipase 63.4 Urine Color YELLOW Urine Appearance CLEAR Urine pH 8.0 Ur Specific Rush 1.010 Urine Protein NEGATIVE Urine Glucose (UA) NEGATIVE Urine Ketones NEGATIVE Urine Blood NEGATIVE Urine Nitrite NEGATIVE Urine Bilirubin NEGATIVE Urine Urobilinogen NEGATIVE Ur Leukocyte Esterase NEGATIVE Urine WBC (Auto) 1 Urine RBC (Auto) 0 Urine Bacteria (Auto) TRACE Squamous Epi Cells Auto 1 Urine Mucus (Auto) RARE Urine Ascorbic Acid NEGATIVE Urine HCG, Qual NEGATIVE 06/09/19 06/09/19 04:59 04:59 WBC RBC Hgb Hct MCV MCH MCHC RDW Plt Count Lymph % (Auto) [place] % (Auto) Eos % (Auto) Baso % (Auto) Absolute Neuts (auto) Absolute Lymphs (auto) Absolute Monos (auto) Absolute Eos (auto) Absolute Basos (auto) Seg Neutrophils % D-Dimer 0.28 Sodium Potassium Chloride Carbon Dioxide Anion Gap BUN Creatinine Est GFR ( Amer) Est GFR (MDRD) Non-Af Glucose Calcium Total Bilirubin Direct Bilirubin Neonat Total Bilirubin Neonat Direct Bilirubin Neonat Indirect Bili AST ALT Alkaline Phosphatase Troponin I < 0.012 Total Protein Albumin Lipase Urine Color Urine Appearance Urine pH Ur Specific Rush Urine Protein Urine Glucose (UA) Urine Ketones Urine Blood Urine Nitrite Urine Bilirubin Urine Urobilinogen Ur Leukocyte Esterase Urine WBC (Auto) Urine RBC (Auto) Urine Bacteria (Auto) Squamous Epi Cells Auto Urine Mucus (Auto) Urine Ascorbic Acid Urine HCG, Qual Abdomen Ultrasound 06/09/19 04:37 IMPRESSION: 1. Status post cholecystectomy. 2. Otherwise, unremarkable right upper quadrant ultrasound. Patient is denying any shortness of breath or chest pain at this time. Patient never had chest pain at any point time in the emergency department. Patient voices she has had no URI symptoms. Patient voices she overall feels better after GI cocktail. Discussed with patient need for close follow-up with primary care provider, gastroenterology, cardiology. Patient stable for discharge. 06/09/19 07:49 - Vital Signs Vital signs: Temp Pulse Resp BP Pulse Ox 97.8 F 84 22 H 113/84 100 06/09/19 04:31 06/09/19 04:31 06/09/19 06:31 06/09/19 06:31 06/09/19 06:31 - Laboratory Result Diagrams: 06/09/19 04:59 06/09/19 04:59 Discharge - Discharge Clinical Impression: Epigastric abdominal pain Condition: Stable Disposition: HOME, SELF-CARE Instructions: Gastritis ([facility]) Additional Instructions: As we discussed you have been seen and treated in the emergency department for gastritis. Your labs revealed no signs of abnormalities. Please make sure you continue to take your prescribed Carafate and Pepcid. Please follow-up with your primary care provider in the next 12 to 24 hours. Please also make sure you continue to follow-up with gastroenterology and cardiology. Please return to the emergency room for any concerns. Referrals: JUANITO COLEY NP [Primary Care Provider] - Follow up as needed
[2019-06-09 08:56] VITALS: BP 107/75
--- NOTE | 2019-06-09 10:24 | EKG REPORT ---
SEVERITY:- BORDERLINE ECG - SINUS RHYTHM INFERIOR Q WAVES, PROBABLY NORMAL VARIATION : Confirmed by: Denia Zamorano 09-Jun-2019 10:23:38
== END 2019-06-09 08:57 | disposition home or self-care (01) ==
LOC: ER 04:31
DX: R10.13 Epigastric pain (principal); Z88.6 Allergy status to analgesic agent; Z91.041 Radiographic dye allergy status; Z90.49 Acquired absence of other specified parts of digestive tract; Z98.51 Tubal ligation status
CPT/HCPCS: 93005; 99284; 96360; 96361; 36415; 83690; 85025; 81025; 80053; 81001; 84484; 85379; 76705; 93010; J7030

== ENCOUNTER 2019-07-13 03:31 | Emergency (ER) | payer OTHER, MEDICARE, MEDICAID ==
--- NOTE | 2019-07-13 04:20 | ER Document Report ---
ED General - General Chief Complaint: Urinary Frequency Stated Complaint: POSSIBLE DIABETIC EPISODE Time Seen by Provider: 07/13/19 03:53 Primary Care Provider: JUANITO COLEY NP [Primary Care Provider] - Follow up as needed TRAVEL OUTSIDE OF THE [place] IN LAST 30 DAYS: No - HPI Notes: Patient is a 34-year-old female presenting with chief complaints of not "feeling right", increased thirst, increased urination. She states symptoms started today after starting metformin for her non-insulin resistant diabetes. Patient denies fever, chills, chest pain, shortness of breath, visual changes, abdominal pain. Patient states she just wants to get "checked out" and make sure that she has not had a irreversible adverse reaction to metformin. - Related Data Allergies/Adverse Reactions: codeine Allergy (Verified 06/09/19 06:48) haloperidol [From Haldol] Allergy (Verified 06/09/19 06:48) morphine Allergy (Verified 06/09/19 06:48) IV DYE Allergy (Uncoded 05/29/19 03:35) ssri Adverse Reaction (Uncoded 05/29/19 03:35) Past Medical History - General Information source: Patient - Social History Smoking Status: Unknown if Ever Smoked Family History: CAD, CVA, DM, Hyperlipidemia, Hypertension, Malignancy Patient has suicidal ideation: No Patient has homicidal ideation: No - Past Medical History Cardiac Medical History: Denies: Hx Atrial Fibrillation Pulmonary Medical History: Reports: Hx Pneumonia Neurological Medical History: Denies: Hx Seizures Endocrine Medical History: Denies: Hx Hyperthyroidism Renal/ Medical History: Denies: Hx Peritoneal Dialysis GI Medical History: Reports: Hx Gastroesophageal Reflux Disease, Hx Irritable Bowel Musculoskeletal Medical History: Reports Hx Musculoskeletal Trauma Psychiatric Medical History: Reports: Hx Anxiety, Hx Bipolar Disorder - mis dx. borderline personality and panic disorder, Hx Depression, Hx Obsessive Compulsive Disorder, Hx Post Traumatic Stress Disorder Traumatic Medical History: Reports: Hx Fractures Infectious Medical History: Reports: Hx C-Diff Past Surgical History: Reports: Hx Appendectomy, Hx Cholecystectomy, Hx Gynecologic Surgery - , Hx Orthopedic Surgery, Hx Tubal Ligation. Denies: Hx Hysterectomy - Immunizations Immunizations up to date: Yes Hx Diphtheria, Pertussis, Tetanus Vaccination: Yes Hx Pneumococcal Vaccination: 08/21/12 Review of Systems - Review of Systems Constitutional: No symptoms reported EENT: No symptoms reported Cardiovascular: No symptoms reported Respiratory: No symptoms reported Gastrointestinal: No symptoms reported Genitourinary: Frequency Female Genitourinary: No symptoms reported Musculoskeletal: No symptoms reported Skin: No symptoms reported Hematologic/Lymphatic: No symptoms reported Neurological/Psychological: Other - Transient confusion -: Yes All other systems reviewed and negative Physical Exam - Vital signs Vitals: Temp Pulse Resp BP Pulse Ox 98 F 108 H 20 113/86 H 98 07/13/19 03:39 07/13/19 03:39 07/13/19 03:39 07/13/19 03:39 07/13/19 03:39 - Notes Notes: PHYSICAL EXAMINATION: GENERAL: Well-appearing, well-nourished and in no acute distress. HEAD: Atraumatic, normocephalic. EYES: Pupils equal round and reactive to light, extraocular movements intact, sclera anicteric, conjunctiva are normal. ENT: nares patent, oropharynx clear without exudates. Moist mucous membranes. NECK: Normal range of motion, supple without lymphadenopathy LUNGS: Breath sounds clear to auscultation bilaterally and equal. No wheezes rales or rhonchi. HEART: Regular rate and rhythm without murmurs ABDOMEN: Soft, nontender, normoactive bowel sounds. No guarding, no rebound. No masses appreciated. EXTREMITIES: Normal range of motion, no pitting or edema. No cyanosis. NEUROLOGICAL: No focal neurological deficits. Moves all extremities sponta neously and on command. PSYCH: Normal mood, normal affect. SKIN: Warm, Dry, normal turgor, no rashes or lesions noted. Course - Vital Signs Vital signs: Temp Pulse Resp BP Pulse Ox 98 F 108 H 20 113/86 H 98 07/13/19 03:39 07/13/19 03:39 07/13/19 03:39 07/13/19 03:39 07/13/19 03:39 - Laboratory Result Diagrams: 07/13/19 04:16 07/13/19 04:16 Laboratory results interpreted by me: 07/13/19 04:16 BUN 5 L - EKG Interpretation by Me Additional EKG results interpreted by me: 07/13/19 04:43 EKG performed on 07/13/2019 at 0425 hrs. was interpreted by this MD. Findings: Normal sinus rhythm, heart rate 93, normal axis, p waves preceding QRS complexes, QRS complexes appear narrow, no ST elevation or depression patterns apparent to suggest acute myocardial ischemia or infarction. Impression: Unremarkable EKG. Discharge - Discharge Clinical Impression: Metformin adverse reaction Condition: Good Disposition: HOME, SELF-CARE Additional Instructions: Return to the Emergency Department without delay if any worse. HOME CARE INSTRUCTIONS & INFORMATION: Thank you for choosing us for your medical needs. We hope you're satisfied with the care you received. After you leave, you must properly care for your problem and, at the same time, observe its progress. Any condition can change. Some illnesses can change rapidly over hours or days. If your condition worsens, return to the Emergency Department or see your physician promptly. ABOUT YOUR X-RAYS AND EKG'S: If you had an EKG or X-rays taken, they have been read by the Emergency Physician. The X-rays and EKG's will also be read by a Radiologist or Teaseler within 24 hours. If discrepancies are noted, you will be notified by telephone. Please be certain the ED has a correct telephone number & address where you can be reached. Also, realize that some fractures or abnormalities do not show up on initial X-rays. If your symptoms continue, see your physician. ABOUT YOUR LABORATORY TEST: If you had laboratory tests, the results have been reviewed by the Emergency Physician. Some test results (for example cultures) may not be available for several days. You will be contacted if any test result shows you need additional treatment. Please be certain the ED has a correct telephone number and address where you can be reached. ABOUT YOUR MEDICATIONS: You will receive instructions on how to take your medicine on the prescription label you receive. Additional information may be provided by the Pharmacy. If you have questions afterwards, call the ED for clarification or further instructions. Some prescribed medications may cause drowsiness. Do not perform tasks such as driving a car or operating machinery without consulting your Pharmacist. If you feel you need a refill of pain medication, your condition will need re-evaluation. Please do not call for a refill of any medication. ABOUT YOUR SIGNATURE: Signature of this document acknowledges to followin. Understanding that you received emergency treatment and that you may be released before al medical problems are known or treated. Please be certain the ED has a correct phone number & address where you can be reached. 2. Acknowledgement that you will arrange for follow-up care as recommended. 3. Authorization for the Emergency Physician to provide information to your follow-up Physician in order to maximize your care. AT ANY TIME, IF YOUR SYMPTOMS CHANGE SIGNIFICANTLY OR WORSEN OR YOU DEVELOP NEW SYMPTOMS, RETURN TO THE EMERGENCY DEPARTMENT IMMEDIATELY FOR RE-EVALUATION. OUR GOAL IS TO PROVIDE EXCELLENT MEDICAL CARE! WE HOPE THAT WE HAVE MET YOUR EXPECTATIONS DURING YOUR EMERGENCY DEPARTMENT VISIT AND THAT YOU FEEL YOU HAVE RECEIVED EXCELLENT CARE! Referrals: JUANITO COLEY NP [Primary Care Provider] - Follow up as needed
[2019-07-13 04:31] LABS: ABSOLUTE BASOPHILS # (AUTO) 0.1 10^3/uL (0.0-0.2); ABSOLUTE EOSINOPHILS # (AUTO) 0.3 10^3/uL (0.0-0.6); ABSOLUTE MONOCYTES (AUTO) 0.6 10^3/uL (0.1-1.4); ABSOLUTE NEUT (AUTO) 4.7 10^3/uL (1.7-8.2); BASOPHILS % (AUTO) 0.9 % (0-2); EOSINOPHILS % (AUTO) 3.8 % (0-6); HEMATOCRIT 38.9 % (36.0-47.0); HEMOGLOBIN 13.4 g/dL (12.0-15.5); LYMPHOCYTES % (AUTO) 35.1 % (13-45); MEAN CORPUSCULAR HEMOGLOBIN 29.5 pg (27.0-33.4); MEAN CORPUSCULAR HGB CONC 34.3 g/dL (32.0-36.0); MEAN CORPUSCULAR VOLUME 86 fl (80-97); MONOCYTES % (AUTO) 6.4 % (3-13); PLATELET COUNT 383 10^3/uL (150-450); RED BLOOD COUNT 4.52 10^6/uL (3.72-5.28); RED CELL DISTRIBUTION WIDTH 13.2 % (11.5-14.0); SEGMENTED NEUTROPHILS % (AUTO) 53.8 % (42-78); TOTAL CELLS COUNTED % (AUTO) 100 %; WHITE BLOOD COUNT 8.6 10^3/uL (4.0-10.5)
[2019-07-13 04:34] LABS: APPEARANCE,URINE CLEAR; BILIRUBIN,URINE NEGATIVE (NEGATIVE); COLOR,URINE YELLOW; GLUCOSE, URINE NEGATIVE (NEGATIVE); KETONES,URINE NEGATIVE (NEGATIVE); LEUKOCYTE ESTERASE,URINE NEGATIVE (NEGATIVE); NITRITE,URINE NEGATIVE (NEGATIVE); PROTEIN,URINE NEGATIVE (NEGATIVE); URINE SPECIFIC GRAVITY 1.012; UROBILINOGEN,URINE NEGATIVE mg/dL (<2.0)
[2019-07-13 04:49] LABS: ALBUMIN 4.4 g/dL (3.5-5.0); ALKALINE PHOSPHATASE 62 U/L (38-126); ANION GAP 10 (5-19); ASPARTATE AMINO TRANSFERASE 23 U/L (14-36); BILIRUBIN,TOTAL 1.1 mg/dL (0.2-1.3); BLOOD UREA NITROGEN 5 mg/dL (7-20); CALCIUM 9.9 mg/dL (8.4-10.2); CARBON DIOXIDE 26 mmol/L (22-30); CHLORIDE 102 mmol/L (98-107); GLUCOSE 97 mg/dL (75-110); TOTAL PROTEIN 7.5 g/dL (6.3-8.2)
[2019-07-13 05:04] VITALS: BP 116/81
--- NOTE | 2019-07-13 17:31 | EKG REPORT ---
SEVERITY:- BORDERLINE ECG - SINUS RHYTHM BORDERLINE T ABNORMALITIES, ANTERIOR LEADS : Confirmed by: Scott Pena MD 13-Jul-2019 17:31:23
== END 2019-07-13 05:04 | disposition home or self-care (01) ==
LOC: ER 03:31
DX: T38.3X1A Poisoning by insulin and oral hypoglycemic [antidiabetic] drugs, accidental (unintentional), initial encounter (principal); R35.0 Frequency of micturition; Z88.6 Allergy status to analgesic agent; Z98.51 Tubal ligation status
CPT/HCPCS: 36415; 80053; 81001; 85025; 93005; 93010; 99283

== ENCOUNTER 2019-09-16 13:40 | Emergency (ER) | payer OTHER, MEDICARE, MEDICAID ==
--- NOTE | 2019-09-16 14:16 | ER Document Report ---
ED General - General Chief Complaint: Nausea Stated Complaint: NAUSEA Time Seen by Provider: 09/16/19 14:16 Primary Care Provider: BENTON COLE FNP-C [NO LOCAL MD] - Follow up as needed Mode of Arrival: Ambulatory Information source: Patient TRAVEL OUTSIDE OF THE [place] IN LAST 30 DAYS: No - HPI Onset: Other - over the last few days Onset/Duration: Gradual Quality of pain: No pain Severity: Mild Pain Level: 0 Associated symptoms: Weakness Exacerbated by: Denies Relieved by: Denies Similar symptoms previously: Yes Recently seen / treated by doctor: Yes - patient saw her PCP this morning and had lab work Notes: 34 year old female with a history of IBS, B12 Deficiency, high utilization of the ER, Depression, Anxiety, PTSD, Bipolar here for nausea, dizziness, palpations, and fatigue for the last week or so. The patient denies fevers, chills, sweat, nausea, vomiting, diarrhea. The patient saw her PCP earlier in the day and had bloo work drawn but she does not know the results of the blood work. The patient is concerned her "salts" may be off since this has apparently happened before. The patient say she is being worked up for Endocrine causes of her symptoms - Related Data Allergies/Adverse Reactions: codeine Allergy (Verified 06/09/19 06:48) haloperidol [From Haldol] Allergy (Verified 06/09/19 06:48) morphine Allergy (Verified 06/09/19 06:48) IV DYE Allergy (Uncoded 05/29/19 03:35) ssri Adverse Reaction (Uncoded 05/29/19 03:35) Past Medical History - General Information source: Patient - Social History Smoking Status: Never Smoker Frequency of alcohol use: Occasional Drug Abuse: None Family History: CAD, CVA, DM, Hyperlipidemia, Hypertension, Malignancy - Past Medical History Cardiac Medical History: Denies: Hx Atrial Fibrillation Pulmonary Medical History: Reports: Hx Pneumonia Neurological Medical History: Denies: Hx Seizures Endocrine Medical History: Denies: Hx Hyperthyroidism Renal/ Medical History: Denies: Hx Peritoneal Dialysis GI Medical History: Reports: Hx Gastroesophageal Reflux Disease, Hx Irritable Bowel Musculoskeletal Medical History: Reports Hx Musculoskeletal Trauma Psychiatric Medical History: Reports: Hx Anxiety, Hx Bipolar Disorder - mis dx. borderline personality and panic disorder, Hx Depression, Hx Obsessive Compulsive Disorder, Hx Post Traumatic Stress Disorder Traumatic Medical History: Reports: Hx Fractures Infectious Medical History: Reports: Hx C-Diff Past Surgical History: Reports: Hx Appendectomy, Hx Cholecystectomy, Hx Gynecologic Surgery - , Hx Orthopedic Surgery, Hx Tubal Ligation. Denies: Hx Hysterectomy - Immunizations Immunizations up to date: Yes Hx Diphtheria, Pertussis, Tetanus Vaccination: Yes Hx Pneumococcal Vaccination: 08/21/12 Review of Systems - Review of Systems Cardiovascular: Palpitations Respiratory: No symptoms reported Gastrointestinal: No symptoms reported Genitourinary: No symptoms reported Musculoskeletal: No symptoms reported Skin: No symptoms reported Hematologic/Lymphatic: No symptoms reported Neurological/Psychological: Other - Dizziness Physical Exam - Vital signs Vitals: Temp Pulse Resp BP Pulse Ox 98.6 F 93 16 121/73 100 09/16/19 13:56 09/16/19 13:56 09/16/19 13:56 09/16/19 13:56 09/16/19 13:56 - Notes Notes: GENERAL: Well-appearing, well-nourished and in no acute distress. HEAD: Atraumatic, normocephalic. EYES: Pupils equal round and reactive to light, extraocular movements intact, sclera anicteric, conjunctiva are normal. ENT: TMs normal, nares patent, oropharynx clear without exudates. Moist mucous membranes. NECK: Normal range of motion, supple without lymphadenopathy or JVD. LUNGS: Breath sounds clear to auscultation bilaterally and equal. No wheezes rales or rhonchi. HEART: Regular rate and rhythm without murmurs, rubs or gallops. ABDOMEN: Soft, nontender, normoactive bowel sounds. No guarding, no rebound. No masses appreciated. EXTREMITIES: Normal range of motion, no pitting or edema. No clubbing or cyanosis. NEUROLOGICAL: Cranial nerves II through XII grossly intact. Normal speech, normal gait. PSYCH: Normal mood, normal affect. SKIN: Warm, Dry, normal turgor, no rashes or lesions noted. Course - Re-evaluation Re-evalutation: 09/16/19 14:45 The patient is here for chronic issues of palpitations, dizziness, and nausea. She looks well in the ER and has normal vital signs. She had labs such as a CBC, and CMP in clinic earlier in the day which were unremarkable. Will add a CPK, CKMB, Trop, Mg to her labs and perform an EKG. The patient is concerned she may need fluids but her electrolytes dont be seem to be in the abnormal range. Will check a urine and urine as well. 09/16/19 17:08 Patient's labs here in the ER are unremarkable except for a slightly elevated CPK. Patient told to orally hydrate and to follow up with her PCP. - Vital Signs Vital signs: Temp Pulse Resp BP Pulse Ox 98.0 F 84 12 124/80 100 09/16/19 17:34 09/16/19 17:34 09/16/19 17:34 09/16/19 17:34 09/16/19 17:34 - Laboratory Laboratory results interpreted by mo: 09/16/19 15:30 Creatine Kinase 448 H - EKG Interpretation by Nv EKG shows normal: Sinus rhythm, [place], Intervals, QRS Complexes Rate: Normal When compared to previous EKG there are: No significant change Additional EKG results interpreted by mo: 09/16/19 14:44 T wave inversions in III Discharge - Discharge Clinical Impression: Dizziness, Palpitation Condition: Stable Disposition: HOME, SELF-CARE Instructions: Dizziness ([facility]), Palpitations (Irregular or Rapid Heartrate) ([facility]) Additional Instructions: Follow up with your primary care doctor and tell him/her you were in the ER for dizziness and palpitations. You had lab work done in the clinic and more lab work done in this ER today. Drink plenty of water in the days to come. Referrals: BENTON COLE FNP-C [NO LOCAL MD] - Follow up as needed
[2019-09-16 16:07] LABS: APPEARANCE,URINE CLEAR; BILIRUBIN,URINE NEGATIVE (NEGATIVE); COLOR,URINE STRAW; GLUCOSE, URINE NEGATIVE (NEGATIVE); KETONES,URINE NEGATIVE (NEGATIVE); PROTEIN,URINE NEGATIVE (NEGATIVE); URINE SPECIFIC GRAVITY 1.003; UROBILINOGEN,URINE NEGATIVE mg/dL (<2.0)
[2019-09-16 16:37] LABS: CREATINE KINASE MB 1.22 ng/mL (<4.55)
[2019-09-16 16:39] LABS: TROPONIN I < 0.012 ng/mL
[2019-09-16 17:35] VITALS: BP 124/80
--- NOTE | 2019-09-16 20:44 | EKG REPORT ---
SEVERITY:- NORMAL ECG - SINUS RHYTHM : Confirmed by: Denia Zamorano 16-Sep-2019 20:43:52
== END 2019-09-16 17:34 | disposition home or self-care (01) ==
LOC: ER 13:40
DX: R11.0 Nausea (principal); R53.1 Weakness; R00.2 Palpitations; R42 Dizziness and giddiness; Z88.6 Allergy status to analgesic agent; Z98.51 Tubal ligation status; Z90.49 Acquired absence of other specified parts of digestive tract
CPT/HCPCS: 36415; 81001; 81025; 82550; 82553; 83735; 84484; 93005; 93010; 99283

== ENCOUNTER → 2019-09-16 | Outpatient (CLI) | payer OTHER, MEDICARE, MEDICAID ==
[2019-09-16 12:15] LABS: ABSOLUTE BASOPHILS # (AUTO) 0.1 10^3/uL (0.0-0.2); ABSOLUTE EOSINOPHILS # (AUTO) 0.2 10^3/uL (0.0-0.6); ABSOLUTE LYMPHOCYTES (AUTO) 2.6 10^3/uL (0.5-4.7); ABSOLUTE MONOCYTES (AUTO) 0.5 10^3/uL (0.1-1.4); ABSOLUTE NEUT (AUTO) 4.1 10^3/uL (1.7-8.2); BASOPHILS % (AUTO) 0.9 % (0-2); EOSINOPHILS % (AUTO) 3.2 % (0-6); HEMATOCRIT 40.7 % (36.0-47.0); HEMOGLOBIN 13.9 g/dL (12.0-15.5); LYMPHOCYTES % (AUTO) 34.6 % (13-45); MEAN CORPUSCULAR HGB CONC 34.2 g/dL (32.0-36.0); MEAN CORPUSCULAR VOLUME 85 fl (80-97); MONOCYTES % (AUTO) 6.9 % (3-13); PLATELET COUNT 353 10^3/uL (150-450); RED CELL DISTRIBUTION WIDTH 13.5 % (11.5-14.0); SEGMENTED NEUTROPHILS % (AUTO) 54.4 % (42-78); TOTAL CELLS COUNTED % (AUTO) 100 %; WHITE BLOOD COUNT 7.6 10^3/uL (4.0-10.5)
[2019-09-16 12:47] LABS: ALBUMIN 4.5 g/dL (3.5-5.0); ALKALINE PHOSPHATASE 64 U/L (38-126); ANION GAP 10 (5-19); ASPARTATE AMINO TRANSFERASE 52 U/L (14-36); BILIRUBIN,DIRECT 0.3 mg/dL (0.0-0.4); BILIRUBIN,TOTAL 1.2 mg/dL (0.2-1.3); BLOOD UREA NITROGEN 7 mg/dL (7-20); CARBON DIOXIDE 29 mmol/L (22-30); CHLORIDE 100 mmol/L (98-107); GLUCOSE 76 mg/dL (75-110); POTASSIUM 4.2 mmol/L (3.6-5.0); TOTAL PROTEIN 8.1 g/dL (6.3-8.2)
[2019-09-16 13:00] LABS: FREE T3 3.12 pg/mL (2.77-5.27); FREE T4 (FREE THYROXINE) 0.69 ng/dL (0.78-2.19)
[2019-09-16 13:14] LABS: THYROID STIMULATING HORMONE 2.63 uIU/mL (0.47-4.68)
== END ==
LOC: OD 11:01
PROVIDERS: ATTEND Nurse Practitioner Family
DX: R53.83 Other fatigue (principal); E66.9 Obesity, unspecified; E87.1 Hypo-osmolality and hyponatremia; E53.8 Deficiency of other specified B group vitamins; G43.909 Migraine, unspecified, not intractable, without status migrainosus
CPT/HCPCS: 36415; 80053; 82607; 82746; 83036; 84436; 84439; 84443; 84480; 84481; 84482; 85025; 86038; 87086

== ENCOUNTER 2019-11-07 19:13 | Emergency (ER) | payer OTHER, MEDICARE ==
--- NOTE | 2019-11-07 19:29 | ER Document Report ---
ED Medical Screen (RME) - General Chief Complaint: Syncope Stated Complaint: SYNCOPY,FOCUS ISSUES Time Seen by Provider: 11/07/19 19:25 Primary Care Provider: [facility] [Primary Care Provider] - Follow up as needed Mode of Arrival: Ambulatory Information source: Patient Notes: 34-year-old female presented to ED for complaint of a syncopal episode at home. She was laying down with her dog talking to her daughter when she had the syncopal episode. Patient states that the daughter says that her eyes rolled back in her head. She has had inappropriate sinus tachycardia in the past.She states that she drove herself to the hospital. She states she just had a B12 shot on Monday and she feels like her whole body is heavy like it does when she needs to take her B12 shot. States she is kind of feels like she is floating. I have greeted and performed a rapid initial assessment of this patient. A comprehensive ED assessment and evaluation of the patient, analysis of test results and completion of medical decision making process will be conducted by an additional ED providers. TRAVEL OUTSIDE OF THE [place] IN LAST 30 DAYS: No - Related Data Allergies/Adverse Reactions: codeine Allergy (Verified 06/09/19 06:48) haloperidol [From Haldol] Allergy (Verified 06/09/19 06:48) morphine Allergy (Verified 06/09/19 06:48) IV DYE Allergy (Uncoded 05/29/19 03:35) ssri Adverse Reaction (Uncoded 05/29/19 03:35) Past Medical History - Social History Family history: Reviewed & Not Pertinent, Malignancy - Past Medical History Cardiac Medical History: Denies: Hx Atrial Fibrillation Pulmonary Medical History: Reports: Hx Pneumonia Neurological Medical History: Denies: Hx Seizures Endocrine Medical History: Denies: Hx Hyperthyroidism Renal/ Medical History: Denies: Hx Peritoneal Dialysis GI Medical History: Reports: Hx Gastroesophageal Reflux Disease, Hx Irritable Bowel Musculoskeltal Medical History: Reports Hx Musculoskeletal Trauma Psychiatric Medical History: Reports: Hx Anxiety, Hx Bipolar Disorder - mis dx. borderline personality and panic disorder, Hx Depression, Hx Obsessive Compulsive Disorder, Hx Post Traumatic Stress Disorder Traumatic Medical History: Reports: Hx Fractures Infectious Medical History: Reports: Hx C-Diff Past Surgical History: Reports: Hx Appendectomy, Hx Cholecystectomy, Hx Gynecologic Surgery - , Hx Orthopedic Surgery, Hx Tubal Ligation. Denies: Hx Hysterectomy - Immunizations Immunizations up to date: Yes Hx Diphtheria, Pertussis, Tetanus Vaccination: Yes Physical Exam - Vital signs Vitals: Temp Pulse Resp BP Pulse Ox 98.1 F 93 18 128/87 H 99 11/07/19 19:19 11/07/19 19:19 11/07/19 19:19 11/07/19 19:19 11/07/19 19:19 Course - Vital Signs Vital signs: Temp Pulse Resp BP Pulse Ox 98.1 F 93 18 128/87 H 99 11/07/19 19:19 11/07/19 19:19 11/07/19 19:19 11/07/19 19:19 11/07/19 19:19 Doctor's Discharge - Discharge Referrals: [facility] [Primary Care Provider] - Follow up as needed
[2019-11-07 19:57] LABS: ABSOLUTE BASOPHILS # (AUTO) 0.1 10^3/uL (0.0-0.2); ABSOLUTE LYMPHOCYTES (AUTO) 2.4 10^3/uL (0.5-4.7); ABSOLUTE MONOCYTES (AUTO) 0.5 10^3/uL (0.1-1.4); ABSOLUTE NEUT (AUTO) 4.6 10^3/uL (1.7-8.2); EOSINOPHILS % (AUTO) 0.6 % (0-6); HEMATOCRIT 39.4 % (36.0-47.0); HEMOGLOBIN 13.6 g/dL (12.0-15.5); MEAN CORPUSCULAR HEMOGLOBIN 29.5 pg (27.0-33.4); MEAN CORPUSCULAR HGB CONC 34.4 g/dL (32.0-36.0); MEAN CORPUSCULAR VOLUME 86 fl (80-97); MONOCYTES % (AUTO) 6.6 % (3-13); PLATELET COUNT 375 10^3/uL (150-450); RED CELL DISTRIBUTION WIDTH 13.9 % (11.5-14.0); SEGMENTED NEUTROPHILS % (AUTO) 60.8 % (42-78); TOTAL CELLS COUNTED % (AUTO) 100 %; WHITE BLOOD COUNT 7.6 10^3/uL (4.0-10.5)
[2019-11-07 20:14] LABS: ALBUMIN 4.4 g/dL (3.5-5.0); ALKALINE PHOSPHATASE 67 U/L (38-126); ANION GAP 10 (5-19); ASPARTATE AMINO TRANSFERASE 23 U/L (14-36); BILIRUBIN,DIRECT 0.1 mg/dL (0.0-0.4); BILIRUBIN,TOTAL 0.8 mg/dL (0.2-1.3); BLOOD UREA NITROGEN 7 mg/dL (7-20); CALCIUM 9.3 mg/dL (8.4-10.2); CARBON DIOXIDE 28 mmol/L (22-30); CHLORIDE 100 mmol/L (98-107); CREATINE KINASE 55 U/L (30-135); GLUCOSE 93 mg/dL (75-110); POTASSIUM 4.2 mmol/L (3.6-5.0)
[2019-11-07 20:51] LABS: APPEARANCE,URINE CLEAR; BILIRUBIN,URINE NEGATIVE (NEGATIVE); COLOR,URINE YELLOW; GLUCOSE, URINE NEGATIVE (NEGATIVE); KETONES,URINE NEGATIVE (NEGATIVE); LEUKOCYTE ESTERASE,URINE NEGATIVE (NEGATIVE); NITRITE,URINE NEGATIVE (NEGATIVE); PROTEIN,URINE NEGATIVE (NEGATIVE); URINE SPECIFIC GRAVITY 1.009; UROBILINOGEN,URINE NEGATIVE mg/dL (<2.0)
[2019-11-07] MEDS ORDERED: NORMAL SALINE 1000 ML 1,000 ML IV ONE (21:14)
--- NOTE | 2019-11-07 21:17 | ER Document Report ---
ED Syncope and Near Syncope - General Chief Complaint: Syncope Stated Complaint: SYNCOPY,FOCUS ISSUES Time Seen by Provider: 11/07/19 21:00 Primary Care Provider: BRENDA KELLY MD [NO LOCAL MD] - Follow up as needed ANURAG DOMINIQUE MD [ACTIVE STAFF] - Follow up tomorrow [facility] [Primary Care Provider] - Follow up as needed Mode of Arrival: Ambulatory Notes: Patient presents stating that she was "feeling floaty" around 7 PM and passed out while laying on her bed. Episode was witnessed by her 13-year-old daughter who states that patient's eyes rolled back into her head. There was no rhythmic moving no seizure-like activity reported. Patient states that she is had a dec reased appetite and if she thinks of food she feels nauseous but has not had any vomiting. Patient states that she just feels heavy like her B12 is low although she did recently receive a B12 injection. Patient denies any chest pain cough cold symptoms or dyspnea. Patient states she has had episodes like this in the past and is typically been attributed to either low B12 or low sodium. Patient does have a pending consultation with a endocrinology clinic to further evaluate her symptoms. TRAVEL OUTSIDE OF THE [place] IN LAST 30 DAYS: No - HPI Patient complains to provider of: Fainting Episode witnessed (by whom): Yes - 13 yr old daughter Symptoms prior to episode: Nausea/vomiting. No: Abdominal pain, Back pain, Palpitations Position/Activity at time of episode: Lying down Quality of pain: No pain Pain Level: Denies Context: Lost consciousness. denies: Incontinent of stool, Incontinent of urine, Recent seizures, Recent travel, Seizure activity observed Current symptoms: Nausea, Other - "feels floaty" Similar symptoms previously: Yes Recently seen / treated by doctor: No - Related Data Allergies/Adverse Reactions: codeine Allergy (Verified 06/09/19 06:48) haloperidol [From Haldol] Allergy (Verified 06/09/19 06:48) morphine Allergy (Verified 06/09/19 06:48) IV DYE Allergy (Uncoded 05/29/19 03:35) ssri Adverse Reaction (Uncoded 05/29/19 03:35) Home Medications: metoprolol. anafranil. vit B12 Past Medical History - General Information source: Patient - Social History Smoking Status: Never Smoker Frequency of alcohol use: None Drug Abuse: None Occupation: none Lives with: Family Family History: CAD, CVA, DM, Hyperlipidemia, Hypertension, Malignancy Patient has suicidal ideation: No Patient has homicidal ideation: No - Medical History Medical History: Other - B12 deficiency - Past Medical History Cardiac Medical History: Denies: Hx Atrial Fibrillation Pulmonary Medical History: Reports: Hx Pneumonia Neurological Medical History: Denies: Hx Seizures Endocrine Medical History: Denies: Hx Hyperthyroidism Other: Insulin resistance Renal/ Medical History: Denies: Hx Peritoneal Dialysis GI Medical History: Reports: Hx Gastroesophageal Reflux Disease, Hx Irritable Bowel Musculoskeletal Medical History: Reports Hx Musculoskeletal Trauma Psychiatric Medical History: Reports: Hx Anxiety, Hx Bipolar Disorder - mis dx. borderline personality and panic disorder, Hx Depression, Hx Obsessive Compulsive Disorder, Hx Post Traumatic Stress Disorder Traumatic Medical History: Reports: Hx Fractures Infectious Medical History: Reports: Hx C-Diff Past Surgical History: Reports: Hx Appendectomy, Hx Cholecystectomy, Hx Gynecologic Surgery - , Hx Orthopedic Surgery, Hx Tubal Ligation. Denies: Hx Hysterectomy - Immunizations Immunizations up to date: Yes Hx Diphtheria, Pertussis, Tetanus Vaccination: Yes Hx Pneumococcal Vaccination: 08/21/12 Review of Systems - Review of Systems Constitutional: No symptoms reported. denies: Fever, Recent illness EENT: No symptoms reported Cardiovascular: Syncope. denies: Chest pain, Palpitations Respiratory: No symptoms reported. denies: Cough, Hemoptysis, Short of breath Gastrointestinal: Nausea. denies: Abdominal pain, Vomiting Genitourinary: No symptoms reported Female Genitourinary: No symptoms reported Musculoskeletal: No symptoms reported. denies: Back pain Skin: No symptoms reported Hematologic/Lymphatic: No symptoms reported Neurological/Psychological: Lost consciousness. denies: Seizure, Headaches Physical Exam - Vital signs Vitals: Temp Pulse Resp BP Pulse Ox 98.1 F 93 18 128/87 H 99 11/07/19 19:19 11/07/19 19:19 11/07/19 19:19 11/07/19 19:19 11/07/19 19:19 - General General appearance: Appears well, Alert In distress: None - HEENT Head: Normocephalic, Atraumatic Eyes: Normal Conjunctiva: Normal Ears: Normal External canal: Normal Tympanic membrane: Normal Nasal: Normal Mouth/Lips: Normal Pharynx: Normal Neck: Normal, Supple. No: Lymphadenopathy, Meningismus - Respiratory Respiratory status: No respiratory distress Chest status: Nontender Breath sounds: Normal. No: Rales, Rhonchi, Stridor, Wheezing Chest palpation: Normal - Cardiovascular Rhythm: Regular Heart sounds: S1 appreciated, S2 appreciated - Abdominal Inspection: Morbidly Obese Distension: No distension Tenderness: Nontender - Back Back: Normal, Nontender - Extremities General upper extremity: Normal inspection, Normal ROM General lower extremity: Normal inspection, Normal ROM - Neurological Neuro grossly intact: Yes Cognition: Normal [place] Coma Scale Eye Opening: Spontaneous [place] Coma Scale Verbal: Oriented [place] Coma Scale Motor: Obeys Commands [place] Coma Scale Total: 15 - Psychological Associated symptoms: Normal affect, Normal mood - Skin Skin Temperature: Warm Skin Moisture: Dry Skin Color: Normal Course - Re-evaluation Re-evalutation: 11/07/19 22:[address] bruce regarding patient presentation and diagnostic evaluation. Vital signs as well as laboratory test results and EKG reviewed. Recommends adding on head CT at this time as well as orthostatic vital signs. 11/08/19 01:13 CT scan reviewed, no acute abnormalities noted. Patient with stable vital signs and otherwise normal diagnostic evaluation. Patient does have close follow-up with primary doctor and endocrinology coming up. Discussed worsening symptoms that patient should return immediately for. Patient encouraged to follow-up with her doctor and specialist as planned. - Vital Signs Vital signs: Temp Pulse Resp BP Pulse Ox 98.7 F 74 19 107/77 100 11/08/19 01:39 11/07/19 23:35 11/08/19 01:01 11/08/19 01:01 11/08/19 01:01 - Laboratory Result Diagrams: 11/07/19 19:40 11/07/19 19:40 Laboratory results interpreted by me: Labs- Entire Visit 11/07/19 11/07/19 11/07/19 19:40 19:40 19:42 WBC 7.6 RBC 4.60 Hgb 13.6 Hct 39.4 MCV 86 MCH 29.5 MCHC 34.4 RDW 13.9 Plt Count 375 Lymph % (Auto) 31.0 [place] % (Auto) 6.6 Eos % (Auto) 0.6 Baso % (Auto) 1.0 Absolute Neuts (auto) 4.6 Absolute Lymphs (auto) 2.4 Absolute Monos (auto) 0.5 Absolute Eos (auto) 0.0 Absolute Basos (auto) 0.1 Seg Neutrophils % 60.8 Sodium 137.9 Potassium 4.2 Chloride 100 Carbon Dioxide 28 Anion Gap 10 BUN 7 Creatinine 0.73 Est GFR ( Amer) > 60 Est GFR (MDRD) Non-Af > 60 Glucose 93 Calcium 9.3 Total Bilirubin 0.8 Direct Bilirubin 0.1 Neonat Total Bilirubin Not Reportable Neonat Direct Bilirubin Not Reportable Neonat Indirect Bili Not Reportable AST 23 ALT 24 Alkaline Phosphatase 67 Creatine Kinase 55 Troponin I Total Protein 8.0 Albumin 4.4 Serum HCG, Qual Urine Color YELLOW Urine Appearance CLEAR Urine pH 7.0 Ur Specific [place] 1.009 Urine Protein NEGATIVE Urine Glucose (UA) NEGATIVE Urine Ketones NEGATIVE Urine Blood NEGATIVE Urine Nitrite NEGATIVE Urine Bilirubin NEGATIVE Urine Urobilinogen NEGATIVE Ur Leukocyte Esterase NEGATIVE Urine WBC (Auto) 0 Urine RBC (Auto) 0 Squamous Epi Cells Auto 2 Urine Mucus (Auto) RARE Urine Ascorbic Acid NEGATIVE 11/07/19 11/07/19 21:00 21:00 WBC RBC Hgb Hct MCV MCH MCHC RDW Plt Count Lymph % (Auto) [place] % (Auto) Eos % (Auto) Baso % (Auto) Absolute Neuts (auto) Absolute Lymphs (auto) Absolute Monos (auto) Absolute Eos (auto) Absolute Basos (auto) Seg Neutrophils % Sodium Potassium Chloride Carbon Dioxide Anion Gap BUN Creatinine Est GFR ( Amer) Est GFR (MDRD) Non-Af Glucose Calcium Total Bilirubin Direct Bilirubin Neonat Total Bilirubin Neonat Direct Bilirubin Neonat Indirect Bili AST ALT Alkaline Phosphatase Creatine Kinase Troponin I < 0.012 Total Protein Albumin Serum HCG, Qual NEGATIVE Urine Color Urine Appearance Urine pH Ur Specific [place] Urine Protein Urine Glucose (UA) Urine Ketones Urine Blood Urine Nitrite Urine Bilirubin Urine Urobilinogen Ur Leukocyte Esterase Urine WBC (Auto) Urine RBC (Auto) Squamous Epi Cells Auto Urine Mucus (Auto) Urine Ascorbic Acid - Diagnostic Test Radiology reviewed: Reports reviewed - EKG Interpretation by Me EKG shows normal: Sinus rhythm Rate: Normal Additional EKG results interpreted by me: 11/08/19 01:15 QTc 443, no ST elevation Discharge - Discharge Clinical Impression: Syncope Qualifiers: Syncope type: unspecified Qualified Code(s): R55 - Syncope and collapse Condition: Stable Disposition: HOME, SELF-CARE Instructions: Syncopal Episode ([facility]) Additional Instructions: Return immediately for any new or worsening symptoms Followup with your primary care provider, call tomorrow to make a followup appointment Follow-up with your appliance mechanic as planned. Call to make a follow-up appointment with your geriatric personal care aide for recheck Referrals: [facility] [Primary Care Provider] - Follow up as needed ANURAG DOMINIQUE MD [ACTIVE STAFF] - Follow up tomorrow BRENDA KELLY MD [NO LOCAL MD] - Follow up as needed
--- NOTE | 2019-11-07 21:47 | EKG REPORT ---
SEVERITY:- BORDERLINE ECG - SINUS RHYTHM : Confirmed by: Karen Denny MD 07-Nov-2019 21:46:48
--- NOTE | 2019-11-08 00:12 | RADIOLOGY REPORT (SQ) ---
CT of the head: 11/07/2019 11:09 PM CDT HISTORY: 34-year-old patient with syncope. COMPARISON: CT the head from 03/13/2019 TECHNIQUE: Multiple axial contiguous images were obtained through the head without intravenous contrast administered. This exam was performed according to our departmental dose-optimization program, which includes automated exposure control, adjustment of the mA and/or KV according to the patient's size and/or use of iterative reconstruction technique. FINDINGS: The ventricles are within normal limits for size. Both orbits appear unremarkable. The mastoid air cells appear clear. The visualized paranasal sinuses appear clear. The calvarium is intact. No extra-axial fluid collection is seen. The awan-white matter differentiation is within normal limits. No midline shift or mass effect is apparent. There are no findings to suggest acute intracranial hemorrhage. IMPRESSION: No acute intracranial hemorrhage is seen.
[2019-11-08 01:27] VITALS: BP 107/77
== END 2019-11-08 01:40 | disposition home or self-care (01) ==
LOC: ER 19:13
DX: R55 Syncope and collapse (principal); R63.0 Anorexia; R11.0 Nausea
CPT/HCPCS: 93005; 99284; 96360; 36415; 82550; 84703; 85025; 80053; 81001; 84484; 70450; 93010; J7030

== ENCOUNTER → 2019-11-28 | Outpatient (CLI) | payer MEDICAID, MEDICARE ==
[2019-11-28 10:09] LABS: ALBUMIN 4.4 g/dL (3.5-5.0); ALKALINE PHOSPHATASE 67 U/L (38-126); ANION GAP 10 (5-19); ASPARTATE AMINO TRANSFERASE 24 U/L (14-36); BILIRUBIN,DIRECT 0.2 mg/dL (0.0-0.4); BLOOD UREA NITROGEN 9 mg/dL (7-20); CALCIUM 9.4 mg/dL (8.4-10.2); CARBON DIOXIDE 25 mmol/L (22-30); CHLORIDE 101 mmol/L (98-107); GLUCOSE 93 mg/dL (75-110); POTASSIUM 4.1 mmol/L (3.6-5.0); TOTAL PROTEIN 7.7 g/dL (6.3-8.2)
[2019-11-28 10:38] LABS: FASTING GAC 88 mg/dL (<110); GLUCOSE,FASTING 93 mg/dL (<110)
== END ==
LOC: OD 07:44
PROVIDERS: ATTEND Physician Assistant
DX: E88.81 Metabolic syndrome and other insulin resistance (principal); E27.40 Unspecified adrenocortical insufficiency; E86.1 Hypovolemia
CPT/HCPCS: 36415; 80053; 82024; 82533; 82951; 83525; 83930; 83935; 84588

== ENCOUNTER 2019-12-05 19:21 | Emergency (ER) | payer MEDICARE ==
--- NOTE | 2019-12-05 19:32 | ER Document Report ---
ED Medical Screen (RME) - General Stated Complaint: PALPITATION,DIZZINESS,SHAKES Primary Care Provider: CHRISSIE STARKS PA [Primary Care Provider] - Follow up as needed Notes: Patient is a 34-year-old white female with past medical history of PCOS, chronic sinus tachycardia/palpitations on metoprolol daily who presents to the emergency department with a chief complaint of feeling like her sodium is low. She states that she is currently undergoing evaluation outpatient by endocrinology for unexplained low sodium levels. She states she has the feeling that she gets when her sodium starts to go low. She states the feeling of euphoria, palpitations, slight wooziness of the head and a jittery/tight or tremor like sensation to the muscles. I have treated and performed a rapid initial assessment of this patient. A comprehensive ED assessment and evaluation of the patient, analysis of test results and completion of medical decision making process will be conducted by additional ED providers. PHYSICAL EXAMINATION: GENERAL: Well-appearing, well-nourished and in no acute distress. A&Ox4. Answers questions appropriately. TRAVEL OUTSIDE OF THE [place] IN LAST 30 DAYS: No - Related Data Allergies/Adverse Reactions: codeine Allergy (Verified 06/09/19 06:48) haloperidol [From Haldol] Allergy (Verified 06/09/19 06:48) morphine Allergy (Verified 06/09/19 06:48) IV DYE Allergy (Uncoded 05/29/19 03:35) ssri Adverse Reaction (Uncoded 05/29/19 03:35) Past Medical History - Social History Family history: Reviewed & Not Pertinent, Malignancy - Past Medical History Cardiac Medical History: Denies: Hx Atrial Fibrillation Pulmonary Medical History: Reports: Hx Pneumonia Neurological Medical History: Denies: Hx Seizures Endocrine Medical History: Denies: Hx Hyperthyroidism Renal/ Medical History: Denies: Hx Peritoneal Dialysis GI Medical History: Reports: Hx Gastroesophageal Reflux Disease, Hx Irritable Bowel Musculoskeltal Medical History: Reports Hx Musculoskeletal Trauma Psychiatric Medical History: Reports: Hx Anxiety, Hx Bipolar Disorder - mis dx. borderline personality and panic disorder, Hx Depression, Hx Obsessive Compulsive Disorder, Hx Post Traumatic Stress Disorder Traumatic Medical History: Reports: Hx Fractures Infectious Medical History: Reports: Hx C-Diff Past Surgical History: Reports: Hx Appendectomy, Hx Cholecystectomy, Hx Gynecologic Surgery - , Hx Orthopedic Surgery, Hx Tubal Ligation. Denies: Hx Hysterectomy - Immunizations Immunizations up to date: Yes Hx Diphtheria, Pertussis, Tetanus Vaccination: Yes Physical Exam - Vital signs Vitals: Temp Pulse Resp BP Pulse Ox 98.8 F 101 H 16 122/83 100 12/05/19 19:24 12/05/19 19:24 12/05/19 19:24 12/05/19 19:24 12/05/19 19:24 Course - Vital Signs Vital signs: Temp Pulse Resp BP Pulse Ox 98.8 F 101 H 16 122/83 100 12/05/19 19:24 12/05/19 19:24 12/05/19 19:24 12/05/19 19:24 12/05/19 19:24 Doctor's Discharge - Discharge Referrals: CHRISSIE STARKS PA [Primary Care Provider] - Follow up as needed
[2019-12-05 20:10] LABS: ABSOLUTE BASOPHILS # (AUTO) 0.1 10^3/uL (0.0-0.2); ABSOLUTE EOSINOPHILS # (AUTO) 0.1 10^3/uL (0.0-0.6); ABSOLUTE LYMPHOCYTES (AUTO) 2.4 10^3/uL (0.5-4.7); ABSOLUTE MONOCYTES (AUTO) 0.7 10^3/uL (0.1-1.4); ABSOLUTE NEUT (AUTO) 5.2 10^3/uL (1.7-8.2); BASOPHILS % (AUTO) 1.3 % (0-2); EOSINOPHILS % (AUTO) 1.1 % (0-6); HEMATOCRIT 40.1 % (36.0-47.0); LYMPHOCYTES % (AUTO) 28.2 % (13-45); MEAN CORPUSCULAR HEMOGLOBIN 29.9 pg (27.0-33.4); MEAN CORPUSCULAR HGB CONC 34.8 g/dL (32.0-36.0); MEAN CORPUSCULAR VOLUME 86 fl (80-97); MONOCYTES % (AUTO) 7.9 % (3-13); PLATELET COUNT 352 10^3/uL (150-450); RED BLOOD COUNT 4.67 10^6/uL (3.72-5.28); RED CELL DISTRIBUTION WIDTH 13.8 % (11.5-14.0); SEGMENTED NEUTROPHILS % (AUTO) 61.5 % (42-78); TOTAL CELLS COUNTED % (AUTO) 100 %; WHITE BLOOD COUNT 8.4 10^3/uL (4.0-10.5)
[2019-12-05 20:18] LABS: APPEARANCE,URINE SLIGHTLY-CLOUDY; BILIRUBIN,URINE NEGATIVE (NEGATIVE); COLOR,URINE YELLOW; GLUCOSE, URINE NEGATIVE (NEGATIVE); KETONES,URINE NEGATIVE (NEGATIVE); PROTEIN,URINE NEGATIVE (NEGATIVE); URINE SPECIFIC GRAVITY 1.015; UROBILINOGEN,URINE NEGATIVE mg/dL (<2.0)
[2019-12-05 20:28] LABS: ALBUMIN 4.8 g/dL (3.5-5.0); ALKALINE PHOSPHATASE 73 U/L (38-126); ANION GAP 6 (5-19); ASPARTATE AMINO TRANSFERASE 37 U/L (14-36); BILIRUBIN,TOTAL 0.9 mg/dL (0.2-1.3); BLOOD UREA NITROGEN 14 mg/dL (7-20); CALCIUM 9.8 mg/dL (8.4-10.2); CARBON DIOXIDE 30 mmol/L (22-30); CHLORIDE 100 mmol/L (98-107); GLUCOSE 76 mg/dL (75-110); PHOSPHORUS 4.5 mg/dL (2.5-4.5); POTASSIUM 4.6 mmol/L (3.6-5.0); TOTAL PROTEIN 8.4 g/dL (6.3-8.2)
[2019-12-05] MEDS ORDERED: NORMAL SALINE 1000 ML 1,000 ML IV ONE (21:48)
--- NOTE | 2019-12-05 21:49 | ER Document Report ---
ED Dizziness/Weakness - General Chief Complaint: Dizziness Stated Complaint: DIZZINESS,PALPITATIONS,SHAKES Time Seen by Provider: 12/05/19 21:26 Primary Care Provider: CHRISSIE STARKS PA [NO LOCAL MD] - Follow up as needed Mode of Arrival: Ambulatory Information source: Patient Notes: 34-year-old woman presents to the emergency department with history of hypo-natremia and dizziness in the past. States that when she begins having symptoms like this she needs to get IV fluids. She presents tonight for evaluation and IV fluids. TRAVEL OUTSIDE OF THE [place] IN LAST 30 DAYS: No - Related Data Allergies/Adverse Reactions: codeine Allergy (Verified 06/09/19 06:48) haloperidol [From Haldol] Allergy (Verified 06/09/19 06:48) morphine Allergy (Verified 06/09/19 06:48) IV DYE Allergy (Uncoded 05/29/19 03:35) ssri Adverse Reaction (Uncoded 05/29/19 03:35) Home Medications: metoprolol. vitamin B12 inj. antibiotic for ear infection Past Medical History - Social History Smoking Status: Never Smoker Family History: CAD, CVA, DM, Hyperlipidemia, Hypertension, Malignancy Patient has suicidal ideation: No Patient has homicidal ideation: No - Past Medical History Cardiac Medical History: Denies: Hx Atrial Fibrillation Pulmonary Medical History: Reports: Hx Pneumonia Neurological Medical History: Denies: Hx Seizures Endocrine Medical History: Denies: Hx Hyperthyroidism Renal/ Medical History: Denies: Hx Peritoneal Dialysis GI Medical History: Reports: Hx Gastroesophageal Reflux Disease, Hx Irritable Bowel Musculoskeletal Medical History: Reports Hx Musculoskeletal Trauma Psychiatric Medical History: Reports: Hx Anxiety, Hx Bipolar Disorder - bipolar depression, Hx Depression, Hx Obsessive Compulsive Disorder, Hx Post Traumatic Stress Disorder Traumatic Medical History: Reports: Hx Fractures Infectious Medical History: Reports: Hx C-Diff Past Surgical History: Reports: Hx Appendectomy, Hx Cholecystectomy, Hx Gynecolo gic Surgery - , Hx Orthopedic Surgery - right arm, Hx Tubal Ligation. Denies: Hx Hysterectomy - Immunizations Immunizations up to date: Yes Hx Diphtheria, Pertussis, Tetanus Vaccination: Yes Hx Pneumococcal Vaccination: 08/21/12 Physical Exam - Vital signs Vitals: Temp Pulse Resp BP Pulse Ox 98.8 F 101 H 16 122/83 100 12/05/19 19:24 12/05/19 19:24 12/05/19 19:24 12/05/19 19:24 12/05/19 19:24 Course - Vital Signs Vital signs: Temp Pulse Resp BP Pulse Ox 98.8 F 101 H 31 H 131/93 H 100 12/05/19 19:24 12/05/19 19:24 12/05/19 20:36 12/05/19 20:35 12/05/19 21:00 - Laboratory Result Diagrams: 12/05/19 17:47 12/05/19 17:47 Laboratory results interpreted by me: 12/05/19 12/05/19 17:47 17:47 Sodium 136.2 L AST 37 H ALT 42 H Total Protein 8.4 H Leukocyte Esterase Rfl LARGE H Urine Ascorbic Acid 20 H Discharge - Discharge Clinical Impression: Dizziness, Weakness, Hyponatremia Condition: Good Disposition: HOME, SELF-CARE Additional Instructions: You were seen in the emergency department tonight and given IV fluids for your symptoms. Please continue to follow-up with your recorder helper seismograph regarding electrolyte imbalance and low sodium. If you have further difficulties or concerns may return to the emergency department. HOME CARE INSTRUCTIONS & INFORMATION: Thank you for choosing us for your medical needs. We hope you're satisfied with the care you received. After you leave, you must properly care for your problem and, at the same time, observe its progress. Any condition can change. Some illnesses can change rapidly over hours or days. If your condition worsens, return to the Emergency Department or see your physician promptly. ABOUT YOUR X-RAYS AND EKG'S: If you had an EKG or X-rays taken, they have been read by the Emergency Physician. The X-rays and EKG's will also be read by a Radiologist or Counter Cutter within 24 hours. If discrepancies are noted, you will be notified by telephone. Please be certain the ED has a correct telephone number & address where you can be reached. Also, realize that some fractures or abnormalities do not show up on initial X-rays. If your symptoms continue, see your physician. ABOUT YOUR LABORATORY TEST: If you had laboratory tests, the results have been reviewed by the Emergency Physician. Some test results (for example cultures) may not be available for several days. You will be contacted if any test result shows you need additional treatment. Please be certain the ED has a correct telephone number and address where you can be reached. ABOUT YOUR MEDICATIONS: You will receive instructions on how to take your medicine on the prescription label you receive. Additional information may be provided by the Pharmacy. If you have questions afterwards, call the ED for clarification or further instructions. Some prescribed medications may cause drowsiness. Do not perform tasks such as driving a car or operating machinery without consulting your Pharmacist. If you feel you need a refill of pain medication, your condition will need re-evaluation. Please do not call for a refill of any medication. ABOUT YOUR SIGNATURE: Signature of this document acknowledges to followin. Understanding that you received emergency treatment and that you may be released before al medical problems are known or treated. Please be certain the ED has a correct phone number & address where you can be reached. 2. Acknowledgement that you will arrange for follow-up care as recommended. 3. Authorization for the Emergency Physician to provide information to your follow-up Physician in order to maximize your care. AT ANY TIME, IF YOUR SYMPTOMS CHANGE SIGNIFICANTLY OR WORSEN OR YOU DEVELOP NEW SYMPTOMS, RETURN TO THE EMERGENCY DEPARTMENT IMMEDIATELY FOR RE-EVALUATION. OUR GOAL IS TO PROVIDE EXCELLENT MEDICAL CARE! WE HOPE THAT WE HAVE MET YOUR EXPECTATIONS DURING YOUR EMERGENCY DEPARTMENT VISIT AND THAT YOU FEEL YOU HAVE RECEIVED EXCELLENT CARE! Referrals: CHRISSIE STARKS PA [NO LOCAL MD] - Follow up as needed
[2019-12-05 23:44] VITALS: BP 121/81
--- NOTE | 2019-12-06 08:16 | EKG REPORT ---
SEVERITY:- NORMAL ECG - SINUS RHYTHM : Confirmed by: Scott Pena MD 06-Dec-2019 08:15:49
== END 2019-12-05 23:40 | disposition home or self-care (01) ==
LOC: ER 19:21
DX: E87.1 Hypo-osmolality and hyponatremia (principal); R42 Dizziness and giddiness; R53.1 Weakness; H66.90 Otitis media, unspecified, unspecified ear; Z88.6 Allergy status to analgesic agent; Z88.5 Allergy status to narcotic agent; Z91.041 Radiographic dye allergy status; Z88.8 Allergy status to other drugs, medicaments and biological substances; Z79.899 Other long term (current) drug therapy
CPT/HCPCS: 93005; 99284; 96360; 36415; 83735; 84100; 85025; 81025; 80053; 81001; 84484; 93010; J7030

== ENCOUNTER → 2020-01-15 | Outpatient (CLI) | payer MEDICAID, MEDICARE ==
[2020-01-15 11:36] LABS: ARTERIAL BLOOD BASE EXCESS -0.9 mmol/L; ARTERIAL BLOOD FIO2 ROOM AIR; ARTERIAL BLOOD H2CO3 1.23 mmol/L (1.05-1.35); ARTERIAL BLOOD O2 SATURATION 97.6 % (94-98); ARTERIAL BLOOD PCO2 40.7 mmHg (35-45); ARTERIAL BLOOD PH 7.39 (7.35-7.45); ARTERIAL BLOOD PO2 101.2 mmHg (80-100); ARTERIAL BLOOD TOTAL CO2 25.3 mmol/L (21-25)
== END ==
LOC: OD 10:48
DX: R06.00 Dyspnea, unspecified (principal); R07.9 Chest pain, unspecified; R42 Dizziness and giddiness
CPT/HCPCS: 36600; 82803

== ENCOUNTER 2020-01-22 00:39 | Emergency (ER) | payer OTHER, MEDICARE ==
[2020-01-22 03:04] LABS: ALBUMIN 4.3 g/dL (3.5-5.0); ALKALINE PHOSPHATASE 62 U/L (38-126); ANION GAP 8 (5-19); ASPARTATE AMINO TRANSFERASE 29 U/L (14-36); BILIRUBIN,TOTAL 0.9 mg/dL (0.2-1.3); BLOOD UREA NITROGEN 9 mg/dL (7-20); CALCIUM 9.3 mg/dL (8.4-10.2); CARBON DIOXIDE 25 mmol/L (22-30); CHLORIDE 103 mmol/L (98-107); CREATINE KINASE 58 U/L (30-135); GLUCOSE 102 mg/dL (75-110); POTASSIUM 4.2 mmol/L (3.6-5.0); TOTAL PROTEIN 7.7 g/dL (6.3-8.2)
[2020-01-22 04:41] LABS: ABSOLUTE BASOPHILS # (AUTO) 0.1 10^3/uL (0.0-0.2); ABSOLUTE EOSINOPHILS # (AUTO) 0.4 10^3/uL (0.0-0.6); ABSOLUTE MONOCYTES (AUTO) 0.6 10^3/uL (0.1-1.4); ABSOLUTE NEUT (AUTO) 4.8 10^3/uL (1.7-8.2); BASOPHILS % (AUTO) 1.3 % (0-2); EOSINOPHILS % (AUTO) 4.4 % (0-6); HEMATOCRIT 38.1 % (36.0-47.0); HEMOGLOBIN 13.4 g/dL (12.0-15.5); LYMPHOCYTES % (AUTO) 33.8 % (13-45); MEAN CORPUSCULAR HEMOGLOBIN 29.8 pg (27.0-33.4); MEAN CORPUSCULAR HGB CONC 35.1 g/dL (32.0-36.0); MEAN CORPUSCULAR VOLUME 85 fl (80-97); MONOCYTES % (AUTO) 6.5 % (3-13); PLATELET COUNT 384 10^3/uL (150-450); RED BLOOD COUNT 4.49 10^6/uL (3.72-5.28); RED CELL DISTRIBUTION WIDTH 13.3 % (11.5-14.0); TOTAL CELLS COUNTED % (AUTO) 100 %; WHITE BLOOD COUNT 8.8 10^3/uL (4.0-10.5)
[2020-01-22 05:05] LABS: CREATINE KINASE MB 0.56 ng/mL (<4.55); TROPONIN I < 0.012 ng/mL
[2020-01-22] MEDS ORDERED: NORMAL SALINE 1000 ML 1,000 ML IV ONE (06:32)
--- NOTE | 2020-01-22 08:48 | ER Document Report ---
Entered by ALEXI CHANDRA SCRIBE 01/22/20623 Acting as scribe for:ABHIJEET BARTON MD ED Cardiac - General Chief Complaint: Palpitations Stated Complaint: PALPITATIONS Time Seen by Provider: 01/22/20 06:18 [facility] - Follow up as needed Mode of Arrival: Ambulatory Information source: Patient Notes: This 34 year old female patient presents to the emergency department today complaining of heart palpitations, feeling euphoric, feeling faint, and "very heavy" which started last night around midnight. Patient reports that she has "insulin resistance" and mentions that the symptoms above usually occur when her "salt gets low". Patient reports that she was taking her mother home "on the back roads in the middle of the night" last night when she began having palpitations and feeling like she was going to pass out. Patient reports that she called EMS and they came out to where the patient pulled off the road and evaluated her. Patient reports they did and EKG and told her everything looked okay so she continued driving home. Patient reports that about an hour later she began having these above mentioned symptoms again so she decided to come in for evaluation. TRAVEL OUTSIDE OF THE [place] IN LAST 30 DAYS: No - Related Data Allergies/Adverse Reactions: codeine Allergy (Verified 06/09/19 06:48) haloperidol [From Haldol] Allergy (Verified 06/09/19 06:48) morphine Allergy (Verified 06/09/19 06:48) IV DYE Allergy (Uncoded 05/29/19 03:35) ssri Adverse Reaction (Uncoded 05/29/19 03:35) Home Medications: metoprolol, anafrinal, b12 inj, vit D3 Past Medical History - General Information source: Patient - Social History Smoking Status: Never Smoker Cigarette use (# per day): No Frequency of alcohol use: None Drug Abuse: None Lives with: Family Family History: Reviewed & Not Pertinent, CAD, CVA, DM, Hyperlipidemia, Hypertension, Malignancy Patient has homicidal ideation: No Pulmonary Medical History: Reports: Hx Pneumonia GI Medical History: Reports: Hx Gastroesophageal Reflux Disease, Hx Irritable Bowel Musculoskeletal Medical History: Reports Hx Musculoskeletal Trauma Psychiatric Medical History: Reports: Hx Anxiety, Hx Bipolar Disorder - bipolar depression, Hx Depression, Hx Obsessive Compulsive Disorder, Hx Post Traumatic Stress Disorder Traumatic Medical History: Reports: Hx Fractures Infectious Medical History: Reports: Hx C-Diff Past Surgical History: Reports: Hx Appendectomy, Hx Cholecystectomy, Hx Gynecologic Surgery - , Hx Orthopedic Surgery - right arm, Hx Tubal Ligation - Immunizations Immunizations up to date: Yes Hx Diphtheria, Pertussis, Tetanus Vaccination: Yes Hx Pneumococcal Vaccination: 08/21/12 Review of Systems - Review of Systems Constitutional: See HPI, Weakness EENT: See HPI, Other - vision disturbance Cardiovascular: See HPI, Palpitations, Syncope - near Respiratory: No symptoms reported Gastrointestinal: No symptoms reported Genitourinary: No symptoms reported Female Genitourinary: No symptoms reported Musculoskeletal: No symptoms reported Skin: No symptoms reported Hematologic/Lymphatic: No symptoms reported Neurological/Psychological: No symptoms reported -: Yes All other systems reviewed and negative Physical Exam - Vital signs Vitals: Temp Pulse Resp BP Pulse Ox 98.1 F 96 18 114/78 99 01/22/20 01:24 01/22/20 01:24 01/22/20 01:24 01/22/20 01:24 01/22/20 01:24 - Notes Notes: Physical Exam: General: Alert, talks quite fast and rapidly. Changes subjects frequently. HEENT: Normocephalic. Atraumatic. PERRL. Extraocular movements intact. Oropharynx clear. Neck: Supple. Non-tender. Respiratory: No respiratory distress. Clear and equal breath sounds bilaterally. Cardiovascular: Regular rate and rhythm. Abdominal: Obese. Non-tender. No distension. Normal Bowel Sounds. Back: No gross abnormalities. Extremities: Moves all four extremities. Upper extremities: Normal inspection. Normal ROM. Lower extremities: Normal inspection. No edema. Normal ROM. Neurological: Normal cognition. AAOx4. Normal speech. Psychological: Normal affect. Normal Mood. Skin: Warm. Dry. Normal color. Course - Re-evaluation Re-evalutation: 01/22/20 08:58 When I was trying to discharge patient, she states she needs a vitamin B12 shot. She states she gets them every 3 weeks from her neurologist, but the office was closed and she is several weeks out from getting her every 3-week vitamin B12 shot. She did not have a good explanation why she cannot take vitamin B12 tablets. She thinks the vitamin B12 deficiency is the cause of her palpitations and all the other litany of symptoms she described today. - Vital Signs Vital signs: Temp Pulse Resp BP Pulse Ox 97.2 F 96 22 H 114/78 100 01/22/20 08:20 01/22/20 03:29 01/22/20 08:20 01/22/20 08:20 01/22/20 08:20 - Laboratory Result Diagrams: 01/22/20 04:29 01/22/20 02:33 Laboratory results interpreted by me: 01/22/20 02:33 Sodium 136.1 L Discharge - Discharge Clinical Impression: Palpitations, Euphoria, Dizzy Condition: Stable Disposition: HOME, SELF-CARE Additional Instructions: Palpitations (Irregular/Rapid Heartrate) Irregular or rapid heartbeat is called "palpitation." To diagnose the cause of palpitation, we have to "catch it in the act" with an EKG. Sinus Tachycardia: This is a rapid (but NORMAL) rhythm that can be due to fever, pain, anxiety, lack of sleep, over-exertion, or drugs. Cold medications, caffeine, and diet pills are particularly likely to cause tachycardia. Usually, all that's required is rest, reassurance, and avoiding caffeine, alcohol, nicotine, and unnecessary medicines. Paroxysmal Atrial Tachycardia (PAT): This abnormally rapid heartbeat is caused by a "short circuit" in the electrical system of the heart. It is not dangerous, unless other heart disease is present. These attacks of PAT may occur occasionally for years. Medication is available for treatment. Paroxysmal Atrial Fibrillation or Atrial Flutter: This is irregular electrical activity in the upper heart chamber. These abnormal rhythms often occur with valve disease or in hearts damaged by hardening of the arteries. These rhythms usually require further testing, for example a cardiac echo. Premature Beats: Extra beats occur more commonly after caffeine, nicotine, alcohol, cold pills, diet pills. Emotional stress or fatigue also provoke them. Extra beats are only dangerous when heart disease is present. They usually need no treatment. If they're frequent, or if evidence of heart disease develops, medication can be given to suppress them. If we were unable to "catch" the palpitations on EKG, you should try to get an EKG immediately if the symptoms begin again. Contact the physician at once if you develop persistent lightheadedness, shortness of breath, chest pain, or swelling of the ankles. Drink plenty of fluids and rest today. Increase your sodium intake to keep from becoming hyponatremic. Follow-up with your primary care provider in the next 1 to 2 days for recheck. RETURN TO THE EMERGENCY ROOM IF ANY NEW OR WORSENING SYMPTOMS. [facility]errals: [facility] [[facility]] - Follow up as needed I personally performed the services described in the documentation, reviewed and edited the documentation which was dictated to the scribe in my presence, and it accurately records my words and actions.
[2020-01-22] MEDS ORDERED: CYANOCOBALAMIN (VITAMIN B-12) INJ 1000 MCG/1 ML VIAL IM ONE (08:57)
[2020-01-22 09:25] VITALS: BP 118/89
--- NOTE | 2020-01-22 23:34 | EKG REPORT ---
SEVERITY:- NORMAL ECG - SINUS RHYTHM : Confirmed by: Denia Zamorano 22-Jan-2020 23:33:32
== END 2020-01-22 09:38 | disposition home or self-care (01) ==
LOC: ER 00:39
DX: R00.2 Palpitations (principal); R42 Dizziness and giddiness; E66.9 Obesity, unspecified; Z88.6 Allergy status to analgesic agent; Z90.49 Acquired absence of other specified parts of digestive tract; Z98.51 Tubal ligation status
CPT/HCPCS: 93005; 99285; 96372; 96360; 36415; 82553; 82550; 85025; 80053; 84484; 93010; J3420; J7030

== ENCOUNTER → 2020-03-11 | Outpatient (CLI) | payer MEDICAID, MEDICARE ==
--- NOTE | 2020-03-11 16:35 | RADIOLOGY REPORT (SQ) ---
EXAM DESCRIPTION: MRI HEAD WITHOUT IMAGES COMPLETED DATE/TIME: 03/11/2020 4:24 pm REASON FOR STUDY: DIZZINESS, VISUAL DISTURBANCES R42 DIZZINESS AND GIDDINESS H53.9 UNSPECIFIED VIS UAL DISTURBANCE COMPARISON: None. TECHNIQUE: Multiplanar imaging includes non-contrasted T1, T2, FLAIR, and diffusion with ADC map seq uences. Images stored on PACS. LIMITATIONS: None. FINDINGS: ANATOMY: No anomalies. Normal vascular flow voids. Pituitary fossa normal. CSF SPACES: Normal in size and contour. No hemorrhage. CEREBRUM: Sulci and gyri normal in size and contour. Normal white matter signal on FLAIR imaging. No evidence of hemorrhage, mass, or extraaxial fluid collection. POSTERIOR FOSSA: No signal alteration. No hemorrhage. No edema, masses or mass effect. Internal james tory canals, cerebello-pontine angles, mastoids normal. DIFFUSION IMAGING: Negative for acute or sub-acute infarction. ORBITS: No masses. Globes normal. PARANASAL SINUSES: No fluid levels. Mucosa normal. OTHER: No other significant finding. IMPRESSION: Normal brain. EVIDENCE OF ACUTE STROKE: NO. TECHNICAL DOCUMENTATION: JOB ID: [id number] [employer]- All Rights Reserved Reading location - IP/workstation name: [email or web address]
--- NOTE | 2020-03-11 16:36 | RADIOLOGY REPORT (SQ) ---
EXAM DESCRIPTION: MRI CERVICAL SPINE WITHOUT IMAGES COMPLETED DATE/TIME: 03/11/2020 4:24 pm REASON FOR STUDY: DIZZINESS, VISUAL DISTURBANCES R42 DIZZINESS AND GIDDINESS H53.9 UNSPECIFIED VIS UAL DISTURBANCE COMPARISON: None. TECHNIQUE: Sagittal and Axial imaging includes T1, T2, STIR and gradient echo sequences. LIMITATIONS: None. FINDINGS: ALIGNMENT: Normal. VERTEBRAE: Intact. BONE MARROW: Normal. No marrow replacement or reactive changes. DISCS: Normal. No significant abnormal signal or loss of height. HARDWARE: None in the spine. CORD AND BASE OF BRAIN: Normal in size and signal intensity. SOFT TISSUES: No soft tissue masses. C1-C2: No significant spinal stenosis. C2-C3: No significant spinal stenosis or exit foraminal stenosis. C3-C4: No significant spinal stenosis or exit foraminal stenosis. C4-C5: No significant spinal stenosis or exit foraminal stenosis. C5-C6: No significant spinal stenosis or exit foraminal stenosis. C6-C7: No significant spinal stenosis or exit foraminal stenosis. C7-T1: No significant spinal stenosis or exit foraminal stenosis. UPPER THORACIC: Incompletely imaged. No significant spinal stenosis or exit foraminal stenosis. OTHER: No other significant finding. IMPRESSION: NORMAL MRI CERVICAL SPINE. TECHNICAL DOCUMENTATION: JOB ID: [id number] 2010 [employer]- All Rights Reserved Reading location - IP/workstation name: [email or web address]
== END ==
LOC: RAD 14:44
PROVIDERS: ATTEND Nurse Practitioner Family
DX: R42 Dizziness and giddiness (principal); H53.9 Unspecified visual disturbance
CPT/HCPCS: 70551; 72141

== ENCOUNTER 2020-05-03 04:48 | Emergency (ER) | payer OTHER, MEDICARE ==
[2020-05-03 05:30] LABS: ABSOLUTE BASOPHILS # (AUTO) 0.1 10^3/uL (0.0-0.2); ABSOLUTE EOSINOPHILS # (AUTO) 0.4 10^3/uL (0.0-0.6); ABSOLUTE MONOCYTES (AUTO) 0.6 10^3/uL (0.1-1.4); BASOPHILS % (AUTO) 0.8 % (0-2); MEAN CORPUSCULAR HEMOGLOBIN 29.5 pg (27.0-33.4); MEAN CORPUSCULAR HGB CONC 34.3 g/dL (32.0-36.0); MEAN CORPUSCULAR VOLUME 86 fl (80-97); TOTAL CELLS COUNTED % (AUTO) 100 %
[2020-05-03 05:32] LABS: APPEARANCE,URINE CLEAR; BILIRUBIN,URINE NEGATIVE (NEGATIVE); COLOR,URINE STRAW; GLUCOSE, URINE NEGATIVE (NEGATIVE); KETONES,URINE NEGATIVE (NEGATIVE); LEUKOCYTE ESTERASE,URINE NEGATIVE (NEGATIVE); NITRITE,URINE NEGATIVE (NEGATIVE); PROTEIN,URINE NEGATIVE (NEGATIVE); URINE SPECIFIC GRAVITY 1.005; UROBILINOGEN,URINE NEGATIVE mg/dL (<2.0)
[2020-05-03 05:36] LABS: ABSOLUTE LYMPHOCYTES (AUTO) 2.6 10^3/uL (0.5-4.7); ABSOLUTE NEUT (AUTO) 5.7 10^3/uL (1.7-8.2); EOSINOPHILS % (AUTO) 4.3 % (0-6); HEMATOCRIT 38.5 % (36.0-47.0); HEMOGLOBIN 13.2 g/dL (12.0-15.5); LYMPHOCYTES % (AUTO) 27.9 % (13-45); MONOCYTES % (AUTO) 6.1 % (3-13); PLATELET COUNT 365 10^3/uL (150-450); RED BLOOD COUNT 4.48 10^6/uL (3.72-5.28); RED CELL DISTRIBUTION WIDTH 13.7 % (11.5-14.0); SEGMENTED NEUTROPHILS % (AUTO) 60.9 % (42-78); WHITE BLOOD COUNT 9.3 10^3/uL (4.0-10.5)
[2020-05-03 05:46] LABS: ALKALINE PHOSPHATASE 85 U/L (38-126); ANION GAP 11 (5-19); ASPARTATE AMINO TRANSFERASE 34 U/L (14-36); BILIRUBIN,DIRECT 0.1 mg/dL (0.0-0.4); BILIRUBIN,TOTAL 0.9 mg/dL (0.2-1.3); BLOOD UREA NITROGEN 8 mg/dL (7-20); CALCIUM 9.2 mg/dL (8.4-10.2); CARBON DIOXIDE 22 mmol/L (22-30); CHLORIDE 104 mmol/L (98-107); GLUCOSE 101 mg/dL (75-110); POTASSIUM 4.4 mmol/L (3.6-5.0)
--- NOTE | 2020-05-03 07:01 | ER Document Report ---
Entered by GUIDO HANSON SCRIBE 05/03/20 0635 Acting as scribe for:UYEN COTTER MD ED General - General Chief Complaint: Vision Problem Stated Complaint: POST OP ISSUES Time Seen by Provider: 05/03/20 06:07 Primary Care Provider: SUSAN OLSON NP-C [NO LOCAL MD] - Follow up as needed Mode of Arrival: Ambulatory Information source: Patient Notes: This 35 year old female patient, x4 days post op tonsillectomy at [facility], presents to the ED today with multiple complaints that started after her surgery. Patient reports increased urinary frequency, left-sided abdominal pain, confusion, and vision changes. She states that she is having issues focusing and that she feels "discombobulated." Denies throat pain/bleeding or dizziness. She mentions that she has been eating too many sweets and drinking cold beverages since the surgery and that she is "insulin-resistant and does not qualify for Metformin." TRAVEL OUTSIDE OF THE [place] IN LAST 30 DAYS: No - Related Data Allergies/Adverse Reactions: codeine Allergy (Verified 05/03/20 04:55) haloperidol [From Haldol] Allergy (Verified 05/03/20 04:55) morphine Allergy (Verified 05/03/20 04:55) IV DYE Allergy (Uncoded 05/03/20 04:55) ssri Adverse Reaction (Uncoded 05/03/20 04:55) Past Medical History - General Information source: Patient, [facility] Records - Social History Smoking Status: Never Smoker Cigarette use (# per day): No Chew tobacco use (# tins/day): No Smoking Education Provided: No Frequency of alcohol use: None Drug Abuse: None Family History: Reviewed & Not Pertinent, CAD, CVA, DM, Hyperlipidemia, Hypertension, Malignancy Patient has suicidal ideation: No Patient has homicidal ideation: No Pulmonary Medical History: Reports: Hx Pneumonia GI Medical History: Reports: Hx Gastroesophageal Reflux Disease, Hx Irritable Bowel Musculoskeletal Medical History: Reports Hx Musculoskeletal Trauma Psychiatric Medical History: Reports: Hx Anxiety, Hx Bipolar Disorder - bipolar depression, Hx Depression, Hx Obsessive Compulsive Disorder, Hx Post Traumatic Stress Disorder Traumatic Medical History: Reports: Hx Fractures Infectious Medical History: Reports: Hx C-Diff Past Surgical History: Reports: Hx Appendectomy, Hx Cholecystectomy, Hx Gynecologic Surgery - , Hx Orthopedic Surgery - right arm, Hx Tonsillectomy - 04/29/2020, Hx Tubal Ligation - Immunizations Immunizations up to date: Yes Hx Diphtheria, Pertussis, Tetanus Vaccination: Yes Hx Pneumococcal Vaccination: 08/21/12 Review of Systems - Review of Systems Constitutional: No symptoms reported EENT: See HPI. denies: Throat pain - or bleeding Cardiovascular: See HPI. denies: Dizziness Respiratory: No symptoms reported Gastrointestinal: See HPI, Abdominal pain Genitourinary: See HPI, Frequency Female Genitourinary: No symptoms reported Musculoskeletal: No symptoms reported Skin: No symptoms reported Hematologic/Lymphatic: No symptoms reported Neurological/Psychological: See HPI, Confusion -: Yes All other systems reviewed and negative Physical Exam - Vital signs Vitals: Temp Pulse Resp BP Pulse Ox 98.0 F 82 16 126/85 H 99 05/03/20 04:52 05/03/20 04:52 05/03/20 04:52 05/03/20 04:52 05/03/20 04:52 - General General appearance: Appears well, Alert In distress: None - HEENT Head: Normocephalic, Atraumatic Eyes: Normal Extraocular movements intact: Yes Pupils: PERRL Visual acuity- Right eye: 20/20 Visual acuity- Left eye: 20/20 Visual acuity- Both eyes: 20/15 Corrective lenses worn: Yes Pharynx: Normal - Healing surgical site post tonsillectomy without active bleeding Neck: Supple. No: Lymphadenopathy - Respiratory Respiratory status: No respiratory distress Chest status: Nontender Breath sounds: Normal Chest palpation: Normal - Cardiovascular Rhythm: Regular Heart sounds: Normal auscultation, S1 appreciated, S2 appreciated Murmur: No Friction rub: No Gallop: None auscultated - Abdominal Inspection: Normal Distension: No distension Bowel sounds: Normal Tenderness: Nontender - Abdomen soft. No: Guarding, Rebound Organomegaly: No organomegaly - Back Back: Normal, Nontender - Extremities General upper extremity: Normal inspection General lower extremity: Normal inspection. No: Edema - Neurological Neuro grossly intact: Yes Orientation: AAOx4 [place] Coma Scale Eye Opening: Spontaneous [place] Coma Scale Verbal: Oriented [place] Coma Scale Motor: Obeys Commands Ch[place] Coma Scale Total: 15 - Psychological Associated symptoms: Normal affect, Normal mood - Skin Skin Temperature: Warm Skin Moisture: Dry Skin Color: Normal Course - Re-evaluation Re-evalutation: 05/03/20 06:58 Patient resting comfortably not showing signs of distress. - Vital Signs Vital signs: Temp Pulse Resp BP Pulse Ox 98 F 82 16 126/85 H 99 05/03/20 05:00 05/03/20 04:52 05/03/20 04:52 05/03/20 04:52 05/03/20 04:52 05/03/20 06:58 Vital signs stable - Laboratory Result Diagrams: 05/03/20 05:08 05/03/20 05:08 Laboratory results interpreted by me: 05/03/20 05:08 Sodium 136.5 L ALT 61 H 05/03/20 06:58 Sodium level 136.5 and ALT of 61 of the only abnormalities noted on CBC CMP and urinalysis. Sodium of 136.5 is on the low end of the normal range between 135 and 145. Discharge - Discharge Clinical Impression: Post-tonsillectomy pain Condition: Stable Disposition: HOME, SELF-CARE Additional Instructions: Continue to take your same medications that you are taking as needed for postop pain and that is ibuprofen or Tylenol. Follow-up with your surgeon as indicated. Referrals: SUSAN OLSON [facility] [NO LOCAL MD] - Follow up as needed I personally performed the services described in the documentation, reviewed and edited the documentation which was dictated to the scribe in my presence, and it accurately records my words and actions.
[2020-05-03 07:08] VITALS: BP 124/90
== END 2020-05-03 07:08 | disposition home or self-care (01) ==
LOC: ER 04:48
DX: G89.18 Other acute postprocedural pain (principal); R10.9 Unspecified abdominal pain; R35.0 Frequency of micturition; R41.0 Disorientation, unspecified; H53.9 Unspecified visual disturbance; Z90.89 Acquired absence of other organs; Z88.6 Allergy status to analgesic agent; Z88.8 Allergy status to other drugs, medicaments and biological substances; Z88.5 Allergy status to narcotic agent; Z91.041 Radiographic dye allergy status
CPT/HCPCS: 36415; 80053; 81001; 82962; 83690; 84702; 85025; 99283

== ENCOUNTER → 2020-05-28 | Outpatient (CLI) | payer OTHER, MEDICARE | LOC: OD 07:40 | PROVIDERS: ATTEND Physician Assistant Medical | DX: E87.1 Hypo-osmolality and hyponatremia (principal); E78.1 Pure hyperglyceridemia; R20.0 Anesthesia of skin; E61.8 Deficiency of other specified nutrient elements; E59 Dietary selenium deficiency; L98.9 Disorder of the skin and subcutaneous tissue, unspecified; R41.9 Unspecified symptoms and signs involving cognitive functions and awareness; R29.810 Facial weakness; R29.90 Unspecified symptoms and signs involving the nervous system | CPT/HCPCS: 36415; 82024; 82533; 83010; 84588; 86617; 86618; 86663 ==

== ENCOUNTER → 2020-06-23 | Outpatient (CLI) | payer MEDICAID, MEDICARE ==
--- NOTE | 2020-06-23 10:11 | WOMENS IMAGING REPORT ---
EXAM DESCRIPTION: BILAT DIAGNOSTIC MAMMO W/CAD; U/S BREAST UNILATERAL, COMPL IMAGES COMPLETED DATE/TIME: 06/23/2020 9:30 am; 06/23/2020 10:02 am REASON FOR STUDY: N64.4 MASTODYNIA; LEFT BREAST PAIN N64.4 MASTODYNIA COMPARISON: None. EXAM PARAMETERS: Standard craniocaudal and mediolateral oblique views of each breast recorded using digital acquisition. Additional true lateral image of the left breast acquired. Read with the assistance of CAD: .[facility] - [employer] T[employer] Machine Operator Version 9.2 LIMITATIONS: None. FINDINGS: RIGHT BREAST MASSES: No suspicious masses. CALCIFICATIONS: No new or suspicious calcifications. ARCHITECTURAL DISTORTION: None. ASYMMETRY: None noted. OTHER: No other significant findings. LEFT BREAST MASSES: No suspicious masses. CALCIFICATIONS: No new or suspicious calcifications. ARCHITECTURAL DISTORTION: None. ASYMMETRY: None noted. OTHER: No other significant finding. BREAST ULTRASOUND: TECHNIQUE: Static and dynamic grayscale images acquired of the entire left breast. Selected color Dop pler images recorded. ELASTOGRAPHY PERFORMED: No. LIMITATIONS: None. FINDINGS: MASS: No mass identified. Normal glandular tissue. ELASTOGRAPHY CHARACTERISTICS:Not applicable. OTHER: No other significant finding. IMPRESSION: NEGATIVE BILATERAL MAMMOGRAM. NO WORRISOME MAMMOGRAPHIC OR SONOGRAPHIC FINDINGS IN THE LEFT BREAST. BREAST DENSITY: c. The breasts are heterogeneously dense, which may obscure small masses. BIRAD: ASSESSMENT: 1 Negative. RECOMMENDATION: RECOMMENDED FOLLOW UP: Birads 1 or 2: No breast imaging finding to explain the patie nt's presenting complaint. Further intervention should be based on the degree of clinical suspicion. SPECIFIC INTERVENTION/IMAGING/CONSULTATION RECOMMENDED:No additional intervention/ imaging/consultati on needed at this time. COMMUNICATION:The imaging findings were not discussed with the patient. Her referring provider has be en notified of the findings. COMMENT: The patient has been notified of the results by letter per SA requirements. Additional no tification policies are in place for contacting patient with suspicious or incomplete findings. Quality ID #225: The [employer] recommends an annual screening mammogram for women aged 40 years or over. This facility utilizes a reminder system to ensure that all patients receive reminder letters, and/or direct phone calls for appointments. This includes reminders for routine scr eening mammograms, diagnostic mammograms, or other Breast Imaging Interventions when appropriate. Th is patient will be placed in the appropriate reminder system. TECHNICAL DOCUMENTATION: FINDING NUMBER: (1) ASSESSMENT: (1) JOB ID: [id number] 2010 [employer]- All Rights Reserved Reading location - IP/workstation name: [email or web address]
--- NOTE | 2020-06-23 10:11 | WOMENS IMAGING REPORT ---
EXAM DESCRIPTION: BILAT DIAGNOSTIC MAMMO W/CAD; U/S BREAST UNILATERAL, COMPL IMAGES COMPLETED DATE/TIME: 06/23/2020 9:30 am; 06/23/2020 10:02 am REASON FOR STUDY: N64.4 MASTODYNIA; LEFT BREAST PAIN N64.4 MASTODYNIA COMPARISON: None. EXAM PARAMETERS: Standard craniocaudal and mediolateral oblique views of each breast recorded using digital acquisition. Additional true lateral image of the left breast acquired. Read with the assistance of CAD: .[facility] - [employer] Consultant Version 9.2 LIMITATIONS: None. FINDINGS: RIGHT BREAST MASSES: No suspicious masses. CALCIFICATIONS: No new or suspicious calcifications. ARCHITECTURAL DISTORTION: None. ASYMMETRY: None noted. OTHER: No other significant findings. LEFT BREAST MASSES: No suspicious masses. CALCIFICATIONS: No new or suspicious calcifications. ARCHITECTURAL DISTORTION: None. ASYMMETRY: None noted. OTHER: No other significant finding. BREAST ULTRASOUND: TECHNIQUE: Static and dynamic grayscale images acquired of the entire left breast. Selected color Dop pler images recorded. ELASTOGRAPHY PERFORMED: No. LIMITATIONS: None. FINDINGS: MASS: No mass identified. Normal glandular tissue. ELASTOGRAPHY CHARACTERISTICS:Not applicable. OTHER: No other significant finding. IMPRESSION: NEGATIVE BILATERAL MAMMOGRAM. NO WORRISOME MAMMOGRAPHIC OR SONOGRAPHIC FINDINGS IN THE LEFT BREAST. BREAST DENSITY: c. The breasts are heterogeneously dense, which may obscure small masses. BIRAD: ASSESSMENT: 1 Negative. RECOMMENDATION: RECOMMENDED FOLLOW UP: Birads 1 or 2: No breast imaging finding to explain the patie nt's presenting complaint. Further intervention should be based on the degree of clinical suspicion. SPECIFIC INTERVENTION/IMAGING/CONSULTATION RECOMMENDED:No additional intervention/ imaging/consultati on needed at this time. COMMUNICATION:The imaging findings were not discussed with the patient. Her referring provider has be en notified of the findings. COMMENT: The patient has been notified of the results by letter per SA requirements. Additional no tification policies are in place for contacting patient with suspicious or incomplete findings. Quality ID #225: The [employer] recommends an annual screening mammogram for women aged 40 years or over. This facility utilizes a reminder system to ensure that all patients receive reminder letters, and/or direct phone calls for appointments. This includes reminders for routine scr eening mammograms, diagnostic mammograms, or other Breast Imaging Interventions when appropriate. Th is patient will be placed in the appropriate reminder system. TECHNICAL DOCUMENTATION: FINDING NUMBER: (1) ASSESSMENT: (1) JOB ID: [id number] 2010 [employer]- All Rights Reserved Reading location - IP/workstation name: [email or web address]
== END ==
LOC: WI 09:10
PROVIDERS: ATTEND Specialist
DX: N64.4 Mastodynia (principal)
CPT/HCPCS: 76641; 77066

== ENCOUNTER 2020-07-02 19:26 | Emergency (ER) | payer OTHER, MEDICARE ==
--- NOTE | 2020-07-02 20:01 | ER Document Report ---
ED Medical Screen (RME) - General Stated Complaint: CHEST PAIN/SHORTNESS OF BREATH/NAUSEA/WEAKNESS Time Seen by Provider: 07/02/20 19:50 Primary Care Provider: JENARO HOWELL MD [Primary Care Provider] - Follow up as needed Mode of Arrival: Ambulatory Information source: Patient Notes: HPI; 35-year-old female presents to the emergency room complaining of shortness of breath worse with exertion, generalized fatigue, palpitations and a headache. States she woke up at 3 AM feeling like her heart was pounding back to sleep got up later in the day symptoms have progressively gotten worse today. She denies any nausea, vomiting, no diaphoresis, no fevers. No recent travel. Patient does states she has a very sedentary lifestyle secondary to her mental health issues she tends to sleep for long periods of time. She did have a negative Covid test 6 days ago. Has had no other known Covid exposure. Has not taken any medications for her symptoms. PE: Alert and oriented x3. Lungs: Clear to auscultation without rales, rhonchi, wheezes. Heart: Regular rate rhythm without murmurs, rubs, gallops. I have greeted and performed a rapid initial assessment of this patient. A comprehensive ED assessment and evaluation of the patient, analysis of test results and completion of the medical decision making process will be conducted by additional ED providers. I have specifically instructed the patient or family members with the patient to immediately return to any nursing staff should anything change in the patient's condition or with their chief complaint. TRAVEL OUTSIDE OF THE [place] IN LAST 30 DAYS: No - Related Data Allergies/Adverse Reactions: codeine Allergy (Verified 05/03/20 04:55) haloperidol [From Haldol] Allergy (Verified 05/03/20 04:55) morphine Allergy (Verified 05/03/20 04:55) IV DYE Allergy (Uncoded 05/03/20 04:55) ssri Adverse Reaction (Uncoded 05/03/20 04:55) Past Medical History - Social History Family history: Reviewed & Not Pertinent, Malignancy - Past Medical History Cardiac Medical History: Denies: Hx Atrial Fibrillation Pulmonary Medical History: Reports: Hx Pneumonia Neurological Medical History: Denies: Hx Seizures Endocrine Medical History: Denies: Hx Hyperthyroidism Renal/ Medical History: Denies: Hx Peritoneal Dialysis GI Medical History: Reports: Hx Gastroesophageal Reflux Disease, Hx Irritable Bowel Musculoskeltal Medical History: Reports Hx Musculoskeletal Trauma Psychiatric Medical History: Reports: Hx Anxiety, Hx Bipolar Disorder - bipolar depression, Hx Depression, Hx Obsessive Compulsive Disorder, Hx Post Traumatic Stress Disorder Traumatic Medical History: Reports: Hx Fractures Infectious Medical History: Reports: Hx C-Diff Past Surgical History: Reports: Hx Appendectomy, Hx Cholecystectomy, Hx Gynecologic Surgery - , Hx Orthopedic Surgery - right arm, Hx Tonsillectomy - 04/29/2020, Hx Tubal Ligation. Denies: Hx Hysterectomy - Immunizations Immunizations up to date: Yes Hx Diphtheria, Pertussis, Tetanus Vaccination: Yes Physical Exam - Vital signs Vitals: Temp Pulse Resp BP Pulse Ox 98.2 F 95 16 118/90 H 100 07/02/20 19:35 07/02/20 19:35 07/02/20 19:35 07/02/20 19:35 07/02/20 19:35 Course - Vital Signs Vital signs: Temp Pulse Resp BP Pulse Ox 98.2 F 95 16 118/90 H 100 07/02/20 19:35 07/02/20 19:35 07/02/20 19:35 07/02/20 19:35 07/02/20 19:35 Doctor's Discharge - Discharge Referrals: JENARO HOWELL MD [Primary Care Provider] - Follow up as needed
--- NOTE | 2020-07-02 20:36 | RADIOLOGY REPORT (SQ) ---
XR CHEST 2 VIEWS CLINICAL STATEMENT: dyspnea COMPARISON: 04/11/2019 FINDINGS: Cardiomediastinal silhouette is within normal limits. There is no focal lung consolidation or pleural effusion. No evidence of pulmonary edema or pneumothorax. IMPRESSION: No acute cardiopulmonary disease.
[2020-07-02 21:13] LABS: ABSOLUTE BASOPHILS # (AUTO) 0.1 10^3/uL (0.0-0.2); ABSOLUTE EOSINOPHILS # (AUTO) 0.3 10^3/uL (0.0-0.6); ABSOLUTE LYMPHOCYTES (AUTO) 2.5 10^3/uL (0.5-4.7); ABSOLUTE MONOCYTES (AUTO) 0.5 10^3/uL (0.1-1.4); ABSOLUTE NEUT (AUTO) 4.6 10^3/uL (1.7-8.2); BASOPHILS % (AUTO) 0.7 % (0-2); EOSINOPHILS % (AUTO) 4.1 % (0-6); HEMATOCRIT 40.2 % (36.0-47.0); HEMOGLOBIN 13.8 g/dL (12.0-15.5); LYMPHOCYTES % (AUTO) 31.2 % (13-45); MEAN CORPUSCULAR HEMOGLOBIN 29.2 pg (27.0-33.4); MEAN CORPUSCULAR HGB CONC 34.2 g/dL (32.0-36.0); MEAN CORPUSCULAR VOLUME 85 fl (80-97); MONOCYTES % (AUTO) 6.4 % (3-13); PLATELET COUNT 339 10^3/uL (150-450); RED BLOOD COUNT 4.71 10^6/uL (3.72-5.28); RED CELL DISTRIBUTION WIDTH 13.8 % (11.5-14.0); SEGMENTED NEUTROPHILS % (AUTO) 57.6 % (42-78); TOTAL CELLS COUNTED % (AUTO) 100 %
[2020-07-02 21:35] LABS: ALBUMIN 4.4 g/dL (3.5-5.0); ALKALINE PHOSPHATASE 73 U/L (38-126); ANION GAP 9 (5-19); ASPARTATE AMINO TRANSFERASE 27 U/L (14-36); BILIRUBIN,TOTAL 1.2 mg/dL (0.2-1.3); BLOOD UREA NITROGEN 8 mg/dL (7-20); CALCIUM 9.8 mg/dL (8.4-10.2); CARBON DIOXIDE 27 mmol/L (22-30); CHLORIDE 102 mmol/L (98-107); GLUCOSE 92 mg/dL (75-110); POTASSIUM 4.4 mmol/L (3.6-5.0); TOTAL PROTEIN 7.5 g/dL (6.3-8.2)
--- NOTE | 2020-07-03 00:35 | EKG REPORT ---
SEVERITY:- NORMAL ECG - SINUS RHYTHM : Confirmed by: Denia Zamorano 03-Jul-2020 00:34:29
--- NOTE | 2020-07-03 05:24 | ER Document Report ---
ED General - General Stated Complaint: CHEST PAIN/SHORTNESS OF BREATH/NAUSEA/WEAKNESS Time Seen by Provider: 07/02/20 19:50 Primary Care Provider: JENARO HOWELL MD [EMERITUS] - Follow up as needed Mode of Arrival: Ambulatory Notes: Patient is a 35-year-old female who comes to the emergency department for chief complaint of episodes where she will feel a "tugging sensation" across her chest, feels intermittently almost vaguely short of breath, feel palpitations, and intermittently feel like she might be close to passing out. She denies overt dizziness, specific chest pain, current shortness of breath, injury, fever, vomiting. She also states that she has a sensation that there is either a bug or foreign body in her right ear. She denies recent swimming, pain in the ear, drainage from the ear. TRAVEL OUTSIDE OF THE [place] IN LAST 30 DAYS: No - Related Data Allergies/Adverse Reactions: codeine Allergy (Verified 05/03/20 04:55) haloperidol [From Haldol] Allergy (Verified 05/03/20 04:55) morphine Allergy (Verified 05/03/20 04:55) IV DYE Allergy (Uncoded 05/03/20 04:55) ssri Adverse Reaction (Uncoded 05/03/20 04:55) Past Medical History - General Information source: Patient - Social History Smoking Status: Never Smoker Frequency of alcohol use: None Drug Abuse: None Lives with: Alone Family History: Reviewed & Not Pertinent, CAD, CVA, DM, Hyperlipidemia, Hypertension, Malignancy - Past Medical History Cardiac Medical History: Denies: Hx Atrial Fibrillation Pulmonary Medical History: Reports: Hx Pneumonia Neurological Medical History: Denies: Hx Seizures Endocrine Medical History: Denies: Hx Hyperthyroidism Renal/ Medical History: Denies: Hx Peritoneal Dialysis GI Medical History: Reports: Hx Gastroesophageal Reflux Disease, Hx Irritable Bowel Musculoskeletal Medical History: Reports Hx Musculoskeletal Trauma Psychiatric Medical History: Reports: Hx Anxiety, Hx Bipolar Disorder - bipolar depression, Hx Depression, Hx Obsessive Compulsive Disorder, Hx Post Traumatic Stress Disorder Traumatic Medical History: Reports: Hx Fractures Infectious Medical History: Reports: Hx C-Diff Past Surgical History: Reports: Hx Appendectomy, Hx Cholecystectomy, Hx Gynecologic Surgery - , Hx Orthopedic Surgery - right arm, Hx Tonsillectomy - 04/29/2020, Hx Tubal Ligation. Denies: Hx Hysterectomy - Immunizations Immunizations up to date: Yes Hx Diphtheria, Pertussis, Tetanus Vaccination: Yes Hx Pneumococcal Vaccination: 08/21/12 Review of Systems - Review of Systems Constitutional: See HPI EENT: See HPI Cardiovascular: See HPI Respiratory: See HPI Gastrointestinal: No symptoms reported Genitourinary: No symptoms reported Female Genitourinary: No symptoms reported Musculoskeletal: No symptoms reported Skin: No symptoms reported Hematologic/Lymphatic: No symptoms reported Neurological/Psychological: See HPI Physical Exam - Vital signs Vitals: Temp Pulse Resp BP Pulse Ox 98.2 F 95 16 118/90 H 100 07/02/20 19:35 07/02/20 19:35 07/02/20 19:35 07/02/20 19:35 07/02/20 19:35 - Notes Notes: GENERAL: Alert, interacts well. No acute distress. HEAD: Normocephalic, atraumatic. EYES: Pupils equal, round, and reactive to light. Extraocular movements intact. ENT: Oral mucosa moist, tongue midline. Oropharynx unremarkable. Airway patent. Nares patent, sinuses non-tender,. TMs intact although there is scarring of the right tympanic membrane. There appears to be a dark fragment of something in the mid right ear canal any other concerning findings in the ear canals. NECK: Full range of motion. Supple. Trachea midline. No lymphadenopathy. LUNGS: Clear to auscultation bilaterally, no wheezes, rales, or rhonchi. No respiratory distress. Non-tender chest wall. HEART: Regular rate and rhythm. No murmur ABDOMEN: Soft, non-tender. Non-distended. EXTREMITIES: Moves all 4 extremities spontaneously. No edema, normal radial and dorsalis pedis pulses bilaterally. No cyanosis. BACK: no cervical, thoracic, lumbar midline tenderness. No saddle anesthesia, normal distal neurovascular exam. Moves all extremities in full range of motion. NEUROLOGICAL: Alert and oriented x3. Normal speech. Cranial nerves II through XII grossly intact. Strength 5/5 in all extremities. PSYCH: Patient speaks rapidly and anxiously but is easily reassured and otherwise unremarkable SKIN: Warm, dry, normal turgor. No rashes or lesions noted. Course - Re-evaluation Re-evalutation: Unfortunately patient had a very extended wait in the emergency department. However her work-up is complete including unremarkable CBC, chemistry, negative test, negative D-dimer, 2 sets of negative troponins, unremarkable TSH, unremarkable EKG and chest x-ray. Patient without current symptoms except foreign body sensation in her right ear. Patient does have what appears to be either hair or a black fragment of something undetermined in her right ear canal. Unfortunately this was mood but I was unable to extract this, this appears to be embedded in some wax and is causing some irritation. However there is no sign of infection or any other concerning findings. Patient was provided with drops to soften the wax and she will irrigate her ear or follow-up with primary care/return for any other concerns. I discussed all details of her work-up at length, patient states appreciation, satisfaction, has no other concerns. Discussed return precautions. Patient states understanding and agreement. Stable and well-appearing at time of discharge. - Vital Signs Vital signs: Temp Pulse Resp BP Pulse Ox 98.4 F 84 18 120/88 H 100 07/03/20 06:07 07/03/20 06:07 07/03/20 06:07 07/03/20 06:07 07/03/20 06:07 - Laboratory Result Diagrams: 07/02/20 20:25 07/02/20 20:25 - EKG Interpretation by Me Additional EKG results interpreted by me: EKG sinus rhythm at a rate of 95, QTC 433, normal axis, no T wave inversions or ST segment changes in consecutive leads Discharge - Discharge Clinical Impression: Lightheadedness, Feeling faint, Chest discomfort Foreign body in right ear Qualifiers: Encounter type: initial encounter Qualified Code(s): T16.1XXA - Foreign body in right ear, initial encounter Condition: Stable Disposition: HOME, SELF-CARE Additional Instructions: Your laboratory work-up, EKG, chest x-ray, and evaluation do not show any concerning findings. Continue current medications, follow-up with primary care for additional management. There is a small foreign body in the ear canal in the right ear but no insect or concerning findings noted. I recommend the eardrops as prescribed for the next couple days then flushing your ear with warm water in the bathtub using a syringe. Alternatively after a few days you can be reseen with medical provider to have this rechecked. Return if you worsen including severe pain in your chest, difficulty breathing, passing out, fever, swelling or severe pain of the ear, or any other concerning or worsening symptoms. Prescriptions: Carbamide Peroxide [Murine Ear Drops] 15 ml OT BID PRN 5 Days #1 bottle PRN Reason: Referrals: JENARO HOWELL MD [EMERITUS] - Follow up as needed
[2020-07-03 06:09] VITALS: BP 120/88
--- OUTSIDE RECORDS SUMMARY | 2020-07-06 08:52 | XMS REPORT ---
:1985 [facility] [address] [place] [address] Care Team Providers Name Role Phone [facility] Primary Care Physician Unavailable Susie OLIVA Attending Clinician Unavailable MD Yany Richardson Attending Clinician Unavailable MD Yany Richardson Attending Clinician Unavailable Kolby Richards Attending Clinician Unavailable MD Kaden Reeder Attending Clinician Unavailable MD Kaden Reeder Attending Clinician Unavailable MD Stella Azevedo Attending Clinician Unavailable MD Stella Azevedo Attending Clinician Unavailable EMERGENCY Attending Clinician Unavailable MD Yany Richardson Admitting Clinician Unavailable MD Kaden Reeder Admitting Clinician Unavailable EMERGENCY Admitting Clinician Unavailable Allergies, Adverse Reactions, Alerts Allergy Allergy Status Severity Reaction(s) Onset Inactive Treating C omments Name Type Date Date Clinician Haldol Drug Active allergy Contrast Allergy to Active Dye substance Iodinated Iodinated Active Contrast Contrast Media Media Medications Ordered Filled Start Stop Current Ordering Indication Dosage Frequency Signature Comments Components Medication Medication Date Date Medication? Clinician (SIG) Name Name oxyCODONE 5 2019-0 Yes 5mg 5 mg = 1 mg oral 9-10 tab(s), tablet 09:14: PO, q4h, 00 for pain, For breakthrou gh pain not controlled by tylenol and ibuprofen. Do not take if drowsy., # 42 tab(s), 0 Refill(s), Pharmacy: [id number], 160.02, cm, 04/29/20 12:27:00 EDT, Height, 99.6, kg, 04/29/20 8:25:00 E... docusate 2019-0 Yes 100mg 100 mg = 1 sodium 100 9-10 cap(s), mg oral 09:14: PO, BID, capsule 00 for constipati on, # 28 cap(s), 0 Refill(s), [facility]acy: [id number], 160.02, cm, 04/29/20 12:27:00 EDT, Height, 99.6, kg, 04/29/20 8:25:00 EDT, Weight Vitamin 2020-0 Yes 1000ug 1,000 mcg B-12 1000 04-29 = 1 mL, mcg/mL 07:23: Intramuscu injectable 00 lar, solution qMonth Protonix 40 2020-0 Yes 40mg 40 mg = 1 mg oral 04-29 tab(s), delayed 07:22: PO, Daily release 00 tablet Vitamin D3 2020-0 Yes 2000[iU 2,000 2000 intl 04-29 ] Intl_Unit( units (50 07:21: s) = 1 mcg) oral 00 cap(s), capsule PO, Daily Anafranil 2020-0 Yes 25mg 25 mg = 1 25 mg oral 04-24 cap(s), capsule 15:42: PO, q48h 00 Metoprolol 2020-0 Yes Metoprolol Succinate 7-16 Succinate ER 25 MG 00:00: ER 25 MG Oral Tablet 00 Oral Extended Tablet Release 24 Extended Hour Release 24 Hour Refills: 0 Start : 0Active Anafranil 2020-0 Yes Anafranil 25 MG Oral 7-16 25 MG Oral Capsule 00:00: Capsule 1 00 tablet EOD Refills: 0 Start : 0Active Vitamin D3 2020-0 Yes Vitamin D3 50 MCG 7-16 50 MCG (1999) 00:00: (1999) Oral Tablet 00 Oral Tablet Refills: 0 Start : 0Active Protonix 40 2020-0 Yes Protonix MG Oral 7-16 40 MG Oral Tablet 00:00: Tablet Delayed 00 Delayed Release Release Refills: 0 Start : 0Active Cyanocobala 2020-0 Yes Cyanocobal min 1999 7-16 saleh 2000 MCG/ML 00:00: MCG/ML Injection 00 Injection Solution Solution Refills: 0 Start : 0Active Neomycin-Po 2020-0 Yes Neomycin-P lymyxin-HC 4-30 olymyxin-H 3.5-48532-0 00:00: C Otic 00 3.5-93018- Suspension [address] FOUR DROPS AFFECTED ear THREE TIMES DAILY for 7 days Quantity: 10 Refills: 0 Start : 0Active Cefdinir No Cefdinir 300 MG Oral 4-13 300 MG Capsule 00:00: Oral 00 Capsule TAKE 1 CAPSULE BY MOUTH EVERY 12 HOURS FOR 10 DAYS Quantity: 20 Refills: 0 Start : 0Active Mupirocin 2 Yes Mupirocin % External 4-13 2 % Ointment 00:00: External 00 Ointment APPLY TO THE AFFECTED AREA(S) TOPICALLY THREE TIMES DAILY FOR 10 DAYS Quantity: 22 Refills: 0 Start : 0Active metoprolol Yes 25mg 25 mg = 1 succinate 2-29 cap(s), 25 mg oral 14:50: PO, Daily, capsule, 00 # 30 extended cap(s), 0 release Refill(s) Amoxicillin No Amoxicilli -Pot 2-01 n-Pot Clavulanate 00:00: Clavulanat 875-125 MG 00 e 875-125 Oral Tablet MG Oral Tablet TAKE ONE TABLET BY MOUTH TWICE DAILY FOR 10 DAYS Quantity: 20 Refills: 0 Start : 21-Sep-2019 Active Problems Condition Condition Condition Status Onset Resolution Last Treatin g Comments Name Details Category Date Date Treatment Clinician Date Disease Active Condition medical history not documented Dizziness Dizziness Problem Active Tonsil Tonsil Problem Active asymmetry asymmetry Chronic Chronic Problem Active tonsillitis tonsillitis Alteration Alteration Problem active Pr oblem in comfort: in comfort: added pain pain(Confir auto matic (finding) med)1 ally b y system based on initiati o n of the Alterati o n in comfort: Pain uriel n of Care. Finding of Elevated Problem active bilirubin bilirubin(C level onfirmed) (finding) Depressive Depression( Problem active disorder Confirmed) (disorder) Troponin I Elevated Problem active above troponin(Co reference nfirmed) range (finding) Methicillin MRSA(Confir Problem active resistant med) Staphylococ cus aureus (organism) Neuropathy Neuropathy( Problem active (disorder) Confirmed) Obesity Obesity(Con Problem active (disorder) firmed) Obsessive-c OCD Problem active ompulsive (obsessive disorder compulsive (disorder) disorder)(C onfirmed) Procedures Procedure Date / Time Performed Performing Clinician Albert lea Removal Foreign Body (Neck)1 2020-04-29 10:05:00 Tonsillectomy (NA)2 2020-04-29 10:05:00 Removal Foreign Body (Neck)1 2020-04-29 10:05:00 Tonsillectomy (NA)2 2020-04-29 10:05:00 History of Tubal ligation History of Gallbladder surgery History of Arm surgery History of Appendectomy History of Ectopic removal History of Lumbar puncture History of Colonoscopy H/O: tubal ligation History of appendectomy History of cholecystectomy Results Test Description Test Time Test Comments Text Results Atomic Results Result Comments UA Spec Grav,UA Color,UA Appear,UA Glucose,UA Bili,UA 2020-05-05 07:35:00 Ketones,UA Blood,UA pH,UA Protein,UA Urobilino Test Item Value Reference Range Comments UA Spec Grav (test code = UA Spec Grav) 1.019 UA Color (test code = UA Color) LT YELLOW UA Appear (test code = UA Appear) CLEAR UA Glucose (test code = UA Glucose) NEGATIVE UA Bili (test code = UA Bili) NEGATIVE UA Ketones (test code = UA Ketones) NEGATIVE UA Blood (test code = UA Blood) NEGATIVE UA pH (test code = UA pH) 5.5 5.0-9.0 UA Protein (test code = UA Protein) NEGATIVE 0-30 UA Urobilinogen (test code = UA Urobilinogen) NEGATIVE 0. 2-1.0 UA Nitrite (test code = UA Nitrite) NEGATIVE UA Leuk Est (test code = UA Leuk Est) NEGATIVE HCG in [id number] 07:35:00 Test Item Value Reference Range Comments HCG in Urine (test code = HCG NEGATIVE Re sult Comment: INTERNAL in Urine) FERMENTING CELLARS SUPERVISOR RESULTS ACCEPTABLE. WBC,Neutro Percent,Lymph Percent,Cannon Percent,Eos Percent,Basophil Percent,Neut Absolute,Lymphs [id number] 07:34:00 Test Item Value Reference Range Comments WBC (test code = WBC) 9.8 1 4.8-10.8 Neutro Percent (test code = Neutro Percent) 61.0 % 34.6 -71.4 Lymph Percent (test code = Lymph Percent) 27.1 % 19.6-5 2.7 Cannon Percent (test code = Cannon Percent) 6.5 % 2.4-11.8 Eos Percent (test code = Eos Percent) 4.3 % 0-7.8 Basophil Percent (test code = Basophil Percent) 0.7 % 0-1.8 Neut Absolute (test code = Neut Absolute) 6.0 1 1.8-7. 3 Lymphs Absolute (test code = Lymphs Absolute) 2.7 1 1. 5-4.0 Cannon Absolute (test code = Cannon Absolute) 0.6 1 0.2-1. 0 Eos Absolute (EOSA) (test code = Eos Absolute 0.4 1 0- 0.7 (EOSA)) Baso Absolute (BASOA) (test code = Baso Absolute 0.1 1 0.0-0.2 (BASOA)) RBC (test code = RBC) 4.82 1 4.20-5.40 Hgb (test code = Hgb) 13.6 1 12.0-16.0 Hct (test code = Hct) 42.1 % 38.0-47.0 MCV (MCV) (test code = MCV (MCV)) 87.3 fL 80-94 MCH (HCH) (test code = MCH (HCH)) 28.2 pg 27-34 MCHC (MCHC) (test code = MCHC (MCHC)) 32.3 % 31.5-36.0 RDW (RDW) (test code = RDW (RDW)) 13.0 % 11.5-14.5 Platelet (test code = Platelet) 430 1 130-400 MPV (test code = MPV) 10.0 fL 7.4-10.4 Glucose Lvl,BUN,Creatinine,Bili Total,Alk Phos,AST,ALT,Total Protein,Albumin Lvl,Globulin,Albumin/[id number] 07:34:00 Test Item Value Reference Range Comments Glucose Lvl (test code = Glucose Lvl) 95 mg/dL 74-106 BUN (test code = BUN) 9 mg/dL 9-23 Creatinine (test code = Creatinine) 0.76 mg/dL 0.55-1.02 Bili Total (test code = Bili Total) 1.2 mg/dL 0.2-1.2 Alk Phos (test code = Alk Phos) 89 1 46-116 AST (test code = AST) 25 1 15-34 ALT (test code = ALT) 44 1 10-49 Total Protein (test code = Total Protein) 7.5 1 5.7-8. 2 Albumin Lvl (test code = Albumin Lvl) 3.9 1 3.4-5.0 Globulin (test code = Globulin) 3.6 1 1.5-4.5 Albumin/Globulin Ratio (test code = 1.1 1.1-1.8 Albumin/Globulin Ratio) Calcium Lvl (test code = Calcium Lvl) 9.6 mg/dL 8.7-10.4 Sodium Lvl (test code = Sodium Lvl) 138 mmol/L 136-145 Potassium Lvl (test code = Potassium Lvl) 4.4 mmol/L 3.4-5. 1 Chloride (test code = Chloride) 104 mmol/L 98-107 CO2 (test code = CO2) 26.0 mmol/L 20-31 Anion Gap (test code = Anion Gap) 8 4-18 Calc Osmol (test code = Calc Osmol) 274 1 BUN/CR Ratio (test code = BUN/CR Ratio) 12 GFR Non (test code = GFR Non >60.00 ) GFR (test code = GFR >60.00 [place]) Lipase [id number] 07:34:00 Test Item Value Reference Range Comments Lipase Lvl (test code = Lipase Lvl) 27 1 12-53 Magnesium [id number] 07:34:00 Test Item Value Reference Range Comments Magnesium Lvl (test code = Magnesium Lvl) 1.8 mg/dL 1.60-2 .60 Vitamin B12 Level -,Folate Level -2020-05-05 07:29:00 Test Item Value Reference Range Comments Vitamin B12 Level - (test 806 pg/mL 211-911 code = Vitamin B12 Level -) Folate Level - (test code = 16.2 ng/mL [facility] Comment: Folate Level -) Inde terminate: 3.4 to 5.4 Defic ient: <3.4 Vitamin D 25 Hydroxy [id number] 07:29:00 Test Item Value Reference Range Comments Vitamin D 25 Hydroxy Level- (test code = Vitamin 24.7 ng/mL 30-100 D 25 Hydroxy Level-) TSH,T4 [id number] 07:29:00 Test Item Value Reference Range Comments TSH (test code = TSH) 3.40 1 0.55-4.78 T4 Free (test code = T4 Free) 1.19 1 0.89-1.76 water control supervisor acceptable HCG, POC Result - [id number] 08:17:00 Test Item Value Reference Range Comments water control supervisor acceptable HCG (test code = Quality Yes control acceptable HCG) POC Result - Periop (test code = Negative POC Result - Periop) Assessments Condition Name Status Diagnosis Date Treating Clinici an Chronic tonsillitis Active 0 Other chronic diseases of tonsils and Active 0 adenoids Encounter for screening for other viral Active 0 diseases Tonsil asymmetry Active Chronic tonsillitis Active Chronic tonsillitis Active Dizziness Active Tonsil asymmetry Active Chronic tonsillitis Active Chronic tonsillitis Active Tonsil asymmetry Active Encounters Start End Encounter Admission Attending Care Care Encounter Date/Time Date/Time Type Type Clinicians Facility Department ID 2020-06-17 2020-06-17 Appointment KAREEM Richards [facility] [id number] 13:45:00 14:30:51 ; Alen Richards MD 2020-05-05 2020-05-05 E 1 Yuliana Richardson [facility] 20 [id number] 07:09:14 10:33:00 Yuliana Richardson 2020-04-29 2020-04-30 O Alen Oneal [facility] 20 [id number] 06:58:52 13:11:00 Alen Richards 2020-04-28 2020-04-28 Appointment KAREEM Richards [facility] [id number] 15:00:00 15:00:00 ; Alen Richards MD 2020-04-24 2020-04-25 O Alen Oneal [facility] 20 [id number] 15:19:26 23:59:59 Alen Richards 2020-03-12 2020-03-12 Appointment KAREEM Richards [facility] [id number] 13:15:00 13:15:00 ; Alen Richards MD 2020-03-05 2020-03-05 [facility] [id number] 09:45:00 09:45:00 ; Alen Richards MD 2020-03-03 2020-03-04 E 1 Chris Reeder [facility] [id number] 23:54:42 02:30:00 Chris Reeder 2020-01-31 2020-01-31 E 1 Moises Azevedo [facility] 20 [id number] 13:51:58 18:46:00 [place] 2020-01-15 2020-01-15 E 1 Moises Azevedo [facility] 20 [id number] 18:08:50 23:36:00 Roberto CarlosMoises swanson 2019-10-19 2019-10-19 E 1 Moises Azevedo [facility] 20 [id number] 13:48:30 18:31:00 Roberto CarlosMoises swanson 2019-09-18 2019-09-19 E 1 Moises Azevedo [facility] 20 [id number] 23:00:40 05:16:00 Moises Azevedo 2019-09-09 2019-09-09 Appointment [facility] [id number] 08:30:00 08:30:00 ; Andrea Osullivan MD 2019-08-27 2019-08-27 E 1 Moises Azevedo [facility] 20 [id number] 02:28:19 06:50:00 Roberto CarlosMoises 2019-06-27 2019-06-27 Appointment [facility] [id number] 15:00:00 15:00:00 ; Andrea Osullivan MD 2018-09-20 2018-09-20 [facility] [place] [id number] 16:34:00 16:34:00 ATTENDING Family History Family Member Diagnosis Comments Start Date Stop Date Unspecified Family history of malignant Family History neoplasm of colon Unspecified Family history of alcoholism Family History Unspecified Family history of colonic polyps Family History Unspecified Family history of myocardial Family History infarction Unspecified Family history of diabetes mellitus Family History Unspecified Family history of malignant Family History neoplasm Payers Payer Name Policy Type Policy Number Effective Date Expiration D ate MEDICAID [place] [employer] [id number] Social History Smoking Status Start Date Stop Date Never smoked tobacco (finding) 2020-04-21 5 07:40:02 Social History Observation Description Sex Female Vital Signs Vital Name Observation Time Observation Value Comments Heart Rate Monitored 2020-05-05 10:32:00 90 /min Systolic Blood Pressure 2020-05-05 10:32:00 120 mm[Hg] Diastolic Blood Pressure 2020-05-05 10:32:00 74 mm[Hg] Heart Rate Monitored 2020-05-05 09:01:00 83 /min Systolic Blood Pressure 2020-05-05 09:01:00 121 mm[Hg] Diastolic Blood Pressure 2020-05-05 09:01:00 74 mm[Hg] Heart Rate Monitored 2020-05-05 08:26:00 83 /min Temperature Oral 2020-05-05 07:09:00 36.6 Rita Peripheral Pulse Rate 2020-05-05 07:09:00 93 /min Respiratory Rate 2020-05-05 07:09:00 18 /min Systolic Blood Pressure 2020-05-05 07:09:00 121 mm[Hg] Diastolic Blood Pressure 2020-05-05 07:09:00 81 mm[Hg] Respiratory Rate 2020-04-30 12:22:00 17 /min Temperature Oral 2020-04-30 12:22:00 36.7 Rita Peripheral Pulse Rate 2020-04-30 12:22:00 87 /min Systolic Blood Pressure 2020-04-30 12:22:00 108 mm[Hg] Diastolic Blood Pressure 2020-04-30 12:22:00 71 mm[Hg] Respiratory Rate 2020-04-30 08:42:00 17 /min Systolic Blood Pressure 2020-04-30 08:42:00 110 mm[Hg] Diastolic Blood Pressure 2020-04-30 08:42:00 70 mm[Hg] Peripheral Pulse Rate 2020-04-30 08:42:00 78 /min Temperature Oral 2020-04-30 08:42:00 36.4 Rita Systolic Blood Pressure 2020-04-30 03:00:00 98 mm[Hg] Diastolic Blood Pressure 2020-04-30 03:00:00 62 mm[Hg] Respiratory Rate 2020-04-30 03:00:00 16 /min Peripheral Pulse Rate 2020-04-30 03:00:00 72 /min Temperature Oral 2020-04-29 23:00:00 36.7 Rita Heart Rate Monitored 2020-04-29 13:00:00 98 /min Heart Rate Monitored 2020-04-29 12:30:00 91 /min Temperature - Temporal Artery 2020-04-29 11:05:00 36.3 Rita Temperature - Temporal Artery 2020-04-29 08:01:00 36.8 Rita Apical Heart Rate 2020-04-29 08:01:00 91 /min Systolic blood pressure 2020-03-12 13:19:00 121 mm[Hg] Diastolic blood pressure 2020-03-12 13:19:00 84 mm[Hg] Body height 2020-03-12 13:19:00 60 [in_us] Weight 2020-03-12 13:19:00 219 [lb_av] Body mass index (BMI) [Ratio] 2020-03-12 13:19:00 42.77 kg/m2 Heart Rate 2020-03-12 13:19:00 101 /min Systolic blood pressure 2020-03-05 09:18:00 150 mm[Hg] Diastolic blood pressure 2020-03-05 09:18:00 84 mm[Hg] Heart Rate 2020-03-05 09:18:00 99 /min Weight 2020-03-05 09:18:00 99.6 kg Body height 2020-03-05 09:18:00 160 cm Body mass index (BMI) [Ratio] 2020-03-05 09:18:00 38.91 kg/m2 Hospital Discharge Instructions NameDatesDetailsInstructions not documentedPatient Yfrhzmkss24/15/2020 10:16:40Vitamin DVitamin DDoes this test have other names?25-hydroxyvitamin D (99-ssij-VHKI-xm-JCH-peg-min D), 25(OH)DWhat is this test?Vitamin D is mainly found in fortified dairy foods, juice, breakfast cereal, and certain fish. This vitamin plays many roles in the body. But because it helps the body absorb calcium from foods and supplements, it's particularly important for bone health. Vitamin D has many additional roles in the body.Vitamin D comes in several forms. When ultraviolet light, such as sunlight, hits your skin, it creates vitamin D3. D2 is used to fortify dairy foods. Both of these are further processed by your liver and kidneys into a form your body can use. Most tests for vitamin D check the level of a form circulating in the body called 25-hydroxyvitamin D, also called 25(OH)D.Why do I need this test?Vitamin D testing has become much more popular in recent years. Your healthcare provider may check your?vitamin D levels to find out if you have any risks?to bone health. These might be: Low calcium Soft bones caused by low vitamin D or problems using it (osteomalacia) Osteopenia Osteoporosis Rickets, in childrenYou may also need this test if you are at risk for?low vitamin D levels. Risks?include: Being an older adult Having?difficulty absorbing fat from your diet Having?chronic kidney disease Have dark skin pigmentation Being a breastfed babyVitamin D has many effects in the body. You may need this test to help your provider diagnose or treat: Problems with the parathyroid gland Cancer Autoimmune diseases such as multiple sclerosis and Crohn's disease Psoriasis Asthma Weakness or fallsWhat other tests might I have along with this test?A healthcare provider may also want to check your parathyroid hormone levels and your calcium levels.What do my test results mean?A result for a lab test may be affected by many things, including the method the laboratory uses to do the test. If your test results are different from the normal value, you may not have a problem. To learn what the results mean for you, talk with your healthcare provider.Children and adults need more than 30 nanograms per milliliter(ng/ml) of vitamin D. The optimal level of 25(OH)D is usually between 30 and 60 ng/mL. Recommended daily amounts range from 400 to 800 international units (IU) per day based on your age.Levels lower than normal can mean you are: Not making enough vitamin D on your own Not getting enough vitamin D?in your diet Not absorbing vitamin D?from your food as you shouldLower levels may also mean thatyour body is not converting the vitamin as it should. This might be?because of kidney or liver disease.Above- normal levels may be a sign that you're taking too much in supplement form.How is this test done?The test requires a blood sample, which is drawn through a needle from a vein in your arm.Does this test pose any risks?Taking a blood sample with a needle carries risks that include bleeding, infection, bruising, and a sense of lightheadedness. When the needle pricks your arm, you may feel a slight stinging sensation or pain. Afterward, the site may be slightly sore.What might affect my test results?The amount of time you spend in the sunlight, your diet, and whether you take vitamin D in supplement form can affect your vitamin D levels. Ask your healthcare provider if any health conditions you have or medicines you take could affect your results.How do I get ready for this test?Tell your healthcare provider?if you take vitamin D supplements. Also be sure your?provider?knows about all medicines, herbs, vitamins, and supplements you are taking. This includes medicines that don't need a prescription and any illicit drugs you may use.? [id number] [employer]. [address] [place] [address], [place] [address]. All rights reserved. This information is not intended as a substitute for professional medical care. Always follow your healthcare professional's instructions.Follow Up Care05/05/2020 07:09:27With: Follow up with primary care providerAddress: UnknownWhen: Within 3 Day(s)Patient Dvfrxvell71/10/2020 13:11:17Your Role in Safe Medication Use ([facility]) (Custom)Your Role in Safe Medication UseYou are part of your healthcare team and share the responsibility of safe medication use. The role of the health care practitioner and pharmacist is to decide which medicine is best for you by selecting the proper dose, dispensing correctly and labeling clearly. Your role is to take the medicine as prescribed and to learn as much as you can about why you are taking the medicineand what to expect from taking the medication.Points to remember:1. Take medications exactly as prescribed. Do not skip, reduce or stop doses unless your physician/provider tells you to do so.2. Keep medications in their original container if possible, if you place them in a medication organizer keep the original container.3. Do not share prescription medicine with others.4. Do not take any medications in a dark or poorly lit room.5. If you are not provided information about your medications, informyour health care provider.6. It is recommended that only one pharmacy be utilized in obtaining your medications.7. Keep an up to date medication list with you at all times, provide the list to those whom help in your medical care. If the medications are changed or stopped between visits to a health care provider make sure to remember to update your list. Do not forget to include over the counter medic ations, vitamins and herbal supplements.8. Contact your health care provider if you are concerned about any reaction to or adverse effects from your medications.9. Inform the health care provider of any allergies.10. Take all prescription and nonprescription medicines with you to all medical appointments or health care services. The most accurate medication list is obtained when the medication bottles or medication list is taken to each appointment or service.11. Read labels slowly and carefully. Ifthe label instructions are different from what your health care provider instructed, confirm the correct instructions.12. Dont be afraid to ask questions if there is a difference in the shape or color of the medication between refills.13. Medications can have more than one name. Raise questions if you do not recognize the name of the medications.ZobcfdxrLywo45/10/2020 13:11:17Hand WashingHand WashingGerms such as bacteria, viruses, and parasites are found everywhere. They can be in the air and water, and they can be on surfaces like food, door handles, and your skin. Every day, your hands come into contact with germs. Many of these germs can make you and your family sick. Washing your hands is one of the easiest and most effective ways to lower your risk of getting and sharing germs.When should I wash my hands?You should wash your hands whenever you think they are dirty. You should also wash your hands: Before: Visiting a baby or anyone with a weakened disease-fighting system (immunesystem). Putting in or taking out contact lenses. After: Using the bathroom or helping someoneelse use the bathroom. Working or playing outside. Touching or taking out the garbage. Touching anything dirty around your home. Sneezing, coughing, or blowing your nose. Using a phone, including your mobile phone. Touching an animal, animal food, animal waste, or its toys or leash. Touching money. Using household heel turner or toxic chemicals. Handling soiled clothes, bedding , or rags. Using public transportation. Going shopping, especially if you use a shopping cart or basket. Shaking hands. Handling livestock. Before and after: Preparing food. Eating. Visiting or taking care of someone who is sick. This includes touching used tissues, toys, and clothes. Changing a bandage (dressing) or taking care of an injury or wound. Giving or taking medicine. Preparing a bottle for a baby. Feeding a baby or young child. Changing a diaper.Whatis the correct way to wash my hands?1. Wet your hands with clean, running water. Turn off the water or move your hands out of the running water.2. Apply liquid soap or bar soap to your hands.3. Rub your hands together quickly to create lather.4. Keep rubbing your hands together for at least 20 seconds. Thoroughly scrub all parts of your hands, including under your fingernails and between your fingers.5. Rinse your hands with clean, running water until all the soap is gone.6. Dry your hands using an air dryer or a clean paper or cloth towel, or let your hands air-dry. Do not use your clothing or a soiled towel to dry your hands.If you are in a public restroom, use a paper towel: To turn off the water faucet. To open the bathroom door.How can I clean my hands if I do not have soap and water?If soap and clean water are not available, use an alcohol-based wipe, spray, or hand gel. Use a hand-sanitizing agent that contains at least 60% alcohol. If you are preparing food, hand sanitizers are not recommended as a replacement for hand washing with soap and water.To use a hand snipper, follow the directions on the product, and: Apply enough product to cover your hands. Make sure you wipe, rub, or spray the product so that it reaches every part of your hands and wrists. Include the backsof your hands, between your fingers, and under your fingernails. Rub the product onto your hands until it dries.Summary Germs such as bacteria, viruses, and parasites are found everywhere. Your hands come into contact with germs every day. Many of these germs can make you and your family sick. Washing your hands is one of the easiest and most effective ways to lower your risk of getting and sharing germs.This information is not intended to replace advice given to you by your health care provider. Make sure you discuss any questions you have with your health care provider.Document Released: 03/28/2006 Document Revised: 05/16/2018 Document Reviewed: 05/16/2018[employer] Interactive PatientEducation ? 2019 [employer].04/30/2020 13:11:17Tonsillectomy, Adult, Care AfterTonsillectomy, Adult, Care AfterThis sheet gives you information about how to care for yourself after your procedure. Your health care provider may also give you more specific instructions. If you have problems or questions, contact your health care provider.What can I expect after the procedure?After your procedure, it is common to have: A numb tongue. A reduced sense of taste. Difficulty swallowing and pain when swallowing. Pain or a clicking noise when yawning or chewing. Liquids that you drink leaking out of your nose. A muffled sound to your voice. Swelling in the middle of the roof of the mouth (uvula). A constant cough and a need to clear mucus and phlegm from your throat. Specks of blood in your saliva or when you blow your nose. Snoring or breathing through the mouth during sleep. A thick, white scab that forms where the tonsils used to be. It will cause bad breath.Follow these instructions at home:Eating and drinking Follow instructions from your health care provider about eating or drinking restrictions. For the first several days after surgery, choose foods that are soft and cold, such as gelatin, sherbet, ice cream, and frozen ice pops. These types of foods areusually the easiest to eat. If you have nausea or vomiting, start with liquids that are cold and that you can see through (clear liquids), such as water and apple juice without pulp. When you can tolerate these fluids safely, you may advance to thicker liquids and soft foods, such as: Creamed soups. Soft, warm cereals, such as oatmeal or hot wheat cereal. Milk. Mashed potatoes. Applesauce. Drink enough fluid to keep your urine clear or pale yellow.Driving Do not drive for 24 hours if you were given a medicine to help you relax (sedative). Do not drive or use heavy machinery while taking prescription pain medicine or until your health care provider approves.General instructions Rest. Keep your head raised (elevated) at all times when lying down. Take bifc-tso-surivys and prescription medicines only as told by your health care provider. Do not use mouthwashesuntil your health care provider approves. Gargle only as told by your health care provider. Avoid contact with people who have infections, such as colds and sore throats.Contact a health care provider if: Your pain gets worse or is not controlled with medicines. You have a fever. You have a rash. You feel light-headed or you faint. You are unable to swallow even small amounts of liquid or saliva. Your urine is very dark.Get help right away if: You have trouble breathing. You bleed bright red blood from your throat. You vomit bright red blood.Summary Follow instructions from your health care provider about eating or drinking restrictions. For the first several days after surgery, soft and cold foods are usually the easiest to eat. Talk with your health care provider about ways to manage your pain. Keeping pain under control can help you rest and make swallowing easier. Small specks of blood in your saliva is normal after surgery. Bleeding more than this is a serious complication. Get help right away if you bleed bright red blood from your throat or you vomit bright red blood.This information is not intended to replace advice given to you by your healthcare provider. Make sure you discuss any questions you have with your health care provider.Document Released: 06/07/2005 Document Revised: 06/30/2017 Document Reviewed: 06/30/2017[employer] Interactive Patient Education ? 2019 [place].04/30/2020 13:11:17TonsillitisTonsillitisTonsillitis is an infection of the throat that causes the tonsils to become red, tender, and swollen. Tonsils are tissues inthe back of your throat. Each tonsil has crevices (crypts). Tonsils normally work to protect the body from infection.What are the causes?Sudden (acute) tonsillitis may be caused by a virus or bacteria,including streptococcal bacteria. Long-lasting (chronic) tonsillitis occurs when the crypts of the to nsils become filled with pieces of food and bacteria, which makes it easy for the tonsils to become repeatedly infected.Tonsillitis can be spread from person to person (is contagious). It may be spreadby inhaling droplets that are released with coughing or sneezing. You may also come into contact with viruses or bacteria on surfaces, such as cups or utensils.What are the signs or symptoms?Symptoms of this condition include: A sore throat. This may include trouble swallowing. White patches on the tonsils. Swollen tonsils. Fever. Headache. Tiredness. Loss of appetite. Snoringduring sleep when you did not snore before. Small, foul-smelling, yellowish-white pieces of material (tonsilloliths) that you occasionally cough up or spit out. These can cause you to have bad breath.How is this diagnosed?This condition is diagnosed with a physical exam. Diagnosis can be confirmed with the results of lab tests, including a throat culture.How is this treated?Treatment for this condition depends on the cause, but usually focuses on treating the symptoms associated with it. Treatment may include: Medicines to relieve pain and manage fever. Steroid medicines to reduce swelling. Antibiotic medicines if the condition is caused by bacteria.If attacks of tonsillitis are severeand frequent, your health care provider may recommend surgery to remove the tonsils (tonsillectomy).Follow these instructions at home:Medicines Take haoa-tsq-czdrtvw and prescription medicines only as told by your health care provider. If you were prescribed an antibiotic medicine, take it as told by your health care provider. Do not stop taking the antibiotic even if you start to feel better.Eating and drinking Drink enough fluid to keep your urine clear or pale yellow. While your throat is sore, eat soft or liquid foods, such as sherbet, soups, or instant breakfast drinks. Drink warm liquids. Eat frozen ice pops.General instructions Rest as much as possible and get plenty ofsleep. Gargle with a salt-water mixture 34 times a day or as needed. To make a salt-water mixture, completely dissolve ?-1 tsp of salt in 1 cup of warm water. Wash your hands regularly with soap and water. If soap and water are not available, use hand snipper. Do not share cups, bottles,or other utensils until your symptoms have gone away. Do not smoke. This can help your symptoms and prevent the infection from coming back. If you need help quitting, ask your health care provider. Keep all follow-up visits as told by your health care provider. This is important.Contact a healthcare provider if: You notice large, tender lumps in your neck that were not there before. You have a fever that does not go away after 23 days. You develop a rash. You cough up a green, yellow-brown, or bloody substance. You cannot swallow liquids or food for 24 hours. Only one ofyour tonsils is swollen.Get help right away if: You develop any new symptoms, such as vomiting, severe headache, stiff neck, chest pain, trouble breathing, or trouble swallowing. You have severe throat pain along with drooling or voice changes. You have severe pain that is not controlled withmedicines. You cannot fully open your mouth. You develop redness, swelling, or severe pain anywhere in your neck.Summary Tonsillitis is an infection of the throat that causes the tonsils to become red, tender, and swollen. Tonsillitis may be caused by a virus or bacteria. Rest as much as possible. Get plenty of sleep.This information is not intended to replace advice given to you by your health care provider. Make sure you discuss any questions you have with your health care provider.Document Released: 05/17/2006 Document Revised: 09/12/2017 Document Reviewed: 09/12/2017[employer] Interactive Patient Education ? 2019 [place].04/30/2020 10:05:46Diet Following Tonsillectomy, AdultDiet Following Tonsillectomy, AdultTonsillectomy is surgery to remove the tonsils. After a tonsillectomy, you should eat foods that are gentle on the throat and easy to swallow. This makes recovery easier.Follow the diet guidelines on this sheet for 12 weeks, or until pain from the surgery is completely gone.What are tips for following this plan?In the first 24 hours after surgery: Do not eat anyfood. Do not drink citrus juices or liquids that are cloudy. You may drink liquids that are clear. These include water, chicken broth, and apple juice.After the first 24 hours: Eat only soft foods such as gelatin, pudding, or yogurt. You may drink any liquid except for citrus juices. For example, do not drink orange juice. Do not eat foods that are hard or that have a hard crust, such as toast. Do not eat hot, very salty, spicy, or highly seasoned foods. Do not eat crunchy foods, such as potato chips or pretzels.While you are on this diet: Cut foods into small pieces and chew them well. Drink several glasses of warm water daily. Consider drinking liquid nutritional sup plements, such as protein shakes or meal replacement drinks. Your health care provider can give you recommendations.What foods should I eat?FruitsApplesauce. Bananas. Canned fruit. Watermelon without seeds.VegetablesCooked vegetables. Mashed potatoes.GrainsSoft bread. Waffles or [place] toast without crust and soaked in syrup. Pancakes. Oatmeal or other creamy cereal. Soft, cold cereal soaked in milk.Pasta noodles.Meats and other proteinsHot dogs. Hamburger. Tender, moist meat. Tuna. Scrambled or poached eggs.DairyMilk. Smooth yogurt. Cottage cheese. Processed cheeses.BeveragesMilk. Juices without pulp. Soda without carbonation.Sweets and dessertsCustard. Pudding. Ice cream. Malts. Shakes. Ice pops.Other foodsSoup. Macaroni and cheese. Smooth nut butter, such as smooth peanut butter. Smooth peanut butter and jelly sandwiches without crust.The items listed above may not be a complete list of foods and beverages you can eat. Contact a dietitian for more information.What foods should I avoid?FruitsAll citrus fruits. Most fresh fruits, including oranges, apples, and melon.VegetablesAny raw vegetables.GrainsToast. Crispy waffles. Crunchy, cold cereal. Crackers. Pretzels. Popcorn. Any grain that isdry, hard, or has a hard crust.Meats and other proteinsTough, dry meat. Poultry. Fish. Nuts. Crunchy peanut butter or other crunchy nut butters.BeveragesCitrus juices, such as orange juice or lemonade.Any soda or carbonated beverages.Sweets and dessertsCookies. Any dessert that contains nuts, seeds, or coconut.Other foodsFried foods. Chips. Grilled cheese sandwiches.The items listed above may not mily complete list of foods and beverages to avoid. Contact a dietitian for more information.SummaryA tonsillectomy is a surgery to remove the tonsils. After a tonsillectomy, you should eat foods that are gentle on your throat and easy to swallow. Follow the diet guidelines on this sheet for 1 2 weeks, or until pain from the surgery is completely gone.This information is not intended to replace advice given to you by your health care provider. Make sure you discuss any questions you have with your health care provider.Document Released: 08/07/2006 Document Revised: 07/26/2018 Document Reviewed: 07/26/2018[employer] Interactive Patient Education ? 2019 [employer].04/30/2020 10:05:46Dr. Richards'elizabeth Tonsillectomy & Adenoidectomy Instruction Sheet ([facility]) (Custom) Tonsillectomy & Adenoidectomy Instruction SheetSt Luke Medical CenterPRIOR TO SURGERY:All patients undergoing general anesthesia should have nothing to eat or drink by mouth after midnight prior to the day of surgery. This includes no food, water, candy or gum. If the patient is taking medication please check with the physician or the anesthesiologist to decide if this is to be taken on the morning of surgery. An anesthesiologist will see the patient prior to the procedure and will review the anesthetic procedure and answer any questions.AFTER SURGERY:Fluids- It is important that the patient drinks a lot of fluids after the procedure both for prevention of dehydration and to lessen the discomfort in the throat. Parents of small children may need to be very insistent about their children drinking an adequate amount of fluids. [place] juices are sometimes too acidic and may irritate the throat. Frequent sips and swallowing while awake is beneficial. Eating semi-solid or solid food is fine in addition if the patient wishes this. Typically, cool liquids and soft foods are more comfortable the first one to two days after surgery. After this, warm liquids and foods begin to feel more comfortable.Fever- There will sometimes be a mild elevation in temperature (up to 101.5 degrees Fahrenheit) after surgery. This is of no great concern providing it does not go above 101.5. Sometimes a temperature elevation reflects some degree of dehydration and fluid intake may need to be encouraged.Bleeding- Bleeding after a tonsillectomy may occur occasionally but typically is only of a very minor nature. This will typically be in the 7-10 day period after surgery when the scabs are from the throat. If this should occur, have the patient gargle with ice water and spit this out and, in most cases, the process with resolve. If the bleeding persists please call the office and they will direct you to the doctor time motion analyst. Aspirin affects blood clotting and for this reason should not be given to anyone before or after tonsillectomy.Ear pain- Significant ear pain is to be expected after a tonsillectomy typically appearing at about the fifth day and extending through the ninth day. This is a normal part of the healing process. This is to be treated with either liquid Tylenol or prescribed pain medicine.Pain Management- Your pain management instructions and/or prescriptions will be given after surgery. It is important to remember to take this medication as directed to prevent your pain from becoming unmanageable. These medications may be a combination of both prescriptions and over the counter. The following medications will most likely be ordered, but could be altered based on your individual circumstances.Childrens Ibuprofen (100mg/5ml): Alternate with Acetaminophen every 3 hours according to dosing instructions from Dr. Skelton.Acetaminophen (160mg/5ml): Alternate with Ibuprofen every 3 hours according to dosing instructions from Dr. Skelton.This combination of medication, along with plenty of fluids should help reduce your pain to a reasonable level.Bad Breath- Postoperative tonsillectomy patients may have bad breath and this is produced by healing tissues in the throat and will last up to 10 days. If the parent looks in the patients mouth they may notice a whitish -awan material in the areas where the tonsils were removed. This is the scab and not pus. Gargling with salt water or diluted Hydrogen Peroxide may be soothing to the throat and also help ear pain. Complaints of swollen tongue or diminished taste after surgery are not unusual and should subside.Speechchanges after tonsillectomy and adenoidectomy- There frequently is some degree of speech change in the immediate postoperative period. This usually resolves in several weeks. If this is persisting, please bring this to the doctors attention.Activity after returning home- Patient having tonsillectomy and adenoidectomy may resume reasonable activity as soon as they are capable. There are, however, some carryover effects of the anesthetic the day of surgery and so such activities as riding a bicycleshould be avoided. Children will usually be out of school for at least 10 days after tonsillectomy. Adults may take up to 14 days to recuperate. Adenoidectomy patients may resume full activity the nextday in most cases.Questions- If you have any questions that are not covered in this brochure, pleasecall us at one of the numbers listed below:[place] [facility] or [facility] Office ([phone] there is a nighttime or weekend emergency please contact us through hospital paging at .[facility]03/13/2020 08:20:06With: Problems - call MD during office hoursAddress: UnknownWhen: UnknownWith: Unable to reach MD, call [facility] [place] ([phone])Address: UnknownWhen: UnknownWith: Alen RichardsAddress: [facility] [place] [address]- Business (1)When: 06/12/2020 11:00:00 NameDatesDetailsInstructions not documentedNameDatesDetailsInstructions not documentedNameDatesDetailsInstructions not documented
== END 2020-07-03 06:07 | disposition home or self-care (01) ==
LOC: ER 19:26
DX: R09.89 Other specified symptoms and signs involving the circulatory and respiratory systems (principal); R00.2 Palpitations; R42 Dizziness and giddiness; T16.1XXA Foreign body in right ear, initial encounter; X58.XXXA Exposure to other specified factors, initial encounter; Z88.6 Allergy status to analgesic agent; Z88.5 Allergy status to narcotic agent; Z88.8 Allergy status to other drugs, medicaments and biological substances; Z91.041 Radiographic dye allergy status
CPT/HCPCS: 36415; 71046; 80053; 84443; 84484; 85025; 85379; 93005; 93010; 99285